=== PATIENT | female | born 1940 | race Caucasian/White ===

== ENCOUNTER → 2017-06-24 | Outpatient (CLI) | payer MEDICARE ==
--- NOTE | 2017-06-24 14:39 | MM ---
Reason for exam: clinical finding. History: Patient is postmenopausal, has history of other cancer at age 73, and is nulliparous. Family history of breast cancer in maternal aunt at age 92. Indicated problem(s): pain in both breasts. Physical Findings: Nurse did not find any significant physical abnormalities on exam. MG 3D Diag Mammo W/Cad NAOMI Bilateral CC and MLO view(s) were taken. ML, spot compression CC, and spot compression MLO view(s) were taken of the left breast. No prior studies available for comparison. The breast tissue is heterogeneously dense. This may lower the sensitivity of mammography. Chest port on the left. Grouped calcifications upper outer quadrant left breast middle to posterior depth. Patient not able to tolerate MAG views for which a biopsy is recommended. Additional subareolar focal asymmetry on the left breast which does not persist on additional views. These results were verbally communicated with the patient and result sheet given to the patient on 06/24/17. ASSESSMENT: Suspicious, BI-RAD 4 RECOMMENDATION: Surgical consultation and stereotactic core biopsy of the left breast. Called with mammographic findings and has scheduled an appointment for the patient for 06/28/17 at 1:[address] Sykes. PRELIMINARY REPORT CALLED AND FAXED TO DR. SYKES ON 06/24/17 /TMP.
== END | disposition home or self-care (01) ==
LOC: RADMAMWWP 12:40
PROVIDERS: ATTEND Internal Medicine Hematology & Oncology
DX: N64.4 Mastodynia (principal)
CPT/HCPCS: G0204; G0279

== ENCOUNTER → 2018-11-14 | Outpatient (CLI) | payer MEDICARE ==
--- NOTE | 2018-11-14 15:38 | XR ---
EXAMINATION TYPE: XR chest 2V DATE OF EXAM: 11/14/2018 COMPARISON: Prior chest x-ray 07/09/2016, 05/24/2015 HISTORY: Cough TECHNIQUE: Frontal and lateral views of the chest are obtained. FINDINGS: Port-A-Cath is present in left pectoral region, catheter courses to the level of the juncti on between the superior vena cava and azygos vein. There is again noted a valve replacement and on pr ior exam within the heart There is no focal air space opacity, pleural effusion, or pneumothorax seen . The cardiac silhouette size is stable. The wedge compression deformities at the lower thoracic s pine appear chronic. Eventration of the right hemidiaphragm is noted. Patient is rotated. Aorta is de nse. IMPRESSION: No acute cardiopulmonary process.
== END | disposition home or self-care (01) ==
LOC: RADXRYALE 14:30
PROVIDERS: ATTEND Internal Medicine Hematology & Oncology
DX: R05 Cough (principal)
CPT/HCPCS: 71046

== ENCOUNTER 2020-10-02 20:13 | Inpatient (IN) | payer MEDICARE ==
[2020-10-02] MEDS ORDERED: SODIUM CHLORIDE 0.9% 1,000 ML IV STA ×4 (20:29→23:39)
[2020-10-02] MEDS ORDERED: SODIUM CHLORIDE 0.9% 500 ML 500 ML IV STA ×2 (20:29→23:37)
[2020-10-02 20:30] LABS: Glucose,Whole Blood 169 mg/dL (75-99)
--- NOTE | 2020-10-02 20:30 | ED ---
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 Patient's mildly confused, EMS was called by family member who found patient patient brought to ER with no real significant complaints aside from weakness. Patient does admit to 130s. No pain (Rafael Menendez) - Related Data Home Medications Medication Instructions Recorded Confirmed Atorvastatin [Lipitor] 20 mg PO HS 05/07/16 10/02/20 Furosemide [Lasix] 40 mg PO DAILY 05/07/16 10/02/20 Levothyroxine Sodium [Synthroid] 50 mcg PO TUTH 05/07/16 10/02/20 Pantoprazole [Protonix] 40 mg PO HS 05/07/16 10/02/20 Potassium Chloride ER [K-Dur 20] 20 meq PO DAILY 05/07/16 10/02/20 Warfarin [Coumadin] 5 mg PO SUTUTHSA 05/07/16 10/02/20 Ferrous Sulfate [Feosol] 325 mg PO DAILY 10/02/20 10/02/20 Insulin Detemir [Levemir Flextouch] 10 units SQ HS 10/02/20 10/02/20 Levothyroxine Sodium [Synthroid] 75 mcg PO SUMOWEFRSA 10/02/20 10/02/20 Metoprolol Tartrate [Lopressor] 50 mg PO BID 10/02/20 10/02/20 Polyethylene Glycol 3350 [Miralax] 17 gm PO DAILY PRN 10/02/20 10/02/20 Warfarin [Coumadin] 2.5 mg PO MOWEFR 10/02/20 10/02/20 sitaGLIPtin [Januvia] 50 mg PO DAILY 10/02/20 10/02/20 traMADol HCL 50 mg PO Q6H PRN 10/02/20 10/02/20 Allergies Allergy/AdvReac Type Severity Reaction Status Date / Time No Known Allergies Allergy Verified 10/02/20 21:47 Review of Systems ROS Other: All systems not noted in ROS Statement are negative. <Dl Gonzalez - Last Filed: 10/03/20 02:03> ROS Other: All systems not noted in ROS Statement are negative. <Rafael Menendez - Last Filed: 10/03/20 15:39> ROS Statement: Those systems with pertinent positive or pertinent negative responses have been documented in the HPI. 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 Right rotator cuff. Aortic valve replacement Past Anesthesia/Blood Transfusion Reactions: No Reported Reaction Past Psychological History: No Psychological Hx Reported Past Alcohol Use History: Rare Past Drug Use History: None Reported <Rafael Menendez - Last Filed: 10/03/20 15:39> General Exam Limitations: no limitations General appearance: alert, anxious, in distress Head exam: Present: atraumatic, normocephalic, normal inspection Eye exam: Present: normal appearance, PERRL, EOMI. Absent: scleral icterus, conjunctival injection, periorbital swelling ENT exam: Present: normal exam, mucous membranes dry Neck exam: Present: normal inspection. Absent: tenderness, meningismus, lympha denopathy Respiratory exam: Present: normal lung sounds bilaterally. Absent: respiratory distress, wheezes, rales, rhonchi, stridor Cardiovascular Exam: Present: normal rhythm, bradycardia, normal heart sounds. Absent: systolic murmur, diastolic murmur, rubs, gallop, clicks GI/Abdominal exam: Present: soft, normal bowel sounds. Absent: distended, tenderness, guarding, rebound, rigid Extremities exam: Present: normal inspection, full ROM, normal capillary refill. Absent: tenderness, pedal edema, joint swelling, calf tenderness Back exam: Present: normal inspection Neurological exam: Present: alert, altered, CN II-XII intact Psychiatric exam: Present: normal affect, normal mood, depressed, flat affect Skin exam: Present: warm, dry, intact, normal color. Absent: rash <Rafael Menendez - Last Filed: 10/03/20 15:39> Course <Dl Gonzalez - Last Filed: 10/03/20 02:03> <Rafael Menendez - Last Filed: 10/03/20 15:39> Vital Signs 10/02/20 10/02/20 10/02/20 20:14 21:50 22:04 Temperature 97.3 F L Pulse Rate 57 L 195 H 78 Respiratory 18 16 16 Rate Blood Pressure 120/107 84/38 88/36 O2 Sat by Pulse 95 98 96 Oximetry 10/02/20 10/02/20 10/02/20 22:30 23:00 23:30 Temperature Pulse Rate 73 78 65 Respiratory 16 18 Rate Blood Pressure 67/34 78/33 77/33 O2 Sat by Pulse 98 98 98 Oximetry 10/03/20 10/03/20 10/03/20 00:00 00:29 00:45 Temperature 97.5 F L Pulse Rate 68 Respiratory 18 Rate Blood Pressure 84/37 96/46 O2 Sat by Pulse 97 Oximetry 10/03/20 10/03/20 10/03/20 01:01 01:35 02:00 Temperature Pulse Rate 69 65 Respiratory 18 16 Rate Blood Pressure 88/36 79/32 110/44 O2 Sat by Pulse 95 100 Oximetry 10/03/20 10/03/20 10/03/20 03:30 05:30 06:20 Temperature Pulse Rate 53 L 58 L 63 Respiratory 18 18 16 Rate Blood Pressure 115/36 108/37 101/41 O2 Sat by Pulse 99 99 99 Oximetry 10/03/20 10/03/20 10/03/20 06:38 06:45 07:00 Temperature Pulse Rate 60 Respiratory 16 Rate Blood Pressure 102/35 105/39 112/37 O2 Sat by Pulse 99 Oximetry 10/03/20 10/03/2010/03/20 08:00 12:00 12:42 Temperature 98 F Pulse Rate 70 51 L 60 Respiratory 18 18 18 Rate Blood Pressure 116/57 111/37 120/42 O2 Sat by Pulse 98 100 98 Oximetry 10/03/20 14:00 Temperature Pulse Rate 57 L Respiratory 18 Rate Blood Pressure 128/40 O2 Sat by Pulse 100 Oximetry - Reevaluation(s) Reevaluation #1: 10/03/20 02:04 This patient had been admitted by Dr. Villa. Nursing informed me that the patient continued with intermittent hypotension despite his initial fluid bolus, I did order pressor to begin using the central line that Dr. Menendez Had placed. I did page Dr. Gutierrez and ordered consult (Dl Gonzalez) Medical record is reviewed Patient is showing some improvement with fluid resuscitation but still having labile blood pressure Patient admitted ICU for severe illness, rhabdomyolysis acute renal failure dehydration and pneumonia Patient updated and results and questions answered (Rafael Menendez) Medical Decision Making - Lab Data Result diagrams: 10/02/20 22:15 10/02/20 22:15 <Dl Gonzalez - Last Filed: 10/03/20 02:03> - Lab Data Result diagrams: 10/02/20 22:15 10/02/20 22:15 - EKG Data -: EKG Interpreted by Me (EKG shows rate 82 junctional, QRS 92 QRc 483) - Radiology Data Radiology results: report reviewed (CT brain C spine negative for acute disaese, CXR positive for pneumonia), image reviewed <Rafael Menendez - Last Filed: 10/03/20 15:39> - Medical Decision Making 79 female to the ED w weakness and fall, patient found down and unable to get up, a she has multiple findings here in the ER, rhabdomyolysis can be required pneumonia labile blood pressure with weakness and dehydration. Patient can be admitted for IV antibiotics and resuscitation (Rafael Menendez) - Lab Data Lab Results 10/02/20 10/02/20 10/02/20 Range/Units 20:28 20:29 22:15 WBC 10.6 (3.8-10.6) k/uL RBC 4.08 (3.80-5.40) m/uL Hgb 10.6 L D (11.4-16.0) gm/dL Hct 34.7 (34.0-46.0) % MCV 84.9 D (80.0-100.0) fL MCH 26.0 (25.0-35.0) pg MCHC 30.6 L (31.0-37.0) g/dL RDW 21.7 H (11.5-15.5) % Plt Count 381 (150-450) k/uL MPV 7.2 Neutrophils % 95 % Lymphocytes % 2 % Monocytes % 2 % Eosinophils % 0 % Basophils % 0 % Neutrophils # 10.1 H (1.3-7.7) k/uL Lymphocytes # 0.2 L (1.0-4.8) k/uL Monocytes # 0.2 (0-1.0) k/uL Eosinophils # 0.0 (0-0.7) k/uL Basophils # 0.0 (0-0.2) k/uL Hypochromasia Marked Anisocytosis Moderate Microcytosis Slight PT 85.2 H (9.0-12.0) sec INR 8.2 H* (<1.2) Sodium (137-145) mmol/L Potassium (3.5-5.1) mmol/L Chloride (98-107) mmol/L Carbon Dioxide (22-30) mmol/L Anion Gap mmol/L BUN (7-17) mg/dL Creatinine (0.52-1.04) mg/dL Est GFR (CKD-EPI)AfAm (>60 ml/min/1.73 sqM) Est GFR (CKD-EPI)NonAf (>60 ml/min/1.73 sqM) Glucose (74-99) mg/dL POC Glucose (mg/dL) 169 H (75-99) mg/dL POC Glu Care Coordination Manager ID Lata Farr Lactic Ac Sepsis Rflx Plasma Lactic Acid Ajay (0.7-2.0) mmol/L Calcium (8.4-10.2) mg/dL Phosphorus (2.5-4.5) mg/dL Total Bilirubin (0.2-1.3) mg/dL AST (14-36) U/L ALT (4-34) U/L Alkaline Phosphatase (38-126) U/L Creatine Kinase (30-135) U/L Troponin I (0.000-0.034) ng/mL NT-Pro-B Natriuret Pep pg/mL Total Protein (6.3-8.2) g/dL Albumin (3.5-5.0) g/dL 10/02/20 10/02/20 10/02/20 Range/Units 22:15 22:15 22:15 WBC (3.8-10.6) k/uL RBC (3.80-5.40) m/uL Hgb (11.4-16.0) gm/dL Hct (34.0-46.0) % MCV (80.0-100.0) fL MCH (25.0-35.0) pg MCHC (31.0-37.0) g/dL RDW (11.5-15.5) % Plt Count (150-450) k/uL MPV Neutrophils % % Lymphocytes % % Monocytes % % Eosinophils % % Basophils % % Neutrophils # (1.3-7.7) k/uL Lymphocytes # (1.0-4.8) k/uL Monocytes # (0-1.0) k/uL Eosinophils # (0-0.7) k/uL Basophils # (0-0.2) k/uL Hypochromasia Anisocytosis Microcytosis PT (9.0-12.0) sec INR (<1.2) Sodium 133 L (137-145) mmol/L Potassium 5.8 H (3.5-5.1) mmol/L Chloride 99 (98-107) mmol/L Carbon Dioxide 18 L (22-30) mmol/L Anion Gap 16 mmol/L BUN 92 H (7-17) mg/dL Creatinine 4.48 H (0.52-1.04) mg/dL Est GFR (CKD-EPI)AfAm 10 (>60 ml/min/1.73 sqM) Est GFR (CKD-EPI)NonAf 9 (>60 ml/min/1.73 sqM) Glucose 148 H (74-99) mg/dL POC Glucose (mg/dL) (75-99) mg/dL POC Glu Care Coordination Manager ID Lactic Ac Sepsis Rflx Plasma Lactic Acid Ajay 4.7 H* (0.7-2.0) mmol/L Calcium 8.1 L (8.4-10.2) mg/dL Phosphorus 9.7 H* (2.5-4.5) mg/dL Total Bilirubin 1.0 (0.2-1.3) mg/dL AST 650 H (14-36) U/L ALT 196 H (4-34) U/L Alkaline Phosphatase 131 H (38-126) U/L Creatine Kinase 48025 H* (30-135) U/L Troponin I 0.074 H* (0.000-0.034) ng/mL NT-Pro-B Natriuret Pep pg/mL Total Protein 5.9 L (6.3-8.2) g/dL Albumin 2.9 L (3.5-5.0) g/dL 10/02/20 10/02/20 Range/Units 22:15 22:44 WBC (3.8-10.6) k/uL RBC (3.80-5.40) m/uL Hgb (11.4-16.0) gm/dL Hct (34.0-46.0) % MCV (80.0-100.0) fL MCH (25.0-35.0) pg MCHC (31.0-37.0) g/dL RDW (11.5-15.5) % Plt Count (150-450) k/uL MPV Neutrophils % % Lymphocytes % % Monocytes % % Eosinophils % % Basophils % % Neutrophils # (1.3-7.7) k/uL Lymphocytes # (1.0-4.8) k/uL Monocytes # (0-1.0) k/uL Eosinophils # (0-0.7) k/uL Basophils # (0-0.2) k/uL Hypochromasia Anisocytosis Microcytosis PT (9.0-12.0) sec INR (<1.2) Sodium (137-145) mmol/L Potassium (3.5-5.1) mmol/L Chloride (98-107) mmol/L Carbon Dioxide (22-30) mmol/L Anion Gap mmol/L BUN (7-17) mg/dL Creatinine (0.52-1.04) mg/dL Est GFR (CKD-EPI)AfAm (>60 ml/min/1.73 sqM) Est GFR (CKD-EPI)NonAf (>60 ml/min/1.73 sqM) Glucose (74-99) mg/dL POC Glucose (mg/dL) (75-99) mg/dL POC Glu Care Coordination Manager ID Lactic Ac Sepsis Rflx Y Plasma Lactic Acid Ajay (0.7-2.0) mmol/L Calcium (8.4-10.2) mg/dL Phosphorus (2.5-4.5) mg/dL Total Bilirubin (0.2-1.3) mg/dL AST (14-36) U/L ALT (4-34) U/L Alkaline Phosphatase (38-126) U/L Creatine Kinase (30-135) U/L Troponin I (0.000-0.034) ng/mL NT-Pro-B Natriuret Pep 7290 pg/mL Total Protein (6.3-8.2) g/dL Albumin (3.5-5.0) g/dL Critical Care Time Critical Care Time: Yes Total Critical Care Time: 31 <Rafael Menendez - Last Filed: 10/03/20 15:39> Disposition <Dl Gonzalez - Last Filed: 10/03/20 02:03> Is patient prescribed a controlled substance at d/c from ED?: No <Rafael Menendez - Last Filed: 10/03/20 15:39> Clinical Impression: Fall, Weak, Community acquired bacterial pneumonia, ARF (acute renal failure), Dehydration, Rhabdomyolysis Disposition: ADMITTED IP TO THIS HOSP Condition: Fair
--- NOTE | 2020-10-02 21:11 | XR ---
EXAMINATION TYPE: XR pelvis AP view DATE OF EXAM: 10/02/2020 COMPARISON: NONE HISTORY: Pain. Fall. TECHNIQUE: FINDINGS: Pelvic ring is intact. Proximal femurs and hip joints are intact. Hip joint spaces are fair ly normal. Sacroiliac joints are intact. There is some vascular calcification. IMPRESSION: No acute abnormality of the pelvis.
--- NOTE | 2020-10-02 21:20 | XR ---
EXAMINATION TYPE: XR chest 1V DATE OF EXAM: 10/02/2020 COMPARISON: 11/14/2018 HISTORY: Fall. Pain. TECHNIQUE: Single view FINDINGS: There is some infiltrate left lung base. There is left-sided central venous catheter with t ip in the superior vena cava. Right lung is clear. Heart size is normal. There are no hilar masses. IMPRESSION: There is some mild pneumonia left lung base that appears new compared to old exam. No hea rt failure seen.
[2020-10-02] MEDS ORDERED: DEXTROSE 50% SYRINGE 50 ML IVP STA (21:43)
[2020-10-02] MEDS ORDERED: CALCIUM CHLORIDE 100 MG/ML 10 ML SYRINGE IVP STA (21:43)
[2020-10-02] MEDS ORDERED: SODIUM BICARB 8.4% 50 ML SYR (1 MEQ/ML) IV STA (21:43)
[2020-10-02] MEDS ORDERED: INSULIN REGULAR 100 UNIT/ML VIAL IV ONE (21:43)
[2020-10-02 22:26] LABS: Anisocytosis Moderate; Basophils % (A) 0 %; Eosinophils % (A) 0 %; HCT 34.7 % (34.0-46.0); Hypochromasia Marked; Lymphocytes # (A) 0.2 k/uL (1.0-4.8); Lymphocytes % (A) 2 %; MCHC 30.6 g/dL (31.0-37.0); Mean Platelet Volume 7.2; Microcytosis Slight; Monocytes # (A) 0.2 k/uL (0-1.0); Monocytes % (A) 2 %; Neutrophils # (A) 10.1 k/uL (1.3-7.7); Neutrophils % (A) 95 %; Platelet Count 381 k/uL (150-450); RBC 4.08 m/uL (3.80-5.40); RDW 21.7 % (11.5-15.5); WBC 10.6 k/uL (3.8-10.6)
[2020-10-02 22:29] LABS: HGB 10.6 gm/dL (11.4-16.0); MCV 84.9 fL (80.0-100.0)
--- NOTE | 2020-10-02 23:07 | CT ---
EXAMINATION TYPE: CT brain ines bull[place] DATE OF EXAM: 10/02/2020 COMPARISON: None HISTORY: fall Headache. Neck pain CT DLP: 1389.10 mGycm Automated exposure control for dose reduction was used. There is cerebral atrophy. There is hypodensity in the periventricular white matter. There is no mass effect nor midline shift. There is no sign of intracranial hemorrhage. There is mild enlargement of the ventricles. Calvarium is intact. There is hyperostosis frontalis. There is some cortical hypodens ity in the inferior left frontal lobe. There is a few millimeter anterior subluxation of C4 in relation to C5. There is multilevel cervical facet arthropathy in the mid cervical spine. There is narrowing of C3-4 and C6-7 disc spaces with spu r formation. There is some widening of the facet joint space at C4-5 on the left side with erosion. IMPRESSION: Cerebral atrophy and chronic small vessel ischemia. No acute intracranial abnormality. 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 Spondylotic changes in the cervical spine. No fracture seen. There is a mild c 4 5 subluxation deform ity that is probably chronic.
[2020-10-02 23:09] LABS: Prothrombin Time 85.2 sec (9.0-12.0)
[2020-10-02 23:11] LABS: INR 8.2 (<1.2)
[2020-10-02 23:20] LABS: Albumin 2.9 g/dL (3.5-5.0); Calcium 8.1 mg/dL (8.4-10.2); Potassium 5.8 mmol/L (3.5-5.1); Total Protein 5.9 g/dL (6.3-8.2)
[2020-10-02] MEDS ORDERED: NITROGLYCERIN SL TABS 0.4 MG TAB SUBLINGUAL PRN (23:23)
[2020-10-02] MEDS ORDERED: ASPIRIN 81 MG PO STA (23:23)
[2020-10-02] MEDS ORDERED: PNEUMONIA PROTOCOL UTILIZED 1 EACH MISC PO PRN (23:35)
[2020-10-02] MEDS ORDERED: AZITHROMYCIN 500 MG in SODIUM CHLORIDE 0.9% 250 ML IVPB STA (23:35)
[2020-10-02] MEDS ORDERED: IPRATROPIUM-ALBUTEROL 3 ML NEB INHALATION PRN (23:35)
[2020-10-02] MEDS ORDERED: HYDROCORTISONE SUCCINATE 100 MG/2 ML VIAL IV STA (23:41)
[2020-10-03 00:29] LABS: Phosphorus 9.7 mg/dL (2.5-4.5)
[2020-10-03 00:30] LABS: Glucose,Whole Blood 134 mg/dL (75-99)
[2020-10-03] MEDS: SODIUM CHLORIDE 0.9% 1,000 ML IV SCH ×7 (00:41→20:02)
[2020-10-03] MEDS ORDERED: NOREPINEPHRINE 8 MG in SODIUM CHLORIDE 0.9% 250 ML IV ONE (01:30)
[2020-10-03 02:32] LABS: Appearance,Urine Clear (Clear); Bacteria,Urine Rare /hpf; Bilirubin,Urine Negative (Negative); Blood,Urine Large (Negative); Color,Urine Yellow; Glucose,Urine (UA) Negative (Negative); Ketones,Urine Negative (Negative); Leukocyte Esterase,Urine Negative (Negative); Nitrite,Urine Negative (Negative); PH, Urine 5.5 (5.0-8.0); Protein,Urine Trace (Negative); Specific Gravity,Urine 1.013 (1.001-1.035); Urobilinogen,Urine <2.0 mg/dL (<2.0); WBC,Urine 1 /hpf (0-5)
[2020-10-03 06:39] LABS: Cholesterol 122 mg/dL (<200); HDL Cholesterol 47 mg/dL (40-60); LDL Cholesterol,Calculated 57 mg/dL (0-99); Triglycerides 89 mg/dL (<150)
--- NOTE | 2020-10-03 07:28 | XR ---
EXAMINATION TYPE: XR chest 1V DATE OF EXAM: 10/03/2020 HISTORY: Shortness of breath. COMPARISON: 10/02/2020 TECHNIQUE: Single view of the chest is submitted. FINDINGS: Demonstrated are scattered senescent parenchymal change. Left lower lobe infiltrate is noted and has progressed in the interval. The heart is stable. Hilar and mediastinal structures are within normal limits. Degenerative changes are seen of the dorsal spine. IMPRESSION: 1. Left lower lobe infiltrate is noted and has progressed in the interval.
[2020-10-03] MEDS: METOPROLOL TARTRATE 25 MG TAB PO SCH ×2 (13:51→20:01)
[2020-10-03 15:20] LABS: Prothrombin Time 87.3 sec (9.0-12.0)
[2020-10-03 15:23] LABS: INR 8.4 (<1.2)
[2020-10-03] MEDS: ASPIRIN 325 MG TAB PO SCH (16:41)
[2020-10-03] MEDS: ATORVASTATIN 80 MG TAB PO SCH (16:42)
--- NOTE | 2020-10-03 17:02 | P.CNPUL ---
History of Present Illness Consult date: 10/03/20 Requesting physician: Jignesh Arias Reason for consult: other (Acute rhabdomyolysis, acute on chronic kidney injury) Chief complaint: Falling weak, found on the ground History of present illness: This is an 79-year-old white female, she is a very poor historian, patient had history of multiple medical problems including duodenal ulcer, and recent history of upper GI bleeding, patient was supposedly admitted to the hospital in [facility], she was in the hospital supposedly for 3 weeks. She was eventually discharged, and apparently at the time she had a very low hemoglobin, required significant amount of blood transfusion. Yesterday, the patient apparently fell at home, and she was found on the ground laying for the last 2 days. Patient was confused, EMS was called by family member who found the patient on the floor, patient was brought in complaining mostly of weakness, and some vague aches and pains. Workup included a CBC which showed a hemoglobin of 10.6. INR was noted to be elevated at 8.2, electrolytes are abnormal with sodium of 133 potassium of 5.8, BUN is 92 creatinine is 4.48, and her baseline creatinine is normally around 2. Lactic acid was noted to be at 4.7, patient was given fluid boluses, and follow-up lactic acid was 1.8. Liver enzymes were also noted to be elevated with AST of 650 ALT of 196. And his CPK was significantly elevated at 13,769. Troponin was also elevated at 0.074, BNP level 7290. Patient was able to maintain O2 saturations in the 100% range even on 2 L nasal cannula. Her blood pressure was initially low on admission as low as 67/54, patient received fluid boluses, and after 3 L of fluid boluses, remained at bit low, patient was started on norepinephrine drip. When I saw her in the ER, her norepinephrine drip was at 0.072 mcg/kg/m. And her blood pressure at the time was 108/40. Review of Systems Patient is an extremely poor historian, could not get much information except for the fact that she was in [facility] in the hospital were in she was diagnosed with the was an ulcer, she had significant anemia and required blood transfusion and treatment for her duodenal ulcer. She was inpatient for 3 weeks supposedly. 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 Right rotator cuff. Aortic valve replacement Past Anesthesia/Blood Transfusion Reactions: No Reported Reaction Past Psychological History: No Psychological Hx Reported Past Alcohol Use History: Rare Past Drug Use History: None Reported Medications and Allergies Home Medications Medication Instructions Recorded Confirmed Type Atorvastatin [Lipitor] 20 mg PO HS 05/07/16 10/02/20 History Furosemide [Lasix] 40 mg PO DAILY 05/07/16 10/02/20 History Levothyroxine Sodium [Synthroid] 50 mcg PO TUTH 05/07/16 10/02/20 History Pantoprazole [Protonix] 40 mg PO HS 05/07/16 10/02/20 History Potassium Chloride ER [K-Dur 20] 20 meq PO DAILY 05/07/16 10/02/20 History Warfarin [Coumadin] 5 mg PO SUTUTHSA 05/07/16 10/02/20 History Ferrous Sulfate [Feosol] 325 mg PO DAILY 10/02/20 10/02/20 History Insulin Detemir [Levemir Flextouch] 10 units SQ HS 10/02/20 10/02/20 History Levothyroxine Sodium [Synthroid] 75 mcg PO SUMOWEFRSA 10/02/20 10/02/20 History Metoprolol Tartrate [Lopressor] 50 mg PO BID 10/02/20 10/02/20 History Polyethylene Glycol 3350 [Miralax] 17 gm PO DAILY PRN 10/02/20 10/02/20 History Warfarin [Coumadin] 2.5 mg PO MOWEFR 10/02/20 10/02/20 History sitaGLIPtin [Januvia] 50 mg PO DAILY 10/02/20 10/02/20 History traMADol HCL 50 mg PO Q6H PRN 10/02/20 10/02/20 History Allergies Allergy/AdvReac Type Severity Reaction Status Date / Time No Known Allergies Allergy Verified 10/02/20 21:47 Physical Exam Vitals: Vital Signs Temp Pulse Resp BP Pulse Ox 10/03/20 16:00 77 18 114/41 98 10/03/20 15:39 76 20 113/37 92 L 10/03/20 14:00 57 L 18 128/40 100 10/03/20 12:42 60 18 120/42 98 10/03/20 12:00 51 L 18 111/37 100 10/03/20 11:00 60 18 108/40 100 10/03/20 08:00 98 F 70 18 116/57 98 10/03/20 07:00 60 16 112/37 99 10/03/20 06:45 105/39 10/03/20 06:38 102/35 10/03/20 06:20 63 16 101/41 99 10/03/20 05:30 58 L 18 108/37 99 10/03/20 03:30 53 L 18 115/36 99 10/03/20 02:00 65 16 110/44 100 10/03/20 01:35 69 18 79/32 95 10/03/20 01:01 88/36 10/03/20 00:45 96/46 10/03/20 00:29 97.5 F L 10/03/20 00:00 68 18 84/37 97 10/02/20 23:30 65 18 77/33 98 10/02/20 23:00 78 78/33 98 10/02/20 22:30 73 16 67/34 98 10/02/20 22:04 78 16 88/36 96 10/02/20 21:50 195 H 16 84/38 98 10/02/20 20:14 97.3 F L 57 L 18 120/107 95 Intake and Output 10/03/20 10/03/20 10/03/20 06:59 14:59 22:59 Intake Total 43.394 Balance 43.394 Intake: Intake, IV Titration 43.394 Amount Norepinephrine 8 mg In 43.394 Sodium Chloride 0.9% 250 ml @ 0.05 MCG/KG/MIN 8. 426 mls/hr IV .Q24H ONE Rx#:[id number] Physical Exam: Revealed 79-year-old female, obese, in no distress. Head: Atraumatic, normocephalic. HEENT:[Neck is supple.] [No neck masses.] [No thyromegaly.] [No JVD.] Chest: [Symmetrical chest expansion, minimal crackles at the bases especially at the left base. Cardiac Exam: Normal S1 and S2, no S3 gallop. 2/6 systolic murmur throughout the precordium. Abdomen: [Obese, Soft, nontender, no megaly, no rebound, no guarding, normal bowel sounds.] Extremities: [No clubbing, no edema, no cyanosis.] Right lower extremity is wrapped with William bandage, and immobilized. Neurological Exam: [No focal neurologic deficit.] However the patient is dated to be a bit confused. And could not get adequate history. Skin: No rashes. Psychiatric: Normal mood, flat affect, Results - Laboratory Findings CBC and BMP: 10/02/20 22:15 10/02/20 22:15 PT/INR, D-dimer PT 87.3 sec (9.0-12.0) H 10/03/20 14:35 INR 8.4 (<1.2) H* 10/03/20 14:35 Abnormal lab findings: Abnormal Labs 10/02/20 10/02/20 10/02/20 20:28 20:29 22:15 Hgb 10.6 L D MCHC 30.6 L RDW 21.7 H Neutrophils # 10.1 H Lymphocytes # 0.2 L PT 85.2 H INR 8.2 H* Sodium Potassium Carbon Dioxide BUN Creatinine Glucose POC Glucose (mg/dL) 169 H Plasma Lactic Acid Ajay Calcium Phosphorus AST ALT Alkaline Phosphatase Creatine Kinase Troponin I Total Protein Albumin Urine Protein Urine Blood Urine Bacteria 10/02/20 10/02/20 10/02/20 22:15 22:15 22:15 Hgb MCHC RDW Neutrophils # Lymphocytes # PT INR Sodium 133 L Potassium 5.8 H Carbon Dioxide 18 L BUN 92 H Creatinine 4.48 H Glucose 148 H POC Glucose (mg/dL) Plasma Lactic Acid Ajay 4.7 H* Calcium 8.1 L Phosphorus 9.7 H* AST 650 H ALT 196 H Alkaline Phosphatase 131 H Creatine Kinase 77579 H* Troponin I 0.074 H* Total Protein 5.9 L Albumin 2.9 L Urine Protein Urine Blood Urine Bacteria 10/03/20 10/03/20 10/03/20 00:23 00:37 02:20 Hgb MCHC RDW Neutrophils # Lymphocytes # PT INR Sodium Potassium Carbon Dioxide BUN Creatinine Glucose POC Glucose (mg/dL) 134 H Plasma Lactic Acid Ajay Calcium Phosphorus AST ALT Alkaline Phosphatase Creatine Kinase Troponin I 0.068 H* Total Protein Albumin Urine Protein Trace H Urine Blood Large H Urine Bacteria Rare H 10/03/20 10/03/20 05:05 14:35 Hgb MCHC RDW Neutrophils # Lymphocytes # PT 87.3 H INR 8.4 H* Sodium Potassium Carbon Dioxide BUN Creatinine Glucose POC Glucose (mg/dL) Plasma Lactic Acid Ajay Calcium Phosphorus AST ALT Alkaline Phosphatase Creatine Kinase Troponin I 0.070 H* Total Protein Albumin Urine Protein Urine Blood Urine Bacteria - Diagnostic Findings Chest x-ray: image reviewed (Chest x-ray is suggestive of left lower lobe pneumonia.) Assessment and Plan Assessment: Impression: Acute rhabdomyolysis secondary to fall. With significantly elevated CPK. Acute on chronic kidney injury Acute left lower lobe pneumonia is strongly suspected Sepsis and septic shock also suspected. Likely source would be pneumonia/left lower lobe. Hypotension secondary to sepsis and septic shock. History of aortic valve replacement. Coumadin related coagulopathy. Recent history of duodenal ulcer and GI bleeding Recommendation: Continue to hold Coumadin since the INR is significantly elevated. Continue IV fluids. Antibiotics for healthcare associated pneumonia. Renal consultation for her acute on chronic kidney injury. Protonix for GI prophylaxis, patient had a recent history of duodenal ulcer. Cardiology to evaluate regarding the issue of her aortic valve and Coumadin. Will accept the patient to be admitted to the ICU. Prognosis is extremely poor and guarded. We'll continue to follow. Time with Patient: Greater than 30
--- NOTE | 2020-10-03 20:23 | P.HPIM ---
History of Present Illness This is a pleasant 79 years old female with past medical history of hypertension, chronic kidney disease, she is to follow up with Dr. Pedersen but she stopped earlier this year because of insurance problems. History of heart surgery at January or March of this year at [facility] [place] [facility] [place] valve. Also she has history of right leg fracture at the ankle, she has right leg cast placed at the hospital in [place] She presents because she fell at home, she was in her bedroom but she does not know how she fell but she confirms she did not lose consciousness, Patient states also she has coughing with yellow phlegm but this is chronic as per patient, no chest pain. No nausea vomiting or diarrhea, no bleeding. She is not on oxygen at home. Vitas looks stable, patient is saturating 98% on 2 L oxygen via nasal cannula CBC showing WBC 10.6 K, hemoglobin 10.6, platelet normal at 381K. INR is 8.4, sodium 133, potassium 5.8, creatinine 4.4 with baseline 2.1-2.0 [place] [address] on admission, liver enzymes slightly elevated with AST 650 and ALT 196, total protein is 1.0. ProBNP 7290 Chest x-ray showing progressive left lower lobe pneumonia. 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 And of the neck showing spondylitic changes in the cervical spine. No fracture. There is mild C4 5 subluxation deformity that is probably chronic Pelvic x-ray: No fracture In the emergency room patient received 2.5 L, cocktail for hyperkalemia and closing calcium chloride, insulin/dextrose, sodium bicarb. Also received aspirin 324 mg Review of Systems CONSTITUTIONAL: No fever, no malaise, no fatigue. HEENT: No recent visual problems or hearing problems. Denied any sore throat. CARDIOVASCULAR: No orthopnea, PND, no palpitations, no syncope. PULMONARY: No shortness of breath, no cough, no hemoptysis. GASTROINTESTINAL: No diarrhea, no nausea, no vomiting, no abdominal pain. Normoactive bowel sounds. NEUROLOGICAL: No headaches, no weakness, no numbness. HEMATOLOGICAL: Denies any bleeding or petechiae. GENITOURINARY: Denies any burning micturition, frequency, or urgency. MUSCULOSKELETAL/RHEUMATOLOGICAL: Denies any joint pain, swelling, or any muscle pain. ENDOCRINE: Denies any polyuria or polydipsia. 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 Right rotator cuff. Aortic valve replacement Past Anesthesia/Blood Transfusion Reactions: No Reported Reaction Past Psychological History: No Psychological Hx Reported Past Alcohol Use History: Rare Past Drug Use History: None Reported Medications and Allergies Home Medications Medication Instructions Recorded Confirmed Type Atorvastatin [Lipitor] 20 mg PO HS 05/07/16 10/02/20 History Furosemide [Lasix] 40 mg PO DAILY 05/07/16 10/02/20 History Levothyroxine Sodium [Synthroid] 50 mcg PO TUTH 05/07/16 10/02/20 History Pantoprazole [Protonix] 40 mg PO HS 05/07/16 10/02/20 History Potassium Chloride ER [K-Dur 20] 20 meq PO DAILY 05/07/16 10/02/20 History Warfarin [Coumadin] 5 mg PO SUTUTHSA 05/07/16 10/02/20 History Ferrous Sulfate [Feosol] 325 mg PO DAILY 10/02/20 10/02/20 History Insulin Detemir [Levemir Flextouch] 10 units SQ HS 10/02/20 10/02/20 History Levothyroxine Sodium [Synthroid] 75 mcg PO SUMOWEFRSA 10/02/20 10/02/20 History Metoprolol Tartrate [Lopressor] 50 mg PO BID 10/02/20 10/02/20 History Polyethylene Glycol 3350 [Miralax] 17 gm PO DAILY PRN 10/02/20 10/02/20 History Warfarin [Coumadin] 2.5 mg PO MOWEFR 10/02/20 10/02/20 History sitaGLIPtin [Januvia] 50 mg PO DAILY 10/02/20 10/02/20 History traMADol HCL 50 mg PO Q6H PRN 10/02/20 10/02/20 History Allergies Allergy/AdvReac Type Severity Reaction Status Date / Time No Known Allergies Allergy Verified 11/25/20 21:47 Physical Exam Vitals: Vital Signs Temp Pulse Resp BP Pulse Ox 10/03/20 08:00 98 F 70 18 116/57 98 10/03/20 07:00 60 16 112/37 99 10/03/20 06:45 105/39 10/03/20 06:38 102/35 10/03/20 06:20 63 16 101/41 99 10/03/20 05:30 58 L 18 108/37 99 10/03/20 03:30 53 L 18 115/36 99 10/03/20 02:00 65 16 110/44 100 10/03/20 01:35 69 18 79/32 95 10/03/20 01:01 88/36 10/03/20 00:45 96/46 10/03/20 00:29 97.5 F L 10/03/20 00:00 68 18 84/37 97 10/02/20 23:30 65 18 77/33 98 10/02/20 23:00 78 78/33 98 10/02/20 22:30 73 16 67/34 98 10/02/20 22:04 78 16 88/36 96 10/02/20 21:50 195 H 16 84/38 98 10/02/20 20:14 97.3 F L 57 L 18 120/107 95 Intake and Output 10/02/20 10/03/20 10/03/20 22:59 06:59 14:59 Intake Total 43.394 Output Total 1800 Balance -1800 43.394 Intake: Intake, IV Titration 43.394 Amount Norepinephrine 8 mg In 43.394 Sodium Chloride 0.9% 250 ml @ 0.05 MCG/KG/MIN 8. 426 mls/hr IV .Q24H ONE Rx#:[id number] Output: Urine 1800 Uretheral ([place]) 1800 Other: Weight 87.09 kg GENERAL: The patient is alert and oriented x3, not in any acute distress. Well developed, well nourished. HEENT: Pupils are round and equally reacting to light. EOMI. No scleral icterus. No conjunctival pallor. Normocephalic, atraumatic. No pharyngeal erythema. No thyromegaly. CARDIOVASCULAR: S1 and S2 present. No murmurs, rubs, or gallops. PULMONARY: Chest is clear to auscultation, no wheezing or crackles. ABDOMEN: Soft, nontender, nondistended, normoactive bowel sounds. No palpable organomegaly. MUSCULOSKELETAL: No joint swelling or deformity. -EXTREMITIES: No cyanosis, clubbing, or pedal edema. Right leg and cast NEUROLOGICAL: Gross neurological examination did not reveal any focal deficits. SKIN: No rashes. No petechiae Results CBC & Chem 7: 10/02/20 22:15 10/02/20 22:15 Labs: Abnormal Lab Results - Last 24 Hours (Table) 10/02/20 10/02/20 10/02/20 Range/Units 20:28 20:29 22:15 Hgb 10.6 L D (11.4-16.0) gm/dL MCHC 30.6 L (31.0-37.0) g/dL RDW 21.7 H (11.5-15.5) % Neutrophils # 10.1 H (1.3-7.7) k/uL Lymphocytes # 0.2 L (1.0-4.8) k/uL PT 85.2 H (9.0-12.0) sec INR 8.2 H* (<1.2) Sodium (137-145) mmol/L Potassium (3.5-5.1) mmol/L Carbon Dioxide (22-30) mmol/L BUN (7-17) mg/dL Creatinine (0.52-1.04) mg/dL Glucose (74-99) mg/dL POC Glucose (mg/dL) 169 H (75-99) mg/dL Plasma Lactic Acid Ajay (0.7-2.0) mmol/L Calcium (8.4-10.2) mg/dL Phosphorus (2.5-4.5) mg/dL AST (14-36) U/L ALT (4-34) U/L Alkaline Phosphatase (38-126) U/L Creatine Kinase (30-135) U/L Troponin I (0.000-0.034) ng/mL Total Protein (6.3-8.2) g/dL Albumin (3.5-5.0) g/dL Urine Protein (Negative) Urine Blood (Negative) Urine Bacteria (None) /hpf 10/02/20 10/02/20 10/02/20 Range/Units 22:15 22:15 22:15 Hgb (11.4-16.0) gm/dL MCHC (31.0-37.0) g/dL RDW (11.5-15.5) % Neutrophils # (1.3-7.7) k/uL Lymphocytes # (1.0-4.8) k/uL PT (9.0-12.0) sec INR (<1.2) Sodium 133 L (137-145) mmol/L Potassium 5.8 H (3.5-5.1) mmol/L Carbon Dioxide 18 L (22-30) mmol/L BUN 92 H (7-17) mg/dL Creatinine 4.48 H (0.52-1.04) mg/dL Glucose 148 H (74-99) mg/dL POC Glucose (mg/dL) (75-99) mg/dL Plasma Lactic Acid Ajay 4.7 H* (0.7-2.0) mmol/L Calcium 8.1 L (8.4-10.2) mg/dL Phosphorus 9.7 H* (2.5-4.5) mg/dL AST 650 H (14-36) U/L ALT 196 H (4-34) U/L Alkaline Phosphatase 131 H (38-126) U/L Creatine Kinase 84013 H* (30-135) U/L Troponin I 0.074 H* (0.000-0.034) ng/mL Total Protein 5.9 L (6.3-8.2) g/dL Albumin 2.9 L (3.5-5.0) g/dL Urine Protein (Negative) Urine Blood (Negative) Urine Bacteria (None) /hpf 10/03/20 10/03/20 10/03/20 Range/Units 00:23 00:37 02:20 Hgb (11.4-16.0) gm/dL MCHC (31.0-37.0) g/dL RDW (11.5-15.5) % Neutrophils # (1.3-7.7) k/uL Lymphocytes # (1.0-4.8) k/uL PT (9.0-12.0) sec INR (<1.2) Sodium (137-145) mmol/L Potassium (3.5-5.1) mmol/L Carbon Dioxide (22-30) mmol/L BUN (7-17) mg/dL Creatinine (0.52-1.04) mg/dL Glucose (74-99) mg/dL POC Glucose (mg/dL) 134 H (75-99) mg/dL Plasma Lactic Acid Ajay (0.7-2.0) mmol/L Calcium (8.4-10.2) mg/dL Phosphorus (2.5-4.5) mg/dL AST (14-36) U/L ALT (4-34) U/L Alkaline Phosphatase (38-126) U/L Creatine Kinase (30-135) U/L Troponin I 0.068 H* (0.000-0.034) ng/mL Total Protein (6.3-8.2) g/dL Albumin (3.5-5.0) g/dL Urine Protein Trace H (Negative) Urine Blood Large H (Negative) Urine Bacteria Rare H (None) /hpf 10/03/20 Range/Units 05:05 Hgb (11.4-16.0) gm/dL MCHC (31.0-37.0) g/dL RDW (11.5-15.5) % Neutrophils # (1.3-7.7) k/uL Lymphocytes # (1.0-4.8) k/uL PT (9.0-12.0) sec INR (<1.2) Sodium (137-145) mmol/L Potassium (3.5-5.1) mmol/L Carbon Dioxide (22-30) mmol/L BUN (7-17) mg/dL Creatinine (0.52-1.04) mg/dL Glucose (74-99) mg/dL POC Glucose (mg/dL) (75-99) mg/dL Plasma Lactic Acid Ajay (0.7-2.0) mmol/L Calcium (8.4-10.2) mg/dL Phosphorus (2.5-4.5) mg/dL AST (14-36) U/L ALT (4-34) U/L Alkaline Phosphatase (38-126) U/L Creatine Kinase (30-135) U/L Troponin I 0.070 H* (0.000-0.034) ng/mL Total Protein (6.3-8.2) g/dL Albumin (3.5-5.0) g/dL Urine Protein (Negative) Urine Blood (Negative) Urine Bacteria (None) /hpf Assessment and Plan Assessment: Assessment and plan -rhabdomyolyis, with elavated cpk, continue with IV fluid -Pssible non-STEMI: Continue with aspirin, heparin drip, cardiology consult -Possible left lower lobe pneumonia, continue Zithromax andceftriaxone, pulmonary consult -Fall without losing consciousness, continue with neurocheck, physical therapy and patient off therapy -coagulopathy secondary to Coumadin, , Monitor hemoglobin and transfuse if hemoglobin less than 8 -Acute kidney injury: Continue with gentle hydration, Consult nephrology -History of aortic valve replacement on Coumadin -chronic kidney disease -Recent history of right leg fracture, on cast -Hypertension
[2020-10-04] MEDS: AZITHROMYCIN 500 MG in SODIUM CHLORIDE 0.9% 250 ML IVPB SCH ×2 (00:30→23:46)
[2020-10-04 01:53] LABS: Glucose,Whole Blood 283 mg/dL (75-99)
[2020-10-04 04:14] LABS: Anisocytosis Moderate; HCT 27.8 % (34.0-46.0); Hypochromasia Marked; MCH 26.4 pg (25.0-35.0); MCHC 30.4 g/dL (31.0-37.0); MCV 86.7 fL (80.0-100.0); Mean Platelet Volume 7.1; Microcytosis Slight; Platelet Count 301 k/uL (150-450); RBC 3.21 m/uL (3.80-5.40); WBC 8.8 k/uL (3.8-10.6)
[2020-10-04 04:24] LABS: HGB 8.5 gm/dL (11.4-16.0)
[2020-10-04 04:26] LABS: Albumin 2.1 g/dL (3.5-5.0); Bilirubin, Delta 0.2 mg/dL (0.0-0.2); Bilirubin,Unconjugated 0.1 mg/dL (0.0-1.1); Calcium 6.7 mg/dL (8.4-10.2); Magnesium 2.5 mg/dL (1.6-2.3); Potassium 4.5 mmol/L (3.5-5.1); Total Bilirubin 0.3 mg/dL (0.2-1.3); Total Protein 4.6 g/dL (6.3-8.2)
[2020-10-04 04:52] LABS: Prothrombin Time 68.8 sec (9.0-12.0)
[2020-10-04 05:04] LABS: INR 6.7 (<1.2)
[2020-10-04] MEDS: SODIUM CHLORIDE 0.9% 1,000 ML IV SCH ×5 (05:35→20:51)
[2020-10-04] MEDS: INSULIN ASPART (NovoLOG) 100 UNIT/ML VIAL SQ SCH ×4 (06:49→20:50)
[2020-10-04] MEDS: NOREPINEPHRINE 8 MG in SODIUM CHLORIDE 0.9% 250 ML IV SCH (07:05)
[2020-10-04] MEDS: METOPROLOL TARTRATE 25 MG TAB PO SCH ×2 (08:07→20:51)
[2020-10-04] MEDS: ATORVASTATIN 80 MG TAB PO SCH (09:07)
[2020-10-04] MEDS: PANTOPRAZOLE 40 MG/10 ML VIAL IVP SCH (09:07)
[2020-10-04] MEDS: ASPIRIN 325 MG TAB PO SCH (09:07)
--- NOTE | 2020-10-04 09:52 | P.CNOR ---
History of Present Illness - [facility] Consult date: 10/04/20 Consult reason: fracture History of present illness: Patient is an 79-year-old female who was seen and examined today in the ICU unit at [facility]. Patient was brought to the hospital after being found on the floor for 2 days in her home, she was found by family member. After arrival to [facility], her labs demonstrated significant abnormalities, she was admitted to the corporate relations director for further medical management and workup. Orthopedic team was consulted due to a possible right ankle fracture. Patient was evaluated by myself today in the ICU unit. She is able to provide a adequate history, she does have a difficult time providing the exact time of events and the medical provider she's been evaluated by. From what I can gather, she had multiple falls over a week. About 3-4 weeks ago, this prompted her to report to [facility] in [facility]. They had diagnosed her with a ankle fracture at that time and place turned and a basic splint. I imagine she was recommended to follow-up with an orthopedic doctor, this did not happen. She ended up staying in the hospital for quite some time due to her severe anemia which required multiple blood transfusions. After being discharged from the hospital, she was in a rehab facility she states for about a week. Since being home, she's noted severe weakness, which likely resulted in her most recent fall and current admission. Currently she is being worked multiple medical problems, this including pneumonia and sepsis. The splint that was on the right lower extremity was removed. Currently, she denies any pain involving the left lower extremity, bilateral upper extremities, new onset cervical, thoracic or lumbar pain. She has minimal right ankle pain. She states that she hasn't been weightbearing on the right ankle since the initial fall and being in the hospital. Prior to her most recent falls, she does ambulate with the assistance of a walker, she has been using this more often. She does still drive. She lives alone. She has multiple cousins that live in the area to check in on her. Denies any previous surgery involving the right lower extremity. 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 Right rotator cuff. Aortic valve replacement Past Anesthesia/Blood Transfusion Reactions: No Reported Reaction Past Psychological History: No Psychological Hx Reported Past Alcohol Use History: Rare Past Drug Use History: None Reported Medications and Allergies Home Medications Medication Instructions Recorded Confirmed Type Atorvastatin [Lipitor] 20 mg PO HS 05/07/16 10/02/20 History Furosemide [Lasix] 40 mg PO DAILY 05/07/16 10/02/20 History Levothyroxine Sodium [Synthroid] 50 mcg PO TUTH 05/07/16 10/02/20 History Pantoprazole [Protonix] 40 mg PO HS 05/07/16 10/02/20 History Potassium Chloride ER [K-Dur 20] 20 meq PO DAILY 05/07/16 10/02/20 History Warfarin [Coumadin] 5 mg PO SUTUTHSA 05/07/16 10/02/20 History Ferrous Sulfate [Feosol] 325 mg PO DAILY 10/02/20 10/02/20 History Insulin Detemir [Levemir Flextouch] 10 units SQ HS 10/02/20 10/02/20 History Levothyroxine Sodium [Synthroid] 75 mcg PO SUMOWEFRSA 10/02/20 10/02/20 History Metoprolol Tartrate [Lopressor] 50 mg PO BID 10/02/20 10/02/20 History Polyethylene Glycol 3350 [Miralax] 17 gm PO DAILY PRN 10/02/20 10/02/20 History Warfarin [Coumadin] 2.5 mg PO MOWEFR 10/02/20 10/02/20 History sitaGLIPtin [Januvia] 50 mg PO DAILY 10/02/20 10/02/20 History traMADol HCL 50 mg PO Q6H PRN 10/02/20 10/02/20 History Allergies Allergy/AdvReac Type Severity Reaction Status Date / Time No Known Allergies Allergy Verified 10/02/20 21:47 Physical Examination General orthopedic exam: Right lower extremity: No obvious open lesions or sores are visualized throughout the extremity. There is some bruising noted on the lateral malleolus of the right ankle, no significant swelling appreciated. She's mildly tender with palpation over the lateral malleolus. She is nontender with palpation over the medial malleolus, midfoot and forefoot. She is nontender with palpation throughout the mid shaft and proximal tibia or fibula. No significant tenderness with palpation around the knee is appreciated. Logroll maneuver of the right lower extremity reproduces no groin pain. Calf is soft, no tenderness with palpation Plantar flexion, dorsiflexion, EHL, FHL are intact. Dorsalis pedis pulses 2+, her sensory exam to light touch throughout the extremity is intact. Strength testing was not assessed due to her overall poor medical quality at this time Left lower extremity: No generalized tenderness with palpation throughout the extremity, she does have some chronic skin changes of the lower leg and pitting edema. Sensory exam to light touch throughout the extremity is intact. Logroll maneuver reproduces no pain. Calf is soft, no tenderness with palpation. Plantar flexion, dorsiflexion, EHL, FHL are intact. Dorsalis pedis pulses 2+. Results - Labs Labs: Abnormal Lab Results - Last 24 Hours (Table) 10/03/20 10/04/20 10/04/20 Range/Units 14:35 01:52 03:44 RBC (3.80-5.40) m/uL Hgb (11.4-16.0) gm/dL Hct (34.0-46.0) % MCHC (31.0-37.0) g/dL RDW (11.5-15.5) % PT 87.3 H 68.8 H (9.0-12.0) sec INR 8.4 H* 6.7 H* (<1.2) Sodium (137-145) mmol/L Carbon Dioxide (22-30) mmol/L BUN (7-17) mg/dL Creatinine (0.52-1.04) mg/dL Glucose (74-99) mg/dL POC Glucose (mg/dL) 283 H (75-99) mg/dL Calcium (8.4-10.2) mg/dL Magnesium (1.6-2.3) mg/dL AST (14-36) U/L ALT (4-34) U/L Creatine Kinase (30-135) U/L Total Protein (6.3-8.2) g/dL Albumin (3.5-5.0) g/dL 10/04/20 10/04/20 Range/Units 03:44 03:44 RBC 3.21 L (3.80-5.40) m/uL Hgb 8.5 L D (11.4-16.0) gm/dL Hct 27.8 L (34.0-46.0) % MCHC 30.4 L (31.0-37.0) g/dL RDW 22.0 H (11.5-15.5) % PT (9.0-12.0) sec INR (<1.2) Sodium 132 L (137-145) mmol/L Carbon Dioxide 19 L (22-30) mmol/L BUN 84 H (7-17) mg/dL Creatinine 3.46 H (0.52-1.04) mg/dL Glucose 240 H (74-99) mg/dL POC Glucose (mg/dL) (75-99) mg/dL Calcium 6.7 L (8.4-10.2) mg/dL Magnesium 2.5 H (1.6-2.3) mg/dL AST 309 H (14-36) U/L ALT 159 H (4-34) U/L Creatine Kinase 7574 H* (30-135) U/L Total Protein 4.6 L (6.3-8.2) g/dL Albumin 2.1 L (3.5-5.0) g/dL H & H 10/02/20 10/04/20 Range/Units 22:15 03:44 Hgb 10.6 L D 8.5 L D (11.4-16.0) gm/dL Hct 34.7 27.8 L (34.0-46.0) % Coagulation 10/02/20 10/03/20 10/04/20 Range/Units 20:29 14:35 03:44 INR 8.2 H* 8.4 H* 6.7 H* (<1.2) Result Diagrams: 10/04/20 03:44 10/04/20 03:44 - Diagnostic results Ankle/Foot x-ray: report reviewed, image reviewed (X-rays reviewed of the tib- fib and ankle on the right side. Images demonstrated a minimally displaced right lateral malleolus fracture. The mortise joint remains intact, there is no obvious widening. Chronic calcifications noted of the vasculature of the right lower extremity. ) Assessment and Plan Assessment: Minimally displaced right ankle lateral malleolus fracture History of recent falls Multiple medical comorbidities Plan: I was able to discuss the case, clean with physical exam findings and imaging studies my attending Dr. Desir. No acute orthopedic surgical intervention recommended at this time. Treatment options were discussed with the patient today at bedside, she is in good understanding. Prescription has been placed for a Cam Walker boot, we recommend nonweightbearing at this time. Patient is a very poor surgical candidate with her current medical problems. Taking this consideration the timeline from the fracture along with the current x-ray results, we should be able to avoid any surgical intervention. Recommend another 2-3 weeks of nonweightbearing on the right lower extremity. Physical therapy evaluation to include walker training with toe-touch weightbearing of the right lower extremity. Patient is very weak due to her current medical conditions, I anticipate further rehab needed due to the fact that she has no family or help at home. Other medical specialty recommendations We will be available for any further questions regarding this patient. Recommend follow-up in the outpatient setting in the next 10-[address] Desir for x-ray and clinical evaluation Time with Patient: Less than 30
--- NOTE | 2020-10-04 10:42 | ECHOF ---
Referral Reason:abn troponin,hypotention MEASUREMENTS -------- HEIGHT: 162.6 cm WEIGHT: 87.1 kg BP: 113/42 IVSd: 1.2 cm (0.6 - 1.1) LVIDd: 3.5 cm (3.9 - 5.3) LVPWd: 1.1 cm (0.6 - 1.1) EDV(Teich): 50 ml IVSs: 1.4 cm LVIDs: 2.3 cm LVPWs: 1.5 cm %IVS Thck: 26 % ESV(Teich): 19 ml EF(Teich): 63 % %FS: 33 % SV(Teich): 31 ml LA Diam: 4.7 cm (2.7 - 3.8) RVIDd: 3.0 cm (< 3.3) LALs A4C: 8.0 cm LAAs A4C: 35.2 cm LAESV A-L A4C: 132 ml LAESV MOD A4C: 126 ml LALs A2C: 7.7 cm LAAs A2C: 34.9 cm LAESV A-L A2C: 134 ml LAESV MOD A2C: 133 ml LAESV(A-L): 135 ml LAESV Index (A-L): 70.51 ml/m Ao Diam: 3.1 cm (2.0 - 3.7) MV E Isrrael: 2.16 m/s MV DecT: 381 ms MV Dec Evangeline: 5.7 m/s MV A Isrrael: 1.35 m/s MV E/A Ratio: 1.60 MV PHT: 110 ms MV Vmax: 2.35 m/s MV Vmean: 1.52 m/s MV maxP.10 mmHg MV meanP.31 mmHg MV VTI: 84.9 cm LVOT Vmax: 1.19 m/s LVOT maxP.64 mmHg AV Vmax: 2.23 m/s AV maxP.97 mmHg AV Vmax: 2.26 m/s AV Vmean: 1.45 m/s AV maxP.39 mmHg AV meanP.11 mmHg AV Env.Ti: 341 ms AV VTI: 44.4 cm AR Vmax: 3.89 m/s AR maxP.40 mmHg AR PHT: 295 ms AR Dec Time: 1016 ms AR Dec Evangeline: 3.8 m/s FINDINGS -------- Sinus rhythm. This was a technically adequate study. The left ventricular size is normal. There is borderline concentric left ventricular hypertrophy. Overall left ventricular systolic function is normal with, an EF between 55 - 60 %. The right ventricle is normal in size. LA is severely dilated >40 ml/m2 The right atrium was not well visualized. Interatrial and interventricular septum intact. Peak/mean gradient across the Aortic Valve is 20.39mmHg / 10.11mmHg. There is mild-moderate regurgi tation of the bioprosthetic aortic valve. Severe mitral annular calcification present. Moderate mitral regurgitation is present. The peak and mean MV gradients are 22.10mmHg 10.31mmHg as measured by doppler. The tricuspid valve appears structurally normal. Mild tricuspid regurgitation present. The pulmonic valve was not well visualized. The aortic root size is normal. Normal inferior vena cava with normal inspiratory collapse consistent with estimated right atrial pre ssure of 5 mmHg. There is no pericardial effusion. CONCLUSIONS -------- 1. There is borderline concentric left ventricular hypertrophy. 2. Overall left ventricular systolic function is normal with, an EF between 55 - 60 %. 3. LA is severely dilated >40 ml/m2 4. Peak/mean gradient across the Aortic Valve is 20.39mmHg / 10.11mmHg. 5. There is mild-moderate regurgitation of the bioprosthetic aortic valve. 6. Severe mitral annular calcification present. 7. Moderate mitral regurgitation is present. 8. The peak and mean MV gradients are 22.10mmHg 10.31mmHg as measured by doppler. 9. Mild tricuspid regurgitation present. 10. There is no pericardial effusion. TRANSPORT TECHNICIAN: Mile Nunez RDCS
[2020-10-04 10:53] VITALS: BMI 32.9
--- NOTE | 2020-10-04 11:23 | XR ---
EXAMINATION TYPE: XR chest 1V portable DATE OF EXAM: 10/04/2020 CLINICAL HISTORY: LLL pneumonia. TECHNIQUE: Portable frontal view of the chest. COMPARISON: 10/03/2020 chest radiograph FINDINGS: Left subclavian central venous catheter, right internal jugular central venous catheter, a nd cardiac stent redemonstrated. Low lung volumes accentuates the cardiomediastinal silhouette. Left basilar airspace opacity redemonstrated. No pneumothorax seen. Degenerative changes of the shoulders. IMPRESSION: Redemonstrated left basilar airspace opacity.
[2020-10-04 11:52] LABS: Glucose,Whole Blood 190 mg/dL (75-99)
--- NOTE | 2020-10-04 11:56 | XR ---
EXAMINATION TYPE: XR tibia fibula RT, XR ankle complete RT DATE OF EXAM: 10/04/2020 CLINICAL HISTORY: Fall. Pain. TECHNIQUE: AP and lateral views of the right tibia and fibula are obtained. AP, oblique, and lateral views of the right ankle are obtained. COMPARISON: None. FINDINGS: There is an oblique mildly displaced fracture of the distal fibula, with no significant an gulation. No evidence of dislocation. Decreased osseous mineralization. The ankle mortise and knee zeina ints are maintained. Degenerative changes. Plantar spur. Calcified vascular atherosclerotic disease. IMPRESSION: Oblique mildly displaced fracture of the distal fibula, with no significant angulation.
--- NOTE | 2020-10-04 12:16 | P.CRDCN ---
History of Present Illness Consult date: 10/04/20 History of present illness: This is a 79-year-old female history of multiple medical problems including duodenal ulcer, history of upper GI bleeding and also previous aortic valve replacement with a bioprosthetic valve. Patient also has chronic atrial fibrillation and has been on Coumadin therapy. Apparently she was in the hospital in [place] for 3 weeks and was discharged home. Apparently she still has a low hemoglobin. She fell at home and subsequently stayed on the floor for about 48 hours. She doesn't remember the circumstances of falling. On admission she was found to have evidence of rhabdomyolysis with significant renal failure. Her EKG shows atrial fibrillation with controlled ventricular response. Her echo Cardigan showed preserved LV function with evidence of properly functioning bioprosthetic valve. Her BNP was 7000. Troponin was mildly elevated but not consistent with acute coronary injury pattern. Chest x- ray size to possible pneumonia. Concomitant CHF cannot be excluded. Patient denied any chest pain and doesn't appear to be in acute respiratory distress at this time. Patient is being hydrated because of rhabdomyolysis. A renal consult also could be considered. 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 Right rotator cuff. Aortic valve replacement Past Anesthesia/Blood Transfusion Reactions: No Reported Reaction Past Psychological History: No Psychological Hx Reported Past Alcohol Use History: Rare Past Drug Use History: None Reported Medications and Allergies Home Medications Medication Instructions Recorded Confirmed Type Atorvastatin [Lipitor] 20 mg PO HS 05/07/16 10/02/20 History Furosemide [Lasix] 40 mg PO DAILY 05/07/16 10/02/20 History Levothyroxine S[facility] [[facility]th[facility]] [facility] 05/07/16 10/02/20 History Pantoprazole [Protonix] 40 mg PO HS 05/07/16 10/02/20 History Potassium Chloride ER [K-Dur 20] 20 meq PO DAILY 05/07/16 10/02/20 History Warfarin [Coumadin] 5 mg PO SUTUTHSA 05/07/16 10/02/20 History Ferrous Sulfate [Feosol] 325 mg PO DAILY 10/02/20 10/02/20 History Insulin Detemir [Levemir Flextouch] 10 units SQ HS 10/02/20 10/02/20 History Levothyroxine Sodium [Synthroid] 75 mcg PO SUMOWEFRSA 10/02/20 10/02/20 History Metoprolol Tartrate [Lopressor] 50 mg PO BID 10/02/20 10/02/20 History Polyethylene Glycol 3350 [Miralax] 17 gm PO DAILY PRN 10/02/20 10/02/20 History Warfarin [Coumadin] 2.5 mg PO MOWEFR 10/02/20 10/02/20 History sitaGLIPtin [Januvia] 50 mg PO DAILY 10/02/20 10/02/20 History traMADol HCL 50 mg PO Q6H PRN 10/02/20 10/02/20 History Allergies Allergy/AdvReac Type Severity Reaction Status Date / Time No Known Allergies Allergy Verified 10/02/20 21:47 Physical Exam Vitals: Vital Signs Temp Pulse Resp BP Pulse Ox 10/04/20 11:00 58 L 13 107/37 96 10/04/20 10:30 63 15 111/49 10/04/20 10:00 71 18 111/42 97 10/04/20 09:45 71 17 118/52 10/04/20 09:30 68 19 100/38 10/04/20 09:15 68 18 121/44 10/04/20 09:00 64 18 121/43 10/04/20 08:45 74 23 121/42 10/04/20 08:30 68 14 115/39 95 10/04/20 08:15 68 19 113/42 10/04/20 08:00 66 15 110/80 10/04/20 07:45 75 16 114/41 98 10/04/20 07:30 66 15 115/40 97 10/04/20 07:15 68 18 116/43 10/04/20 07:00 70 12 109/39 95 10/04/20 06:45 57 L 10 L 106/39 93 L 10/04/20 06:30 56 L 10 L 111/37 92 L 10/04/20 06:15 58 L 11 L 116/41 94 L 10/04/20 06:00 66 12 114/40 95 10/04/20 05:45 60 13 110/42 97 10/04/20 05:30 67 12 103/37 95 10/04/20 05:15 56 L 15 104/39 96 10/04/20 05:00 60 14 100/37 97 10/04/20 04:45 57 L 11 L 98/37 97 10/04/20 04:30 57 L 10 L 103/39 97 10/04/20 04:15 61 11 L 106/46 97 10/04/20 04:00 97.9 F 64 12 113/50 96 10/04/20 03:45 71 14 95/50 94 L 10/04/20 03:30 61 11 L 98/50 93 L 10/04/20 03:15 64 13 99/43 93 L 10/04/20 03:00 65 15 107/36 94 L 10/04/20 02:45 68 14 116/37 93 L 10/04/20 02:30 72 22 108/37 96 10/04/20 02:15 68 16 105/38 95 10/04/20 02:00 77 14 104/50 95 10/04/20 01:00 70 18 100/43 98 10/03/20 23:00 69 16 115/41 98 10/03/20 22:00 98 F 79 16 105/43 98 10/03/20 21:00 74 15 106/41 98 10/03/20 20:30 77 17 113/48 98 10/03/20 20:00 75 16 91/56 97 10/03/20 19:59 75 15 109/33 98 10/03/20 18:50 70 18 107/52 98 10/03/20 16:00 77 18 114/41 98 10/03/20 15:39 76 20 113/37 92 L 10/03/20 14:00 57 L 18 128/40 100 10/03/20 12:42 60 18 120/42 98 Intake and Output 10/03/20 10/04/20 10/04/20 22:59 06:59 14:59 Intake Total 156.69 400 133.255 Output Total 410 325 Balance 156.69 -10 -191.745 Intake: Intake, IV Titration 156.69 400 133.255 Amount Norepinephrine 8 mg In 156.69 Sodium Chloride 0.9% 250 ml @ 0.05 MCG/KG/MIN 8. 426 mls/hr IV .Q24H [facility] Rx#:[id number] Norepinephrine 8 mg In 33.255 Sodium Chloride 0.9% 250 ml @ 0.05 MCG/KG/MIN 8. 426 mls/hr IV .Q24H [facility] Rx#:[id number] Sodium Chloride 0.9% 1, 400 100 000 ml @ 100 mls/hr IV . Q10H [facility] Rx#:[id number] Output: Urine 410 325 Other: Voiding Method Indwelling Catheter Indwelling Catheter Weight 87.09 kg GENERAL EXAM: Patient is alert and oriented and doesn't appear to be in any acute distress HEENT: Normocephalic. Normal reaction of pupils, equal size, normal range of extraocular motion. No erythema or exudates in the throat. NECK: No masses, no nuchal rigidity. CHEST: No chest wall deformity. LUNGS: Equal air entry with no crackles or wheeze. HEART: S1 and S2 normal . Irregular heart sounds ABDOMEN: No hepatosplenomegaly, normal bowel sounds, no guarding or rigidity. SKIN: No rashes CENTRAL NERVOUS SYSTEM: No focal deficits. EXTREMITIES: No cyanosis, clubbing . Mild edema Results 10/04/20 03:44 10/04/20 03:44 Cardiac Enzymes 10/04/20 Range/Units 03:44 AST 309 H (14-36) U/L Coagulation 10/03/20 10/04/20 Range/Units 14:35 03:44 PT 87.3 H 68.8 H (9.0-12.0) sec CBC 10/04/20 Range/Units 03:44 WBC 8.8 (3.8-10.6) k/uL RBC 3.21 L (3.80-5.40) m/uL Hgb 8.5 L D (11.4-16.0) gm/dL Hct 27.8 L (34.0-46.0) % Plt Count 301 (150-450) k/uL Comprehensive Metabolic Panel 10/04/20 Range/Units 03:44 Sodium 132 L (137-145) mmol/L Potassium 4.5 (3.5-5.1) mmol/L Chloride 104 (98-107) mmol/L Carbon Dioxide 19 L (22-30) mmol/L BUN 84 H (7-17) mg/dL Creatinine 3.46 H (0.52-1.04) mg/dL Glucose 240 H (74-99) mg/dL Calcium 6.7 L (8.4-10.2) mg/dL Unconjugated Bilirubin 0.1 (0.0-1.1) mg/dL AST 309 H (14-36) U/L ALT 159 H (4-34) U/L Alkaline Phosphatase 103 (38-126) U/L Total Protein 4.6 L (6.3-8.2) g/dL Albumin 2.1 L (3.5-5.0) g/dL Current Medications Generic Name Dose Route Start Last Admin Trade Name Freq PRN Reason Stop Dose Admin Albuterol/Ipratropium 3 ml 10/02/20 23:35 Ipratropium-Albuterol 3 Ml Neb INHALATION RT-Q4H PRN shortness of breath Aspirin 325 mg 10/03/20 09:00 10/04/20 09:07 Aspirin 325 Mg Tab PO 325 mg DAILY MARK Administration Atorvastatin Calcium 80 mg 10/03/20 09:00 10/04/20 09:07 Atorvastatin 80 Mg Tab PO 80 mg DAILY MARK Administration Sodium Chloride 1,000 mls @ 100 mls/hr 10/02/20 23:30 10/04/20 05:35 Saline 0.9% IV 100 mls/hr .Q10H MARK Administration Ceftriaxone Sodium 2 gm/ 50 mls @ 100 mls/hr 10/03/20 22:00 10/03/20 23:01 Sodium Chloride IVPB 100 mls/hr Q24H MARK Administration Azithromycin 500 mg/ Sodium 250 mls @ 250 mls/hr 10/03/20 23:00 10/04/20 00:30 Chloride IVPB 250 mls/hr Q24H MARK Administration Sodium Chloride 1,000 mls @ 130 mls/hr 10/02/20 23:45 10/04/20 05:36 Saline 0.9% IV Not Given .Q7H42M MARK Norepinephrine Bitartrate 8 mg 258 mls @ 8.426 mls/hr 10/04/20 07:15 10/04/20 09:49 / Sodium Chloride IV 0.05 mcg/kg/min .Q24H MARK 8.426 mls/hr Titration Protocol 0.05 MCG/KG/MIN Insulin Aspart 0 unit 10/04/20 07:30 10/04/20 06:49 Insulin Aspart (Novolog) 100 Unit/Ml Vial SQ 3 unit ACHS MARK Administration Protocol Metoprolol Tartrate 25 mg 10/03/20 09:00 10/04/20 08:07 Metoprolol Tartrate 25 Mg Tab PO Not Given BID MARK Miscellaneous Information 1 each 10/02/20 23:35 Pneumonia Protocol Utilized 1 Each Misc PO ONCE PRN Per Protocol Nitroglycerin 0.4 mg 10/02/20 23:23 Nitroglycerin Sl Tabs 0.4 Mg Tab SUBLINGUAL Q5M PRN Chest Pain Pantoprazole Sodium 40 mg 10/04/20 09:00 10/04/20 09:07 Pantoprazole 40 Mg/10 Ml Vial IVP 40 mg DAILY MARK Administration Intake and Output 10/03/20 10/04/20 10/04/20 22:59 06:59 14:59 Intake Total 156.69 400 133.255 Output Total 410 325 Balance 156.69 -10 -191.745 Intake: Intake, IV Titration 156.69 400 133.255 Amount Norepinephrine 8 mg In 156.69 Sodium Chloride 0.9% 250 ml @ 0.05 MCG/KG/MIN 8. 426 mls/hr IV .Q24H [facility] Rx#:[id number] Norepinephrine 8 mg In 33.255 Sodium Chloride 0.9% 250 ml @ 0.05 MCG/KG/MIN 8. 426 mls/hr IV .Q24H [facility] Rx#:[id number] Sodium Chloride 0.9% 1, 400 100 000 ml @ 100 mls/hr IV . Q10H [facility] Rx#:[id number] Output: Urine 410 325 Other: Voiding Method Indwelling Catheter Indwelling Catheter Weight 87.09 kg Patient Weight 10/05/20 06:59 Weight 87.09 kg 10/04/20 03:44 10/04/20 03:44 EKG Interpretations (text) Atrial fibrillation with controlled ventricular response Assessment and Plan (1) Atrial fibrillation, chronic Current Visit: Yes Status: Acute Code(s): I48.20 - CHRONIC ATRIAL FIBRILLATION, UNSPECIFIED SNOMED Code(s): 721264463 (2) ARF (acute renal failure) Current Visit: Yes Status: Acute Code(s): N17.9 - ACUTE KIDNEY FAILURE, UNSPECIFIED SNOMED Code(s): 24068217 (3) Community acquired bacterial pneumonia Current Visit: Yes Status: Acute Code(s): J15.9 - UNSPECIFIED BACTERIAL PNEUMONIA SNOMED Code(s): 046052246 (4) Rhabdomyolysis Current Visit: Yes Status: Acute Code(s): M62.82 - RHABDOMYOLYSIS SNOMED Code(s): 453271509 (5) Status post aortic valve replacement Current Visit: Yes Status: Acute Code(s): Z95.2 - PRESENCE OF PROSTHETIC HEART VALVE SNOMED Code(s): 0778938825072 (6) Chronic anemia Current Visit: Yes Status: Acute Code(s): D64.9 - ANEMIA, UNSPECIFIED SNOMED Code(s): 230143672 Plan: With continue current management with hydration. Follow renal functions closely. Follow also to make sure patient doesn't get into congestive heart failure. Renal consult. Her troponin elevation is not consistent with acute myocardial injury pattern. Patient's INR is still high . Hold Coumadin. We'll follow
--- NOTE | 2020-10-04 13:42 | P.NPCON ---
History of Present Illness - Reason for Consult Consult date: 10/04/20 acute renal failure - Chief Complaint Acute kidney injury - History of Present Illness Admitted to the hospital with a fall. She has underlying CK D stage III with a baseline creatinine of 1.8-2.0 MG per DL. She lost to follow-up with Dr. Pedersen last year because of insurance issues. On admission serum creatinine was 4.4, improved to 3.4 today. She was hypotensive transferred to ICU on levo fed drip. She got few liters of normal saline boluses currently at 125 ML's an hour. She has a Redmond catheter making urine. No nausea vomiting or diarrhea. Home medications include Lasix and potassium supplements. 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 Right rotator cuff. Aortic valve replacement Past Anesthesia/Blood Transfusion Reactions: No Reported Reaction Past Psychological History: No Psychological Hx Reported Past Alcohol Use History: Rare Past Drug Use History: None Reported Medications and Allergies Home Medications Medication Instructions Recorded Confirmed Type Atorvastatin [Lipitor] 20 mg PO HS 05/07/16 10/02/20 History Furosemide [Lasix] 40 mg PO DAILY 05/07/16 10/02/20 History Levothyroxine Sodium [Synthroid] 50 mcg PO TUTH 05/07/16 10/02/20 History Pantoprazole [Protonix] 40 mg PO HS 05/07/16 10/02/20 History Potassium Chloride ER [K-Dur 20] 20 meq PO DAILY 05/07/16 10/02/20 History Warfarin [Coumadin] 5 mg PO SUTUTHSA 05/07/16 10/02/20 History Ferrous Sulfate [Feosol] 325 mg PO DAILY 10/02/20 10/02/20 History Insulin Detemir [Levemir Flextouch] 10 units SQ HS 10/02/20 10/02/20 History Levothyroxine Sodium [Synthroid] 75 mcg PO SUMOWEFRSA 10/02/20 10/02/20 History Metoprolol Tartrate [Lopressor] 50 mg PO BID 10/02/20 10/02/20 History Polyethylene Glycol 3350 [Miralax] 17 gm PO DAILY PRN 10/02/20 10/02/20 History Warfarin [Coumadin] 2.5 mg PO MOWEFR 10/02/20 10/02/20 History sitaGLIPtin [Januvia] 50 mg PO DAILY 10/02/20 10/02/20 History traMADol HCL 50 mg PO Q6H PRN 10/02/20 10/02/20 History Allergies Allergy/AdvReac Type Severity Reaction Status Date / Time No Known Allergies Allergy Verified 10/02/20 21:47 Physical Exam Vitals: Vital Signs Temp Pulse Resp BP Pulse Ox 10/04/20 11:00 58 L 13 107/37 96 10/04/20 10:30 63 15 111/49 10/04/20 10:00 71 18 111/42 97 10/04/20 09:45 71 17 118/52 10/04/20 09:30 68 19 100/38 10/04/20 09:15 68 18 121/44 10/04/20 09:00 64 18 121/43 10/04/20 08:45 74 23 121/42 10/04/20 08:30 68 14 115/39 95 10/04/20 08:15 68 19 113/42 10/04/20 08:00 66 15 110/80 10/04/20 07:45 75 16 114/41 98 10/04/20 07:30 66 15 115/40 97 10/04/20 07:15 68 18 116/43 10/04/20 07:00 70 12 109/39 95 10/04/20 06:45 57 L 10 L 106/39 93 L 10/04/20 06:30 56 L 10 L 111/37 92 L 10/04/20 06:15 58 L 11 L 116/41 94 L 10/04/20 06:00 66 12 114/40 95 10/04/20 05:45 60 13 110/42 97 10/04/20 05:30 67 12 103/37 95 10/04/20 05:15 56 L 15 104/39 96 10/04/20 05:00 60 14 100/37 97 10/04/20 04:45 57 L 11 L 98/37 97 10/04/20 04:30 57 L 10 L 103/39 97 10/04/20 04:15 61 11 L 106/46 97 10/04/20 04:00 97.9 F 64 12 113/50 96 10/04/20 03:45 71 14 95/50 94 L 10/04/20 03:30 61 11 L 98/50 93 L 10/04/20 03:15 64 13 99/43 93 L 10/04/20 03:00 65 15 107/36 94 L 10/04/20 02:45 68 14 116/37 93 L 10/04/20 02:30 72 22 108/37 96 10/04/20 02:15 68 16 105/38 95 10/04/20 02:00 77 14 104/50 95 10/04/20 01:00 70 18 100/43 98 10/03/20 23:00 69 16 115/41 98 10/03/20 22:00 98 F 79 16 105/43 98 10/03/20 21:00 74 15 106/41 98 10/03/20 20:30 77 17 113/48 98 10/03/20 20:00 75 16 91/56 97 10/03/20 19:59 75 15 109/33 98 10/03/20 18:50 70 18 107/52 98 10/03/20 16:00 77 18 114/41 98 10/03/20 15:39 76 20 113/37 92 L 10/03/20 14:00 57 L 18 128/40 100 Intake and Output 10/03/20 10/04/20 10/04/20 22:59 06:59 14:59 Intake Total 156.69 400 133.255 Output Total 410 325 Balance 156.69 -10 -191.745 Intake: Intake, IV Titration 156.69 400 133.255 Amount Norepinephrine 8 mg In 156.69 Sodium Chloride 0.9% 250 ml @ 0.05 MCG/KG/MIN 8. 426 mls/hr IV .Q24H [facility] Rx#:[id number] Norepinephrine 8 mg In 33.255 Sodium Chloride 0.9% 250 ml @ 0.05 MCG/KG/MIN 8. 426 mls/hr IV .Q24H [facility] Rx#:[id number] Sodium Chloride 0.9% 1, 400 100 000 ml @ 100 mls/hr IV . Q10H [facility] Rx#:[id number] Output: Urine 410 325 Other: Voiding Method Indwelling Catheter Indwelling Catheter Weight 87.09 kg No acute distress S1-S2 heard Lungs clear Abdomen soft No edema Results - Lab Results Most recent lab results Calcium 6.7 mg/dL (8.4-10.2) L 10/04/20 03:44 Phosphorus 9.7 mg/dL (2.5-4.5) H* 10/02/20 22:15 Magnesium 2.5 mg/dL (1.6-2.3) H 10/04/20 03:44 10/04/20 03:44 10/04/20 03:44 Assessment and Plan Assessment: #1 acute kidney injury secondary to ischemic and toxic ATN from hypotension and rhabdomyolysis. #2 shock, suspected sepsis from underlying pneumonia. #3 fall with rhabdomyolysis #4 chronic kidney disease stage III baseline creatinine 1.8-2.2 MG per DL. #5 metabolic acidosis secondary to acute kidney injury Plan: #1 agree with IV fluids continue at 125 ML's an hour. #2 stop atorvastatin with rhabdomyolysis #3 antibiotics per primary team #4 avoid nephrotoxic agents and hypotensive episodes.
[2020-10-04 14:26] LABS: Anisocytosis Moderate; HCT 27.5 % (34.0-46.0); HGB 8.4 gm/dL (11.4-16.0); Hypochromasia Marked; MCH 26.5 pg (25.0-35.0); MCHC 30.6 g/dL (31.0-37.0); MCV 86.8 fL (80.0-100.0); Microcytosis Slight; Platelet Count 272 k/uL (150-450); RBC 3.17 m/uL (3.80-5.40); RDW 21.7 % (11.5-15.5); WBC 7.3 k/uL (3.8-10.6)
[2020-10-04 14:59] LABS: Hemoglobin A1C 7.1 % (4.0-6.0)
--- NOTE | 2020-10-04 16:34 | P.PN ---
Subjective Progress Note Date: 10/04/20 Principal diagnosis: Acute rhabdomyolysis and acute on chronic kidney injury, possible acute community-acquired pneumonia This is an 79-year-old white female, she is a very poor historian, patient had history of multiple medical problems including duodenal ulcer, and recent histo ry of upper GI bleeding, patient was supposedly admitted to the hospital in [facility], she was in the hospital supposedly for 3 weeks. She was eventually discharged, and apparently at the time she had a very low hemoglobin, required significant amount of blood transfusion. Yesterday, the patient apparently fell at home, and she was found on the ground laying for the last 2 days. Patient was confused, EMS was called by family member who found the patient on the floor, patient was brought in complaining mostly of weakness, and some vague aches and pains. Workup included a CBC which showed a hemoglobin of 10.6. INR was noted to be elevated at 8.2, electrolytes are abnormal with so dium of 133 potassium of 5.8, BUN is 92 creatinine is 4.48, and her baseline creatinine is normally around 2. Lactic acid was noted to be at 4.7, patient was given fluid boluses, and follow-up lactic acid was 1.8. Liver enzymes were also noted to be elevated with AST of 650 ALT of 196. And his CPK was significantly elevated at 13,769. Troponin was also elevated at 0.074, BNP level 7290. Patient was able to maintain O2 saturations in the 100% range even on 2 L nasal cannula. Her blood pressure was initially low on admission as low as 67/54, patient received fluid boluses, and after 3 L of fluid boluses, remained at bit low, patient was started on norepinephrine drip. When I saw her in the ER, her norepinephrine drip was at 0.072 mcg/kg/m. And her blood pressure at the time was 108/40. Patient was reevaluated today in the ICU, patient is resting in bed, comfortable, she is on room air, IV fluid is running at 100 mL per hour, remains on norepinephrine at 0.08 mcg/kg/m. She has decent urine output, 40 mL per hour, her renal functioning is improving, and her CPKs seems to be coming down nicely. Patient is complaining of pain in her right lower extremity, and x-rays of the right tibia fibula and ankle were done. There was clearly evidence of oblique mildly displaced fracture of the distal fibula with no significant angulation, hence orthopedic consultation was initiated. Chest x-ray continues to show possibly a limited infiltrate in the left lower lobe. Slightly improved compared to the chest x-ray done yesterday. Labs were reviewed hemoglobin is 8.4. INR remains elevated at 6.7, patient has been on Coumadin for aortic valve replacement. Her BUN is down to 84 creatinine is down to 3.46, and that being addressed by nephrology. CPK is down to 7574. Transaminases remain elevated with AST of 309 and ALT of 159. Patient denies any shortness of breath, and she is not in any respiratory distress Objective - Vital Signs Vital signs: Vital Signs Temp 97.9 F 10/04/20 04:00 Pulse 68 10/04/20 14:30 Resp 16 10/04/20 15:41 BP 105/45 10/04/20 14:30 Pulse Ox 91 L 10/04/20 13:00 Intake & Output 10/03/20 10/04/20 10/04/20 18:59 06:59 18:59 Intake Total 556.69 523.255 Output Total 410 450 Balance 146.69 73.255 Weight 87.09 kg Intake: IV 390 Sodium Chloride 0.9% 1, 390 000 ml @ 130 mls/hr IV . Q7H42M [facility] Rx#:[id number] Intake, IV Titration 556.69 133.255 Amount Norepinephrine 8 mg In 156.69 Sodium Chloride 0.9% 250 ml @ 0.05 MCG/KG/MIN 8. 426 mls/hr IV .Q24H [facility] Rx#:[id number] Norepinephrine 8 mg In 33.255 Sodium Chloride 0.9% 250 ml @ 0.05 MCG/KG/MIN 8. 426 mls/hr IV .Q24H [facility] Rx#:[id number] Sodium Chloride 0.9% 1, 400 100 000 ml @ 100 mls/hr IV . Q10H [facility] Rx#:[id number] Output: Urine 410 450 Other: Voiding Method Indwelling Catheter Indwelling Catheter - Exam Physical Exam: Revealed 79-year-old female, obese, in no distress. Head: Atraumatic, normocephalic. HEENT:[Neck is supple.] [No neck masses.] [No thyromegaly.] [No JVD.] Chest: [Symmetrical chest expansion, minimal crackles at the bases especially at the left base. Cardiac Exam: Normal S1 and S2, no S3 gallop. 2/6 systolic murmur throughout the precordium. Abdomen: [Obese, Soft, nontender, no megaly, no rebound, no guarding, normal bowel sounds.] Extremities: [No clubbing, no edema, no cyanosis.] Right lower extremity is wrapped with William bandage, and immobilized. Neurological Exam: [No focal neurologic deficit.] Patient seems to be definitely more appropriate today compared to yesterday, and her mental status is intact Skin: No rashes. Psychiatric: Normal mood, flat affect, normal mental status examination - Labs CBC & Chem 7: 10/04/20 14:08 10/04/20 03:44 Labs: Abnormal Lab Results - Last 24 Hours (Table) 10/04/20 10/04/20 10/04/20 Range/Units 01:52 03:44 03:44 RBC 3.21 L (3.80-5.40) m/uL Hgb 8.5 L D (11.4-16.0) gm/dL Hct 27.8 L (34.0-46.0) % MCHC 30.4 L (31.0-37.0) g/dL RDW 22.0 H (11.5-15.5) % PT 68.8 H (9.0-12.0) sec INR 6.7 H* (<1.2) Sodium (137-145) mmol/L Carbon Dioxide (22-30) mmol/L BUN (7-17) mg/dL Creatinine (0.52-1.04) mg/dL Glucose (74-99) mg/dL POC Glucose (mg/dL) 283 H (75-99) mg/dL Hemoglobin A1c (4.0-6.0) % Calcium (8.4-10.2) mg/dL Magnesium (1.6-2.3) mg/dL AST (14-36) U/L ALT (4-34) U/L Creatine Kinase (30-135) U/L Total Protein (6.3-8.2) g/dL Albumin (3.5-5.0) g/dL 10/04/20 10/04/20 10/04/20 Range/Units 03:44 03:44 11:50 RBC (3.80-5.40) m/uL Hgb (11.4-16.0) gm/dL Hct (34.0-46.0) % MCHC (31.0-37.0) g/dL RDW (11.5-15.5) % PT (9.0-12.0) sec INR (<1.2) Sodium 132 L (137-145) mmol/L Carbon Dioxide 19 L (22-30) mmol/L BUN 84 H (7-17) mg/dL Creatinine 3.46 H (0.52-1.04) mg/dL Glucose 240 H (74-99) mg/dL POC Glucose (mg/dL) 190 H (75-99) mg/dL Hemoglobin A1c 7.1 H (4.0-6.0) % Calcium 6.7 L (8.4-10.2) mg/dL Magnesium 2.5 H (1.6-2.3) mg/dL AST 309 H (14-36) U/L ALT 159 H (4-34) U/L Creatine Kinase 7574 H* (30-135) U/L Total Protein 4.6 L (6.3-8.2) g/dL Albumin 2.1 L (3.5-5.0) g/dL 10/04/20 Range/Units 14:08 RBC 3.17 L (3.80-5.40) m/uL Hgb 8.4 L (11.4-16.0) gm/dL Hct 27.5 L (34.0-46.0) % MCHC 30.6 L (31.0-37.0) g/dL RDW 21.7 H (11.5-15.5) % PT (9.0-12.0) sec INR (<1.2) Sodium (137-145) mmol/L Carbon Dioxide (22-30) mmol/L BUN (7-17) mg/dL Creatinine (0.52-1.04) mg/dL Glucose (74-99) mg/dL POC Glucose (mg/dL) (75-99) mg/dL Hemoglobin A1c (4.0-6.0) % Calcium (8.4-10.2) mg/dL Magnesium (1.6-2.3) mg/dL AST (14-36) U/L ALT (4-34) U/L Creatine Kinase (30-135) U/L Total Protein (6.3-8.2) g/dL Albumin (3.5-5.0) g/dL Assessment and Plan Assessment: Impression: Acute rhabdomyolysis secondary to fall. With significantly elevated CPK. Acute on chronic kidney injury Acute left lower lobe pneumonia is strongly suspected, not clear whether this is a community-acquired pneumonia or healthcare associated pneumonia. Nonetheless, patient is empirically on antibiotics. Sepsis and septic shock also suspected. Likely source would be pneumonia/left lower lobe. Hypotension secondary to sepsis and septic shock. History of aortic valve replacement. Coumadin related coagulopathy. Recent history of duodenal ulcer and GI bleeding Recent fracture of right fibula. Recommendation: Orthopedic consultation for right fibula fracture. Continue to hold Coumadin since the INR is significantly elevated. Continue IV fluids. Continue antibiotics. Continue IV fluids for acute on chronic kidney injury and rhabdomyolysis. Continue Protonix Cardiology to address the Coumadin issue. Her pro time seems to be elevated still. Monitor in the ICU for the next 24 hours and possible transfer to the floor tomorrow. We'll continue to follow. Time with Patient: Less than 30
[2020-10-04 16:35] LABS: Glucose,Whole Blood 141 mg/dL (75-99)
[2020-10-04 19:27] LABS: Anisocytosis Moderate; HCT 29.8 % (34.0-46.0); HGB 8.7 gm/dL (11.4-16.0); Hypochromasia Marked; MCH 25.7 pg (25.0-35.0); MCHC 29.2 g/dL (31.0-37.0); MCV 88.1 fL (80.0-100.0); Mean Platelet Volume 7.1; Microcytosis Slight; Platelet Count 279 k/uL (150-450); Poikilocytosis Slight; RBC 3.39 m/uL (3.80-5.40); RDW 21.7 % (11.5-15.5)
[2020-10-04 20:38] LABS: Glucose,Whole Blood 133 mg/dL (75-99)
[2020-10-04] MEDS ORDERED: HYDROcodone/APAP 5-325MG 1 EACH TAB PO PRN (20:41)
--- NOTE | 2020-10-04 21:43 | P.PN ---
Subjective This is a pleasant 79 years old female with past medical history of hypertension, chronic kidney disease, she is to follow up with Dr. Pedersen but she stopped earlier this year because of insurance problems. History of heart surgery at January or March of this year at [facility] and [facility] she has replaced aortic valve. Also she has history of right leg fracture at the ankle, she has right leg cast placed at the hospital in [place] She presents because she fell at home, she was in her bedroom but she does not know how she fell but she confirms she did not lose consciousness, Patient states also she has coughing with yellow phlegm but this is chronic as per patient, no chest pain. No nausea vomiting or diarrhea, no bleeding. She is not on oxygen at home. Vitas looks stable, patient is saturating 98% on 2 L oxygen via nasal cannula CBC showing WBC 10.6 K, hemoglobin 10.6, platelet normal at 381K. INR is 8.4, sodium 133, potassium 5.8, creatinine 4.4 with baseline 2.1-2.0 [place] [address] on admission, liver enzymes slightly elevated with AST 650 and ALT 196, total protein is 1.0. ProBNP 7290 Chest x-ray showing progressive left lower lobe pneumonia. 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 And of the neck showing spondylitic changes in the cervical spine. No fracture. There is mild C4 5 subluxation deformity that is probably chronic Pelvic x-ray: No fracture In the emergency room patient received 2.5 L, cocktail for hyperkalemia and closing calcium chloride, insulin/dextrose, sodium bicarb. Also received aspirin 324 mg 10/04/2020 Patient is seen and evaluated in the ICU, she was lying in bed comfortable not in distress complaining of from pain at her right leg side, scalp has been taken off she has tenderness around the right lateral malleolus.Right tibia and fibula x-ray: Oblique mildly displaced fracture of the distal fibula with no significant angulation. Orthopedic team recommended no surgical intervention, they recommended Walker boot, and non-weight bearing for 2-3 weeks, with outpatient rehab upon discharge and follow-up with Dr. veras orthopedic service in 10-14 days for x-ray and clinical evaluation Chest x-ray showed persistent left lower lobe infiltrate and she remains on Zithromax and ceftriaxone, she needed low dose of pressors Cardiology team evaluated the patient for her Coumadin therapy, continue holding Coumadin for high INR. Also patient is followed closely by pulmonary/critical care team. Patient remains on ceftriaxone, Zithromax, normal saline at 1:30. Cubing Machine Tender recommended to hold statin review of her rhabdomyolysis Coumadine still on hold for high INR Review of Systems CONSTITUTIONAL: No fever, no malaise, no fatigue. HEENT: No recent visual problems or hearing problems. Denied any sore throat. CARDIOVASCULAR: No orthopnea, PND, no palpitations, no syncope. PULMONARY: No shortness of breath, no cough, no hemoptysis. GASTROINTESTINAL: No diarrhea, no nausea, no vomiting, no abdominal pain. Normoactive bowel sounds. NEUROLOGICAL: No headaches, no weakness, no numbness. HEMATOLOGICAL: Denies any bleeding or petechiae. Active Medications Generic Name Dose Route Start Last Admin Trade Name Freq PRN Reason Stop Dose Admin Hydrocodone Bitart/Acetaminophen 1 each 10/04/20 20:41 10/04/20 20:49 Hydrocodone/Apap 5-325mg 1 Each Tab PO 1 each Q6HR PRN Administration Pain Albuterol/Ipratropium 3 ml 10/02/20 23:35 Ipratropium-Albuterol 3 Ml Neb INHALATION RT-Q4H PRN shortness of breath Aspirin 325 mg 10/03/20 09:00 10/04/20 09:07 Aspirin 325 Mg Tab PO 325 mg DAILY MARK Administration Sodium Chloride 1,000 mls @ 100 mls/hr 10/02/20 23:30 10/04/20 19:02 Saline 0.9% IV Not Given .Q10H [facility] Ceftriaxone Sodium 2 gm/ 50 mls @ 100 mls/hr 10/03/20 22:00 10/03/20 23:01 Sodium Chloride IVPB 100 mls/hr Q24H [facility] Administration Azithromycin 500 mg/ Sodium 250 mls @ 250 mls/hr 10/03/20 23:00 10/04/20 00:30 Chloride IVPB 250 mls/hr Q24H [facility] Administration Sodium Chloride 1,000 mls @ 130 mls/hr 10/02/20 23:45 10/04/20 20:51 Saline 0.9% IV 130 mls/hr .Q7H42M [facility] Administration Norepinephrine Bitartrate 8 mg 258 mls @ 8.426 mls/hr 10/04/20 07:15 10/04/20 09:49 / Sodium Chloride IV 0.05 mcg/kg/min .Q24H [facility] 8.426 mls/hr Titration Protocol 0.05 MCG/KG/MIN Insulin Aspart 0 unit 10/04/20 07:30 10/04/20 20:50 Insulin Aspart (Novolog) 100 Unit/Ml Vial SQ 1 unit ACHS MARK Administration Protocol Metoprolol Tartrate 25 mg 10/03/20 09:00 10/04/20 20:51 Metoprolol Tartrate 25 Mg Tab PO Not Given BID MARK Miscellaneous Information 1 each 10/02/20 23:35 Pneumonia Protocol Utilized 1 Each Misc PO ONCE PRN Per Protocol Nitroglycerin 0.4 mg 10/02/20 23:23 Nitroglycerin Sl Tabs 0.4 Mg Tab SUBLINGUAL Q5M PRN Chest Pain Pantoprazole Sodium 40 mg 10/04/20 09:00 10/04/20 09:07 Pantoprazole 40 Mg/10 Ml Vial IVP 40 mg DAILY MARK Administration Objective - Vital Signs Vital signs: Vital Signs Temp 98.2 F 10/04/20 16:00 Pulse 66 10/04/20 19:00 Resp 17 10/04/20 19:00 BP 120/49 10/04/20 19:00 Pulse Ox 95 10/04/20 17:00 Intake & Output 10/04/20 10/04/20 10/05/20 06:59 18:59 06:59 Intake Total 556.69 1013.255 390 Output Total 410 550 150 Balance 146.69 463.255 240 Weight 87.09 kg Intake: IV 780 390 Sodium Chloride 0.9% 1, 780 390 000 ml @ 130 mls/hr IV . Q7H42M [facility] Rx#:[id number] Intake, IV Titration 556.69 133.255 Amount Norepinephrine 8 mg In 156.69 Sodium Chloride 0.9% 250 ml @ 0.05 MCG/KG/MIN 8. 426 mls/hr IV .Q24H [facility] Rx#:[id number] Norepinephrine 8 mg In 33.255 Sodium Chloride 0.9% 250 ml @ 0.05 MCG/KG/MIN 8. 426 mls/hr IV .Q24H [facility] Rx#:[id number] Sodium Chloride 0.9% 1, 400 100 000 ml @ 100 mls/hr IV . Q10H [facility] Rx#:[id number] Oral 100 Output: Urine 410 550 150 Other: Voiding Method Indwelling Catheter Indwelling Catheter - Exam GENERAL: The patient is alert and oriented x3, not in any acute distress. Well developed, well nourished. HEENT: Pupils are round and equally reacting to light. EOMI. No scleral icterus. No conjunctival pallor. Normocephalic, atraumatic. No pharyngeal erythema. No thyromegaly. CARDIOVASCULAR: S1 and S2 present. No murmurs, rubs, or gallops. PULMONARY: Chest is clear to auscultation, no wheezing or crackles. ABDOMEN: Soft, nontender, nondistended, normoactive bowel sounds. No palpable organomegaly. MUSCULOSKELETAL: No joint swelling or deformity. -EXTREMITIES: No cyanosis, clubbing, or pedal edema. Right leg tenderness on the right malleolus Neurological : Gross neurological examination did not reveal any focal deficits. SKIN: No rashes. No petechiae - Labs CBC & Chem 7: 10/04/20 18:59 10/04/20 03:44 Labs: Abnormal Lab Results - Last 24 Hours (Table) 10/04/20 10/04/20 10/04/20 Range/Units 01:52 03:44 03:44 RBC 3.21 L (3.80-5.40) m/uL Hgb 8.5 L D (11.4-16.0) gm/dL Hct 27.8 L (34.0-46.0) % MCHC 30.4 L (31.0-37.0) g/dL RDW 22.0 H (11.5-15.5) % PT 68.8 H (9.0-12.0) sec INR 6.7 H* (<1.2) Sodium (137-145) mmol/L Carbon Dioxide (22-30) mmol/L BUN (7-17) mg/dL Creatinine (0.52-1.04) mg/dL Glucose (74-99) mg/dL POC Glucose (mg/dL) 283 H (75-99) mg/dL Hemoglobin A1c (4.0-6.0) % Calcium (8.4-10.2) mg/dL Magnesium (1.6-2.3) mg/dL AST (14-36) U/L ALT (4-34) U/L Creatine Kinase (30-135) U/L Total Protein (6.3-8.2) g/dL Albumin (3.5-5.0) g/dL 10/04/20 10/04/20 10/04/20 Range/Units 03:44 03:44 11:50 RBC (3.80-5.40) m/uL Hgb (11.4-16.0) gm/dL Hct (34.0-46.0) % MCHC (31.0-37.0) g/dL RDW (11.5-15.5) % PT (9.0-12.0) sec INR (<1.2) Sodium 132 L (137-145) mmol/L Carbon Dioxide 19 L (22-30) mmol/L BUN 84 H (7-17) mg/dL Creatinine 3.46 H (0.52-1.04) mg/dL Glucose 240 H (74-99) mg/dL POC Glucose (mg/dL) 190 H (75-99) mg/dL Hemoglobin A1c 7.1 H (4.0-6.0) % Calcium 6.7 L (8.4-10.2) mg/dL Magnesium 2.5 H (1.6-2.3) mg/dL AST 309 H (14-36) U/L ALT 159 H (4-34) U/L Creatine Kinase 7574 H* (30-135) U/L Total Protein 4.6 L (6.3-8.2) g/dL Albumin 2.1 L (3.5-5.0) g/dL 10/04/20 10/04/20 10/04/20 Range/Units 14:08 16:34 18:59 RBC 3.17 L 3.39 L (3.80-5.40) m/uL Hgb 8.4 L 8.7 L (11.4-16.0) gm/dL Hct 27.5 L 29.8 L (34.0-46.0) % MCHC 30.6 L 29.2 L (31.0-37.0) g/dL RDW 21.7 H 21.7 H (11.5-15.5) % PT (9.0-12.0) sec INR (<1.2) Sodium (137-145) mmol/L Carbon Dioxide (22-30) mmol/L BUN (7-17) mg/dL Creatinine (0.52-1.04) mg/dL Glucose (74-99) mg/dL POC Glucose (mg/dL) 141 H (75-99) mg/dL Hemoglobin A1c (4.0-6.0) % Calcium (8.4-10.2) mg/dL Magnesium (1.6-2.3) mg/dL AST (14-36) U/L ALT (4-34) U/L Creatine Kinase (30-135) U/L Total Protein (6.3-8.2) g/dL Albumin (3.5-5.0) g/dL Assessment and Plan Assessment: Assessment and plan -rhabdomyolyis, with elavated cpk, continue with IV fluid -Pssible non-STEMI: Continue with aspirin, heparin drip, cardiology consult -Possible left lower lobe pneumonia, continue Zithromax andceftriaxone, pulmonary consult -Fall without losing consciousness, continue with neurocheck, physical therapy and patient off therapy -coagulopathy secondary to Coumadin, , Monitor hemoglobin and transfuse if hemoglobin less than 8 -Acute kidney injury: Continue with gentle hydration, Consult nephrology -History of aortic valve replacement on Coumadin -chronic kidney disease -Recent history of right leg fracture, x-ray showing mildly displaced oblique fracture of the right fibula, they recommended CAM walker boot, [id number] for 2-3 weeks, physical therapy rehab upon discharge and follow-up with Dr. Veras in 10-14 days for reevaluation -Hypertension
[2020-10-05 01:05] LABS: Anisocytosis Moderate; HCT 27.3 % (34.0-46.0); Hypochromasia Marked; MCH 25.7 pg (25.0-35.0); MCHC 29.3 g/dL (31.0-37.0); Mean Platelet Volume 7.1; Microcytosis Slight; Platelet Count 277 k/uL (150-450); Poikilocytosis Slight; RBC 3.11 m/uL (3.80-5.40); RDW 21.8 % (11.5-15.5); WBC 6.5 k/uL (3.8-10.6)
[2020-10-05] MEDS: NOREPINEPHRINE 8 MG in SODIUM CHLORIDE 0.9% 250 ML IV SCH (04:39)
[2020-10-05] MEDS: SODIUM CHLORIDE 0.9% 1,000 ML IV SCH ×4 (04:53→19:35)
[2020-10-05 06:14] LABS: INR 3.9 (<1.2); Prothrombin Time 38.4 sec (9.0-12.0)
[2020-10-05 06:45] LABS: Glucose,Whole Blood 141 mg/dL (75-99)
[2020-10-05 07:00] LABS: Albumin 1.9 g/dL (3.5-5.0); Bilirubin, Delta 0.3 mg/dL (0.0-0.2); Calcium 6.9 mg/dL (8.4-10.2); Magnesium 2.2 mg/dL (1.6-2.3); Potassium 4.3 mmol/L (3.5-5.1); Total Bilirubin 0.3 mg/dL (0.2-1.3); Total Protein 4.2 g/dL (6.3-8.2)
[2020-10-05] MEDS: INSULIN ASPART (NovoLOG) 100 UNIT/ML VIAL SQ SCH ×4 (07:06→21:33)
--- NOTE | 2020-10-05 07:12 | XR ---
EXAMINATION TYPE: XR chest 1V portable DATE OF EXAM: 10/05/2020 CLINICAL HISTORY: Difficulty breathing progress study. TECHNIQUE: Single AP portable semiupright view of the chest is obtained. COMPARISON: Chest x-ray from one day earlier and older studies. FINDINGS: Stable right internal jugular central venous catheter and left subclavian Mediport cathete r. Persistent mild cardiomegaly with moderate central vascular congestion and left greater than right bi basilar opacities. Osseous structures are demineralized with degenerative change bilateral glenohumer al joints. IMPRESSION: Mild cardiomegaly with moderate central vascular congestion and left greater than right b ibasilar acute infiltrate and atelectasis, small bilateral pleural effusions may be present. No signi ficant change from one day earlier. Correlate for CHF exacerbation.
[2020-10-05] MEDS: METOPROLOL TARTRATE 25 MG TAB PO SCH ×2 (09:16→20:22)
[2020-10-05] MEDS: PANTOPRAZOLE 40 MG/10 ML VIAL IVP SCH (09:16)
[2020-10-05] MEDS: ASPIRIN 325 MG TAB PO SCH ×2 (09:16→09:33)
--- NOTE | 2020-10-05 09:43 | P.PN ---
Subjective Progress Note Date: 10/05/20 This is a 79-year-old female was admitted to the hospital with rhabdomyolysis and renal failure. Patient has history of atrial fibrillation on anticoagulation. Her INR was high on admission. Her INR today is about more than 3. We'll keep her off Coumadin for now. Patient is otherwise doing well. Being transferred to telemetry unit. 2. Resume Coumadin when the creatinine comes to close to 2. Lungs are clear. Heart is regular Objective - Vital Signs Vital signs: Vital Signs Temp 97.8 F 10/05/20 05:00 Pulse 80 10/05/20 08:00 Resp 15 10/05/20 08:00 BP 120/49 10/05/20 09:00 Pulse Ox 93 L 10/05/20 08:00 Intake & Output 10/04/20 10/05/20 10/05/20 18:59 06:59 18:59 Intake Total 4896.077 8300 130 Output Total 550 800 50 Balance 499.866 1748 80 Weight 87.09 kg 99 kg Intake: IV 780 1560 130 Sodium Chloride 0.9% 1, 780 1560 130 000 ml @ 130 mls/hr IV . Q7H42M [facility] Rx#:[id number] Intake, IV Titration 133.255 300 Amount Azithromycin 500 mg In 250 Sodium Chloride 0.9% 250 ml @ 250 mls/hr IVPB Q24H [facility] Rx#:[id number] Norepinephrine 8 mg In 33.255 Sodium Chloride 0.9% 250 ml @ 0.05 MCG/KG/MIN 8. 426 mls/hr IV .Q24H [facility] Rx#:[id number] Sodium Chloride 0.9% 1, 100 000 ml @ 100 mls/hr IV . Q10H [facility] Rx#:[id number] cefTRIAXone 2 gm In 50 Sodium Chloride 0.9% 50 ml @ 100 mls/hr IVPB Q24H [facility] Rx#:[id number] Oral 100 120 Output: Urine 550 800 50 Other: Voiding Method Indwelling Catheter Indwelling Catheter - Exam GENERAL EXAM: Patient is alert and oriented and doesn't appear to be in any acute distress HEENT: Normocephalic. Normal reaction of pupils, equal size, normal range of extraocular motion. No erythema or exudates in the throat. NECK: No masses, no nuchal rigidity. CHEST: No chest wall deformity. LUNGS: Equal air entry with no crackles or wheeze. HEART: S1 and S2 normal with no audible mumurs or gallops. Regular rhythm, femorals equal on both sides.. ABDOMEN: No hepatosplenomegaly, normal bowel sounds, no guarding or rigidity. SKIN: No rashes CENTRAL NERVOUS SYSTEM: No focal deficits. EXTREMITIES: No cyanosis, clubbing or edema. - Labs CBC & Chem 7: 10/05/20 00:40 10/05/20 05:19 Labs: Abnormal Lab Results - Last 24 Hours (Table) 10/04/20 10/04/20 10/04/20 Range/Units 03:44 11:50 14:08 RBC 3.17 L (3.80-5.40) m/uL Hgb 8.4 L (11.4-16.0) gm/dL Hct 27.5 L (34.0-46.0) % MCHC 30.6 L (31.0-37.0) g/dL RDW 21.7 H (11.5-15.5) % PT (9.0-12.0) sec INR (<1.2) Sodium (137-145) mmol/L Chloride (98-107) mmol/L BUN (7-17) mg/dL Creatinine (0.52-1.04) mg/dL Glucose (74-99) mg/dL POC Glucose (mg/dL) 190 H (75-99) mg/dL Hemoglobin A1c 7.1 H (4.0-6.0) % Calcium (8.4-10.2) mg/dL Delta Bilirubin (0.0-0.2) mg/dL AST (14-36) U/L ALT (4-34) U/L Creatine Kinase (30-135) U/L Total Protein (6.3-8.2) g/dL Albumin (3.5-5.0) g/dL 10/04/20 10/04/20 10/04/20 Range/Units 16:34 18:59 20:36 RBC 3.39 L (3.80-5.40) m/uL Hgb 8.7 L (11.4-16.0) gm/dL Hct 29.8 L (34.0-46.0) % MCHC 29.2 L (31.0-37.0) g/dL RDW 21.7 H (11.5-15.5) % PT (9.0-12.0) sec INR (<1.2) Sodium (137-145) mmol/L Chloride (98-107) mmol/L BUN (7-17) mg/dL Creatinine (0.52-1.04) mg/dL Glucose (74-99) mg/dL POC Glucose (mg/dL) 141 H 133 H (75-99) mg/dL Hemoglobin A1c (4.0-6.0) % Calcium (8.4-10.2) mg/dL Delta Bilirubin (0.0-0.2) mg/dL AST (14-36) U/L ALT (4-34) U/L Creatine Kinase (30-135) U/L Total Protein (6.3-8.2) g/dL Albumin (3.5-5.0) g/dL 10/05/20 10/05/20 10/05/20 Range/Units 00:40 05:19 05:19 RBC 3.11 L (3.80-5.40) m/uL Hgb 8.0 L (11.4-16.0) gm/dL Hct 27.3 L (34.0-46.0) % MCHC 29.3 L (31.0-37.0) g/dL RDW 21.8 H (11.5-15.5) % PT 38.4 H (9.0-12.0) sec INR 3.9 H (<1.2) Sodium 136 L (137-145) mmol/L Chloride 110 H (98-107) mmol/L BUN 68 H (7-17) mg/dL Creatinine 2.54 H (0.52-1.04) mg/dL Glucose 132 H (74-99) mg/dL POC Glucose (mg/dL) (75-99) mg/dL Hemoglobin A1c (4.0-6.0) % Calcium 6.9 L (8.4-10.2) mg/dL Delta Bilirubin 0.3 H (0.0-0.2) mg/dL AST 273 H (14-36) U/L ALT 138 H (4-34) U/L Creatine Kinase 5019 H* (30-135) U/L Total Protein 4.2 L (6.3-8.2) g/dL Albumin 1.9 L (3.5-5.0) g/dL 10/05/20 Range/Units 06:43 RBC (3.80-5.40) m/uL Hgb (11.4-16.0) gm/dL Hct (34.0-46.0) % MCHC (31.0-37.0) g/dL RDW (11.5-15.5) % PT (9.0-12.0) sec INR (<1.2) Sodium (137-145) mmol/L Chloride (98-107) mmol/L BUN (7-17) mg/dL Creatinine (0.52-1.04) mg/dL Glucose (74-99) mg/dL POC Glucose (mg/dL) 141 H (75-99) mg/dL Hemoglobin A1c (4.0-6.0) % Calcium (8.4-10.2) mg/dL Delta Bilirubin (0.0-0.2) mg/dL AST (14-36) U/L ALT (4-34) U/L Creatine Kinase (30-135) U/L Total Protein (6.3-8.2) g/dL Albumin (3.5-5.0) g/dL Assessment and Plan (1) Atrial fibrillation, chronic Current Visit: Yes Status: Acute Code(s): I48.20 - CHRONIC ATRIAL FIBRIL LATION, UNSPECIFIED SNOMED Code(s): 549788946 (2) ARF (acute renal failure) Current Visit: Yes Status: Acute Code(s): N17.9 - ACUTE KIDNEY FAILURE, UNSPECIFIED SNOMED Code(s): 45797880 (3) Community acquired bacterial pneumonia Current Visit: Yes Status: Acute Code(s): J15.9 - UNSPECIFIED BACTERIAL PNEUMONIA SNOMED Code(s): 509674561 (4) Rhabdomyolysis Current Visit: Yes Status: Acute Code(s): M62.82 - RHABDOMYOLYSIS SNOMED Code(s): 524306470 (5) Status post aortic valve replacement Current Visit: Yes Status: Acute Code(s): Z95.2 - PRESENCE OF PROSTHETIC HEART VALVE SNOMED Code(s): 0825940530897 (6) Chronic anemia Current Visit: Yes Status: Acute Code(s): D64.9 - ANEMIA, UNSPECIFIED SNOMED Code(s): 421544348 Plan: Continue current medical therapy. Follow renal function and also INR. Resume Coumadin when INR is below 2.
--- NOTE | 2020-10-05 10:45 | P.PN ---
Progress Note - Text Progress Note Date: 10/05/20 consult note reviewed. Addendum attached. Please see for recommendations
[2020-10-05 12:07] LABS: Glucose,Whole Blood 202 mg/dL (75-99)
--- NOTE | 2020-10-05 16:13 | P.PN ---
Subjective Progress Note Date: 10/05/20 Principal diagnosis: Follow-up for acute kidney injury. Transfer out of ICU. Good urine output. Objective - Vital Signs Vital signs: Vital Signs Temp 97.8 F 10/05/20 15:10 Pulse 88 10/05/20 15:10 Resp 16 10/05/20 15:10 BP 147/62 10/05/20 15:10 Pulse Ox 93 L 10/05/20 15:10 Intake & Output 10/04/20 10/05/20 10/05/20 18:59 06:59 18:59 Intake Total 5895.669 4923 130 Output Total 550 800 50 Balance 205.882 0519 80 Weight 87.09 kg 99 kg Intake: IV 780 1560 130 Sodium Chloride 0.9% 1, 780 1560 130 000 ml @ 130 mls/hr IV . Q7H42M [facility] Rx#:[id number] Intake, IV Titration 133.255 300 Amount Azithromycin 500 mg In 250 Sodium Chloride 0.9% 250 ml @ 250 mls/hr IVPB Q24H [facility] Rx#:[id number] Norepinephrine 8 mg In 33.255 Sodium Chloride 0.9% 250 ml @ 0.05 MCG/KG/MIN 8. 426 mls/hr IV .Q24H [facility] Rx#:[id number] Sodium Chloride 0.9% 1, 100 000 ml @ 100 mls/hr IV . Q10H [facility] Rx#:[id number] cefTRIAXone 2 gm In 50 Sodium Chloride 0.9% 50 ml @ 100 mls/hr IVPB Q24H [facility] Rx#:[id number] Oral 100 120 Output: Urine 550 800 50 Other: Voiding Method Indwelling Catheter Indwelling Catheter - Exam No acute distress S1-S2 heard Decreased breath sounds Red[place] Trace edema - Labs CBC & Chem 7: 10/05/20 00:40 10/05/20 05:19 Labs: Abnormal Lab Results - Last 24 Hours (Table) 10/04/20 10/04/20 10/04/20 Range/Units 16:34 18:59 20:36 RBC 3.39 L (3.80-5.40) m/uL Hgb 8.7 L (11.4-16.0) gm/dL Hct 29.8 L (34.0-46.0) % MCHC 29.2 L (31.0-37.0) g/dL RDW 21.7 H (11.5-15.5) % PT (9.0-12.0) sec INR (<1.2) Sodium (137-145) mmol/L Chloride (98-107) mmol/L BUN (7-17) mg/dL Creatinine (0.52-1.04) mg/dL Glucose (74-99) mg/dL POC Glucose (mg/dL) 141 H 133 H (75-99) mg/dL Calcium (8.4-10.2) mg/dL Delta Bilirubin (0.0-0.2) mg/dL AST (14-36) U/L ALT (4-34) U/L Creatine Kinase (30-135) U/L Total Protein (6.3-8.2) g/dL Albumin (3.5-5.0) g/dL 10/05/20 10/05/20 10/05/20 Range/Units 00:40 05:19 05:19 RBC 3.11 L (3.80-5.40) m/uL Hgb 8.0 L (11.4-16.0) gm/dL Hct 27.3 L (34.0-46.0) % MCHC 29.3 L (31.0-37.0) g/dL RDW 21.8 H (11.5-15.5) % PT 38.4 H (9.0-12.0) sec INR 3.9 H (<1.2) Sodium 136 L (137-145) mmol/L Chloride 110 H (98-107) mmol/L BUN 68 H (7-17) mg/dL Creatinine 2.54 H (0.52-1.04) mg/dL Glucose 132 H (74-99) mg/dL POC Glucose (mg/dL) (75-99) mg/dL Calcium 6.9 L (8.4-10.2) mg/dL Delta Bilirubin 0.3 H (0.0-0.2) mg/dL AST 273 H (14-36) U/L ALT 138 H (4-34) U/L Creatine Kinase 5019 H* (30-135) U/L Total Protein 4.2 L (6.3-8.2) g/dL Albumin 1.9 L (3.5-5.0) g/dL 10/05/20 10/05/20 Range/Units 06:43 12:06 RBC (3.80-5.40) m/uL Hgb (11.4-16.0) gm/dL Hct (34.0-46.0) % MCHC (31.0-37.0) g/dL RDW (11.5-15.5) % PT (9.0-12.0) sec INR (<1.2) Sodium (137-145) mmol/L Chloride (98-107) mmol/L BUN (7-17) mg/dL Creatinine (0.52-1.04) mg/dL Glucose (74-99) mg/dL POC Glucose (mg/dL) 141 H 202 H (75-99) mg/dL Calcium (8.4-10.2) mg/dL Delta Bilirubin (0.0-0.2) mg/dL AST (14-36) U/L ALT (4-34) U/L Creatine Kinase (30-135) U/L Total Protein (6.3-8.2) g/dL Albumin (3.5-5.0) g/dL Assessment and Plan Assessment: #1 acute kidney injury secondary to ischemic and toxic ATN from hypotension and rhabdomyolysis. #2 shock, suspected sepsis from underlying pneumonia. #3 fall with rhabdomyolysis #4 chronic kidney disease stage III baseline creatinine 1.8-2.2 MG per DL. #5 metabolic acidosis secondary to acute kidney injury Plan: #1 discontinue Redmond catheter, stop IV fluids. #2 stop atorvastatin with rhabdomyolysis #3 antibiotics per primary team #4 avoid nephrotoxic agents and hypotensive episodes. #5 CPK improving, stable from nephrology for discharge
--- NOTE | 2020-10-05 16:41 | P.PN ---
Subjective Progress Note Date: 10/05/20 Principal diagnosis: Acute rhabdomyolysis and acute on chronic kidney injury with possible acute community-acquired pneumonia This is an 79-year-old white female, she is a very poor historian, patient had history of multiple medical problems including duodenal ulcer, and recent history of upper GI bleeding, patient was supposedly admitted to the hospital in [facility], she was in the hospital supposedly for 3 weeks. She was eventually discharged, and apparently at the time she had a very low hemoglobin, required significant amount of blood transfusion. Yesterday, the patient apparently fell at home, and she was found on the ground laying for the last 2 days. Patient was confused, EMS was called by family member who found the patient on the floor, patient was brought in complaining mostly of weakness, and some vague aches and pains. Workup included a CBC which showed a hemoglobin of 10.6. INR was noted to be elevated at 8.2, electrolytes are abnormal with sodium of 133 potassium of 5.8, BUN is 92 creatinine is 4.48, and her baseline creatinine is normally around 2. Lactic acid was noted to be at 4.7, patient was given fluid boluses, and follow-up lactic acid was 1.8. Liver enzymes were also noted to be elevated with AST of 650 ALT of 196. And his CPK was significantly elevated at 13,769. Troponin was also elevated at 0.074, BNP level 7290. Patient was able to maintain O2 saturations in the 100% range even on 2 L nasal cannula. Her blood pressure was initially low on admission as low as 67/54, patient received fluid boluses, and after 3 L of fluid boluses, remained at bit low, patient was started on norepinephrine drip. When I saw her in the ER, her norepinephrine drip was at 0.072 mcg/kg/m. And her blood pressure at the time was 108/40. Patient was reevaluated today in the ICU, patient is resting in bed, comfortable, she is on room air, IV fluid is running at 100 mL per hour, remains on norepinephrine at 0.08 mcg/kg/m. She has decent urine output, 40 mL per hour, her renal functioning is improving, and her CPKs seems to be coming down nicely. Patient is complaining of pain in her right lower extremity, and x-rays of the right tibia fibula and ankle were done. There was clearly evidence of oblique mildly displaced fracture of the distal fibula with no significant angulation, hence orthopedic consultation was initiated. Chest x-ray continues to show possibly a limited infiltrate in the left lower lobe. Slightly improved compared to the chest x-ray done yesterday. Labs were reviewed hemoglobin is 8.4. INR remains elevated at 6.7, patient has been on Coumadin for aortic valve replacement. Her BUN is down to 84 creatinine is down to 3.46, and that being addressed by nephrology. CPK is down to 7574. Transaminases remain elevated with AST of 309 and ALT of 159. Patient denies any shortness of breath, and she is not in any respiratory distress The patient is seen today 10/05/2020 in follow-up in the intensive care unit. She is awake and alert in no acute distress. Denies any shortness of breath, c ough or congestion. She is maintaining O2 saturation in the 90s on room air. She's afebrile. Hemodynamically stable. Remains on 0.9 normal saline at 130 MLS per hour. Not requiring any pressors. Antibiotics in the form of ceftriaxone and azithromycin. Chest x-ray reveals mild cardiomegaly with moderate central vascular congestion and left greater than right bibasilar acute infiltrate/atelectasis. White count 6.5. Hemoglobin 8.0. INR 3.9. Sodium 136. Potassium 4.3. Creatinine 2.54. AST 273, ALT 138. Creatinine kinase down to 5019. Objective - Vital Signs Vital signs: Vital Signs Temp 97.8 F 10/05/20 15:10 Pulse 88 10/05/20 15:10 Resp 16 10/05/20 15:10 BP 147/62 10/05/20 15:10 Pulse Ox 93 L 10/05/20 15:10 Intake & Output 10/04/20 10/05/20 10/05/20 18:59 06:59 18:59 Intake Total 8816.713 6660 130 Output Total 550 800 50 Balance 324.805 1434 80 Weight 87.09 kg 99 kg Intake: IV 780 1560 130 Sodium Chloride 0.9% 1, 780 1560 130 000 ml @ 130 mls/hr IV . Q7H42M [facility] Rx#:[id number] Intake, IV Titration 133.255 300 Amount Azithromycin 500 mg In 250 Sodium Chloride 0.9% 250 ml @ 250 mls/hr IVPB Q24H [facility] Rx#:[id number] Norepinephrine 8 mg In 33.255 Sodium Chloride 0.9% 250 ml @ 0.05 MCG/KG/MIN 8. 426 mls/hr IV .Q24H [facility] Rx#:[id number] Sodium Chloride 0.9% 1, 100 000 ml @ 100 mls/hr IV . Q10H [facility] Rx#:[id number] cefTRIAXone 2 gm In 50 Sodium Chloride 0.9% 50 ml @ 100 mls/hr IVPB Q24H [facility] Rx#:[id number] Oral 100 120 Output: Urine 550 800 50 Other: Voiding Method Indwelling Catheter Indwelling Catheter - Exam GENERAL EXAM: Alert, 79-year-old female patient, morbidly obese, on room air comfortable in no apparent distress. HEAD: Normocephalic. EYES: Normal reaction of pupils, equal size. NOSE: Clear with pink turbinates. THROAT: No erythema or exudates. NECK: No masses, no JVD. CHEST: No chest wall deformity. LUNGS: Equal air entry with crackles at the bases, left greater than right CVS: S1 and S2 normal with no audible murmur, regular rhythm. ABDOMEN: No hepatosplenomegaly, normal bowel sounds, no guarding or rigidity. SPINE: No scoliosis or deformity SKIN: No rashes CENTRAL NERVOUS SYSTEM: No focal deficits, tone is normal in all 4 extremities. EXTREMITIES: CAM walker boot for the right lower extremity in William wrap currentl. There is 1+ peripheral edema. No clubbing, no cyanosis. Peripheral pulses are intact. - Labs CBC & Chem 7: 10/05/20 00:40 10/05/20 05:19 Labs: Abnormal Lab Results - Last 24 Hours (Table) 10/04/20 10/04/20 10/04/20 Range/Units 16:34 18:59 20:36 RBC 3.39 L (3.80-5.40) m/uL Hgb 8.7 L (11.4-16.0) gm/dL Hct 29.8 L (34.0-46.0) % MCHC 29.2 L (31.0-37.0) g/dL RDW 21.7 H (11.5-15.5) % PT (9.0-12.0) sec INR (<1.2) Sodium (137-145) mmol/L Chloride (98-107) mmol/L BUN (7-17) mg/dL Creatinine (0.52-1.04) mg/dL Glucose (74-99) mg/dL POC Glucose (mg/dL) 141 H 133 H (75-99) mg/dL Calcium (8.4-10.2) mg/dL Delta Bilirubin (0.0-0.2) mg/dL AST (14-36) U/L ALT (4-34) U/L Creatine Kinase (30-135) U/L Total Protein (6.3-8.2) g/dL Albumin (3.5-5.0) g/dL 10/05/20 10/05/20 10/05/20 Range/Units 00:40 05:19 05:19 RBC 3.11 L (3.80-5.40) m/uL Hgb 8.0 L (11.4-16.0) gm/dL Hct 27.3 L (34.0-46.0) % MCHC 29.3 L (31.0-37.0) g/dL RDW 21.8 H (11.5-15.5) % PT 38.4 H (9.0-12.0) sec INR 3.9 H (<1.2) Sodium 136 L (137-145) mmol/L Chloride 110 H (98-107) mmol/L BUN 68 H (7-17) mg/dL Creatinine 2.54 H (0.52-1.04) mg/dL Glucose 132 H (74-99) mg/dL POC Glucose (mg/dL) (75-99) mg/dL Calcium 6.9 L (8.4-10.2) mg/dL Delta Bilirubin 0.3 H (0.0-0.2) mg/dL AST 273 H (14-36) U/L ALT 138 H (4-34) U/L Creatine Kinase 5019 H* (30-135) U/L Total Protein 4.2 L (6.3-8.2) g/dL Albumin 1.9 L (3.5-5.0) g/dL 10/05/20 10/05/20 Range/Units 06:43 12:06 RBC (3.80-5.40) m/uL Hgb (11.4-16.0) gm/dL Hct (34.0-46.0) % MCHC (31.0-37.0) g/dL RDW (11.5-15.5) % PT (9.0-12.0) sec INR (<1.2) Sodium (137-145) mmol/L Chloride (98-107) mmol/L BUN (7-17) mg/dL Creatinine (0.52-1.04) mg/dL Glucose (74-99) mg/dL POC Glucose (mg/dL) 141 H 202 H (75-99) mg/dL Calcium (8.4-10.2) mg/dL Delta Bilirubin (0.0-0.2) mg/dL AST (14-36) U/L ALT (4-34) U/L Creatine Kinase (30-135) U/L Total Protein (6.3-8.2) g/dL Albumin (3.5-5.0) g/dL Assessment and Plan Assessment: 1 Acute rhabdomyolysis secondary to fall. With significantly elevated CPK, recovered and improving 2 Acute on chronic kidney injury 3 Acute left lower lobe pneumonia is strongly suspected, not clear whether this is a community-acquired pneumonia or healthcare associated pneumonia. Nonetheless, patient is empirically on antibiotics. 4 Sepsis and septic shock also suspected. Likely source would be pneumonia/left lower lobe. 5 Hypotension secondary to sepsis and septic shock. 6 History of aortic valve replacement. 7 Coumadin related coagulopathy. 8 Recent history of duodenal ulcer and GI bleeding 9 Recent fracture of right fibula Plan: The patient was seen and evaluated by Dr. Gutierrez She is stable from the critical care standpoint Transfer out of the ICU to the regular medical floor We'll continue to follow I, the cosigning physician, performed a history & physical examination of the patient. Lungs sounds with crackles in the bases more so on the left Maintaining good O2 saturations in the 90s on room air. I discussed the assessment and plan of care with my nurse practitioner, Jeanna Nesbitt. I attest to the above note as dictated by her.
[2020-10-05 17:12] LABS: Glucose,Whole Blood 210 mg/dL (75-99)
[2020-10-05] MEDS ORDERED: polyethylene glycoL 3350 17 GM POWD.PACK PO PRN (19:27)
[2020-10-05] MEDS: AZITHROMYCIN 500 MG TAB PO SCH (20:22)
[2020-10-05 21:31] LABS: Glucose,Whole Blood 191 mg/dL (75-99)
--- NOTE | 2020-10-06 02:52 | P.PN ---
Subjective This is a pleasant 79 years old female with past medical history of hypertension, chronic kidney disease, she is to follow up with Dr. Pedersen but she stopped earlier this year because of insurance problems. History of heart surgery at January or March of this year at [facility] and [facility] she has replaced aortic valve. Also she has history of right leg fracture at the ankle, she has right leg cast placed at the hospital in [place] She presents because she fell at home, she was in her bedroom but she does not know how she fell but she confirms she did not lose consciousness, Patient states also she has coughing with yellow phlegm but this is chronic as per patient, no chest pain. No nausea vomiting or diarrhea, no bleeding. She is not on oxygen at home. Vitas looks stable, patient is saturating 98% on 2 L oxygen via nasal cannula CBC showing WBC 10.6 K, hemoglobin 10.6, platelet normal at 381K. INR is 8.4, sodium 133, potassium 5.8, creatinine 4.4 with baseline 2.1-2.0 [place] [address] on admission, liver enzymes slightly elevated with AST 650 and ALT 196, total protein is 1.0. ProBNP 7290 Chest x-ray showing progressive left lower lobe pneumonia. 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 And of the neck showing spondylitic changes in the cervical spine. No fracture. There is mild C4 5 subluxation deformity that is probably chronic Pelvic x-ray: No fracture In the emergency room patient received 2.5 L, cocktail for hyperkalemia and closing calcium chloride, insulin/dextrose, sodium bicarb. Also received aspirin 324 mg 10/04/2020 Patient is seen and evaluated in the ICU, she was lying in bed comfortable not in distress complaining of from pain at her right leg side, scalp has been taken off she has tenderness around the right lateral malleolus.Right tibia and fibula x-ray: Oblique mildly displaced fracture of the distal fibula with no significant angulation. Orthopedic team recommended no surgical intervention, they recommended Walker boot, and non-weight bearing for 2-3 weeks, with outpatient rehab upon discharge and follow-up with Dr. veras orthopedic service in 10-14 days for x-ray and clinical evaluation Chest x-ray showed persistent left lower lobe infiltrate and she remains on Zithromax and ceftriaxone, she needed low dose of pressors Cardiology team evaluated the patient for her Coumadin therapy, continue holding Coumadin for high INR. Also patient is followed closely by pulmonary/critical care team. Patient remains on ceftriaxone, Zithromax, normal saline at 1:30. [employer] recommended to hold statin review of her rhabdomyolysis Coumadine still on hold for high INR 10/05/2020 (although not is opened on 10/06 but date of service is 10/05) Patient clinically is improving, she is fully awake and oriented with no March respiratory distress. Patient presents because of fall on top, lysis secondary to recent right fibular fracture and left lower lobe pneumonia. Her increased troponin is secondary to her kidney disease, Acute kidney injury is improving, INR is trending down secondary to her Coumadin coagulopathy which she is on Coumadin for her aortic valve repair by history Patient is brought out of the ICU and is doing good The fourth and labs Pending: Speech evaluation and physical therapy evaluation Review of Systems CONSTITUTIONAL: No fever, no malaise, no fatigue. HEENT: No recent visual problems or hearing problems. Denied any sore throat. CARDIOVASCULAR: No orthopnea, PND, no palpitations, no syncope. PULMONARY: No shortness of breath, no cough, no hemoptysis. GASTROINTESTINAL: No diarrhea, no nausea, no vomiting, no abdominal pain. Normoactive bowel sounds. NEUROLOGICAL: No headaches, no weakness, no numbness. HEMATOLOGICAL: Denies any bleeding or petechiae. Active Medications Generic Name Dose Route Start Last Admin Trade Name Freq PRN Reason Stop Dose Admin Hydrocodone Bitart/Acetaminophen 1 each 10/04/20 20:41 10/04/20 20:49 Hydrocodone/Apap 5-325mg 1 Each Tab PO 1 each Q6HR PRN Administration Pain Albuterol/Ipratropium 3 ml 10/02/20 23:35 Ipratropium-Albuterol 3 Ml Neb INHALATION RT-Q4H PRN shortness of breath Aspirin 325 mg 10/03/20 09:00 10/05/20 09:33 Aspirin 325 Mg Tab PO Not Given DAILY MARK Azithromycin 500 mg 10/05/20 21:00 10/05/20 20:22 Azithromycin 500 Mg Tab PO 500 mg HS MARK Administration Ceftriaxone Sodium 2 gm/ 50 mls @ 100 mls/hr 10/03/20 22:00 10/05/20 21:27 Sodium Chloride IVPB 100 mls/hr Q24H MARK Administration Sodium Chloride 1,000 mls @ 130 mls/hr 10/02/20 23:45 10/05/20 19:34 Saline 0.9% IV Not Given .Q7H42M MARK Norepinephrine Bitartrate 8 mg 258 mls @ 8.426 mls/hr 10/04/20 07:15 10/05/20 04:39 / Sodium Chloride IV Not Given .Q24H MARK Protocol 0.05 MCG/KG/MIN Sodium Chloride 1,000 mls @ 20 mls/hr 10/05/20 18:15 10/05/20 19:35 Saline 0.9% IV 20 mls/hr .Q24H MARK Administration Insulin Aspart 0 unit 10/04/20 07:30 10/05/20 21:33 Insulin Aspart (Novolog) 100 Unit/Ml Vial SQ 2 unit ACHS MARK Administration Protocol Metoprolol Tartrate 25 mg 10/03/20 09:00 10/05/20 20:22 Metoprolol Tartrate 25 Mg Tab PO 25 mg BID MARK Administration Miscellaneous Information 1 each 10/02/20 23:35 Pneumonia Protocol Utilized 1 Each Misc PO ONCE PRN Per Protocol Nitroglycerin 0.4 mg 10/02/20 23:23 Nitroglycerin Sl Tabs 0.4 Mg Tab SUBLINGUAL Q5M PRN Chest Pain Pantoprazole Sodium 40 mg 10/04/20 09:00 10/05/20 09:16 Pantoprazole 40 Mg/10 Ml Vial IVP 40 mg DAILY MARK Administration Polyethylene Glycol 17 gm 10/05/20 19:27 10/05/20 20:22 Polyethylene Glycol 3350 17 Gm Powd.Pack PO 17 gm DAILY PRN Administration Constipation Objective - Vital Signs Vital signs: Vital Signs Temp 98.1 F 10/06/20 01:31 Pulse 82 10/06/20 01:31 Resp 18 10/06/20 01:31 BP 143/57 10/06/20 01:31 Pulse Ox 95 10/06/20 01:31 Intake & Output 10/05/20 10/05/20 10/06/20 06:59 18:59 06:59 Intake Total 1980 130 236 Output Total 800 50 Balance 1180 80 236 Weight 99 kg Intake: IV 1560 130 Sodium Chloride 0.9% 1, 1560 130 000 ml @ 130 mls/hr IV . Q7H42M [facility] Rx#:[id number] Intake, IV Titration 300 Amount Azithromycin 500 mg In 250 Sodium Chloride 0.9% 250 ml @ 250 mls/hr IVPB Q24H MARK Rx#:[id number] cefTRIAXone 2 gm In 50 Sodium Chloride 0.9% 50 ml @ 100 mls/hr IVPB Q24H MARK Rx#:[id number] Oral 120 236 Output: Urine 800 50 Other: Voiding Method Indwelling Catheter Diaper Incontinent # Voids 0 # Bowel Movements 1 - Exam GENERAL: The patient is alert and oriented x3, not in any acute distress. Well developed, well nourished. HEENT: Pupils are round and equally reacting to light. EOMI. No scleral icterus. No conjunctival pallor. Normocephalic, atraumatic. No pharyngeal erythema. No thyromegaly. CARDIOVASCULAR: S1 and S2 present. No murmurs, rubs, or gallops. PULMONARY: Chest is clear to auscultation, no wheezing or crackles. ABDOMEN: Soft, nontender, nondistended, normoactive bowel sounds. No palpable organomegaly. MUSCULOSKELETAL: No joint swelling or deformity. -EXTREMITIES: No cyanosis, clubbing, or pedal edema. Right leg tenderness on the right malleolus Neurological : Gross neurological examination did not reveal any focal deficits. SKIN: No rashes. No petechiae - Labs CBC & Chem 7: 10/05/20 00:40 10/05/20 05:19 Labs: Abnormal Lab Results - Last 24 Hours (Table) 10/05/20 10/05/20 10/05/20 Range/Units 05:19 05:19 06:43 PT 38.4 H (9.0-12.0) sec INR 3.9 H (<1.2) Sodium 136 L (137-145) mmol/L Chloride 110 H (98-107) mmol/L BUN 68 H (7-17) mg/dL Creatinine 2.54 H (0.52-1.04) mg/dL Glucose 132 H (74-99) mg/dL POC Glucose (mg/dL) 141 H (75-99) mg/dL Calcium 6.9 L (8.4-10.2) mg/dL Delta Bilirubin 0.3 H (0.0-0.2) mg/dL AST 273 H (14-36) U/L ALT 138 H (4-34) U/L Creatine Kinase 5019 H* (30-135) U/L Total Protein 4.2 L (6.3-8.2) g/dL Albumin 1.9 L (3.5-5.0) g/dL 10/05/20 10/05/20 10/05/20 Range/Units 12:06 17:11 21:29 PT (9.0-12.0) sec INR (<1.2) Sodium (137-145) mmol/L Chloride (98-107) mmol/L BUN (7-17) mg/dL Creatinine (0.52-1.04) mg/dL Glucose (74-99) mg/dL POC Glucose (mg/dL) 202 H 210 H 191 H (75-99) mg/dL Calcium (8.4-10.2) mg/dL Delta Bilirubin (0.0-0.2) mg/dL AST (14-36) U/L ALT (4-34) U/L Creatine Kinase (30-135) U/L Total Protein (6.3-8.2) g/dL Albumin (3.5-5.0) g/dL Assessment and Plan Assessment: Assessment and plan -rhabdomyolyis, with elavated cpk, continue with IV fluid -Pssible non-STEMI: Continue with aspirin, heparin drip, cardiology consult -Possible left lower lobe pneumonia, continue Zithromax andceftriaxone, pulmonary consult -Fall without losing consciousness, continue with neurocheck, physical therapy and patient off therapy -coagulopathy secondary to Coumadin, , Monitor hemoglobin and transfuse if hemoglobin less than 8 -Acute kidney injury: Continue with gentle hydration, Consult nephrology -History of aortic valve replacement on Coumadin -chronic kidney disease -Recent history of right leg fracture, x-ray showing mildly displaced oblique fracture of the right fibula, they recommended CAM walker boot, [id number] for 2-3 weeks, physical therapy rehab upon discharge and follow-up with Dr. Veras in 10-14 days for reevaluation -Hypertension
[2020-10-06] MEDS: SODIUM CHLORIDE 0.9% 1,000 ML IV SCH ×4 (05:39→21:16)
[2020-10-06 07:25] LABS: Glucose,Whole Blood 132 mg/dL (75-99)
[2020-10-06] MEDS ORDERED: traMADol 50 MG TAB PO PRN (07:49)
--- NOTE | 2020-10-06 08:18 | XR ---
EXAMINATION TYPE: XR chest 1V portable DATE OF EXAM: 10/06/2020 CLINICAL HISTORY: Difficulty breathing and left lower lobe pneumonia progress study. TECHNIQUE: Single AP portable upright view of the chest is obtained. COMPARISON: Chest x-ray from one day earlier and older studies. FINDINGS: Stable right internal jugular central venous catheter and left subclavian Mediport cathete r. Persistent mild cardiomegaly with moderate central vascular congestion and left basilar opacity. Osse ous structures remain demineralized with degenerative change bilateral glenohumeral joints redemonstr ated. IMPRESSION: Mild cardiomegaly with mild to moderate central vascular congestion and left mid to lower lung acute infiltrate and/or atelectasis all redemonstrated. Improved aeration noted right lung base from one day earlier.
[2020-10-06 10:03] LABS: INR 1.91 (0.90-1.11); Prothrombin Time 19.7 sec (9.9-11.9)
[2020-10-06 10:15] LABS: ALT 135 U/L (8-44); AST 155 U/L (13-35); African American GFR (CKD) 28.2 (60.0-200.0); Albumin/Globulin Ratio 1.35 (1.60-3.17); Alkaline Phosphatase 90 U/L (41-126); BUN/Creat Ratio 31.05 Ratio (12.00-20.00); Bilirubin, Conjugated <0.20 mg/dL (0.20-0.40); Calcium 7.5 mg/dL (8.7-10.3); Carbon Dioxide 21.9 mmol/L (21.6-31.8); Chloride 110 mmol/L (96-109); Globulin 1.7 g/dL (1.6-3.3); Glucose 127 mg/dL (70-110); Non-African American GFR(CKD) 24.3 (60.0-200.0); Potassium 4.2 mmol/L (3.5-5.5); Sodium 139 mmol/L (135-145); Total Bilirubin 0.2 mg/dL (0.2-1.2)
[2020-10-06] MEDS: NOREPINEPHRINE 8 MG in SODIUM CHLORIDE 0.9% 250 ML IV SCH (10:17)
[2020-10-06] MEDS: INSULIN ASPART (NovoLOG) 100 UNIT/ML VIAL SQ SCH ×4 (10:17→21:11)
[2020-10-06] MEDS: METOPROLOL TARTRATE 25 MG TAB PO SCH ×2 (10:18→21:10)
[2020-10-06] MEDS: ASPIRIN 325 MG TAB PO SCH (10:18)
[2020-10-06] MEDS: FERROUS SULFATE 325 MG TAB PO SCH (10:22)
[2020-10-06] MEDS: LEVOTHYROXINE 75 MCG TAB PO SCH (10:22)
--- NOTE | 2020-10-06 11:14 | PN ---
PROGRESS NOTE Mrs. Lainez is an 79-year-old female who presented with rhabdomyolysis and renal failure. She has history of atrial fibrillation, was anticoagulated. Her anticoagulation was on hold on presentation. She is feeling tired today, but she denies any chest pain. She denies any dizziness or palpitation. She has prior history of aortic valve replacement. She did not eat well this morning. She has possible pneumonia. She continues to be at this time on Lipitor 20 mg daily, metoprolol tartrate 25 mg twice a day in addition to the antibiotics. PHYSICAL EXAMINATION: Blood pressure 124/60 with a heart rate in the 80s. LUNGS: Clear. Heart S1-S2 with a systolic murmur heard at the base. No diastolic murmur. No rub. ABDOMEN: Soft and nontender. EXTREMITIES: No significant edema. LAB DATA: She had an echocardiogram that showed a preserved left ventricular systolic function with normal functioning of her bioprosthetic aortic valve with mild to moderate aortic regurgitation with moderate mitral and mild tricuspid regurgitation. Her lab data revealed an INR of 1.9, BUN and creatinine 59 and 1.9, which has improved compared to admission. Her CK is down to 2447. IMPRESSION: 1. Rhabdomyolysis, improving. 2. Atrial fibrillation. 3. Status post aortic valve replacement. 4. Hyperlipidemia. RECOMMENDATIONS: From the cardiac standpoint, I will re-initiate the treatment with Coumadin at this point. We will follow her renal function as well as her INR and depending on her progress, further recommendations will be made. MMODL / IJN: [id number] /
--- NOTE | 2020-10-06 12:08 | XR ---
EXAMINATION TYPE: XR Hip RT and AP Pelvis DATE OF EXAM: 10/06/2020 COMPARISON: NONE HISTORY: Fall injury at home with pain. TECHNIQUE: A single AP view of the pelvis is obtained. Two views of the right hip are obtained. FINDINGS: Exam is suboptimal due to patient's large body habitus and underlying demineralization fel t present. There is no obvious acute displaced fracture evident in the pelvis. Sacroiliac joints diff icult to evaluate. Fairly moderate axial joint space loss in both hips. Bilateral groin calcification is present. Two views of right hip show no acute displaced fracture. No focal lytic or sclerotic lesion seen in the proximal right femur. IMPRESSION: Suboptimal study without acute displaced fracture in the pelvis or right hip clearly seen .
[2020-10-06 12:09] LABS: Glucose,Whole Blood 171 mg/dL (75-99)
--- NOTE | 2020-10-06 13:53 | P.PN ---
Subjective Progress Note Date: 10/06/20 Principal diagnosis: Acute rhabdomyolysis and acute on chronic kidney injury with possible acute community-acquired pneumonia This is an 79-year-old white female, she is a very poor historian, patient had history of multiple medical problems including duodenal ulcer, and recent history of upper GI bleeding, patient was supposedly admitted to the hospital in [facility], she was in the hospital supposedly for 3 weeks. She was eventually discharged, and apparently at the time she had a very low hemoglobin, required significant amount of blood transfusion. Yesterday, the patient apparently fell at home, and she was found on the ground laying for the last 2 days. Patient was confused, EMS was called by family member who found the patient on the floor, patient was brought in complaining mostly of weakness, and some vague aches and pains. Workup included a CBC which showed a hemoglobin of 10.6. INR was noted to be elevated at 8.2, electrolytes are abnormal with sodium of 133 potassium of 5.8, BUN is 92 creatinine is 4.48, and her baseline creatinine is normally around 2. Lactic acid was noted to be at 4.7, patient was given fluid boluses, and follow-up lactic acid was 1.8. Liver enzymes were also noted to be elevated with AST of 650 ALT of 196. And his CPK was significantly elevated at 13,769. Troponin was also elevated at 0.074, BNP level 7290. Patient was able to maintain O2 saturations in the 100% range even on 2 L nasal cannula. Her blood pressure was initially low on admission as low as 67/54, patient received fluid boluses, and after 3 L of fluid boluses, remained at bit low, patient was started on norepinephrine drip. When I saw her in the ER, her norepinephrine drip was at 0.072 mcg/kg/m. And her blood pressure at the time was 108/40. Patient was reevaluated today in the ICU, patient is resting in bed, comfortable, she is on room air, IV fluid is running at 100 mL per hour, remains on norepinephrine at 0.08 mcg/kg/m. She has decent urine output, 40 mL per hour, her renal functioning is improving, and her CPKs seems to be coming down nicely. Patient is complaining of pain in her right lower extremity, and x-rays of the right tibia fibula and ankle were done. There was clearly evidence of oblique mildly displaced fracture of the distal fibula with no significant angulation, hence orthopedic consultation was initiated. Chest x-ray continues to show possibly a limited infiltrate in the left lower lobe. Slightly improved compared to the chest x-ray done yesterday. Labs were reviewed hemoglobin is 8.4. INR remains elevated at 6.7, patient has been on Coumadin for aortic valve replacement. Her BUN is down to 84 creatinine is down to 3.46, and that being addressed by nephrology. CPK is down to 7574. Transaminases remain elevated with AST of 309 and ALT of 159. Patient denies any shortness of breath, and she is not in any respiratory distress The patient is seen today 10/05/2020 in follow-up in the intensive care unit. She is awake and alert in no acute distress. Denies any shortness of breath, c ough or congestion. She is maintaining O2 saturation in the 90s on room air. She's afebrile. Hemodynamically stable. Remains on 0.9 normal saline at 130 MLS per hour. Not requiring any pressors. Antibiotics in the form of ceftriaxone and azithromycin. Chest x-ray reveals mild cardiomegaly with moderate central vascular congestion and left greater than right bibasilar acute infiltrate/atelectasis. White count 6.5. Hemoglobin 8.0. INR 3.9. Sodium 136. Potassium 4.3. Creatinine 2.54. AST 273, ALT 138. Creatinine kinase down to 5019. The patient is seen today 10/05/2020 in follow-up on the regular medical floor. She is currently resting comfortably in bed. Awake and alert in no acute distress. Maintaining good O2 saturations in the 90s on room air. She's been afebrile. Hemodynamically stable. Chest x-ray reveals mild cardiomegaly and mild to moderate central vascular congestion and left mid to left lower lung acute infiltrate/atelectasis. Improved aeration of the right lung base. She remains on bronchodilators, antibiotics in the form of ceftriaxone and azithromycin. She was having ongoing complaints of right hip pain and x-ray did not reveal any acute displaced fracture in the pelvis or right hip. Objective - Vital Signs Vital signs: Vital Signs Temp 97.8 F 10/06/20 12:58 Pulse 84 11/29/20 12:58 Resp 16 10/06/20 12:58 BP 99/54 10/06/20 12:58 Pulse Ox 97 10/06/20 12:58 Intake & Output 10/05/20 10/06/20 10/06/20 18:59 06:59 18:59 Intake Total 130 236 Output Total 50 Balance 80 236 Intake: IV 130 Sodium Chloride 0.9% 1, 130 000 ml @ 130 mls/hr IV . Q7H42M [facility] Rx#:[id number] Oral 236 Output: Urine 50 Other: Voiding Method Diaper Incontinent # Voids 0 # Bowel Movements 1 - Exam GENERAL EXAM: Alert, 79-year-old female patient, morbidly obese, on room air, comfortable in no apparent distress. HEAD: Normocephalic. EYES: Normal reaction of pupils, equal size. NOSE: Clear with pink turbinates. THROAT: No erythema or exudates. NECK: No masses, no JVD. CHEST: No chest wall deformity. LUNGS: Equal air entry with crackles at the bases, left greater than right CVS: S1 and S2 normal with no audible murmur, regular rhythm. ABDOMEN: No hepatosplenomegaly, normal bowel sounds, no guarding or rigidity. SPINE: No scoliosis or deformity SKIN: No rashes CENTRAL NERVOUS SYSTEM: No focal deficits, tone is normal in all 4 extremities. EXTREMITIES: CAM walker boot for the right lower extremity in William wrap currentl. There is 1+ peripheral edema. No clubbing, no cyanosis. Peripheral pulses are intact. - Labs CBC & Chem 7: 10/05/20 00:40 10/06/20 05:19 Labs: Abnormal Lab Results - Last 24 Hours (Table) 10/05/20 10/05/20 10/06/20 Range/Units 17:11 21:29 05:19 PT 19.7 H (9.9-11.9) sec INR 1.91 H (0.90-1.11) Chloride (96-109) mmol/L BUN (9.0-27.0) mg/dL Creatinine (0.6-1.5) mg/dL Est GFR (CKD-EPI)AfAm (60.0-200.0) Est GFR (CKD-EPI)NonAf (60.0-200.0) BUN/Creatinine Ratio (12.00-20.00) Ratio Glucose (70-110) mg/dL POC Glucose (mg/dL) 210 H 191 H (75-99) mg/dL Calcium (8.7-10.3) mg/dL Conjugated Bilirubin (0.20-0.40) mg/dL AST (13-35) U/L ALT (8-44) U/L Creatine Kinase (26-186) U/L CK-MB (CK-2) (0.0-2.4) ng/mL Total Protein (6.2-8.2) g/dL Albumin (3.80-4.90) g/dL Albumin/Globulin Ratio (1.60-3.17) g/dL 10/06/20 10/06/20 10/06/20 Range/Units 05:19 05:19 07:05 PT (9.9-11.9) sec INR (0.90-1.11) Chloride 110 H (96-109) mmol/L BUN 59.0 H (9.0-27.0) mg/dL Creatinine 1.9 H (0.6-1.5) mg/dL Est GFR (CKD-EPI)AfAm 28.2 L (60.0-200.0) Est GFR (CKD-EPI)NonAf 24.3 L (60.0-200.0) BUN/Creatinine Ratio 31.05 H (12.00-20.00) Ratio Glucose 127 H (70-110) mg/dL POC Glucose (mg/dL) 132 H (75-99) mg/dL Calcium 7.5 L (8.7-10.3) mg/dL Conjugated Bilirubin <0.20 L (0.20-0.40) mg/dL AST 155 H (13-35) U/L ALT 135 H (8-44) U/L Creatine Kinase 2447 H* (26-186) U/L CK-MB (CK-2) 18.0 H (0.0-2.4) ng/mL Total Protein 4.0 L (6.2-8.2) g/dL Albumin 2.30 L (3.80-4.90) g/dL Albumin/Globulin Ratio 1.35 L (1.60-3.17) g/dL 10/06/20 Range/Units 12:00 PT (9.9-11.9) sec INR (0.90-1.11) Chloride (96-109) mmol/L BUN (9.0-27.0) mg/dL Creatinine (0.6-1.5) mg/dL Est GFR (CKD-EPI)AfAm (60.0-200.0) Est GFR (CKD-EPI)NonAf (60.0-200.0) BUN/Creatinine Ratio (12.00-20.00) Ratio Glucose (70-110) mg/dL POC Glucose (mg/dL) 171 H (75-99) mg/dL Calcium (8.7-10.3) mg/dL Conjugated Bilirubin (0.20-0.40) mg/dL AST (13-35) U/L ALT (8-44) U/L Creatine Kinase (26-186) U/L CK-MB (CK-2) (0.0-2.4) ng/mL Total Protein (6.2-8.2) g/dL Albumin (3.80-4.90) g/dL Albumin/Globulin Ratio (1.60-3.17) g/dL Assessment and Plan Assessment: 1 Acute rhabdomyolysis secondary to fall. With significantly elevated CPK, recovered and improving 2 Acute on chronic kidney injury 3 Acute left lower lobe pneumonia is strongly suspected, not clear whether this is a community-acquired pneumonia or healthcare associated pneumonia. Nonetheless, patient is empirically on antibiotics. 4 Sepsis and septic shock also suspected. Likely source would be pneumonia/left lower lobe. 5 Hypotension secondary to sepsis and septic shock. 6 History of aortic valve replacement. 7 Coumadin related coagulopathy. 8 Recent history of duodenal ulcer and GI bleeding 9 Recent fracture of right fibula Plan: The patient was seen and evaluated by Dr. Gutierrez Chest x-ray and labs reviewed She is stable from the pulmonary standpoint Continue the current treatment plan We'll continue to follow I, the cosigning physician, performed a history & physical examination of the patient. Lungs sounds with crackles in the bases more so on the left. Maintaining good O2 saturations in the 90s on room air. I discussed the assessment and plan of care with my nurse practitioner, Jeanna Nesbitt. I attest to the above note as dictated by her.
--- NOTE | 2020-10-06 16:13 | P.PN ---
Subjective Progress Note Date: 10/06/20 Principal diagnosis: Follow-up for acute kidney injury. Good urine output. Objective - Vital Signs Vital signs: Vital Signs Temp 97.8 F 10/06/20 12:58 Pulse 84 10/06/20 12:58 Resp 16 10/06/20 12:58 BP 99/54 10/06/20 12:58 Pulse Ox 97 10/06/20 12:58 Intake & Output 10/05/20 10/06/20 10/06/20 18:59 06:59 18:59 Intake Total 130 236 Output Total 50 Balance 80 236 Intake: IV 130 Sodium Chloride 0.9% 1, 130 000 ml @ 130 mls/hr IV . Q7H42M [facility] Rx#:[id number] Oral 236 Output: Urine 50 Other: Voiding Method Diaper Diaper Incontinent Incontinent # Voids 0 # Bowel Movements 1 - Exam No acute distress S1-S2 heard Decreased breath sounds [place] Trace edema - Labs CBC & Chem 7: 10/05/20 00:40 10/06/20 05:19 Labs: Abnormal Lab Results - Last 24 Hours (Table) 10/05/20 10/05/20 10/06/20 Range/Units 17:11 21:29 05:19 PT 19.7 H (9.9-11.9) sec INR 1.91 H (0.90-1.11) Chloride (96-109) mmol/L BUN (9.0-27.0) mg/dL Creatinine (0.6-1.5) mg/dL Est GFR (CKD-EPI)AfAm (60.0-200.0) Est GFR (CKD-EPI)NonAf (60.0-200.0) BUN/Creatinine Ratio (12.00-20.00) Ratio Glucose (70-110) mg/dL POC Glucose (mg/dL) 210 H 191 H (75-99) mg/dL Calcium (8.7-10.3) mg/dL Conjugated Bilirubin (0.20-0.40) mg/dL AST (13-35) U/L ALT (8-44) U/L Creatine Kinase (26-186) U/L CK-MB (CK-2) (0.0-2.4) ng/mL Total Protein (6.2-8.2) g/dL Albumin (3.80-4.90) g/dL Albumin/Globulin Ratio (1.60-3.17) g/dL 10/06/20 10/06/20 10/06/20 Range/Units 05:19 05:19 07:05 PT (9.9-11.9) sec INR (0.90-1.11) Chloride 110 H (96-109) mmol/L BUN 59.0 H (9.0-27.0) mg/dL Creatinine 1.9 H (0.6-1.5) mg/dL Est GFR (CKD-EPI)AfAm 28.2 L (60.0-200.0) Est GFR (CKD-EPI)NonAf 24.3 L (60.0-200.0) BUN/Creatinine Ratio 31.05 H (12.00-20.00) Ratio Glucose 127 H (70-110) mg/dL POC Glucose (mg/dL) 132 H (75-99) mg/dL Calcium 7.5 L (8.7-10.3) mg/dL Conjugated Bilirubin <0.20 L (0.20-0.40) mg/dL AST 155 H (13-35) U/L ALT 135 H (8-44) U/L Creatine Kinase 2447 H* (26-186) U/L CK-MB (CK-2) 18.0 H (0.0-2.4) ng/mL Total Protein 4.0 L (6.2-8.2) g/dL Albumin 2.30 L (3.80-4.90) g/dL Albumin/Globulin Ratio 1.35 L (1.60-3.17) g/dL 10/06/20 Range/Units 12:00 PT (9.9-11.9) sec INR (0.90-1.11) Chloride (96-109) mmol/L BUN (9.0-27.0) mg/dL Creatinine (0.6-1.5) mg/dL Est GFR (CKD-EPI)AfAm (60.0-200.0) Est GFR (CKD-EPI)NonAf (60.0-200.0) BUN/Creatinine Ratio (12.00-20.00) Ratio Glucose (70-110) mg/dL POC Glucose (mg/dL) 171 H (75-99) mg/dL Calcium (8.7-10.3) mg/dL Conjugated Bilirubin (0.20-0.40) mg/dL AST (13-35) U/L ALT (8-44) U/L Creatine Kinase (26-186) U/L CK-MB (CK-2) (0.0-2.4) ng/mL Total Protein (6.2-8.2) g/dL Albumin (3.80-4.90) g/dL Albumin/Globulin Ratio (1.60-3.17) g/dL Assessment and Plan Assessment: #1 acute kidney injury secondary to ischemic and toxic ATN from hypotension and rhabdomyolysis. #2 shock, suspected sepsis from underlying pneumonia. #3 fall with rhabdomyolysis #4 chronic kidney disease stage III baseline creatinine 1.8-2.2 MG per DL. #5 metabolic acidosis secondary to acute kidney injury Plan: #1 renal function improving. #2 avoid nephrotoxic agents and hypotensive episodes.
[2020-10-06 17:18] LABS: Glucose,Whole Blood 253 mg/dL (75-99)
[2020-10-06] MEDS ORDERED: WARFARIN 2.5 MG TAB PO ONE (18:00)
[2020-10-06 21:01] LABS: Glucose,Whole Blood 241 mg/dL (75-99)
[2020-10-06] MEDS: AZITHROMYCIN 500 MG TAB PO SCH (21:10)
[2020-10-06] MEDS: ATORVASTATIN 20 MG TAB PO SCH (21:10)
[2020-10-06] MEDS: INSULIN DETEMIR (LEVEMIR) 100 UNIT/ML SYR SQ SCH (21:11)
[2020-10-06] MEDS: PANTOPRAZOLE 40 MG TABLET PO SCH (21:11)
--- NOTE | 2020-10-06 22:02 | P.PN ---
Subjective This is a pleasant 79 years old female with past medical history of hypertension, chronic kidney disease, she is to follow up with Dr. Pedersen but she stopped earlier this year because of insurance problems. History of heart surgery at January or March of this year at [facility] and [facility] she has replaced aortic valve. Also she has history of right leg fracture at the ankle, she has right leg cast placed at the hospital in [place] She presents because she fell at home, she was in her bedroom but she does not know how she fell but she confirms she did not lose consciousness, Patient states also she has coughing with yellow phlegm but this is chronic as per patient, no chest pain. No nausea vomiting or diarrhea, no bleeding. She is not on oxygen at home. Vitas looks stable, patient is saturating 98% on 2 L oxygen via nasal cannula CBC showing WBC 10.6 K, hemoglobin 10.6, platelet normal at 381K. INR is 8.4, sodium 133, potassium 5.8, creatinine 4.4 with baseline 2.1-2.0 [place] [address] on admission, liver enzymes slightly elevated with AST 650 and ALT 196, total protein is 1.0. ProBNP 7290 Chest x-ray showing progressive left lower lobe pneumonia. 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 And of the neck showing spondylitic changes in the cervical spine. No fracture. There is mild C4 5 subluxation deformity that is probably chronic Pelvic x-ray: No fracture In the emergency room patient received 2.5 L, cocktail for hyperkalemia and closing calcium chloride, insulin/dextrose, sodium bicarb. Also received aspirin 324 mg 10/04/2020 Patient is seen and evaluated in the ICU, she was lying in bed comfortable not in distress complaining of from pain at her right leg side, scalp has been taken off she has tenderness around the right lateral malleolus.Right tibia and fibula x-ray: Oblique mildly displaced fracture of the distal fibula with no significant angulation. Orthopedic team recommended no surgical intervention, they recommended Walker boot, and non-weight bearing for 2-3 weeks, with outpatient rehab upon discharge and follow-up with Dr. veras orthopedic service in 10-14 days for x-ray and clinical evaluation Chest x-ray showed persistent left lower lobe infiltrate and she remains on Zithromax and ceftriaxone, she needed low dose of pressors Cardiology team evaluated the patient for her Coumadin therapy, continue holding Coumadin for high INR. Also patient is followed closely by pulmonary/critical care team. Patient remains on ceftriaxone, Zithromax, normal saline at 1:30. Set O Type Operator recommended to hold statin review of her rhabdomyolysis Coumadine still on hold for high INR 10/05/2020 (although not is opened on 10/06 but date of service is 10/05) Patient clinically is improving, she is fully awake and oriented with no March respiratory distress. Patient presents because of fall on top, lysis secondary to recent right fibular fracture and left lower lobe pneumonia. Her increased troponin is secondary to her kidney disease, Acute kidney injury is improving, INR is trending down secondary to her Coumadin coagulopathy which she is on Coumadin for her aortic valve repair by history Patient is brought out of the ICU and is doing good The fourth and labs Pending: Speech evaluation and physical therapy evaluation 10/06/2020 Patient is alert and awake, she is only complaining of from pain in the right hip area secondary to a fall, x-ray of the right hip and pelvis are unremarkable for acute fracture although they are LIMITED evaluation due to her body habitus. We will do physical therapy evaluation tomorrow Her creatinine kinase is improved as well as her breathing and it looks like she is cleared and stable from both nephrology and pulmonary perspective Patient does not want take aspirin while she is on Coumadin for high risk of bleeding so it was his continued upon her request. Anyway her high troponin mostly is related to her kidney disease, cardiology already on the case Also we'll do speech evaluation tomorrow INR is 1.9 and Coumadin restarted today. She remains on ceftriaxone, Zithromax, normal saline at 75 mm per hour. C ontinue with Coumadin while DC aspirate Objective - Vital Signs Vital signs: Vital Signs Temp 97.8 F 10/06/20 12:58 Pulse 84 10/06/20 12:58 Resp 16 10/06/20 12:58 BP 99/54 10/06/20 12:58 Pulse Ox 97 10/06/20 12:58 Intake & Output 10/05/20 10/06/20 10/06/20 18:59 06:59 18:59 Intake Total 130 236 Output Total 50 Balance 80 236 Intake: IV 130 Sodium Chloride 0.9% 1, 130 000 ml @ 130 mls/hr IV . Q7H42M [facility] Rx#:[id number] Oral 236 Output: Urine 50 Other: Voiding Method Diaper Diaper Incontinent Incontinent # Voids 0 # Bowel Movements 1 - Exam GENERAL: The patient is alert and oriented x3, not in any acute distress. Well developed, well nourished. HEENT: Pupils are round and equally reacting to light. EOMI. No scleral icterus. No conjunctival pallor. Normocephalic, atraumatic. No pharyngeal erythema. No thyromegaly. CARDIOVASCULAR: S1 and S2 present. No murmurs, rubs, or gallops. PULMONARY: Chest is clear to auscultation, no wheezing or crackles. ABDOMEN: Soft, nontender, nondistended, normoactive bowel sounds. No palpable organomegaly. MUSCULOSKELETAL: No joint swelling or deformity. -EXTREMITIES: No cyanosis, clubbing, or pedal edema. Right leg tenderness on t he right malleolus Neurological : Gross neurological examination did not reveal any focal deficits. SKIN: No rashes. No petechiae - Labs CBC & Chem 7: 10/05/20 00:40 10/06/20 05:19 Labs: Abnormal Lab Results - Last 24 Hours (Table) 10/05/20 10/06/20 10/06/20 Range/Units 21:29 05:19 05:19 PT 19.7 H (9.9-11.9) sec INR 1.91 H (0.90-1.11) Chloride 110 H (96-109) mmol/L BUN 59.0 H (9.0-27.0) mg/dL Creatinine 1.9 H (0.6-1.5) mg/dL Est GFR (CKD-EPI)AfAm 28.2 L (60.0-200.0) Est GFR (CKD-EPI)NonAf 24.3 L (60.0-200.0) BUN/Creatinine Ratio 31.05 H (12.00-20.00) Ratio Glucose 127 H (70-110) mg/dL POC Glucose (mg/dL) 191 H (75-99) mg/dL Calcium 7.5 L (8.7-10.3) mg/dL Conjugated Bilirubin <0.20 L (0.20-0.40) mg/dL AST 155 H (13-35) U/L ALT 135 H (8-44) U/L Creatine Kinase 2447 H* (26-186) U/L CK-MB (CK-2) (0.0-2.4) ng/mL Total Protein 4.0 L (6.2-8.2) g/dL Albumin 2.30 L (3.80-4.90) g/dL Albumin/Globulin Ratio 1.35 L (1.60-3.17) g/dL 10/06/20 10/06/20 10/06/20 Range/Units 05:19 07:05 12:00 PT (9.9-11.9) sec INR (0.90-1.11) Chloride (96-109) mmol/L BUN (9.0-27.0) mg/dL Creatinine (0.6-1.5) mg/dL Est GFR (CKD-EPI)AfAm (60.0-200.0) Est GFR (CKD-EPI)NonAf (60.0-200.0) BUN/Creatinine Ratio (12.00-20.00) Ratio Glucose (70-110) mg/dL POC Glucose (mg/dL) 132 H 171 H (75-99) mg/dL Calcium (8.7-10.3) mg/dL Conjugated Bilirubin (0.20-0.40) mg/dL AST (13-35) U/L ALT (8-44) U/L Creatine Kinase (26-186) U/L CK-MB (CK-2) 18.0 H (0.0-2.4) ng/mL Total Protein (6.2-8.2) g/dL Albumin (3.80-4.90) g/dL Albumin/Globulin Ratio (1.60-3.17) g/dL 10/06/20 Range/Units 17:06 PT (9.9-11.9) sec INR (0.90-1.11) Chloride (96-109) mmol/L BUN (9.0-27.0) mg/dL Creatinine (0.6-1.5) mg/dL Est GFR (CKD-EPI)AfAm (60.0-200.0) Est GFR (CKD-EPI)NonAf (60.0-200.0) BUN/Creatinine Ratio (12.00-20.00) Ratio Glucose (70-110) mg/dL POC Glucose (mg/dL) 253 H (75-99) mg/dL Calcium (8.7-10.3) mg/dL Conjugated Bilirubin (0.20-0.40) mg/dL AST (13-35) U/L ALT (8-44) U/L Creatine Kinase (26-186) U/L CK-MB (CK-2) (0.0-2.4) ng/mL Total Protein (6.2-8.2) g/dL Albumin (3.80-4.90) g/dL Albumin/Globulin Ratio (1.60-3.17) g/dL Assessment and Plan Assessment: Assessment and plan -rhabdomyolyis, with elavated cpk, continue with IV fluid -Pssible non-STEMI: Continue with aspirin, heparin drip, cardiology consult -Possible left lower lobe pneumonia, continue Zithromax andceftriaxone, pulmonary consult -Fall without losing consciousness, continue with neurocheck, physical therapy and patient off therapy -coagulopathy secondary to Coumadin, , Monitor hemoglobin and transfuse if hemoglobin less than 8 -Acute kidney injury: Continue with gentle hydration, Consult nephrology -History of aortic valve replacement on Coumadin -chronic kidney disease -Recent history of right leg fracture, x-ray showing mildly displaced oblique fracture of the right fibula, they recommended CAM walker boot, [id number] for 2-3 weeks, physical therapy rehab upon discharge and follow-up with Dr. Veras in 10-14 days for reevaluation -Hypertension
[2020-10-07] MEDS: LEVOTHYROXINE 75 MCG TAB PO SCH (05:30)
[2020-10-07 06:53] LABS: Glucose,Whole Blood 98 mg/dL (75-99)
[2020-10-07] MEDS: NOREPINEPHRINE 8 MG in SODIUM CHLORIDE 0.9% 250 ML IV SCH (07:07)
[2020-10-07] MEDS: SODIUM CHLORIDE 0.9% 1,000 ML IV SCH ×2 (07:10→16:37)
[2020-10-07] MEDS: INSULIN ASPART (NovoLOG) 100 UNIT/ML VIAL SQ SCH ×4 (07:11→21:44)
[2020-10-07] MEDS: FERROUS SULFATE 325 MG TAB PO SCH (07:13)
[2020-10-07] MEDS: METOPROLOL TARTRATE 25 MG TAB PO SCH ×2 (07:13→21:45)
[2020-10-07 09:11] LABS: Prothrombin Time 19.4 sec (9.0-12.0)
[2020-10-07 10:18] LABS: Creatine Kinase 2447 U/L (26-186)
[2020-10-07] MEDS ORDERED: FUROSEMIDE 10 MG/ML 4 ML VIAL IV STA (11:00)
--- NOTE | 2020-10-07 11:11 | P.PN ---
Subjective Patient is seen in follow-up for acute kidney injury. Renal function improved with IV fluids. Denies chest pain or shortness of breath. IV fluids were stopped this morning due to edema. She has been voiding but is incontinent. Vital signs are stable. General: The patient appeared well nourished and normally developed. HEENT: Head exam is unremarkable. Neck is without jugular venous distension. LUNGS: Breath sounds decreased. HEART: Rate and Rhythm are regular. ABDOMEN: Soft, nontender. EXTREMITITES: 2+ edema. Objective - Vital Signs Vital signs: Vital Signs Temp 98.4 F 10/07/20 07:42 Pulse 78 10/07/20 07:42 Resp 18 10/07/20 07:42 BP 110/53 10/07/20 07:42 Pulse Ox 94 L 10/07/20 07:42 Intake & Output 10/06/20 10/07/20 10/07/20 18:59 06:59 18:59 Output Total 400 Balance -400 Output: Urine 400 Other: Voiding Method Diaper Diaper Diaper Incontinent Incontinent Incontinent - Labs CBC & Chem 7: 10/05/20 00:40 10/06/20 05:19 Labs: Abnormal Lab Results - Last 24 Hours (Table) 10/06/20 10/06/20 10/06/20 Range/Units 05:19 12:00 17:06 PT (9.0-12.0) sec INR (<1.2) Chloride 110 H (96-109) mmol/L BUN 59.0 H (9.0-27.0) mg/dL Creatinine 1.9 H (0.6-1.5) mg/dL Est GFR (CKD-EPI)AfAm 28.2 L (60.0-200.0) Est GFR (CKD-EPI)NonAf 24.3 L (60.0-200.0) BUN/Creatinine Ratio 31.05 H (12.00-20.00) Ratio Glucose 127 H (70-110) mg/dL POC Glucose (mg/dL) 171 H 253 H (75-99) mg/dL Calcium 7.5 L (8.7-10.3) mg/dL Conjugated Bilirubin <0.20 L (0.20-0.40) mg/dL AST 155 H (13-35) U/L ALT 135 H (8-44) U/L Creatine Kinase 2447 H* (26-186) U/L Total Protein 4.0 L (6.2-8.2) g/dL Albumin 2.30 L (3.80-4.90) g/dL Albumin/Globulin Ratio 1.35 L (1.60-3.17) g/dL 10/06/20 10/07/20 Range/Units 20:56 07:05 PT 19.4 H (9.0-12.0) sec INR 2.0 H (<1.2) Chloride (96-109) mmol/L BUN (9.0-27.0) mg/dL Creatinine (0.6-1.5) mg/dL Est GFR (CKD-EPI)AfAm (60.0-200.0) Est GFR (CKD-EPI)NonAf (60.0-200.0) BUN/Creatinine Ratio (12.00-20.00) Ratio Glucose (70-110) mg/dL POC Glucose (mg/dL) 241 H (75-99) mg/dL Calcium (8.7-10.3) mg/dL Conjugated Bilirubin (0.20-0.40) mg/dL AST (13-35) U/L ALT (8-44) U/L Creatine Kinase (26-186) U/L Total Protein (6.2-8.2) g/dL Albumin (3.80-4.90) g/dL Albumin/Globulin Ratio (1.60-3.17) g/dL Assessment and Plan Plan: Assessment: 1. Acute kidney injury secondary to ATN secondary to hypotension and rhabdomyolysis. Creatinine was 4.48 on admission and was down to 1.9 as of yesterday. 2. Chronic kidney disease stage III with baseline creatinine in the range of 1.7-2. Etiology is likely nephrosclerosis. Trace proteinuria on UA. Will quantify outpatient. 3. Volume overload. 4. Fall with rhabdomyolysis. CK levels trending down. 5. Metabolic acidosis secondary to acute kidney injury and IV fluids. Stable as of yesterday. 6. Diabetes mellitus. 7. Anemia of chronic kidney disease. Rule out iron deficiency. Plan: IV fluids were stopped this morning. Add Lasix 40 mg IV once daily. Check iron studies. Continue to monitor renal function and urine output.
[2020-10-07 11:35] LABS: Glucose,Whole Blood 137 mg/dL (75-99)
[2020-10-07 11:35] LABS: African American GFR (CKD) 32.2 (60.0-200.0); Anion Gap 6.3 mmol/L (4.00-12.00); BUN/Creat Ratio 31.18 Ratio (12.00-20.00); Carbon Dioxide 22.7 mmol/L (21.6-31.8); Non-African American GFR(CKD) 27.8 (60.0-200.0); Potassium 4.2 mmol/L (3.5-5.5)
--- NOTE | 2020-10-07 11:45 | PN ---
PROGRESS NOTE Mrs. Lainez is an 79-year-old female who has a history of atrial fibrillation who presented with rhabdomyolysis and renal failure. She is feeling better overall, but she feels tired. She still has a significant peripheral edema. She denies any dizziness, palpitation. She denies any nausea. She has a history of aortic valve replacement and her echocardiogram showed a preserved systolic function with normal function of her valve with mild to moderate aortic regurgitation. She had possible pneumonia. MEDICATION: At this time include Zithromax, Ceftriaxone, levothyroxine, metoprolol tartrate 25 mg twice a day and she received Coumadin. PHYSICAL EXAMINATION: Blood pressure 110/50 with a heart rate in the 70s. LUNGS: Clear. HEART: S1, S2 with systolic murmur, no diastolic murmur, no rub. ABDOMEN: Soft, obese, nontender. EXTREMITIES: +1 to 2 edema bilaterally. IMPRESSION: 1. Rhabdomyolysis, improving. 2. Atrial fibrillation, anticoagulated. 3. Status post aortic valve replacement. 4. Probable pneumonia, being treated. 5. Renal failure improving. RECOMMENDATION: Will continue present dose of the Coumadin. Will follow her INR. I will give her one dose of IV Lasix. Follow her renal function closely and depending on her progress, further recommendation will be made. MMODL / IJN: [id number] /
[2020-10-07 16:20] LABS: Glucose,Whole Blood 178 mg/dL (75-99)
--- NOTE | 2020-10-07 16:34 | CDI ---
Documentation Clarification Form Date: 10/07/2020 04:21:50 PM From: Fidelia LarsonWHIT, CCDS Admit Date: 10/02/2020 11:23:00 PM Patient Name: Fidelia Lainez Visit Number: [id number] Discharge Date: ATTENTION: The Clinical Documentation Specialists (CDI) and [facility] Coding Staff appreciate your assistance in clarifying documentation. Please respond to the clarification below the line at the bottom and electronically sign. The CDI & [facility] Coding staff will review the response and follow-up if needed. Please note: Queries are made part of the Legal Health Record. If you have any questions, please contact the author of this message via ITS. Dr. Evans Obrien.Sheet: Per the 10/03 History Physical and subsequent Progress Notes on 10/04 & 10/06: "Rhabdomyolyis with elevated CPK, continue with IV fluid. Possible Non-STEMI: Continue with Aspirin, Heparin drip. Per the 10/04 Cardiology Consult: Chronic Atrial Fibrillation, Acute Renal Failure, Community Acquired Bacterial Pneumonia, Rhabdomyolysis, History of AVR. Troponin elevation is not consistent with Acute Myocardial Injury pattern. Patient History/Risk Factors: Hypertensive Heart & CKD III, Chronic Atrial Fibrillation, IDDM II, Aortic Valve Replacement, Anemia of CKD, Hyperlipidemia, Colon Cancer, TIA, Peptic Ulcer Disease. Clinical Indicators: Presented to the on 10/02 via EMS after a fall at home. Admitted with Community Acquired Bacterial Pneumonia, IHS, Dehydration & Rhabdomyolysis. Troponin: 0.074^^, 0.068^^, 0.070^^ EKG Results 10/02: R 82 Accelerated junctional rhythm, Incomplete RBBB Treatment: IV fluid 1,000 mls @ 999 mls/hr, IV fluid 500 mls @ 999 mls/hr, po Aspirin, IV Azithromycin, IV Rocephin, IV Solucortef. In order to capture the severity of condition and necessary documentation specificity, please clarify: NSTEMI ruled out NSTEMI ruled in, please specify location if known Type II Myocardial Infarction Other, please specify: Unable to determine (Last Revision: August 2017) no STEMI, or NON STEMI MTDD
--- NOTE | 2020-10-07 16:49 | P.PN ---
Subjective Progress Note Date: 10/07/20 Principal diagnosis: Acute rhabdomyolysis and acute on chronic kidney injury from possible acute coronary acquired pneumonia This is an 79-year-old white female, she is a very poor historian, patient had history of multiple medical problems including duodenal ulcer, and recent h istory of upper GI bleeding, patient was supposedly admitted to the hospital in [facility], she was in the hospital supposedly for 3 weeks. She was eventually discharged, and apparently at the time she had a very low hemoglobin, required significant amount of blood transfusion. Yesterday, the patient apparently fell at home, and she was found on the ground laying for the last 2 days. Patient was confused, EMS was called by family member who found the patient on the floor, patient was brought in complaining mostly of weakness, and some vague aches and pains. Workup included a CBC which showed a hemoglobin of 10.6. INR was noted to be elevated at 8.2, electrolytes are abnormal with sodium of 133 potassium of 5.8, BUN is 92 creatinine is 4.48, and her baseline creatinine is normally around 2. Lactic acid was noted to be at 4.7, patient was given fluid boluses, and follow-up lactic acid was 1.8. Liver enzymes were also noted to be elevated with AST of 650 ALT of 196. And his CPK was significantly elevated at 13,769. Troponin was also elevated at 0.074, BNP level 7290. Patient was able to maintain O2 saturations in the 100% range even on 2 L nasal cannula. Her blood pressure was initially low on admission as low as 67/54, patient received fluid boluses, and after 3 L of fluid boluses, remained at bit low, patient was started on norepinephrine drip. When I saw her in the ER, her norepinephrine drip was at 0.072 mcg/kg/m. And her blood pressure at the time was 108/40. Patient was reevaluated today in the ICU, patient is resting in bed, comfortable, she is on room air, IV fluid is running at 100 mL per hour, remains on norepinephrine at 0.08 mcg/kg/m. She has decent urine output, 40 mL per hour, her renal functioning is improving, and her CPKs seems to be coming down nicely. Patient is complaining of pain in her right lower extremity, and x-rays of the right tibia fibula and ankle were done. There was clearly evidence of oblique mildly displaced fracture of the distal fibula with no significant angulation, hence orthopedic consultation was initiated. Chest x-ray continues to show possibly a limited infiltrate in the left lower lobe. Slightly improved compared to the chest x-ray done yesterday. Labs were reviewed hemoglobin is 8.4. INR remains elevated at 6.7, patient has been on Coumadin for aortic valve replacement. Her BUN is down to 84 creatinine is down to 3.46, and that being addressed by nephrology. CPK is down to 7574. Transaminases remain elevated with AST of 309 and ALT of 159. Patient denies any shortness of breath, and she is not in any respiratory distress The patient is seen today 10/05/2020 in follow-up in the intensive care unit. She is awake and alert in no acute distress. Denies any shortness of breath, co ugh or congestion. She is maintaining O2 saturation in the 90s on room air. She's afebrile. Hemodynamically stable. Remains on 0.9 normal saline at 130 MLS per hour. Not requiring any pressors. Antibiotics in the form of ceftriaxone and azithromycin. Chest x-ray reveals mild cardiomegaly with moderate central vascular congestion and left greater than right bibasilar acute infiltrate/atelectasis. White count 6.5. Hemoglobin 8.0. INR 3.9. Sodium 136. Potassium 4.3. Creatinine 2.54. AST 273, ALT 138. Creatinine kinase down to 5019. The patient is seen today 10/05/2020 in follow-up on the regular medical floor. She is currently resting comfortably in bed. Awake and alert in no acute distress. Maintaining good O2 saturations in the 90s on room air. She's been afebrile. Hemodynamically stable. Chest x-ray reveals mild cardiomegaly and mild to moderate central vascular congestion and left mid to left lower lung acute infiltrate/atelectasis. Improved aeration of the right lung base. She remains on bronchodilators, antibiotics in the form of ceftriaxone and azithromycin. She was having ongoing complaints of right hip pain and x-ray did not reveal any acute displaced fracture in the pelvis or right hip. On 10/07/2020 patient seen in follow-up on Gen. medical surgical floor. She is resting comfortably in bed, appears weak, but no acute distress, room air pulse ox is 97%, she's been afebrile, hemodynamically stable, she appears generally swollen, she will be started on IV Lasix today. She's had no acute events overnight, her last chest x-ray was yesterday on 10/06 showing myocardial megaly mild to moderate central vascular congestion and left mid to lower lung acute infiltrate and/or atelectasis. She remains on nebulized treatments, she is on azithromycin and Rocephin for empiric antibiotic coverage. She is on Coumadin for anticoagulation for A. fib, her INR today is 2.0, her renal function is improving, she's had no nausea vomiting or diarrhea. Her last CK was done yesterday and was down to 2447. Objective - Vital Signs Vital signs: Vital Signs Temp 98.5 F 10/07/20 14:16 Pulse 79 10/07/20 14:16 Resp 17 10/07/20 14:16 BP 131/66 10/07/20 14:16 Pulse Ox 97 10/07/20 14:16 Intake & Output 10/06/20 10/07/20 10/07/20 18:59 06:59 18:59 Output Total 400 600 Balance -400 -600 Output: Urine 400 600 Other: Voiding Method Diaper Diaper Diaper Incontinent Incontinent Incontinent - Exam GENERAL EXAM: Alert, very pleasant, morbidly obese, on room air with a pulse ox of 95%, slightly pale, and appears weak, but no acute distress, alert and oriented 3, comfortable in no apparent distress. HEAD: Normocephalic/atraumatic. EYES: Normal reaction of pupils, equal size. Conjunctiva pink, sclera white. NOSE: Clear with pink turbinates. THROAT: No erythema or exudates. NECK: No masses, no JVD, no thyroid enlargement, no adenopathy. CHEST: No chest wall deformity. Symmetrical expansion. LUNGS: Equal air entry with no crackles, wheeze, rhonchi or dullness. CVS: Regular rate and rhythm, normal S1 and S2, no gallops, no murmurs, no rubs ABDOMEN: Soft, nontender. No hepatosplenomegaly, normal bowel sounds, no guarding or rigidity. EXTREMITIES: No clubbing, generally edematous, no cyanosis, 2+ pulses and upper and lower extremities. MUSCULOSKELETAL: Muscle strength and tone normal. SPINE: No scoliosis or deformity SKIN: No rashes CENTRAL NERVOUS SYSTEM: Alert and oriented -3. No focal deficits, tone is normal in all 4 extremities. PSYCHIATRIC: Alert and oriented -3. Appropriate affect. Intact judgment and insight. - Labs CBC & Chem 7: 10/05/20 00:40 10/07/20 07:05 Labs: Abnormal Lab Results - Last 24 Hours (Table) 10/06/20 10/06/20 10/06/20 Range/Units 05:19 17:06 20:56 PT (9.0-12.0) sec INR (<1.2) BUN (9.0-27.0) mg/dL Creatinine (0.6-1.5) mg/dL Est GFR (CKD-EPI)AfAm (60.0-200.0) Est GFR (CKD-EPI)NonAf (60.0-200.0) BUN/Creatinine Ratio (12.00-20.00) Ratio POC Glucose (mg/dL) 253 H 241 H (75-99) mg/dL Calcium (8.7-10.3) mg/dL Creatine Kinase 2447 H* (26-186) U/L 10/07/20 10/07/20 10/07/20 Range/Units 07:05 07:05 11:33 PT 19.4 H (9.0-12.0) sec INR 2.0 H (<1.2) BUN 53.0 H (9.0-27.0) mg/dL Creatinine 1.7 H (0.6-1.5) mg/dL Est GFR (CKD-EPI)AfAm 32.2 L (60.0-200.0) Est GFR (CKD-EPI)NonAf 27.8 L (60.0-200.0) BUN/Creatinine Ratio 31.18 H (12.00-20.00) Ratio POC Glucose (mg/dL) 137 H (75-99) mg/dL Calcium 8.0 L (8.7-10.3) mg/dL Creatine Kinase (26-186) U/L 10/07/20 Range/Units 16:18 PT (9.0-12.0) sec INR (<1.2) BUN (9.0-27.0) mg/dL Creatinine (0.6-1.5) mg/dL Est GFR (CKD-EPI)AfAm (60.0-200.0) Est GFR (CKD-EPI)NonAf (60.0-200.0) BUN/Creatinine Ratio (12.00-20.00) Ratio POC Glucose (mg/dL) 178 H (75-99) mg/dL Calcium (8.7-10.3) mg/dL Creatine Kinase (26-186) U/L Assessment and Plan Plan: Assessment: #1. Acute rhabdomyolysis secondary to fall. With significantly elevated CPK, recovered and improving #2. Acute on chronic kidney injury, improving #3. Acute left lower lobe pneumonia is strongly suspected, not clear whether this is a community-acquired pneumonia or healthcare associated pneumonia. Nonetheless, patient is empirically on antibiotics. #4. Sepsis and septic shock also suspected. Likely source would be pneumonia/left lower lobe. #5. Hypotension secondary to sepsis and septic shock, resolved #6. History of aortic valve replacement. #7. Coumadin related coagulopathy, improved #8. Recent history of duodenal ulcer and GI bleeding #9. Recent fracture of right fibula #10. Atrial fibrillation, on Coumadin for anticoagulation Plan: Continue current antibiotics, agree with Lasix, vital signs are stable, patient is afebrile, signs have been stable, continue nebulized bronchodilators, from pulmonary perspective patient is stable for discharge to [facility] the [place] possibly next 24 hours if remains stable. We'll obtain follow-up chest x-ray in the morning I performed a history & physical examination of the patient and discussed their management with my nurse practitioner, Dana Velez. I reviewed the nurse practitioner's note and agree with the documented findings and plan of care. Lung sounds are positive for diminished breath sounds. The findings and the impression was discussed with the patient. I attest to the documentation by the nurse practitioner. Time with Patient: Less than 30
[2020-10-07] MEDS ORDERED: WARFARIN 2.5 MG TAB PO ONE (18:00)
[2020-10-07 20:07] LABS: Glucose,Whole Blood 201 mg/dL (75-99)
--- NOTE | 2020-10-07 21:42 | P.PN ---
Subjective This is a pleasant 79 years old female with past medical history of hypertension, chronic kidney disease, she is to follow up with Dr. Pedersen but she stopped earlier this year because of insurance problems. History of heart surgery at January or March of this year at [facility] she has replaced aortic valve. Also she has history of right leg fracture at the ankle, she has right leg cast placed at the hospital in [place] She presents because she fell at home, she was in her bedroom but she does not know how she fell but she confirms she did not lose consciousness, Patient states also she has coughing with yellow phlegm but this is chronic as per patient, no chest pain. No nausea vomiting or diarrhea, no bleeding. She is not on oxygen at home. Vitas looks stable, patient is saturating 98% on 2 L oxygen via nasal cannula CBC showing WBC 10.6 K, hemoglobin 10.6, platelet normal at 381K. INR is 8.4, sodium 133, potassium 5.8, creatinine 4.4 with baseline 2.1-2.0 [place] [address] on admission, liver enzymes slightly elevated with AST 650 and ALT 196, total protein is 1.0. ProBNP 7290 Chest x-ray showing progressive left lower lobe pneumonia. 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 And of the neck showing spondylitic changes in the cervical spine. No fracture. There is mild C4 5 subluxation deformity that is probably chronic Pelvic x-ray: No fracture In the emergency room patient received 2.5 L, cocktail for hyperkalemia and closing calcium chloride, insulin/dextrose, sodium bicarb. Also received aspirin 324 mg 10/04/2020 Patient is seen and evaluated in the ICU, she was lying in bed comfortable not in distress complaining of from pain at her right leg side, scalp has been taken off she has tenderness around the right lateral malleolus.Right tibia and fibula x-ray: Oblique mildly displaced fracture of the distal fibula with no significant angulation. Orthopedic team recommended no surgical intervention, they recommended Walker boot, and non-weight bearing for 2-3 weeks, with outpatient rehab upon discharge and follow-up with Dr. veras orthopedic service in 10-14 days for x-ray and clinical evaluation Chest x-ray showed persistent left lower lobe infiltrate and she remains on Zithromax and ceftriaxone, she needed low dose of pressors Cardiology team evaluated the patient for her Coumadin therapy, continue holding Coumadin for high INR. Also patient is followed closely by pulmonary/critical care team. Patient remains on ceftriaxone, Zithromax, normal saline at 1:30. Computer Specialist recommended to hold statin review of her rhabdomyolysis Coumadine still on hold for high INR 10/05/2020 (although not is opened on 10/06 but date of service is 10/05) Patient clinically is improving, she is fully awake and oriented with no March respiratory distress. Patient presents because of fall on top, lysis secondary to recent right fibular fracture and left lower lobe pneumonia. Her increased troponin is secondary to her kidney disease, Acute kidney injury is improving, INR is trending down secondary to her Coumadin coagulopathy which she is on Coumadin for her aortic valve repair by history Patient is brought out of the ICU and is doing good The fourth and labs Pending: Speech evaluation and physical therapy evaluation 10/06/2020 Patient is alert and awake, she is only complaining of from pain in the right hip area secondary to a fall, x-ray of the right hip and pelvis are unremarkable for acute fracture although they are LIMITED evaluation due to her body habitus. We will do physical therapy evaluation tomorrow Her creatinine kinase is improved as well as her breathing and it looks like she is cleared and stable from both nephrology and pulmonary perspective Patient does not want take aspirin while she is on Coumadin for high risk of bleeding so it was his continued upon her request. Anyway her high troponin mostly is related to her kidney disease, cardiology already on the case Also we'll do speech evaluation tomorrow INR is 1.9 and Coumadin restarted today. She remains on ceftriaxone, Zithromax, normal saline at 75 mm per hour. C ontinue with Coumadin while DC aspirate 10/07/2020 Patient clinically is doing well coordinate this with electrocautery oriented she still have some pain in the right hip area, she still waiting to get her boot so she can start her physical therapy Pulmonary team cleared the patient for discharge IV fluid. Today and patient was placed on IV Lasix INR is 2 and Coumadin has resumed. Her troponin is due to kidney disease, patient does not want to take aspirin so it was stopped Objective - Vital Signs Vital signs: Vital Signs Temp 98.5 F 10/07/20 14:16 Pulse 79 10/07/20 14:16 Resp 17 10/07/20 14:16 BP 131/66 10/07/20 14:16 Pulse Ox 97 10/07/20 14:16 Intake & Output 10/07/20 10/07/20 10/08/20 06:59 18:59 06:59 Output Total 400 600 Balance -400 -600 Output: Urine 400 600 Stool 0 Other: Voiding Method Diaper Diaper Incontinent Incontinent # Bowel Movements 0 - Exam GENERAL: The patient is alert and oriented x3, not in any acute distress. Well developed, well nourished. HEENT: Pupils are round and equally reacting to light. EOMI. No scleral icterus. No conjunctival pallor. Normocephalic, atraumatic. No pharyngeal erythema. No thyromegaly. CARDIOVASCULAR: S1 and S2 present. No murmurs, rubs, or gallops. PULMONARY: Chest is clear to auscultation, no wheezing or crackles. ABDOMEN: Soft, nontender, nondistended, normoactive bowel sounds. No palpable organomegaly. MUSCULOSKELETAL: No joint swelling or deformity. -EXTREMITIES: No cyanosis, clubbing, or pedal edema. Right leg tenderness on the right malleolus Neurological : Gross neurological examination did not reveal any focal deficits. SKIN: No rashes. No petechiae - Labs CBC & Chem 7: 10/05/20 00:40 10/07/20 07:05 Labs: Abnormal Lab Results - Last 24 Hours (Table) 10/06/20 10/06/20 10/07/20 Range/Units 05:19 20:56 07:05 PT 19.4 H (9.0-12.0) sec INR 2.0 H (<1.2) BUN (9.0-27.0) mg/dL Creatinine (0.6-1.5) mg/dL Est GFR (CKD-EPI)AfAm (60.0-200.0) Est GFR (CKD-EPI)NonAf (60.0-200.0) BUN/Creatinine Ratio (12.00-20.00) Ratio POC Glucose (mg/dL) 241 H (75-99) mg/dL Calcium (8.7-10.3) mg/dL Creatine Kinase 2447 H* (26-186) U/L 10/07/20 10/07/20 10/07/20 Range/Units 07:05 11:33 16:18 PT (9.0-12.0) sec INR (<1.2) BUN 53.0 H (9.0-27.0) mg/dL Creatinine 1.7 H (0.6-1.5) mg/dL Est GFR (CKD-EPI)AfAm 32.2 L (60.0-200.0) Est GFR (CKD-EPI)NonAf 27.8 L (60.0-200.0) BUN/Creatinine Ratio 31.18 H (12.00-20.00) Ratio POC Glucose (mg/dL) 137 H 178 H (75-99) mg/dL Calcium 8.0 L (8.7-10.3) mg/dL Creatine Kinase (26-186) U/L Assessment and Plan Assessment: Assessment and plan -rhabdomyolyis, with elavated cpk, continue with IV fluid -Pssible non-STEMI: Continue with aspirin, heparin drip, cardiology consult -Possible left lower lobe pneumonia, continue Zithromax andceftriaxone, pulmonary consult -Fall without losing consciousness, continue with neurocheck, physical therapy and patient off therapy -coagulopathy secondary to Coumadin, , Monitor hemoglobin and transfuse if hemoglobin less than 8 -Acute kidney injury: Continue with gentle hydration, Consult nephrology -History of aortic valve replacement on Coumadin -chronic kidney disease -Recent history of right leg fracture, x-ray showing mildly displaced oblique fracture of the right fibula, they recommended CAM walker boot, [id number] for 2-3 weeks, physical therapy rehab upon discharge and follow-up with Dr. Veras in 10-14 days for reevaluation -Hypertension
[2020-10-07] MEDS: AZITHROMYCIN 500 MG TAB PO SCH (21:44)
[2020-10-07] MEDS: INSULIN DETEMIR (LEVEMIR) 100 UNIT/ML SYR SQ SCH (21:44)
[2020-10-07] MEDS: ATORVASTATIN 20 MG TAB PO SCH (21:44)
[2020-10-07] MEDS: PANTOPRAZOLE 40 MG TABLET PO SCH (21:45)
[2020-10-08] MEDS ORDERED: LEVOTHYROXINE 50 MCG TAB PO SCH (06:30)
[2020-10-08 07:33] LABS: Glucose,Whole Blood 84 mg/dL (75-99)
[2020-10-08] MEDS: INSULIN ASPART (NovoLOG) 100 UNIT/ML VIAL SQ SCH ×3 (07:45→17:36)
[2020-10-08] MEDS: METOPROLOL TARTRATE 25 MG TAB PO SCH (07:58)
[2020-10-08] MEDS: FERROUS SULFATE 325 MG TAB PO SCH (07:58)
[2020-10-08] MEDS ORDERED: FUROSEMIDE 10 MG/ML 4 ML VIAL IV SCH (09:00)
[2020-10-08 10:13] LABS: INR 2.12 (0.90-1.11); Prothrombin Time 21.7 sec (9.9-11.9)
[2020-10-08 10:14] LABS: African American GFR (CKD) 34.7 (60.0-200.0); Anion Gap 6.6 mmol/L (4.00-12.00); Calcium 8.2 mg/dL (8.7-10.3); Carbon Dioxide 24.4 mmol/L (21.6-31.8); Non-African American GFR(CKD) 29.9 (60.0-200.0); Potassium 4.2 mmol/L (3.5-5.5)
--- NOTE | 2020-10-08 10:42 | P.PN ---
Subjective Patient is seen in follow-up for acute kidney injury. Renal function improved with IV fluids. Now on IV Lasix due to edema. Denies chest pain or shortness of breath. Nonoliguric. Oral intake just fair. Vital signs are stable. General: The patient appeared well nourished and normally developed. HEENT: Head exam is unremarkable. Neck is without jugular venous distension. LUNGS: Breath sounds decreased. HEART: Rate and Rhythm are regular. ABDOMEN: Soft, nontender. EXTREMITITES: 2+ edema. Objective - Vital Signs Vital signs: Vital Signs Temp 98.1 F 10/08/20 08:00 Pulse 77 10/08/20 08:00 Resp 22 10/08/20 08:00 BP 104/58 10/08/20 08:00 Pulse Ox 95 10/08/20 08:30 Intake & Output 10/07/20 10/08/20 10/08/20 18:59 06:59 18:59 Output Total 600 3500 Balance -600 -3500 Output: Urine 600 3500 Stool 0 0 Other: Voiding Method Diaper Diaper Diaper Incontinent Incontinent Incontinent # Voids 0 # Bowel Movements 0 0 - Labs CBC & Chem 7: 10/05/20 00:40 10/08/20 06:02 Labs: Abnormal Lab Results - Last 24 Hours (Table) 10/07/20 10/07/20 10/07/20 Range/Units 07:05 11:33 16:18 PT (9.9-11.9) sec INR (0.90-1.11) Chloride (96-109) mmol/L BUN 53.0 H (9.0-27.0) mg/dL Creatinine 1.7 H (0.6-1.5) mg/dL Est GFR (CKD-EPI)AfAm 32.2 L (60.0-200.0) Est GFR (CKD-EPI)NonAf 27.8 L (60.0-200.0) BUN/Creatinine Ratio 31.18 H (12.00-20.00) Ratio POC Glucose (mg/dL) 137 H 178 H (75-99) mg/dL Calcium 8.0 L (8.7-10.3) mg/dL Creatine Kinase (26-186) U/L 10/07/20 10/08/20 10/08/20 Range/Units 20:06 05:57 06:02 PT 21.7 H (9.9-11.9) sec INR 2.12 H (0.90-1.11) Chloride 110 H (96-109) mmol/L BUN 48.0 H (9.0-27.0) mg/dL Creatinine 1.6 H (0.6-1.5) mg/dL Est GFR (CKD-EPI)AfAm 34.7 L (60.0-200.0) Est GFR (CKD-EPI)NonAf 29.9 L (60.0-200.0) BUN/Creatinine Ratio 30.00 H (12.00-20.00) Ratio POC Glucose (mg/dL) 201 H (75-99) mg/dL Calcium 8.2 L (8.7-10.3) mg/dL Creatine Kinase 546 H (26-186) U/L Assessment and Plan Plan: Assessment: 1. Acute kidney injury secondary to ATN secondary to hypotension and rhabdomyolysis. Creatinine was 4.48 on admission and is down to 1.6 today. 2. Chronic kidney disease stage III with baseline creatinine in the range of 1.7-2. Etiology is likely nephrosclerosis. Trace proteinuria on UA. Will quantify outpatient. 3. Volume overload. Improving with diuresis. 4. Fall with rhabdomyolysis. CK levels trending down. 5. Metabolic acidosis secondary to acute kidney injury and IV fluids. Resolved. 6. Diabetes mellitus. 7. Anemia of chronic kidney disease. Rule out iron deficiency. Plan: Maintain IV Lasix 40 mg once daily. Check iron studies. Continue to monitor renal function and urine output. Avoid nephrotoxins.
--- NOTE | 2020-10-08 11:23 | P.PN ---
Subjective Progress Note Date: 10/08/20 HISTORY OF PRESENT ILLNESS: Patient examined this morning at the bedside. She denies chest pain or pressure. Denies shortness of breath. She continues to have lower extremity edema but states it has improved slightly from yesterday. She is been started on IV Lasix daily per nephrology. Creatinine 1.6. Blood pressure stable. PHYSICAL EXAM: VITAL SIGNS: Reviewed. GENERAL: Well-developed in no acute distress. NECK: Supple. No JVD or thyromegaly LUNGS: Respirations even and unlabored. Lungs diminished HEART: Regular rate and rhythm. S1 and S2 heard. EXTREMITIES: Normal range of motion. No clubbing or cyanosis. Peripheral pulses intact. 2+ bilateral lower extremity edema. Right lower extremity in a boot. ASSESSMENT: Rhabdomyolysis Paroxysmal atrial fibrillation, on long-term intake regulation of Coumadin History of aortic valve replacement Acute kidney injury PLAN: Continue Coumadin. Monitor INR Continue Lasix dosing per nephrology We will follow up on an as-needed basis. Please call with questions or concerns Nurse practitioner note has been reviewed by physician. Signing provider agrees with the documented findings, assessment, and plan of care. Objective - Vital Signs Vital signs: Vital Signs Temp 98.1 F 10/08/20 08:00 Pulse 77 10/08/20 08:00 Resp 22 10/08/20 08:00 BP 104/58 10/08/20 08:00 Pulse Ox 95 10/08/20 08:30 Intake & Output 10/07/20 10/08/20 10/08/20 18:59 06:59 18:59 Output Total 600 3500 Balance -600 -3500 Output: Urine 600 3500 Stool 0 0 Other: Voiding Method Diaper Diaper Diaper Incontinent Incontinent Incontinent # Voids 0 # Bowel Movements 0 0 - Labs CBC & Chem 7: 10/05/20 00:40 10/08/20 06:02 Labs: Abnormal Lab Results - Last 24 Hours (Table) 10/07/20 10/07/20 10/07/20 Range/Units 07:05 11:33 16:18 PT (9.9-11.9) sec INR (0.90-1.11) Chloride (96-109) mmol/L BUN 53.0 H (9.0-27.0) mg/dL Creatinine 1.7 H (0.6-1.5) mg/dL Est GFR (CKD-EPI)AfAm 32.2 L (60.0-200.0) Est GFR (CKD-EPI)NonAf 27.8 L (60.0-200.0) BUN/Creatinine Ratio 31.18 H (12.00-20.00) Ratio POC Glucose (mg/dL) 137 H 178 H (75-99) mg/dL Calcium 8.0 L (8.7-10.3) mg/dL Creatine Kinase (26-186) U/L 10/07/20 10/08/20 10/08/20 Range/Units 20:06 05:57 06:02 PT 21.7 H (9.9-11.9) sec INR 2.12 H (0.90-1.11) Chloride 110 H (96-109) mmol/L BUN 48.0 H (9.0-27.0) mg/dL Creatinine 1.6 H (0.6-1.5) mg/dL Est GFR (CKD-EPI)AfAm 34.7 L (60.0-200.0) Est GFR (CKD-EPI)NonAf 29.9 L (60.0-200.0) BUN/Creatinine Ratio 30.00 H (12.00-20.00) Ratio POC Glucose (mg/dL) 201 H (75-99) mg/dL Calcium 8.2 L (8.7-10.3) mg/dL Creatine Kinase 546 H (26-186) U/L
[2020-10-08 11:49] LABS: Glucose,Whole Blood 80 mg/dL (75-99)
[2020-10-08 14:29] VITALS: BP 116/57; PULSE 84; RESP 16; TEMP 97.6
--- NOTE | 2020-10-08 14:50 | P.DS ---
Providers Date of admission: 10/02/20 23:23 Attending physician: Jignesh Arias Consults: 10/03/20 01:56 Consult Physician Urgent Consulting Provider: Allie Gutierrez Consult Reason/Comments: sepsis with hypotension Do you want consulting provider notified?: Yes 10/03/20 14:51 Consult Physician Urgent Consulting Provider: Mary Pedersen Consult Reason/Comments: kid disease Do you want consulting provider notified?: Yes 10/04/20 08:19 Consult Physician Routine Consulting Provider: Gio Desir Consult Reason/Comments: right leg injury Do you want consulting provider notified?: Yes Primary care physician: [facility] Course: Diagnoses: -rhabdomyolyis -Elevated troponin, secondary to renal injury -Acute left lower lobe pneumonia -Fall without losing consciousness -coagulopathy secondary to Coumadin -Acute kidney injury -Recent right ankle fracture about 3 or 4 weeks ago. -History of aortic valve replacement on Coumadin -chronic kidney disease -Recent history of right leg fracture, x-ray showing mildly displaced oblique fracture of the right fibula, they recommended CAM walker boot, [id number] for 2-3 weeks, physical therapy rehab upon discharge and follow-up with Dr. Peña in 10-14 days for reevaluation -Hypertension Hospital Course: This is a pleasant 79 years old female with past medical history of hypert ension, chronic kidney disease, she is to follow up with Dr. Pedersen but she stopped earlier this year because of insurance problems. History of heart surgery at January or March of this year at [facility] and [facility] she has replaced aortic valve. Also she has history of right leg fracture at the ankle, she has right leg cast placed at the hospital in [place] She presents because she fell at home, she was in her bedroom but she does not know how she fell but she confirms she did not lose consciousness, Patient states also she has coughing with yellow phlegm. She is not on oxygen at home. On admission [place] [address] on admission, liver enzymes slightly elevated with AST 650 and ALT 196, Chest x-ray showing progressive left lower lobe pneumonia. 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 And of the neck showing spondylitic changes in the cervical spine. No fracture. There is mild C4 5 subluxation deformity that is probably chronic Pelvic x-ray: No fracture. Creatinine was elevated 4.4. INR was supratherapeutic 8.4. Hemoglobin is stable at 8 Patient Was treated with antibiotics Zithromax and subject him for possible pneumonia, she received aggressive hydration . Coumadine was held. Patient has been evaluated by several consultants including newspaper manager, cripple cutter, dental technician and orthopedic surgeon. Patient showed interval improvement and she remained asymptomatic on the day of discharge with no chest pain or dyspnea, mentation is back to normal, no change in urine or bowel habits. No fever. INR the day of discharge is back to normal at 2.1, creatinine trending down to 1.6 which is her baseline. Creatinine kinase is on 500 and liver enzymes trended down, hemoglobin is stable. Patient was cleared for discharge by all consultants including pulmonary, cardiology, nephrology and orthopedic Problems and management plan were discussed with the patient and he verbalized understanding and acceptance Patient was found stable and can be discharged home however he needs follow-up as an outpatient. Patient was instructed to follow up with PCP within one week and patient agrees Orthopedic team recommendation: (Regarding her right ankle fracture) -Cam Walker boot right lower extremity -Nonweightbearing right lower extremity with assistance -Follow-up on outpatient basis after hospital stay in 2 weeks Gen: patient is a AAOx3, no distress CVS: S1-S2, RRR, no murmur Lungs: B/L CTA, no wheezing Abdomen: soft, no distention, no tenderness, positive bowel sounds Extremity: no leg edema or induration.Walker boot on the right leg Time spent more than 35 minutesuntil you see your doctor's Patient Condition at Discharge: Fair Plan - Discharge Summary New Discharge Prescriptions: No Action Potassium Chloride ER [K-Dur 20] 20 meq PO DAILY Furosemide [Lasix] 40 mg PO DAILY Levothyroxine Sodium [Synthroid] 50 mcg PO TUTH Warfarin [Coumadin] 5 mg PO SUTUTHSA Atorvastatin [Lipitor] 20 mg PO HS Pantoprazole [Protonix] 40 mg PO HS Warfarin [Coumadin] 2.5 mg PO MOWEFR traMADol HCL 50 mg PO Q6H PRN PRN Reason: Pain sitaGLIPtin [Januvia] 50 mg PO DAILY Polyethylene Glycol 3350 [Miralax] 17 gm PO DAILY PRN PRN Reason: Constipation Metoprolol Tartrate [Lopressor] 50 mg PO BID Levothyroxine Sodium [Synthroid] 75 mcg PO SUMOWEFRSA Insulin Detemir [Levemir Flextouch] 10 units SQ HS Ferrous Sulfate [Feosol] 325 mg PO DAILY Discharge Medication List Atorvastatin [Lipitor] 20 mg PO HS 05/07/16 [History] Furosemide [Lasix] 40 mg PO DAILY 05/07/16 [History] Levothyroxine Sodium [Synthroid] 50 mcg PO TUTH 05/07/16 [History] Pantoprazole [Protonix] 40 mg PO HS 05/07/16 [History] Potassium Chloride ER [K-Dur 20] 20 meq PO DAILY 05/07/16 [History] Ferrous Sulfate [Feosol] 325 mg PO DAILY 10/02/20 [History] Insulin Detemir [Levemir Flextouch] 10 units SQ HS 10/02/20 [History] Levothyroxine Sodium [Synthroid] 75 mcg PO SUMOWEFRSA 10/02/20 [History] Polyethylene Glycol 3350 [Miralax] 17 gm PO DAILY PRN 10/02/20 [History] Warfarin [Coumadin] 2.5 mg PO MOWEFR 10/02/20 [History] sitaGLIPtin [Januvia] 50 mg PO DAILY 10/02/20 [History] Azithromycin [Zithromax] 500 mg PO HS #5 tab 10/08/20 [Rx] Cefuroxime Axetil [Ceftin] 500 mg PO BID 7 Days #14 tab 10/08/20 [Rx] INSULIN ASPART (NovoLOG) [NovoLOG (formulary)] 0 unit SQ ACHS vial 10/08/20 [Rx] Ipratropium-Albuterol Nebulize [Duoneb 0.5 mg-3 mg/3 ml Soln] 3 ml INHALATION RT-Q4H PRN ml 10/08/20 [Rx] Metoprolol Tartrate [Lopressor] 25 mg PO BID tab 10/08/20 [Rx] Nitroglycerin Sl Tabs [Nitrostat] 0.4 mg SUBLINGUAL Q5M PRN tab 10/08/20 [Rx] Warfarin [Coumadin] 4 mg PO SUTUTHSA #0 10/08/20 [Rx] traMADol HCL 50 mg PO Q12H PRN #3 tab 10/08/20 [Rx] Follow up Appointment(s)/Referral(s): Gio Desir DO [Doctor of Osteopathic Medicine] - 2 Weeks Michael Alamo DO [Primary Care Provider] - 1-2 days
[2020-10-08 15:36] LABS: Ferritin 181.1 ng/mL (10.0-291.0)
[2020-10-08 15:49] LABS: % Iron Saturation 8.05 (12.00-45.00)
[2020-10-08 16:52] LABS: Glucose,Whole Blood 173 mg/dL (75-99)
--- NOTE | 2020-10-08 17:23 | P.PN ---
Subjective Progress Note Date: 10/08/20 Principal diagnosis: Acute rhabdomyolysis and acute on chronic kidney injury from possible acute coronary acquired pneumonia This is an 79-year-old white female, she is a very poor historian, patient had history of multiple medical problems including duodenal ulcer, and recent h istory of upper GI bleeding, patient was supposedly admitted to the hospital in [facility], she was in the hospital supposedly for 3 weeks. She was eventually discharged, and apparently at the time she had a very low hemoglobin, required significant amount of blood transfusion. Yesterday, the patient apparently fell at home, and she was found on the ground laying for the last 2 days. Patient was confused, EMS was called by family member who found the patient on the floor, patient was brought in complaining mostly of weakness, and some vague aches and pains. Workup included a CBC which showed a hemoglobin of 10.6. INR was noted to be elevated at 8.2, electrolytes are abnormal with sodium of 133 potassium of 5.8, BUN is 92 creatinine is 4.48, and her baseline creatinine is normally around 2. Lactic acid was noted to be at 4.7, patient was given fluid boluses, and follow-up lactic acid was 1.8. Liver enzymes were also noted to be elevated with AST of 650 ALT of 196. And his CPK was significantly elevated at 13,769. Troponin was also elevated at 0.074, BNP level 7290. Patient was able to maintain O2 saturations in the 100% range even on 2 L nasal cannula. Her blood pressure was initially low on admission as low as 67/54, patient received fluid boluses, and after 3 L of fluid boluses, remained at bit low, patient was started on norepinephrine drip. When I saw her in the ER, her norepinephrine drip was at 0.072 mcg/kg/m. And her blood pressure at the time was 108/40. Patient was reevaluated today in the ICU, patient is resting in bed, comfortable, she is on room air, IV fluid is running at 100 mL per hour, remains on norepinephrine at 0.08 mcg/kg/m. She has decent urine output, 40 mL per hour, her renal functioning is improving, and her CPKs seems to be coming down nicely. Patient is complaining of pain in her right lower extremity, and x-rays of the right tibia fibula and ankle were done. There was clearly evidence of oblique mildly displaced fracture of the distal fibula with no significant angulation, hence orthopedic consultation was initiated. Chest x-ray continues to show possibly a limited infiltrate in the left lower lobe. Slightly improved compared to the chest x-ray done yesterday. Labs were reviewed hemoglobin is 8.4. INR remains elevated at 6.7, patient has been on Coumadin for aortic valve replacement. Her BUN is down to 84 creatinine is down to 3.46, and that being addressed by nephrology. CPK is down to 7574. Transaminases remain elevated with AST of 309 and ALT of 159. Patient denies any shortness of breath, and she is not in any respiratory distress The patient is seen today 10/05/2020 in follow-up in the intensive care unit. She is awake and alert in no acute distress. Denies any shortness of breath, co ugh or congestion. She is maintaining O2 saturation in the 90s on room air. She's afebrile. Hemodynamically stable. Remains on 0.9 normal saline at 130 MLS per hour. Not requiring any pressors. Antibiotics in the form of ceftriaxone and azithromycin. Chest x-ray reveals mild cardiomegaly with moderate central vascular congestion and left greater than right bibasilar acute infiltrate/atelectasis. White count 6.5. Hemoglobin 8.0. INR 3.9. Sodium 136. Potassium 4.3. Creatinine 2.54. AST 273, ALT 138. Creatinine kinase down to 5019. The patient is seen today 10/05/2020 in follow-up on the regular medical floor. She is currently resting comfortably in bed. Awake and alert in no acute distress. Maintaining good O2 saturations in the 90s on room air. She's been afebrile. Hemodynamically stable. Chest x-ray reveals mild cardiomegaly and mild to moderate central vascular congestion and left mid to left lower lung acute infiltrate/atelectasis. Improved aeration of the right lung base. She remains on bronchodilators, antibiotics in the form of ceftriaxone and azithromycin. She was having ongoing complaints of right hip pain and x-ray did not reveal any acute displaced fracture in the pelvis or right hip. On 10/07/2020 patient seen in follow-up on Gen. medical surgical floor. She is resting comfortably in bed, appears weak, but no acute distress, room air pulse ox is 97%, she's been afebrile, hemodynamically stable, she appears generally swollen, she will be started on IV Lasix today. She's had no acute events overnight, her last chest x-ray was yesterday on 10/06 showing myocardial megaly mild to moderate central vascular congestion and left mid to lower lung acute infiltrate and/or atelectasis. She remains on nebulized treatments, she is on azithromycin and Rocephin for empiric antibiotic coverage. She is on Coumadin for anticoagulation for A. fib, her INR today is 2.0, her renal function is improving, she's had no nausea vomiting or diarrhea. Her last CK was done yesterday and was down to 2447. On 10/08/2020 patient seen in follow-up on general medical surgical floor, she is resting comfortably in bed, she is on room air pulse ox of 97%, she has been afebrile, hemodynamically she has been stable, she denies any chest pain, lung sounds are clear, diminished at the bases, she remains on antibiotics in the form of azithromycin and Rocephin, she's had no fever or chills, she remains on IV Lasix currently on the daily dose, she is in negative fluid balance, still has some generalized edema, but no worsening dyspnea, no nausea vomiting or diarrhea, he is on Coumadin for history of mechanical aortic valve. Discharge is pending for today for placement to [facility] the [facility] - Vital Signs Vital signs: Vital Signs Temp 97.6 F 10/08/20 14:00 Pulse 84 10/08/20 14:00 Resp 16 10/08/20 14:00 BP 116/57 10/08/20 14:00 Pulse Ox 97 10/08/20 14:00 Intake & Output 10/07/20 10/08/20 10/08/20 18:59 06:59 18:59 Output Total 600 3500 Balance -600 -3500 Output: Urine 600 3500 Stool 0 0 Other: Voiding Method Diaper Diaper Diaper Incontinent Incontinent Incontinent # Voids 0 # Bowel Movements 0 0 - Exam GENERAL EXAM: Alert, very pleasant, morbidly obese, on room air with a pulse ox of 95%, slightly pale, and appears weak, but no acute distress, alert and oriented 3, comfortable in no apparent distress. HEAD: Normocephalic/atraumatic. EYES: Normal reaction of pupils, equal size. Conjunctiva pink, sclera white. NOSE: Clear with pink turbinates. THROAT: No erythema or exudates. NECK: No masses, no JVD, no thyroid enlargement, no adenopathy. CHEST: No chest wall deformity. Symmetrical expansion. LUNGS: Equal air entry with no crackles, wheeze, rhonchi or dullness. CVS: Regular rate and rhythm, normal S1 and S2, no gallops, no murmurs, no rubs ABDOMEN: Soft, nontender. No hepatosplenomegaly, normal bowel sounds, no guarding or rigidity. EXTREMITIES: No clubbing, generally edematous, no cyanosis, 2+ pulses and upper and lower extremities. MUSCULOSKELETAL: Muscle strength and tone normal. SPINE: No scoliosis or deformity SKIN: No rashes CENTRAL NERVOUS SYSTEM: Alert and oriented -3. No focal deficits, tone is normal in all 4 extremities. PSYCHIATRIC: Alert and oriented -3. Appropriate affect. Intact judgment and insight. - Labs CBC & Chem 7: 10/05/20 00:40 10/08/20 06:02 Labs: Abnormal Lab Results - Last 24 Hours (Table) 10/07/20 10/08/20 10/08/20 Range/Units 20:06 05:57 05:57 PT 21.7 H (9.9-11.9) sec INR 2.12 H (0.90-1.11) Chloride (96-109) mmol/L BUN (9.0-27.0) mg/dL Creatinine (0.6-1.5) mg/dL Est GFR (CKD-EPI)AfAm (60.0-200.0) Est GFR (CKD-EPI)NonAf (60.0-200.0) BUN/Creatinine Ratio (12.00-20.00) Ratio POC Glucose (mg/dL) 201 H (75-99) mg/dL Calcium (8.7-10.3) mg/dL Iron (50-170) ug/dL % Saturation (12.00-45.00) Creatine Kinase (26-186) U/L Procalcitonin 0.76 H (0.02-0.09) ng/mL 10/08/20 10/08/20 10/08/20 Range/Units 06:02 06:02 16:49 PT (9.9-11.9) sec INR (0.90-1.11) Chloride 110 H (96-109) mmol/L BUN 48.0 H (9.0-27.0) mg/dL Creatinine 1.6 H (0.6-1.5) mg/dL Est GFR (CKD-EPI)AfAm 34.7 L (60.0-200.0) Est GFR (CKD-EPI)NonAf 29.9 L (60.0-200.0) BUN/Creatinine Ratio 30.00 H (12.00-20.00) Ratio POC Glucose (mg/dL) 173 H (75-99) mg/dL Calcium 8.2 L (8.7-10.3) mg/dL Iron 19 L (50-170) ug/dL % Saturation 8.05 L (12.00-45.00) Creatine Kinase 546 H (26-186) U/L Procalcitonin (0.02-0.09) ng/mL Assessment and Plan Plan: Assessment: #1. Acute rhabdomyolysis secondary to fall. With significantly elevated CPK, recovered and improving #2. Acute on chronic kidney injury, improving #3. Acute left lower lobe pneumonia is strongly suspected, not clear whether th is is a community-acquired pneumonia or healthcare associated pneumonia. Nonetheless, patient is empirically on antibiotics. #4. Sepsis and septic shock also suspected. Likely source would be pneum onia/left lower lobe. #5. Hypotension secondary to sepsis and septic shock, resolved #6. History of aortic valve replacement with a mechanical aortic valve #7. Coumadin related coagulopathy, improved #8. Recent history of duodenal ulcer and GI bleeding #9. Recent fracture of right fibula #10. Atrial fibrillation, with history of mechanical aortic valve replacement on Coumadin for anticoagulation Plan: Continue diuretics, patient is maintaining a negative fluid balance, she denies any worsening dyspnea, vital signs have been stable, still has some generalized swelling, but has been maintaining stable oxygenation on room air, no acute events overnight, discharge is pending for transfer to [facility] today I performed a history & physical examination of the patient and discussed their management with my nurse practitioner, Dana Velez. I reviewed the nurse practitioner's note and agree with the documented findings and plan of care. Lung sounds are positive for diminished breath sounds. The findings and the impression was discussed with the patient. I attest to the documentation by the nurse practitioner. Time with Patient: Less than 30
[2020-10-08] MEDS: SODIUM CHLORIDE 0.9% 1,000 ML IV SCH (17:37)
[2020-10-08] MEDS ORDERED: WARFARIN 5 MG TAB PO ONE (18:00)
[2020-10-08] MEDS ORDERED: WARFARIN 2.5 MG TAB PO ONE (18:00)
--- NOTE | 2020-10-10 07:36 | CDI ---
Documentation Clarification Form Date: 10/10/2020 07:18:00 AM From: Nasra Aponte Phone: If you have a question about this query, please contact Dorita Gonzalez, Venture Capital Analyst at [phone] between 8am and 5pm. Admit Date: 10/02/2020 11:23:00 PM Patient Name: Fidelia Lainez Visit Number: [id number] Discharge Date: 10/08/2020 06:09:00 PM ATTENTION: The Clinical Documentation Specialists (CDI) and [facility] Coding Staff appreciate your assistance in clarifying documentation. Please respond to the clarification below the line at the bottom and electronically sign. The CDI & [facility] Coding staff will review the response and follow-up if needed. Please note: Queries are made part of the Legal Health Record. If you have any questions, please contact the author of this message via ITS. Dr. Stover Pulmonary and Nephrology consults both document sepsis and septic shock along with PN's 10/05, 10/06, 10/07, 10/08, but there is not documentation of sepsis or septic shock in your notes or DCS. Please clarify if patient had sepsis with septic shock or was this ruled out. History/Risk Factors: LLL pneumonia, WBC 10.6 Lactic acid: 4.7 Vitals signs on admission: 97.3 F, 57 bpm - 195 bpm, 120/107 - 84/38, 95% 2NC Other Clinical Indicators: hypotension. Lactic acidosis Treatment: antibiotics bolus 125 MLS hour pressors Antibiotics: Zithromax IV Bolus: 125 MLS hour In your professional opinion, please clarify if these findings signify one of the following conditions, whether the condition is POA, and cause, if known: Condition Sepsis ruled out SIRS, without underlying infectious process Sepsis Severe Sepsis Septic Shock Other, please specify Unable to determine Present on Admission Yes No SIRS Criteria (2 or more of the following may indicate SIRS): -Temperature < 96.8F (36C) or > 101.0F (38.3C) -Heart Rate > 90 bpm -Respiratory Rate > 20 breaths/min or PaCO2 < 32 mmHg -White Blood Cell Count > 12,000 or < 4,000 cells/mm3 or > 10% bands -Lactate >2.0 mmol/L (>4.0 is equivalent to septic shock) no sepsis MTDD
== END 2020-10-08 18:09 | DRG 557 ==
LOC: EC 20:13 → 3SCARD 23:23 → 2SICU 10-03 04:33 → 5NMEDONC 10-05 10:31
PROVIDERS: ADMIT Hospitalist; ATTEND Hospitalist
PROC: 3E033XZ Introduction of Vasopressor into Peripheral Vein, Percutaneous Approach (ICD-10-PCS; principal; 2020-10-02)
DX: M62.82 Rhabdomyolysis (principal); N17.0 Acute kidney failure with tubular necrosis; J15.9 Unspecified bacterial pneumonia; E87.2 Acidosis; I13.0 Hypertensive heart and chronic kidney disease with heart failure and stage 1 through stage 4 chronic kidney disease, or unspecified chronic kidney disease; I48.20 Chronic atrial fibrillation, unspecified; J98.11 Atelectasis; N18.30 Chronic kidney disease, stage 3 unspecified; R29.6 Repeated falls; E11.22 Type 2 diabetes mellitus with diabetic chronic kidney disease; D63.1 Anemia in chronic kidney disease; E78.5 Hyperlipidemia, unspecified; E86.0 Dehydration; I35.1 Nonrheumatic aortic (valve) insufficiency; I48.0 Paroxysmal atrial fibrillation; I50.9 Heart failure, unspecified; R32 Unspecified urinary incontinence; R79.1 Abnormal coagulation profile; T45.515A Adverse effect of anticoagulants, initial encounter; S82.61XD Displaced fracture of lateral malleolus of right fibula, subsequent encounter for closed fracture with routine healing; W18.30XD Fall on same level, unspecified, subsequent encounter; Z20.828 Contact with and (suspected) exposure to other viral communicable diseases; Z91.81 History of falling; Z79.01 Long term (current) use of anticoagulants; Z79.4 Long term (current) use of insulin; Z79.890 Hormone replacement therapy; Z79.899 Other long term (current) drug therapy; Z85.068 Personal history of other malignant neoplasm of small intestine; Z86.73 Personal history of transient ischemic attack (TIA), and cerebral infarction without residual deficits; Z87.11 Personal history of peptic ulcer disease; Z87.81 Personal history of (healed) traumatic fracture; Z95.3 Presence of xenogenic heart valve; Z90.89 Acquired absence of other organs; R79.89 Other specified abnormal findings of blood chemistry; D64.9 Anemia, unspecified
CPT/HCPCS: 36415; 36556; 70450; 71045; 72125; 72170; 73502; 80048; 80053; 80061; 80076; 81001; 82550; 82553; 82728; 83036; 83540; 83550; 83605; 83735; 83880; 84100; 84145; 84484; 85025; 85027; 85610; 87635; 93005; 93306; 96361; 96365; 96366; 96367; 96368; 96375; 99291

== ENCOUNTER 2020-10-23 19:16 | Inpatient (IN) | payer MEDICARE ==
[2020-10-23] MEDS ORDERED: SODIUM CHLORIDE 0.9% 500 ML 500 ML IV STA (19:56)
--- NOTE | 2020-10-23 20:12 | ED ---
Weakness HPI - General Chief complaint: Weakness Stated complaint: Failure to Thrive Time Seen by Provider: 10/23/20 19:45 Source: EMS Mode of arrival: EMS Limitations: no limitations - History of Present Illness Initial comments: 79-year-old female patient with past medical history significant for hypertension, chronic kidney disease, aortic valve replacement, recent admission for rhabdomyolysis, acute on chronic renal injury, left lower lobe pneumonia, and also recent right leg fracture presents to the emergency department from [facility] for evaluation of failure to thrive and evaluation of her chronic wounds. Patient states that she has not been eating or drinking due to having no appetite. States that she has been having increased pain to the wounds on her buttocks. Apparently the business process specialist is unable to come into [facility] so they are unable to evaluate her wounds for proper care. Patient denies any current pain. Denies any chest pain, shortness of breath, nausea, or vomiting. Denies any constipation or diarrhea. States that she feels overall weak. Patient denies any recent rash, fever, chills, cough, abdominal pain, back pain, numbness, tingling, dizziness, weakness, hematuria, dysuria, urinary urgency, urinary frequency, headache, visual changes, or any other complaints. - Related Data Home Medications Medication Instructions Recorded Confirmed Atorvastatin [Lipitor] 20 mg PO HS@209905/07/16 10/23/20 Furosemide [Lasix] 40 mg PO DAILY@59905/07/16 10/23/20 Levothyroxine Sodium [Synthroid] 50 mcg PO TUTH@59905/07/16 10/23/20 Pantoprazole [Protonix] 40 mg PO HS@209905/07/16 10/23/20 Potassium Chloride ER [K-Dur 20] 20 meq PO DAILY@59905/07/16 10/23/20 Ferrous Sulfate [Iron (65 MG 325 mg PO DAILY@59910/02/20 10/23/20 Elemental)] Levothyroxine Sodium [Synthroid] 75 mcg PO SUMOWEFRSA@0600 10/02/20 10/23/20 Polyethylene Glycol 3350 [Miralax] 17 gm PO DAILY PRN 10/02/20 10/23/20 Warfarin [Coumadin] 2.5 mg PO SUTUWEFRSA@1700 10/02/20 10/23/20 Ascorbic Acid [Vitamin C] 500 mg PO DAILY@0900 10/23/20 10/23/20 Cholecalciferol [Vitamin D3 (25 2,000 unit PO DAILY@0900 10/23/20 10/23/20 Mcg = 1000 Iu)] Collagenase [Santyl] 1 applic TOPICAL DAILY PRN 10/23/20 10/23/20 Collagenase [Santyl] 1 applic TOPICAL HS 10/23/20 10/23/20 Glucerna Shake 1 can PO BID@0900,1700 10/23/20 10/23/20 Hydrophilic Cream [Triad Cream] 1 applic TOPICAL Q12H 10/23/20 10/23/20 Insulin Glargine,Hum.rec.anlog 10 unit SQ HS@2200 10/23/20 10/23/20 [Basaglar Kwikpen U-100] Insulin Lispro [humaLOG Kwikpen] 2 unit SQ ACHS@08,12,17,22 10/23/20 10/23/20 Ipratropium-Albuterol Nebulize 3 ml INHALATION RT-Q4H PRN 10/23/20 10/23/20 [Duoneb 0.5 mg-3 mg/3 ml Soln] Linagliptin [Tradjenta] 5 mg PO DAILY@0600 10/23/20 10/23/20 Metoprolol Tartrate [Lopressor] 25 mg PO BID@0900,2100 10/23/20 10/23/20 Prostat Awc 30 ml PO BID@0900,1700 10/23/20 10/23/20 Triad Hydrophilic Wound Dress 1 applic TOPICAL DAILY PRN 10/23/20 10/23/20 Vitamin K2 (Menatetrenone) 5 mg PO ONCE 10/23/20 10/23/20 Warfarin [Coumadin] 3 mg PO MOTH@1700 10/23/20 10/23/20 Zinc 50 mg PO DAILY@0900 10/23/20 10/23/20 Previous Rx's Medication Instructions Recorded Nitroglycerin Sl Tabs [Nitrostat] 0.4 mg SUBLINGUAL Q5M PRN tab 10/08/20 traMADol HCL 50 mg PO Q12H PRN #3 tab 10/08/20 Allergies Allergy/AdvReac Type Severity Reaction Status Date / Time No Known Allergies Allergy Verified 10/23/20 21:36 Review of Systems ROS Statement: Those systems with pertinent positive or pertinent negative responses have been documented in the HPI. ROS Other: All systems not noted in ROS Statement are negative. 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 Right rotator cuff. Aortic valve replacement Past Anesthesia/Blood Transfusion Reactions: No Reported Reaction Past Psychological History: No Psychological Hx Reported Past Alcohol Use History: Rare Past Drug Use History: None Reported General Exam Limitations: no limitations General appearance: alert, in no apparent distress, other (Physical well- developed, well-nourished adult female patient in no acute distress. Vital signs upon presentation are temperature 98.5F, pulse 111, respirations 20, blood pressure 107/71, pulse ox 95% on room air.) Eye exam: Present: normal appearance, PERRL, EOMI. Absent: scleral icterus, conjunctival injection, periorbital swelling ENT exam: Present: normal exam, normal oropharynx, mucous membranes dry Respiratory exam: Present: normal lung sounds bilaterally. Absent: respiratory distress, wheezes, rales, rhonchi, stridor Cardiovascular Exam: Present: tachycardia, irregular rhythm, normal heart sound s. Absent: systolic murmur, diastolic murmur, rubs, gallop, clicks GI/Abdominal exam: Present: soft, normal bowel sounds. Absent: distended, tenderness, guarding, rebound, rigid Neurological exam: Present: alert, oriented X3, CN II-XII intact Psychiatric exam: Present: normal affect, normal mood Skin exam: Present: warm, dry, intact, normal color, other (There is superficial wound with purulent drainage and surrounding erythema to the left proximolateral thigh. There is stage II pressure ulcer to the coccyx region and to the left posterior thigh.). Absent: rash Course Vital Signs 10/23/20 10/23/20 10/23/20 19:24 21:16 21:33 Temperature 98.5 F Pulse Rate 111 H 121 H 113 H Respiratory 20 16 16 Rate Blood Pressure 107/71 97/46 92/47 O2 Sat by Pulse 95 97 99 Oximetry 12/10/23/20 10/23/20 22:09 22:35 23:00 Temperature Pulse Rate 118 H 109 H 114 H Respiratory 16 16 20 Rate Blood Pressure 109/70 106/74 105/63 O2 Sat by Pulse 98 98 98 Oximetry 10/23/20 10/23/20 10/24/20 23:47 23:53 01:15 Temperature Pulse Rate 120 H 118 H 136 H Respiratory 20 19 19 Rate Blood Pressure 105/63 107/72 90/52 O2 Sat by Pulse 97 98 97 Oximetry 10/24/20 02:06 Temperature Pulse Rate 120 H Respiratory 19 Rate Blood Pressure 86/54 O2 Sat by Pulse 98 Oximetry - Reevaluation(s) Reevaluation #1: 10/23/20 22:45 Patient has had intravenous access attempted multiple times. Multiple RNs tried for IV access. I personally attempted ultrasound-guided IV [address] Perry was in to see the patient and did attempt central line which was also unsuccessful. EKG Findings - EKG Comments: EKG Findings:: EKG obtained at 1936 shows A. fib with RVR. Incomplete right bundle branch block. Ventricular rate 112, QRS duration 116, QT 368, QTC 502. Medical Decision Making - Medical Decision Making 79-year-old female patient presents to the emergency department today for weakness, evaluation of wounds to her buttocks, and "failure to thrive". Physical examination did reveal stage II pressure ulcer to the sacral region, stage II pressure ulcer to the left buttock and left posterior thigh. Patient was found to be in A. fib with RVR during the visit. She did have multiple unsuccessful IV attempts, unsuccessful central line attempts. Eventually my attending Dr. Menendez was able to establish access to the right IJ. Labs were reviewed and showed hgb 8.8, INR 4.5, BUN 61, Creatinine 1.40, trop 0.040. Urine negative. Patient was started on Cardizem. INR 4.5 so no additional anticoa gulation was ordered. She'll be admitted to the hospital for further evaluation by cardiology and wound care. She is agreeable this plan. - Lab Data Result diagrams: 10/23/20 19:56 10/23/20 19:56 Lab Results 10/23/20 10/23/20 10/23/20 Range/Units 19:56 19:56 19:56 WBC 6.6 (3.8-10.6) k/uL RBC 3.30 L (3.80-5.40) m/uL Hgb 8.8 L (11.4-16.0) gm/dL Hct 28.6 L (34.0-46.0) % MCV 86.7 (80.0-100.0) fL MCH 26.5 (25.0-35.0) pg MCHC 30.6 L (31.0-37.0) g/dL RDW 22.3 H (11.5-15.5) % Plt Count 260 (150-450) k/uL MPV 7.7 Neutrophils % 76 % Lymphocytes % 19 % Monocytes % 3 % Eosinophils % 1 % Basophils % 0 % Neutrophils # 5.0 (1.3-7.7) k/uL Lymphocytes # 1.3 (1.0-4.8) k/uL Monocytes # 0.2 (0-1.0) k/uL Eosinophils # 0.1 (0-0.7) k/uL Basophils # 0.0 (0-0.2) k/uL Hypochromasia Marked Poikilocytosis Slight Anisocytosis Moderate Microcytosis Slight PT 45.1 H (9.0-12.0) sec INR 4.5 H (<1.2) APTT 28.6 (22.0-30.0) sec Sodium 137 (137-145) mmol/L Potassium 4.0 (3.5-5.1) mmol/L Chloride 104 (98-107) mmol/L Carbon Dioxide 29 (22-30) mmol/L Anion Gap 4 mmol/L BUN 61 H (7-17) mg/dL Creatinine 1.40 H (0.52-1.04) mg/dL Est GFR (CKD-EPI)AfAm 41 (>60 ml/min/1.73 sqM) Est GFR (CKD-EPI)NonAf 35 (>60 ml/min/1.73 sqM) Glucose 100 H (74-99) mg/dL Plasma Lactic Acid Ajay (0.7-2.0) mmol/L Calcium 8.0 L (8.4-10.2) mg/dL Magnesium 2.1 (1.6-2.3) mg/dL Total Bilirubin 0.7 (0.2-1.3) mg/dL AST 44 H (14-36) U/L ALT 28 (4-34) U/L Alkaline Phosphatase 105 (38-126) U/L Troponin I (0.000-0.034) ng/mL Total Protein 4.7 L (6.3-8.2) g/dL Albumin 2.1 L (3.5-5.0) g/dL Urine Color Urine Appearance (Clear) Urine pH (5.0-8.0) Ur Specific [place] (1.001-1.035) Urine Protein (Negative) Urine Glucose (UA) (Negative) Urine Ketones (Negative) Urine Blood (Negative) Urine Nitrite (Negative) Urine Bilirubin (Negative) Urine Urobilinogen (<2.0) mg/dL Ur Leukocyte Esterase (Negative) 10/23/20 10/23/20 10/23/20 Range/Units 19:56 19:56 23:05 WBC (3.8-10.6) k/uL RBC (3.80-5.40) m/uL Hgb (11.4-16.0) gm/dL Hct (34.0-46.0) % MCV (80.0-100.0) fL MCH (25.0-35.0) pg MCHC (31.0-37.0) g/dL RDW (11.5-15.5) % Plt Count (150-450) k/uL MPV Neutrophils % % Lymphocytes % % Monocytes % % Eosinophils % % Basophils % % Neutrophils # (1.3-7.7) k/uL Lymphocytes # (1.0-4.8) k/uL Monocytes # (0-1.0) k/uL Eosinophils # (0-0.7) k/uL Basophils # (0-0.2) k/uL Hypochromasia Poikilocytosis Anisocytosis Microcytosis PT (9.0-12.0) sec INR (<1.2) APTT (22.0-30.0) sec Sodium (137-145) mmol/L Potassium (3.5-5.1) mmol/L Chloride (98-107) mmol/L Carbon Dioxide (22-30) mmol/L Anion Gap mmol/L BUN (7-17) mg/dL Creatinine (0.52-1.04) mg/dL Est GFR (CKD-EPI)AfAm (>60 ml/min/1.73 sqM) Est GFR (CKD-EPI)NonAf (>60 ml/min/1.73 sqM) Glucose (74-99) mg/dL Plasma Lactic Acid Ajay 1.2 (0.7-2.0) mmol/L Calcium (8.4-10.2) mg/dL Magnesium (1.6-2.3) mg/dL Total Bilirubin (0.2-1.3) mg/dL AST (14-36) U/L ALT (4-34) U/L Alkaline Phosphatase (38-126) U/L Troponin I 0.040 H* (0.000-0.034) ng/mL Total Protein (6.3-8.2) g/dL Albumin (3.5-5.0) g/dL Urine Color Yellow Urine Appearance Clear (Clear) Urine pH 5.0 (5.0-8.0) Ur Specific [place] 1.012 (1.001-1.035) Urine Protein Negative (Negative) Urine Glucose (UA) Negative (Negative) Urine Ketones Negative (Negative) Urine Blood Negative (Negative) Urine Nitrite Negative (Negative) Urine Bilirubin Negative (Negative) Urine Urobilinogen <2.0 (<2.0) mg/dL Ur Leukocyte Esterase Negative (Negative) - Radiology Data Radiology results: report reviewed, image reviewed One view x-ray of the chest is obtained. Report is reviewed in its entirety. Impression by Dr. Stone shows bilateral pneumonia that is unchanged and left-sided increase in the right side compared to last exam. There is probably a left pleural effusion unchanged. Disposition Clinical Impression: New onset a-fib, Sacral wound, Wound of thigh, Failure to thrive, Pneumonia Disposition: ADMITTED IP TO THIS [facility] Condition: Serious Decision to Admit Reason: Admit from EC Decision Date: 10/24/20 Decision Time: 01:10
--- NOTE | 2020-10-23 22:14 | XR ---
EXAMINATION TYPE: XR chest 1V DATE OF EXAM: 10/23/2020 COMPARISON: 10/06/2020 HISTORY: Pneumonia short of breath. Weakness. TECHNIQUE: FINDINGS: There is bilateral patchy interstitial and airspace pneumonia. This appears slightly worse than last exam. There is left side central venous catheter with tip in the superior vena cava. There is no heart failure. There are chest leads. IMPRESSION: Bilateral pneumonia that is unchanged on the left side and increased on the right side co mpared to last exam. There is probably left pleural effusion unchanged.
[2020-10-23 23:16] LABS: Appearance,Urine Clear (Clear); Bilirubin,Urine Negative (Negative); Blood,Urine Negative (Negative); Color,Urine Yellow; Glucose,Urine (UA) Negative (Negative); Ketones,Urine Negative (Negative); Leukocyte Esterase,Urine Negative (Negative); Nitrite,Urine Negative (Negative); Protein,Urine Negative (Negative); Specific Gravity,Urine 1.012 (1.001-1.035); Urobilinogen,Urine <2.0 mg/dL (<2.0)
[2020-10-24 00:08] LABS: INR 4.5 (<1.2); Partial Thromboplastin Time 28.6 sec (22.0-30.0); Prothrombin Time 45.1 sec (9.0-12.0)
[2020-10-24 00:10] LABS: Anisocytosis Moderate; Basophils % (A) 0 %; Eosinophils # (A) 0.1 k/uL (0-0.7); Eosinophils % (A) 1 %; HCT 28.6 % (34.0-46.0); HGB 8.8 gm/dL (11.4-16.0); Hypochromasia Marked; Lymphocytes # (A) 1.3 k/uL (1.0-4.8); Lymphocytes % (A) 19 %; MCH 26.5 pg (25.0-35.0); MCHC 30.6 g/dL (31.0-37.0); MCV 86.7 fL (80.0-100.0); Mean Platelet Volume 7.7; Microcytosis Slight; Monocytes # (A) 0.2 k/uL (0-1.0); Monocytes % (A) 3 %; Neutrophils % (A) 76 %; Platelet Count 260 k/uL (150-450); Poikilocytosis Slight; RDW 22.3 % (11.5-15.5); WBC 6.6 k/uL (3.8-10.6)
[2020-10-24 00:12] LABS: Albumin 2.1 g/dL (3.5-5.0); Total Protein 4.7 g/dL (6.3-8.2)
[2020-10-24 00:37] LABS: Magnesium 2.1 mg/dL (1.6-2.3); Total Bilirubin 0.7 mg/dL (0.2-1.3)
[2020-10-24] MEDS ORDERED: NALOXONE 0.4 MG/ML 1 ML VIAL IV PRN (01:07)
[2020-10-24] MEDS ORDERED: SODIUM CHLORIDE 0.9% 1,000 ML IV SCH (01:15)
[2020-10-24] MEDS ORDERED: DILTIAZEM 125 MG in SODIUM CHLORIDE 0.9% 100 ML IV SCH (01:15)
[2020-10-24] MEDS ORDERED: METOPROLOL TARTRATE 50 MG TAB PO SCH (09:15)
[2020-10-24 09:31] VITALS: RESP 18
[2020-10-24] MEDS ORDERED: traMADol 50 MG TAB PO PRN (09:43)
[2020-10-24] MEDS ORDERED: NITROGLYCERIN SL TABS 0.4 MG TAB SUBLINGUAL PRN (09:43)
[2020-10-24] MEDS ORDERED: COLLAGENASE 250 UNIT/GM OINTMENT 30 GM TUBE TOPICAL PRN (09:43)
[2020-10-24] MEDS ORDERED: HYDROPHILIC CREAM 180 GM TUBE TOPICAL PRN ×2 (09:43→09:53)
[2020-10-24] MEDS ORDERED: IPRATROPIUM-ALBUTEROL 3 ML NEB INHALATION PRN (09:43)
[2020-10-24] MEDS ORDERED: HYDROPHILIC CREAM 180 GM TUBE TOPICAL SCH (09:45)
--- NOTE | 2020-10-24 11:39 | P.CONS ---
History of Present Illness - Reason for Consult Consult date: 10/24/20 wound care - History of Present Illness an 79-year-old patient who resides at [facility] who is receiving wound care in the form of Santyl to a sacral ulceration and a left posterior ulceration in the left trochanter ulceration. Patient states that these ulcerations have been there for a few months. She developed them when she was at a different care facility on previously. His discomfort to the site. She denies any purulent drainage. Patient's past medical history includes hypertension, chronic kidney disease, aortic valve replacement, and new onset of atrial fibrillation. Review of Systems Review Of Systems: Constitutional: No fever, no chills, no night sweats. No weight change. No weakness, fatigue or lethargy. No daytime sleepiness. Integumentary:reports wounds, no lesions. No rash or pruritus. No unusual bruising. No change in hair or nails. 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 Right rotator cuff. Aortic valve replacement Past Anesthesia/Blood Transfusion Reactions: No Reported Reaction Past Psychological History: No Psychological Hx Reported Past Alcohol Use History: Rare Past Drug Use History: None Reported Medications and Allergies Home Medications Medication Instructions Recorded Confirmed Type Atorvastatin [Lipitor] 20 mg PO HS@209905/07/16 10/23/20 History Furosemide [Lasix] 40 mg PO DAILY@59905/07/16 10/23/20 History Levothyroxine Sodium [Synthroid] 50 mcg PO TUTH@59905/07/16 10/23/20 History Pantoprazole [Protonix] 40 mg PO HS@209905/07/16 10/23/20 History Potassium Chloride ER [K-Dur 20] 20 meq PO DAILY@59905/07/16 10/23/20 History Ferrous Sulfate [Iron (65 MG 325 mg PO DAILY@0600 10/02/20 10/23/20 History Elemental)] Levothyroxine Sodium [Synthroid] 75 mcg PO SUMOWEFRSA@59910/02/20 10/23/20 History Polyethylene Glycol 3350 [Miralax] 17 gm PO DAILY PRN 10/02/20 10/23/20 History Warfarin [Coumadin] 2.5 mg PO SUTUWEFRSA@1700 10/02/20 10/23/20 History Nitroglycerin Sl Tabs [Nitrostat] 0.4 mg SUBLINGUAL Q5M PRN tab 10/08/20 10/23/20 Rx traMADol HCL 50 mg PO Q12H PRN #3 tab 10/08/20 10/23/20 Rx Ascorbic Acid [Vitamin C] 500 mg PO DAILY@0900 10/23/20 10/23/20 History Cholecalciferol [Vitamin D3 (25 2,000 unit PO DAILY@0900 10/23/20 10/23/20 History Mcg = 1000 Iu)] Collagenase [Santyl] 1 applic TOPICAL DAILY PRN 10/23/20 10/23/20 History Collagenase [Santyl] 1 applic TOPICAL HS 10/23/20 10/23/20 History Glucerna Shake 1 can PO BID@0900,1700 10/23/20 10/23/20 History Hydrophilic Cream [Triad Cream] 1 applic TOPICAL Q12H 10/23/20 10/23/20 History Insulin Glargine,Hum.rec.anlog 10 unit SQ HS@2200 10/23/20 10/23/20 History [Basaglar Kwikpen U-100] Insulin Lispro [humaLOG Kwikpen] 2 unit SQ ACHS@08,12,17,22 10/23/20 10/23/20 History Ipratropium-Albuterol Nebulize 3 ml INHALATION RT-Q4H PRN 10/23/20 10/23/20 History [Duoneb 0.5 mg-3 mg/3 ml Soln] Linagliptin [Tradjenta] 5 mg PO DAILY@0600 10/23/20 10/23/20 History Metoprolol Tartrate [Lopressor] 25 mg PO BID@0900,2100 10/23/20 10/23/20 History Prostat Awc 30 ml PO BID@0900,1700 10/23/20 10/23/20 History Triad Hydrophilic Wound Dress 1 applic TOPICAL DAILY PRN 10/23/20 10/23/20 History Vitamin K2 (Menatetrenone) 5 mg PO ONCE 10/23/20 10/23/20 History Warfarin [Coumadin] 3 mg PO MOTH@1700 10/23/20 10/23/20 History Zinc 50 mg PO DAILY@0900 10/23/20 10/23/20 History Allergies Allergy/AdvReac Type Severity Reaction Status Date / Time No Known Allergies Allergy Verified 10/23/20 21:36 Physical Exam Vitals: Vital Signs Temp Pulse Pulse Resp BP Pulse Ox 10/24/20 09:25 98 18 104/50 10/24/20 07:00 92 20 119/61 100 10/24/20 06:00 96 20 119/61 97 10/24/20 05:00 100 22 126/60 97 10/24/20 03:33 112 H 24 103/60 97 10/24/20 03:00 120 H 10/24/20 02:31 97.8 F 125 H 20 138/53 96 10/24/20 02:06 120 H 19 86/54 98 10/24/20 01:15 136 H 19 90/52 97 10/23/20 23:53 118 H 19 107/72 98 10/23/20 23:47 120 H 20 105/63 97 10/23/20 23:00 114 H 20 105/63 98 10/23/20 22:35 109 H 16 106/74 98 10/23/20 22:09 118 H 16 109/70 98 10/23/20 21:33 113 H 16 92/47 99 10/23/20 21:16 121 H 16 97/46 97 10/23/20 19:24 98.5 F 111 H 20 107/71 95 Intake and Output 10/23/20 10/24/20 10/24/20 22:59 06:59 14:59 Intake Total 7.833 Output Total 500 Balance -492.167 Intake: Intake, IV Titration 7.833 Amount Diltiazem 125 mg In 7.833 Sodium Chloride 0.9% 100 ml @ 5 MG/HR 5 mls/hr IV .Q24H [facility] Rx#:[id number] Output: Urine 500 Other: # Voids 1 # Bowel Movements 1 Weight 97.069 kg Physical exam: General Appearance: Alert, cooperative, no distress, appears stated age. Skin: sacrum: Full thickness stage II pressure ulcer with significant amount of slough seen throughout the wound bed and minimal granulation. Wound edges attached to the wound base. No tonsillar undermining noted. Periwound shows excoriation and maceration, left posterior leg is a grade 2 pressure ulcer full- thickness with fat layer exposure minimal granulation was slough present. Wound edges attached to the wound base no tunneling or undermining noted. Left trochanter ulceration is a full-thickness stage II pressure ulcer with fatty layer exposure with minimal to no granulation seen with throughout the wound bed with significant amount of slough. Wound edges are attached to the wound base Tunneling or undermining noted excoriation and maceration noted. all other Skin color, texture, tugor normal, no rashes or lesions. Neurologic: Alert oriented x3 Results CBC & Chem 7: 10/23/20 19:56 10/23/20 19:56 Labs: Abnormal Lab Results - Last 24 Hours (Table) 10/23/20 10/23/20 10/23/20 Range/Units 19:56 19:56 19:56 RBC 3.30 L (3.80-5.40) m/uL Hgb 8.8 L (11.4-16.0) gm/dL Hct 28.6 L (34.0-46.0) % MCHC 30.6 L (31.0-37.0) g/dL RDW 22.3 H (11.5-15.5) % PT 45.1 H (9.0-12.0) sec INR 4.5 H (<1.2) BUN 61 H (7-17) mg/dL Creatinine 1.40 H (0.52-1.04) mg/dL Glucose 100 H (74-99) mg/dL Calcium 8.0 L (8.4-10.2) mg/dL AST 44 H (14-36) U/L Troponin I (0.000-0.034) ng/mL Total Protein 4.7 L (6.3-8.2) g/dL Albumin 2.1 L (3.5-5.0) g/dL 10/23/20 Range/Units 19:56 RBC (3.80-5.40) m/uL Hgb (11.4-16.0) gm/dL Hct (34.0-46.0) % MCHC (31.0-37.0) g/dL RDW (11.5-15.5) % PT (9.0-12.0) sec INR (<1.2) BUN (7-17) mg/dL Creatinine (0.52-1.04) mg/dL Glucose (74-99) mg/dL Calcium (8.4-10.2) mg/dL AST (14-36) U/L Troponin I 0.040 H* (0.000-0.034) ng/mL Total Protein (6.3-8.2) g/dL Albumin (3.5-5.0) g/dL Assessment and Plan (1) Stage II pressure ulcer of left hip Current Visit: Yes Status: Acute Code(s): L89.222 - PRESSURE ULCER OF LEFT HIP, STAGE 2 SNOMED Code(s): 397951604 (2) Pressure ulcer of left buttock, stage 2 Current Visit: Yes Status: Acute Code(s): L89.322 - PRESSURE ULCER OF LEFT BUTTOCK, STAGE 2 SNOMED Code(s): 237501492 (3) Stage II pressure ulcer of sacral region Current Visit: Yes Status: Acute Code(s): L89.152 - PRESSURE ULCER OF SACRAL REGION, STAGE 2 SNOMED Code(s): 078233989 Plan: sacral ulceration: Apply honey alginate, saline moistened gauze, border foam. Left posterior leg/left gluteus: apply honey alginate, saline moistened gauze, border foam. Left trochanter: Apply honey alginate, saline moistened gauze, border foam. Change Wednesday. Patient can return to [facility] at the extended care facility upon discharge. She would benefit from wound debridement is able to facilitate at the extended care facility or an outpatient wound care center. Thank you for the consultation any questions please contact the wound care center DNP note has been reviewed and discussed with Dr. Jones and the impression and plan of care has been directed as dictated.
--- NOTE | 2020-10-24 12:26 | P.DS ---
Providers Date of admission: 10/24/20 01:04 Attending physician: Clementine Bryan Consults: 10/24/20 01:08 Consult Physician Routine Consulting Provider: [facility] Consult Reason/Comments: New onset afib Do you want consulting provider notified?: Yes [facility] Course: Please refer to my history of present illness for further details Patient Condition at Discharge: Serious Plan - Discharge Summary New Discharge Prescriptions: New Metoprolol Tartrate [Lopressor] 50 mg PO BID@0900,2100 tab Continue Potassium Chloride ER [K-Dur 20] 20 meq PO DAILY@0600 Furosemide [Lasix] 40 mg PO DAILY@0600 Atorvastatin [Lipitor] 20 mg PO HS@2100 Pantoprazole [Protonix] 40 mg PO HS@2100 Warfarin [Coumadin] 2.5 mg PO SUTUWEFRSA@1700 Polyethylene Glycol 3350 [Miralax] 17 gm PO DAILY PRN PRN Reason: Constipation Ferrous Sulfate [Iron (65 MG Elemental)] 325 mg PO DAILY@0600 Nitroglycerin Sl Tabs [Nitrostat] 0.4 mg SUBLINGUAL Q5M PRN tab PRN Reason: Chest Pain traMADol HCL 50 mg PO Q12H PRN #3 tab PRN Reason: Pain Ipratropium-Albuterol Nebulize [Duoneb 0.5 mg-3 mg/3 ml Soln] 3 ml INHALATION RT-Q4H PRN PRN Reason: Shortness Of Breath Insulin Lispro [humaLOG Kwikpen] 2 unit SQ ACHS@08,12,17,22 Prostat Awc 30 ml PO BID@0900,1700 Glucerna Shake 1 can PO BID@0900,1700 Zinc 50 mg PO DAILY@0900 Cholecalciferol [Vitamin D3 (25 Mcg = 1000 Iu)] 2,000 unit PO DAILY@0900 Linagliptin [Tradjenta] 5 mg PO DAILY@0600 Warfarin [Coumadin] 3 mg PO MOTH@1700 Insulin Glargine,Hum.rec.anlog [Basaglar Kwikpen U-100] 10 unit SQ HS@2200 Ascorbic Acid [Vitamin C] 500 mg PO DAILY@0900 Vitamin K2 (Menatetrenone) 5 mg PO ONCE Collagenase [Santyl] 1 applic TOPICAL DAILY PRN PRN Reason: RIGHT BUTTOCK WOUND Hydrophilic Cream [Triad Cream] 1 applic TOPICAL Q12H Collagenase [Santyl] 1 applic TOPICAL HS Triad Hydrophilic Wound Dress 1 applic TOPICAL DAILY PRN PRN Reason: LEFT POSTERIOR THIGH WOUND Changed Levothyroxine Sodium [Synthroid] 50 mcg PO DAILY #0 Discontinued Levothyroxine Sodium [Synthroid] 75 mcg PO SUMOWEFRSA@0600 Metoprolol Tartrate [Lopressor] 25 mg PO BID@0900,2100 Discharge Medication List Atorvastatin [Lipitor] 20 mg PO HS@209905/07/16 [History] Furosemide [Lasix] 40 mg PO DAILY@59905/07/16 [History] Pantoprazole [Protonix] 40 mg PO HS@209905/07/16 [History] Potassium Chloride ER [K-Dur 20] 20 meq PO DAILY@0605/07/16 [History] Ferrous Sulfate [Iron (65 MG Elemental)] 325 mg PO DAILY@0600 10/02/20 [History] Polyethylene Glycol 3350 [Miralax] 17 gm PO DAILY PRN 10/02/20 [History] Warfarin [Coumadin] 2.5 mg PO SUTUWEFRSA@1700 10/02/20 [History] Nitroglycerin Sl Tabs [Nitrostat] 0.4 mg SUBLINGUAL Q5M PRN tab 10/08/20 [Rx] traMADol HCL 50 mg PO Q12H PRN #3 tab 10/08/20 [Rx] Ascorbic Acid [Vitamin C] 500 mg PO DAILY@0900 10/23/20 [History] Cholecalciferol [Vitamin D3 (25 Mcg = 1000 Iu)] 2,000 unit PO DAILY@0900 10/23/20 [History] Collagenase [Santyl] 1 applic TOPICAL DAILY PRN 10/23/20 [History] Collagenase [Santyl] 1 applic TOPICAL HS 10/23/20 [History] Glucerna Shake 1 can PO BID@0900,1700 10/23/20 [History] Hydrophilic Cream [Triad Cream] 1 applic TOPICAL Q12H 10/23/20 [History] Insulin Glargine,Hum.rec.anlog [Basaglar Kwikpen U-100] 10 unit SQ HS@2200 10/23/20 [History] Insulin Lispro [humaLOG Kwikpen] 2 unit SQ ACHS@08,12,17,22 10/23/20 [History] Ipratropium-Albuterol Nebulize [Duoneb 0.5 mg-3 mg/3 ml Soln] 3 ml INHALATION RT-Q4H PRN 10/23/20 [History] Linagliptin [Tradjenta] 5 mg PO DAILY@0600 10/23/20 [History] Prostat Awc 30 ml PO BID@0900,1700 10/23/20 [History] Triad Hydrophilic Wound Dress 1 applic TOPICAL DAILY PRN 10/23/20 [History] Vitamin K2 (Menatetrenone) 5 mg PO ONCE 10/23/20 [History] Warfarin [Coumadin] 3 mg PO MOTH@1700 10/23/20 [History] Zinc 50 mg PO DAILY@0900 10/23/20 [History] Levothyroxine Sodium [Synthroid] 50 mcg PO DAILY #0 10/24/20 [Rx] Metoprolol Tartrate [Lopressor] 50 mg PO BID@0900,2100 tab 10/24/20 [Rx] Follow up Appointment(s)/Referral(s): Michael Alamo DO [Primary Care Provider] - 1-2 days Activity/Diet/Wound Care/Special Instructions: Cardiac diet, INR in 2 days depending on INR patient need to be restarted on Coumadin probably at a lower dose
--- NOTE | 2020-10-24 12:26 | P.HPIM ---
History of Present Illness 79-year-old pleasant female was sent in from [facility] because of generalized weakness. 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 None of which appear to be infected and patient will require local wound care for those. Patient is found to be in atrial fibrillation with rapid ventricular rate patient was started on Cardizem patient denied any shortness of breath chest pain. Patient the metoprolol dose was increased and Cardizem is being weaned off at this time. Patient has a valid atrial fibrillation patient had history of aortic valve replacement with a bioprosthetic aortic valve. Patient is presently rate controlled beta marshall dose is being increased. Patient to doesn't use any oxygen at home presently saturating at 100% on 3 L patient will be weaned off oxygen. Patient has chronic kidney disease Baseline creatinine appears to be worse than what it is right now present creatinine is 1.4 previous creatinine during her last discharge is around 1.9 at the time patient was treated for acute renal failure secondary to rhabdomyolysis. Patient was recently diagnosed with Covid. Patient has significant infiltrates bilaterally on the chest x-ray with significant effusion on the left side and infiltrate on the left side. Patient is complaining of cough no fever patient is complaining of whitish to yellowish sputum production. I do not have any BNP available but patient doesn't have any elevated JVD patient in the past was treated for diastolic dysfunction heart failure. Patient doesn't have heart failure exacerbation. Patient had normal ejection fraction the past Review of Systems REVIEW OF SYSTEMS: CONSTITUTIONAL: As mentioned in HPI HEENT: No recent visual problems or hearing problems. Denied any sore throat. CARDIOVASCULAR: No chest pain, orthopnea, PND, no palpitations, no syncope. PULMONARY: No shortness of breath, no cough, no hemoptysis. GASTROINTESTINAL: No diarrhea, no nausea, no vomiting, no abdominal pain. NEUROLOGICAL: No headaches, no weakness, no numbness. HEMATOLOGICAL: Denies any bleeding or petechiae. GENITOURINARY: Denies any burning micturition, frequency, or urgency. MUSCULOSKELETAL/RHEUMATOLOGICAL: Denies any joint pain, swelling, or any muscle pain. ENDOCRINE: Denies any polyuria or polydipsia. The rest of the 14-point review of systems is negative. 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 Right rotator cuff. Aortic valve replacement Past Anesthesia/Blood Transfusion Reactions: No Reported Reaction Past Psychological History: No Psychological Hx Reported Past Alcohol Use History: Rare Past Drug Use History: None Reported Medications and Allergies Home Medications Medication Instructions Recorded Confirmed Type Atorvastatin [Lipitor] 20 mg PO HS@209905/07/16 10/23/20 History Furosemide [Lasix] 40 mg PO DAILY@59905/07/16 10/23/20 History Levothyroxine Sodium [Synthroid] 50 mcg PO TUTH@59905/07/16 10/23/20 History Pantoprazole [Protonix] 40 mg PO HS@209905/07/16 10/23/20 History Potassium Chloride ER [K-Dur 20] 20 meq PO DAILY@59905/07/16 10/23/20 History Ferrous Sulfate [Iron (65 MG 325 mg PO DAILY@0610/02/20 10/23/20 History Elemental)] Levothyroxine Sodium [Synthroid] 75 mcg PO SUMOWEFRSA@0600 10/02/20 10/23/20 History Polyethylene Glycol 3350 [Miralax] 17 gm PO DAILY PRN 10/02/20 10/23/20 History Warfarin [Coumadin] 2.5 mg PO SUTUWEFRSA@1700 10/02/20 10/23/20 History Nitroglycerin Sl Tabs [Nitrostat] 0.4 mg SUBLINGUAL Q5M PRN tab 10/08/20 10/23/20 Rx traMADol HCL 50 mg PO Q12H PRN #3 tab 10/08/20 10/23/20 Rx Ascorbic Acid [Vitamin C] 500 mg PO DAILY@0900 10/23/20 10/23/20 History Cholecalciferol [Vitamin D3 (25 2,000 unit PO DAILY@0910/23/20 10/23/20 History Mcg = 1000 Iu)] Collagenase [Santyl] 1 applic TOPICAL DAILY PRN 10/23/20 10/23/20 History Collagenase [Santyl] 1 applic TOPICAL HS 10/23/20 10/23/20 History Glucerna Shake 1 can PO BID@0900,1700 10/23/20 10/23/20 History Hydrophilic Cream [Triad Cream] 1 applic TOPICAL Q12H 10/23/20 10/23/20 History Insulin Glargine,Hum.rec.anlog 10 unit SQ HS@2200 10/23/20 10/23/20 History [Basaglar Kwikpen U-100] Insulin Lispro [humaLOG Kwikpen] 2 unit SQ ACHS@08,,,10/23/20 10/23/20 History Ipratropium-Albuterol Nebulize 3 ml INHALATION RT-Q4H PRN 10/23/20 10/23/20 History [Duoneb 0.5 mg-3 mg/3 ml Soln] Linagliptin [Tradjenta] 5 mg PO DAILY@0600 10/23/20 10/23/20 History Prostat Awc 30 ml PO BID@0900,1700 10/23/20 10/23/20 History Triad Hydrophilic Wound Dress 1 applic TOPICAL DAILY PRN 10/23/20 10/23/20 History Vitamin K2 (Menatetrenone) 5 mg PO ONCE 10/23/20 10/23/20 History Warfarin [Coumadin] 3 mg PO MOTH@1700 10/23/20 10/23/20 History Zinc 50 mg PO DAILY@0900 10/23/20 10/23/20 History Metoprolol Tartrate [Lopressor] 50 mg PO BID@0900,2100 tab 10/24/20 Rx Allergies Allergy/AdvReac Type Severity Reaction Status Date / Time No Known Allergies Allergy Verified 10/23/20 21:36 Physical Exam Vitals: Vital Signs Temp Pulse Pulse Resp BP Pulse Ox 10/24/20 12:02 85 18 101/50 95 10/24/20 09:25 98 18 104/50 10/24/20 07:00 92 20 119/61 100 10/24/20 06:00 96 20 119/61 97 10/24/20 05:00 100 22 126/60 97 10/24/20 03:33 112 H 24 103/60 97 10/24/20 03:00 120 H 10/24/20 02:31 97.8 F 125 H 20 138/53 96 10/24/20 02:06 120 H 19 86/54 98 10/24/20 01:15 136 H 19 90/52 97 10/23/20 23:53 118 H 19 107/72 98 10/23/20 23:47 120 H 20 105/63 97 10/23/20 23:00 114 H 20 105/63 98 10/23/20 22:35 109 H 16 106/74 98 10/23/20 22:09 118 H 16 109/70 98 10/23/20 21:33 113 H 16 92/47 99 10/23/20 21:16 121 H 16 97/46 97 10/23/20 19:24 98.5 F 111 H 20 107/71 95 Intake and Output 10/23/20 10/24/20 10/24/20 22:59 06:59 14:59 Intake Total 7.833 Output Total 500 Balance -492.167 Intake: Intake, IV Titration 7.833 Amount Diltiazem 125 mg In 7.833 Sodium Chloride 0.9% 100 ml @ 5 MG/HR 5 mls/hr IV .Q24H [facility] Rx#:[id number] Output: Urine 500 Other: # Voids 1 # Bowel Movements 1 Weight 97.069 kg PHYSICAL EXAMINATION: GENERAL: The patient is alert and oriented x3, not in any acute distress. Well developed, well nourished. [place] female HEENT: Pupils are round and equally reacting to light. EOMI. No scleral icterus. No conjunctival pallor. Normocephalic, atraumatic. No pharyngeal erythema. No thyromegaly. CARDIOVASCULAR: S1 and S2 present. No murmurs, rubs, or gallops. PULMONARY: Chest is clear to auscultation, no wheezing or crackles. ABDOMEN: Soft, nontender, nondistended, normoactive bowel sounds. No palpable organomegaly. MUSCULOSKELETAL: No joint swelling or deformity. EXTREMITIES: No cyanosis, clubbing, or pedal edema. NEUROLOGICAL: Gross neurological examination did not reveal any new focal deficits. Does have significant weakness which is generalized significant weakness in both legs which is chronic patient does have significant muscle atrophy patient is mostly bed bound and uses a wheelchair SKIN: Decubitus ulcers as mentioned in the HPI none of them are beyond stage II doesn't appear to be infected Results CBC & Chem 7: 10/23/20 19:56 10/23/20 19:56 Labs: Abnormal Lab Results - Last 24 Hours (Table) 10/23/20 10/23/20 10/23/20 Range/Units 19:56 19:56 19:56 RBC 3.30 L (3.80-5.40) m/uL Hgb 8.8 L (11.4-16.0) gm/dL Hct 28.6 L (34.0-46.0) % MCHC 30.6 L (31.0-37.0) g/dL RDW 22.3 H (11.5-15.5) % PT 45.1 H (9.0-12.0) sec INR 4.5 H (<1.2) BUN 61 H (7-17) mg/dL Creatinine 1.40 H (0.52-1.04) mg/dL Glucose 100 H (74-99) mg/dL Calcium 8.0 L (8.4-10.2) mg/dL AST 44 H (14-36) U/L Troponin I (0.000-0.034) ng/mL Total Protein 4.7 L (6.3-8.2) g/dL Albumin 2.1 L (3.5-5.0) g/dL TSH (0.465-4.680) mIU/L 10/23/20 10/23/20 Range/Units 19:56 19:56 RBC (3.80-5.40) m/uL Hgb (11.4-16.0) gm/dL Hct (34.0-46.0) % MCHC (31.0-37.0) g/dL RDW (11.5-15.5) % PT (9.0-12.0) sec INR (<1.2) BUN (7-17) mg/dL Creatinine (0.52-1.04) mg/dL Glucose (74-99) mg/dL Calcium (8.4-10.2) mg/dL AST (14-36) U/L Troponin I 0.040 H* (0.000-0.034) ng/mL Total Protein (6.3-8.2) g/dL Albumin (3.5-5.0) g/dL TSH 5.120 H (0.465-4.680) mIU/L Assessment and Plan Plan: -Atrial fibrillation with rapid and regular rate: Patient is presently rate controlled. Patient's beta marshall dose was increased and patient Cardizem will be discontinued and the patient today remains under control patient will be discharged today. Patient is on anticoagulation with the Coumadin patient is a brother become INR Coumadin will be held and INR need to be repeated in couple days before she can restart back on Coumadin patient will need low-dose of Coum derrick. -Recent Covid 19 was significant bilateral infiltrate on the chest x-ray although no significant change. -Chronic kidney disease is a stage III and probably diabetic nephropathy -Bioprosthetic attic well with atrial fibrillation patient on Coumadin as mentioned above -Mild elevation in troponins secondary to renal failure. -Chronic medical debility and generalized weakness, patient is mostly bedbound. -Hypothyroidism with elevated TSH will cut down the levothyroxine to 50 daily -Type 2 diabetes mellitus patient will resume on her home regimen I don't have an of time here to titrate her regimen and this can be addressed as outpatient -Hyperlipidemia -Gastroesophageal reflux disease.
[2020-10-24 13:19] VITALS: BP 108/65; PULSE 82; TEMP 98.2
[2020-10-24 13:24] LABS: T4, Free (Free Thyroxine) 1.1 ng/dL (0.78-2.19)
--- NOTE | 2020-10-24 13:43 | P.CRDCN ---
History of Present Illness Consult date: 10/24/20 History of present illness: CHIEF COMPLAINT: A. fib with RVR HISTORY OF PRESENT ILLNESS: This is a 79-year-old female with a past medical history significant for hypertension and aortic valve replacement on long-term anticoagulation with Coumadin. We have been asked to see the patient in consultation for new onset atrial fibrillation. Patient was recently diagnosed with Covid 19. She presented to the hospital today secondary to weakness and chronic wounds. DIAGNOSTICS: EKG reveals atrial fibrillation with RVR Chest xray bilateral pneumonia that is unchanged on the left side and increased on the right side. Laboratory data: WBC 6.6. Hemoglobin 8.8. Platelet count 260. INR 4.5. Sodium 137. Potassium 4.0. BUN 60. Creatinine 1.40. Troponin 0.040. Current home cardiac medications include Lasix 40 mg daily, metoprolol 25 mg 3 times a day, Lipitor 20 mg daily, and Coumadin 2.5 mg Wednesday and 3 mg Wednesday and Echocardiogram completed in September 2020 revealed ejection fraction 55-60%, mild to moderate regurgitation of the bioprosthetic aortic valve, moderate mitral regurgitation, and mild tricuspid regurgitation REVIEW OF SYSTEMS: Thorough review of systems not completed secondary to limited evaluation/examination and due to Covid19 PHYSICAL EXAM: Thorough physical exam not completed secondary to limited evaluation/examination and due to Covid19 ASSESSMENT: Recent Covid 19 Bilateral pneumonia New-onset atrial fibrillation with RVR History of aortic valve replacement, on long-term anticoagulation with Coumadin Supratherapeutic INR, 4.5 on admission Hypertension PLAN: No need to repeat echocardiogram as this was performed in September 2020 Increase metoprolol to 50 mg twice a day Discontinue IV Cardizem Resume additional home cardiac medications Continue to hold Coumadin secondary to supratherapeutic INR. Continue to monitor INR daily Further recommendations pending patient's course Nurse practitioner note has been reviewed by physician. Signing provider agrees with the documented findings, assessment, and plan of care. 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 Right rotator cuff. Aortic valve replacement Past Anesthesia/Blood Transfusion Reactions: No Reported Reaction Past Psychological History: No Psychological Hx Reported Past Alcohol Use History: Rare Past Drug Use History: None Reported Medications and Allergies Home Medications Medication Instructions Recorded Confirmed Type Atorvastatin [Lipitor] 20 mg PO HS@2100 05/07/16 10/23/20 History Furosemide [Lasix] 40 mg PO DAILY@0600 05/07/16 10/23/20 History Pantoprazole [Protonix] 40 mg PO HS@2100 05/07/16 10/23/20 History Potassium Chloride ER [K-Dur 20] 20 meq PO DAILY@0600 05/07/16 10/23/20 History Ferrous Sulfate [Iron (65 MG 325 mg PO DAILY@0600 10/02/20 10/23/20 History Elemental)] Polyethylene Glycol 3350 [Miralax] 17 gm PO DAILY PRN 10/02/20 10/23/20 History Warfarin [Coumadin] 2.5 mg PO SUTUWEFRSA@1700 10/02/20 10/23/20 History Nitroglycerin Sl Tabs [Nitrostat] 0.4 mg SUBLINGUAL Q5M PRN tab 10/08/20 10/23/20 Rx traMADol HCL 50 mg PO Q12H PRN #3 tab 10/08/20 10/23/20 Rx Ascorbic Acid [Vitamin C] 500 mg PO DAILY@0900 10/23/20 10/23/20 History Cholecalciferol [Vitamin D3 (25 2,000 unit PO DAILY@0900 10/23/20 10/23/20 History Mcg = 1000 Iu)] Collagenase [Santyl] 1 applic TOPICAL DAILY PRN 10/23/20 10/23/20 History Collagenase [Santyl] 1 applic TOPICAL HS 10/23/20 10/23/20 History Glucerna Shake 1 can PO BID@0900,1700 10/23/20 10/23/20 History Hydrophilic Cream [Triad Cream] 1 applic TOPICAL Q12H 10/23/20 10/23/20 History Insulin Glargine,Hum.rec.anlog 10 unit SQ HS@2200 10/23/20 10/23/20 History [Basaglar Kwikpen U-100] Insulin Lispro [humaLOG Kwikpen] 2 unit SQ ACHS@08,12,17,22 10/23/20 10/23/20 History Ipratropium-Albuterol Nebulize 3 ml INHALATION RT-Q4H PRN 10/23/20 10/23/20 History [Duoneb 0.5 mg-3 mg/3 ml Soln] Linagliptin [Tradjenta] 5 mg PO DAILY@0600 10/23/20 10/23/20 History Prostat Awc 30 ml PO BID@0900,1700 10/23/20 10/23/20 History Triad Hydrophilic Wound Dress 1 applic TOPICAL DAILY PRN 10/23/20 10/23/20 History Vitamin K2 (Menatetrenone) 5 mg PO ONCE 10/23/20 10/23/20 History Warfarin [Coumadin] 3 mg PO MOTH@1700 10/23/20 10/23/20 History Zinc 50 mg PO DAILY@0900 10/23/20 10/23/20 History Levothyroxine Sodium [Synthroid] 50 mcg PO DAILY #0 10/24/20 10/23/20 Rx Metoprolol Tartrate [Lopressor] 50 mg PO BID@0900,2100 tab 10/24/20 Rx Allergies Allergy/AdvReac Type Severity Reaction Status Date / Time No Known Allergies Allergy Verified 10/23/20 21:36 Physical Exam Vitals: Vital Signs Temp Pulse Pulse Resp BP Pulse Ox 10/24/20 13:00 98.2 F 82 18 108/65 97 10/24/20 12:02 85 18 101/50 95 10/24/20 09:25 98 18 104/50 10/24/20 07:00 92 20 119/61 100 10/24/20 06:00 96 20 119/61 97 10/24/20 05:00 100 22 126/60 97 10/24/20 03:33 112 H 24 103/60 97 10/24/20 03:00 120 H 10/24/20 02:31 97.8 F 125 H 20 138/53 96 10/24/20 02:06 120 H 19 86/54 98 10/24/20 01:15 136 H 19 90/52 97 10/23/20 23:53 118 H 19 107/72 98 10/23/20 23:47 120 H 20 105/63 97 10/23/20 23:00 114 H 20 105/63 98 10/23/20 22:35 109 H 16 106/74 98 10/23/20 22:09 118 H 16 109/70 98 10/23/20 21:33 113 H 16 92/47 99 10/23/20 21:16 121 H 16 97/46 97 10/23/20 19:24 98.5 F 111 H 20 107/71 95 Intake and Output 10/23/20 10/24/20 10/24/20 22:59 06:59 14:59 Intake Total 7.833 Output Total 500 Balance -492.167 Intake: Intake, IV Titration 7.833 Amount Diltiazem 125 mg In 7.833 Sodium Chloride 0.9% 100 ml @ 5 MG/HR 5 mls/hr IV .Q24H [facility] Rx#:[id number] Output: Urine 500 Other: # Voids 1 # Bowel Movements 1 Weight 97.069 kg Results 10/23/20 19:56 10/23/20 19:56 Cardiac Enzymes 10/23/20 10/23/20 Range/Units 19:56 19:56 AST 44 H (14-36) U/L Troponin I 0.040 H* (0.000-0.034) ng/mL Coagulation 10/23/20 Range/Units 19:56 PT 45.1 H (9.0-12.0) sec APTT 28.6 (22.0-30.0) sec CBC 10/23/20 Range/Units 19:56 WBC 6.6 (3.8-10.6) k/uL RBC 3.30 L (3.80-5.40) m/uL Hgb 8.8 L (11.4-16.0) gm/dL Hct 28.6 L (34.0-46.0) % Plt Count 260 (150-450) k/uL Comprehensive Metabolic Panel 10/23/20 Range/Units 19:56 Sodium 137 (137-145) mmol/L Potassium 4.0 (3.5-5.1) mmol/L Chloride 104 (98-107) mmol/L Carbon Dioxide 29 (22-30) mmol/L BUN 61 H (7-17) mg/dL Creatinine 1.40 H (0.52-1.04) mg/dL Glucose 100 H (74-99) mg/dL Calcium 8.0 L (8.4-10.2) mg/dL AST 44 H (14-36) U/L ALT 28 (4-34) U/L Alkaline Phosphatase 105 (38-126) U/L Total Protein 4.7 L (6.3-8.2) g/dL Albumin 2.1 L (3.5-5.0) g/dL Current Medications Generic Name Dose Route Start Last Admin Trade Name Freq PRN Reason Stop Dose Admin Albuterol/Ipratropium 3 ml 10/24/20 09:43 Ipratropium-Albuterol 3 Ml Neb INHALATION RT-Q4H PRN Shortness Of Breath Atorvastatin Calcium 20 mg 10/24/20 21:00 Atorvastatin 20 Mg Tab PO HS@2100 [facility] Ferrous Sulfate 325 mg 10/25/20 06:00 Ferrous Sulfate 325 Mg Tab PO DAILY@0600 [facility] Diltiazem HCl 125 mg/ Sodium 125 mls @ 5 mls/hr 10/24/20 01:15 10/24/20 02:48 Chloride IV 10 mg/hr .Q24H [facility] 10 mls/hr Infusion 5 MG/HR Sodium Chloride 1,000 mls @ 20 mls/hr 10/24/20 01:15 10/24/20 01:12 Saline 0.9% IV 20 mls/hr .Q24H [facility] Administration Insulin Detemir 10 unit 10/24/20 22:00 Insulin Detemir (Levemir) 100 Unit/Ml Syr SQ HS@2200 [facility] Levothyroxine Sodium 50 mcg 10/29/20 06:30 Levothyroxine 50 Mcg Tab PO TuTh@0630 [facility] Levothyroxine Sodium 75 mcg 10/25/20 06:30 Levothyroxine 75 Mcg Tab PO SuMoWeFrSa@0630 [facility] Linagliptin 5 mg 10/25/20 06:00 Linagliptin 5 Mg Tablet PO DAILY@0600 [facility] Metoprolol Tartrate 50 mg 10/24/20 09:15 10/24/20 09:29 Metoprolol Tartrate 50 Mg Tab PO 50 mg BID@0900,2100 [facility] Administration Multi-Ingred Cream/Lotion/Oil/Oint 1 applic 10/24/20 09:45 Hydrophilic Cream 180 Gm Tube TOPICAL Q12H [facility] Multi-Ingred Cream/Lotion/Oil/Oint 1 applic 10/24/20 09:53 Hydrophilic Cream 180 Gm Tube TOPICAL DAILY PRN LEFT POSTERIOR THIGH WOUND Naloxone HCl 0.2 mg 10/24/20 01:07 Naloxone 0.4 Mg/Ml 1 Ml Vial IV Q2M PRN Opioid Reversal Nitroglycerin 0.4 mg 10/24/20 09:43 Nitroglycerin Sl Tabs 0.4 Mg Tab SUBLINGUAL Q5M PRN Chest Pain Tramadol HCl 50 mg 10/24/20 09:43 Tramadol 50 Mg Tab PO Q12H PRN Pain Zinc Sulfate 220 mg 10/25/20 09:00 Zinc Sulfate 220 Mg Cap PO DAILY@0900 [facility] Intake and Output 10/23/20 10/24/20 10/24/20 22:59 06:59 14:59 Intake Total 7.833 Output Total 500 Balance -492.167 Intake: Intake, IV Titration 7.833 Amount Diltiazem 125 mg In 7.833 Sodium Chloride 0.9% 100 ml @ 5 MG/HR 5 mls/hr IV .Q24H [facility] Rx#:[id number] Output: Urine 500 Other: # Voids 1 # Bowel Movements 1 Weight 97.069 kg 10/23/20 19:56 10/23/20 19:56
[2020-10-24] MEDS ORDERED: WARFARIN 3 MG TAB PO SCH (17:00)
[2020-10-24] MEDS ORDERED: COLLAGENASE 250 UNIT/GM OINTMENT 30 GM TUBE TOPICAL SCH (21:00)
[2020-10-24] MEDS ORDERED: ATORVASTATIN 20 MG TAB PO SCH (21:00)
[2020-10-24] MEDS ORDERED: INSULIN DETEMIR (LEVEMIR) 100 UNIT/ML SYR SQ SCH (22:00)
[2020-10-25] MEDS ORDERED: FERROUS SULFATE 325 MG TAB PO SCH (06:00)
[2020-10-25] MEDS ORDERED: LINAGLIPTIN 5 MG TABLET PO SCH (06:00)
[2020-10-25] MEDS ORDERED: LEVOTHYROXINE 75 MCG TAB PO SCH (06:30)
[2020-10-25] MEDS ORDERED: ZINC SULFATE 220 MG CAP PO SCH (09:00)
[2020-10-25] MEDS ORDERED: WARFARIN 5 MG TAB PO SCH (17:00)
[2020-10-29] MEDS ORDERED: LEVOTHYROXINE 50 MCG TAB PO SCH (06:30)
== END 2020-10-24 13:10 | DRG 308 ==
LOC: EC 19:16 → 3SCARD 10-24 01:04
PROVIDERS: ADMIT Internal Medicine; ATTEND Internal Medicine
DX: I48.91 Unspecified atrial fibrillation (principal); U07.1 COVID-19; J12.89 Other viral pneumonia; I13.0 Hypertensive heart and chronic kidney disease with heart failure and stage 1 through stage 4 chronic kidney disease, or unspecified chronic kidney disease; I50.32 Chronic diastolic (congestive) heart failure; E11.22 Type 2 diabetes mellitus with diabetic chronic kidney disease; L89.222 Pressure ulcer of left hip, stage 2; L89.322 Pressure ulcer of left buttock, stage 2; L89.622 Pressure ulcer of left heel, stage 2; R62.7 Adult failure to thrive; N18.30 Chronic kidney disease, stage 3 unspecified; Z95.3 Presence of xenogenic heart valve; Z79.4 Long term (current) use of insulin; E03.9 Hypothyroidism, unspecified; E78.5 Hyperlipidemia, unspecified; K21.9 Gastro-esophageal reflux disease without esophagitis; R79.89 Other specified abnormal findings of blood chemistry; Z79.01 Long term (current) use of anticoagulants; Z79.890 Hormone replacement therapy; Z79.899 Other long term (current) drug therapy; Z85.068 Personal history of other malignant neoplasm of small intestine; Z87.01 Personal history of pneumonia (recurrent); Z90.89 Acquired absence of other organs; Z98.890 Other specified postprocedural states; Z87.898 Personal history of other specified conditions
CPT/HCPCS: 36415; 51701; 71045; 80053; 81003; 83605; 83735; 84439; 84443; 84484; 85025; 85610; 85730; 93005; 96361; 96365; 96366; 99285

== ENCOUNTER 2020-10-28 11:10 | Inpatient (IN) | payer MEDICARE ==
[2020-10-28] MEDS ORDERED: METOPROLOL TARTRATE 5 MG/5 ML VIAL IVP STA (12:12)
--- NOTE | 2020-10-28 12:12 | ED ---
General Adult HPI - General Chief complaint: Arrhythmia/Palpitations Stated complaint: A Fib, +COVID Time Seen by Provider: 10/28/20 11:22 Source: patient, EMS Mode of arrival: EMS Limitations: no limitations - History of Present Illness Initial comments: Dictation was produced using [employer] dictation software. please excuse any grammatical, word or spelling errors. This patient was cared for during a federal and state declared state of emergenc y secondary to Covid 19 Chief Complaint: 79-year-old female with recently diagnosed Covid presents to the emergency department History of Present Illness: 79-year-old female she has multiple comorbidities. She presents today for pitting edema to her whole body. Patient states she feels well she has no complaints except for some shortness of breath. Patient is a poor historian. Recently admitted to the hospital and was discharge 4 days ago back to [facility]. She was diagnosed with new-onset atrial fibrillation. Discharged with metoprolol. She is admitted to the hospital for 2 days. She was evaluated cardiology. She is history of severe decubitus ulcer. She does have history of chronic kidney disease stage III. The ROS documented in this emergency department record has been reviewed and confirmed by me. Those systems with pertinent positive or negative responses have been documented in the HPI. All other systems are other negative and/or noncontributory. PHYSICAL EXAM: General Impression: Alert and oriented x3, not in acute distress HEENT: Normocephalic atraumatic, extra-ocular movements intact, pupils equal and reactive to light bilaterally, mucous membranes moist. Cardiovascular: Heart regular rate and rhythm Chest: Able to complete full sentences, no retractions, no tachypnea Abdomen: abdomen soft, non-tender, non-distended, no organomegaly Musculoskeletal: Pulses present and equal in all extremities, 3+ pitting edema to the arms and legs Motor: no focal deficits noted Neurological: CN II-XII grossly intact, no focal motor or sensory deficits noted Skin: Pitting edema diffusely along with leakage of clear fluid with any sort of late skin pressure Psych: Normal affect and mood ED course: 62-year-old female presents today with diffuse pitting edema. She was recently diagnosed with Covid 19. She has been progressively short of breath with diarrhea Vital signs upon arrival shows blood pressure 94/76, repeat shows 105/62. Patient currently on beta blockers. Is unclear whether this is an accurate blood pressure given that patient has significant edema to her extremities. Patient was given metoprolol IV 5 mg and oral 25 mg metoprolol by mouth. She was observed in the emergency department blood pressure began to decrease slightly. Patient given fluids. Patient's heart rate continues to be tachycardic. Patient started amiodarone. Laboratory evaluation obtained. Hemoglobin 8.6. This is around her baseline. CBC is otherwise unremarkable. INR 4.0 metabolic panel shows S of 5.4. Elevated renal markers which are at her baseline. CRP elevated, BNP elevated, TSH elevated. Urinalysis shows no obvious sign of infection. Chest x-ray shows pneumonia. Patient currently with antibiotics for possible superimposed bacterial infection on top of cold 19. Case is discussed with Lamar was taking call for [facility] hospitalist group here she is went except patient's care. Cardiology will be consulted. EKG interpretation: Ventricular rate 124, A. fib with RVR, QRS 114, QTc 511. No DE prolongation, no QTC prolongation, no ST or T-wave changes noted. EKG compared to 10/23/2020 showing no changes. Overall, this EKG is unremarkable - Related Data Home Medications Medication Instructions Recorded Confirmed Atorvastatin [Lipitor] 20 mg PO HS@2100 05/07/16 10/28/20 Furosemide [Lasix] 40 mg PO DAILY@0600 05/07/16 10/28/20 Pantoprazole [Protonix] 40 mg PO DAILY@0900 05/07/16 10/28/20 Potassium Chloride ER [K-Dur 20] 20 meq PO DAILY@0600 05/07/16 10/28/20 Ferrous Sulfate [Iron (65 MG 325 mg PO DAILY@0600 10/02/20 10/28/20 Elemental)] Polyethylene Glycol 3350 [Miralax] 17 gm PO DAILY PRN 10/02/20 10/28/20 Ascorbic Acid [Vitamin C] 500 mg PO DAILY@0900 10/23/20 10/28/20 Cholecalciferol [Vitamin D3 (25 2,000 unit PO DAILY@0900 10/23/20 10/28/20 Mcg = 1000 Iu)] Collagenase [Santyl] 1 applic TOPICAL HS 10/23/20 10/28/20 Glucerna Shake 1 can PO BID@0900,1700 10/23/20 10/28/20 Insulin Glargine,Hum.rec.anlog 10 unit SQ HS@2200 10/23/20 10/28/20 [Basaglar Kwikpen U-100] Insulin Lispro [humaLOG Kwikpen] 2 unit SQ ACHS@08,12,17,22 10/23/20 10/28/20 Ipratropium-Albuterol Nebulize 3 ml INHALATION RT-Q4H PRN 10/23/20 10/28/20 [Duoneb 0.5 mg-3 mg/3 ml Soln] Linagliptin [Tradjenta] 5 mg PO DAILY@0600 10/23/20 10/28/20 Prostat Awc 30 ml PO BID@0900,1700 10/23/20 10/28/20 Triad Hydrophilic Wound Dress 1 applic TOPICAL DAILY PRN 10/23/20 10/28/20 Zinc 50 mg PO DAILY@0900 10/23/20 10/28/20 Clotrimazole/Betamethasone Dip 1 applic TOPICAL Q12H 10/28/20 10/28/20 [Lotrisone Cream] Levothyroxine Sodium [Synthroid] 50 mcg PO DAILY@0900 10/28/20 10/28/20 Metoprolol Tartrate [Lopressor] 50 mg PO BID@0900,1700 10/28/20 10/28/20 Warfarin [Coumadin] 2.5 mg PO SUTUWEFRSA 10/28/20 10/28/20 Warfarin [Coumadin] 3 mg PO MOTH 10/28/20 10/28/20 Previous Rx's Medication Instructions Recorded Nitroglycerin Sl Tabs [Nitrostat] 0.4 mg SUBLINGUAL Q5M PRN tab 10/08/20 traMADol HCL 50 mg PO Q12H PRN #3 tab 10/08/20 Allergies Allergy/AdvReac Type Severity Reaction Status Date / Time No Known Allergies Allergy Verified 10/28/20 12:01 Review of Systems ROS Statement: Those systems with pertinent positive or pertinent negative responses have been documented in the HPI. ROS Other: All systems not noted in ROS Statement are negative. 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 Right rotator cuff. Aortic valve replacement Past Anesthesia/Blood Transfusion Reactions: No Reported Reaction Past Psychological History: No Psychological Hx Reported Past Alcohol Use History: Rare Past Drug Use History: None Reported General Exam Limitations: no limitations Course Vital Signs 10/28/20 10/28/20 10/28/20 11:13 12:03 12:27 Temperature 98.0 F Pulse Rate 124 H 131 H Respiratory 18 18 18 Rate Blood Pressure 94/76 105/62 O2 Sat by Pulse 95 100 Oximetry 10/28/20 10/28/20 13:42 13:56 Temperature Pulse Rate 124 H 128 H Respiratory 18 18 Rate Blood Pressure 93/66 94/81 O2 Sat by Pulse 98 100 Oximetry Medical Decision Making - Lab Data Result diagrams: 10/28/20 11:47 10/28/20 11:47 Lab Results 10/28/20 10/28/20 10/28/20 Range/Units 11:47 11:47 11:47 WBC 7.0 (3.8-10.6) k/uL RBC 3.28 L (3.80-5.40) m/uL Hgb 8.6 L (11.4-16.0) gm/dL Hct 29.1 L (34.0-46.0) % MCV 88.8 (80.0-100.0) fL MCH 26.2 (25.0-35.0) pg MCHC 29.5 L (31.0-37.0) g/dL RDW 23.0 H (11.5-15.5) % Plt Count 168 (150-450) k/uL MPV 9.3 Neutrophils % 86 % Lymphocytes % 9 % Monocytes % 4 % Eosinophils % 0 % Basophils % 0 % Neutrophils # 6.0 (1.3-7.7) k/uL Lymphocytes # 0.6 L (1.0-4.8) k/uL Monocytes # 0.3 (0-1.0) k/uL Eosinophils # 0.0 (0-0.7) k/uL Basophils # 0.0 (0-0.2) k/uL Hypochromasia Marked Poikilocytosis Slight Anisocytosis Moderate Microcytosis Slight PT 39.2 H (9.0-12.0) sec INR 4.0 H (<1.2) APTT 22.7 (22.0-30.0) sec Sodium 136 L (137-145) mmol/L Potassium 5.4 H (3.5-5.1) mmol/L Chloride 104 (98-107) mmol/L Carbon Dioxide 26 (22-30) mmol/L Anion Gap 6 mmol/L BUN 55 H (7-17) mg/dL Creatinine 1.37 H (0.52-1.04) mg/dL Est GFR (CKD-EPI)AfAm 42 (>60 ml/min/1.73 sqM) Est GFR (CKD-EPI)NonAf 36 (>60 ml/min/1.73 sqM) Glucose 182 H (74-99) mg/dL Calcium 8.0 L (8.4-10.2) mg/dL Magnesium 2.1 (1.6-2.3) mg/dL Total Bilirubin 0.9 (0.2-1.3) mg/dL AST 32 (14-36) U/L ALT 25 (4-34) U/L Alkaline Phosphatase 115 (38-126) U/L Troponin I (0.000-0.034) ng/mL C-Reactive Protein 148.4 H (<10.0) mg/L NT-Pro-B Natriuret Pep pg/mL Total Protein 4.9 L (6.3-8.2) g/dL Albumin 2.2 L (3.5-5.0) g/dL TSH 6.060 H (0.465-4.680) mIU/L Urine Color Urine Appearance (Clear) Urine pH (5.0-8.0) Ur Specific [place] (1.001-1.035) Urine Protein (Negative) Urine Glucose (UA) (Negative) Urine Ketones (Negative) Urine Blood (Negative) Urine Nitrite (Negative) Urine Bilirubin (Negative) Urine Urobilinogen (<2.0) mg/dL Ur Leukocyte Esterase (Negative) Urine WBC (0-5) /hpf Ur Squamous Epith Cells (0-4) /hpf Urine Bacteria (None) /hpf Hyaline Casts (0-2) /lpf Urine Mucus (None) /hpf Urine Yeast (Budding) (None) /hpf 10/28/20 10/28/20 10/28/20 Range/Units 11:47 11:47 12:21 WBC (3.8-10.6) k/uL RBC (3.80-5.40) m/uL Hgb (11.4-16.0) gm/dL Hct (34.0-46.0) % MCV (80.0-100.0) fL MCH (25.0-35.0) pg MCHC (31.0-37.0) g/dL RDW (11.5-15.5) % Plt Count (150-450) k/uL MPV Neutrophils % % Lymphocytes % % Monocytes % % Eosinophils % % Basophils % % Neutrophils # (1.3-7.7) k/uL Lymphocytes # (1.0-4.8) k/uL Monocytes # (0-1.0) k/uL Eosinophils # (0-0.7) k/uL Basophils # (0-0.2) k/uL Hypochromasia Poikilocytosis Anisocytosis Microcytosis PT (9.0-12.0) sec INR (<1.2) APTT (22.0-30.0) sec Sodium (137-145) mmol/L Potassium (3.5-5.1) mmol/L Chloride (98-107) mmol/L Carbon Dioxide (22-30) mmol/L Anion Gap mmol/L BUN (7-17) mg/dL Creatinine (0.52-1.04) mg/dL Est GFR (CKD-EPI)AfAm (>60 ml/min/1.73 sqM) Est GFR (CKD-EPI)NonAf (>60 ml/min/1.73 sqM) Glucose (74-99) mg/dL Calcium (8.4-10.2) mg/dL Magnesium (1.6-2.3) mg/dL Total Bilirubin (0.2-1.3) mg/dL AST (14-36) U/L ALT (4-34) U/L Alkaline Phosphatase (38-126) U/L Troponin I 0.026 (0.000-0.034) ng/mL C-Reactive Protein (<10.0) mg/L NT-Pro-B Natriuret Pep 7080 pg/mL Total Protein (6.3-8.2) g/dL Albumin (3.5-5.0) g/dL TSH (0.465-4.680) mIU/L Urine Color Yellow Urine Appearance Cloudy H (Clear) Urine pH 5.0 (5.0-8.0) Ur Specific [place] 1.013 (1.001-1.035) Urine Protein Negative (Negative) Urine Glucose (UA) Negative (Negative) Urine Ketones Negative (Negative) Urine Blood Negative (Negative) Urine Nitrite Negative (Negative) Urine Bilirubin Negative (Negative) Urine Urobilinogen <2.0 (<2.0) mg/dL Ur Leukocyte Esterase Negative (Negative) Urine WBC 7 H (0-5) /hpf Ur Squamous Epith Cells 1 (0-4) /hpf Urine Bacteria Occasional H (None) /hpf Hyaline Casts 213 H (0-2) /lpf Urine Mucus Moderate H (None) /hpf Urine Yeast (Budding) Rare H (None) /hpf Critical Care Time Critical Care Time: Yes Total Critical Care Time: 33 Disposition Clinical Impression: Atrial fibrillation with RVR Disposition: ADMITTED IP TO THIS [facility] Condition: Fair Referrals: Carlos Fagan MD [Primary Care Provider] - 1-2 days Decision Time: 14:05
[2020-10-28] MEDS ORDERED: METOPROLOL TARTRATE 25 MG TAB PO STA (12:13)
--- NOTE | 2020-10-28 12:16 | XR ---
EXAMINATION TYPE: XR chest 1V portable DATE OF EXAM: 10/28/2020 COMPARISON: Prior chest x-ray dated 10/23/2020 HISTORY: Dysrhythmia TECHNIQUE: Single frontal view of the chest is obtained. FINDINGS: Central vascularity is prominent, interstitium is increased. Patient is rotated. Heart siz e is likely stable but is accentuated in appearance likely due to rotation. Postop change noted in th e right shoulder. There is no pneumothorax. Abnormal increased density is again noted in the left sarmad g base. There is patchy perihilar vascular indistinctness. Aorta is dense. Central venous catheter is again noted, distal tip coursing towards the superior vena cava region. IMPRESSION: Correlate for pneumonia, pulmonary edema, difficult to exclude effusion
[2020-10-28 12:19] LABS: Partial Thromboplastin Time 22.7 sec (22.0-30.0); Prothrombin Time 39.2 sec (9.0-12.0)
[2020-10-28 12:21] LABS: Albumin 2.2 g/dL (3.5-5.0); Magnesium 2.1 mg/dL (1.6-2.3); Potassium 5.4 mmol/L (3.5-5.1); Total Bilirubin 0.9 mg/dL (0.2-1.3); Total Protein 4.9 g/dL (6.3-8.2)
[2020-10-28 12:33] LABS: Anisocytosis Moderate; Basophils % (A) 0 %; C Reactive Protein 148.4 mg/L (<10.0); Eosinophils % (A) 0 %; HCT 29.1 % (34.0-46.0); HGB 8.6 gm/dL (11.4-16.0); Hypochromasia Marked; Lymphocytes # (A) 0.6 k/uL (1.0-4.8); Lymphocytes % (A) 9 %; MCH 26.2 pg (25.0-35.0); MCHC 29.5 g/dL (31.0-37.0); MCV 88.8 fL (80.0-100.0); Mean Platelet Volume 9.3; Microcytosis Slight; Monocytes # (A) 0.3 k/uL (0-1.0); Monocytes % (A) 4 %; Neutrophils % (A) 86 %; Platelet Count 168 k/uL (150-450); Poikilocytosis Slight; RBC 3.28 m/uL (3.80-5.40)
[2020-10-28 12:38] LABS: Appearance,Urine Cloudy (Clear); Bacteria,Urine Occasional /hpf; Bilirubin,Urine Negative (Negative); Blood,Urine Negative (Negative); Budding Yeast,Urine Rare /hpf; Color,Urine Yellow; Glucose,Urine (UA) Negative (Negative); Hyaline Casts,Urine 213 /lpf (0-2); Ketones,Urine Negative (Negative); Leukocyte Esterase,Urine Negative (Negative); Mucus,Urine Moderate /hpf; Nitrite,Urine Negative (Negative); Protein,Urine Negative (Negative); Specific Gravity,Urine 1.013 (1.001-1.035); Squamous Epithelial Cell,Urine 1 /hpf (0-4); Urobilinogen,Urine <2.0 mg/dL (<2.0); WBC,Urine 7 /hpf (0-5)
[2020-10-28] MEDS ORDERED: SODIUM CHLORIDE 0.9% 1,000 ML IV STA (13:36)
[2020-10-28] MEDS: METOPROLOL TARTRATE 5 MG/5 ML VIAL IVP STA ×2 (13:41→13:56)
[2020-10-28] MEDS ORDERED: NALOXONE 0.4 MG/ML 1 ML VIAL IV PRN (14:05)
[2020-10-28] MEDS ORDERED: DEXTROSE 5% IN WATER 100 ML with AMIODARONE 150 MG IV ONE (14:15)
[2020-10-28] MEDS ORDERED: SODIUM CHLORIDE 0.9% 1,000 ML IV SCH (14:15)
[2020-10-28] MEDS ORDERED: AMIODARONE 360 MG in DEXTROSE 5% IN WATER 200 ML IV ONE ×2 (14:30)
--- NOTE | 2020-10-28 16:13 | P.HPIM ---
History of Present Illness H&P Date: 10/28/20 This is an 79-year-old female was recently admitted from [facility] on the [facility] facility for atrial fibrillation with rapid ventricular rate and was placed on metoprolol with medication adjustments made. Patient's blood pressure is quite low on admission and was given a dose of metoprolol although blood pressures continue to be low and patient was initiated on amiodarone. Cardiology consulted and pending at this time. Patient was also found to be Coumadin coagulable with an INR of 4.0 and will hold Coumadin and repeat labs. Patient continues to be quite edematous and bilateral upper extremities appear to be weeping in 1-2 pitting edema is noted. Patient is also known to have medical de bility with generalized weakness and mostly bedbound and does have chronic stage II decubitus sacral ulcers and wound care has been consulted. Patient also has type 2 diabetes mellitus and will resume sliding scale and long-acting insulin. On exam patient is having pain of bilateral upper extremities and states she is leaking from her skin. Patient did have an indwelling [place] catheter upon adm ission and will continue for strict intake and output. Patient's chest x-ray shows pulmonary edema with an abnormal increased density that is again noted in the left lung base with patchy perihilar vascular indistinctness. Will hold IV fluids and monitor vital signs and labs closely. Patient does have a history of chronic kidney disease and current creatinine is 1.37, sodium is 136, potassium elevated at 5.4 and will give a dose of Kayexalate. Hemoglobin is stable at 8.6 and white blood count is 7.0. Current BNP is 7080. Patient has a history of hypothyroidism and medications were recently adjusted and will resume home medications. Patient currently denies any chest pain or shortness of breath. Patient is afebrile. Patient denies any nausea or vomiting or abdominal discomfort and is tolerating diet. Review of Systems Constitutional: Reports fatigue, Reports weakness Eyes: denies blurred vision, denies pain Ears, nose, mouth and throat: Denies headache, Denies sore throat Cardiovascular: Reports dyspnea on exertion, Reports irregular heart beat, Reports leg edema, Reports rapid heart beat, Reports shortness of breath Respiratory: Reports cough, Reports cough with sputum, Reports dyspnea Gastrointestinal: Denies abdominal pain, Denies diarrhea, Denies nausea, Denies vomiting Genitourinary: Reports mixed incontinence Musculoskeletal: Reports gait dysfunction, Reports muscle weakness Integumentary: Reports wounds Neurological: Denies numbness, Denies weakness Psychiatric: Denies anxiety, Denies depression Endocrine: Denies fatigue, Denies weight change Past Medical History Past Medical History: Cancer, Hypertension 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 Right rotator cuff. Aortic valve replacement Past Anesthesia/Blood Transfusion Reactions: No Reported Reaction Past Psychological History: No Psychological Hx Reported Past Alcohol Use History: Rare Past Drug Use History: None Reported Medications and Allergies Home Medications Medication Instructions Recorded Confirmed Type Atorvastatin [Lipitor] 20 mg PO HS@2100 05/07/16 10/28/20 History Furosemide [Lasix] 40 mg PO DAILY@0600 05/07/16 10/28/20 History Pantoprazole [Protonix] 40 mg PO DAILY@0900 05/07/16 10/28/20 History Potassium Chloride ER [K-Dur 20] 20 meq PO DAILY@0600 05/07/16 10/28/20 History Ferrous Sulfate [Iron (65 MG 325 mg PO DAILY@0600 10/02/20 10/28/20 History Elemental)] Polyethylene Glycol 3350 [Miralax] 17 gm PO DAILY PRN 10/02/20 10/28/20 History Nitroglycerin Sl Tabs [Nitrostat] 0.4 mg SUBLINGUAL Q5M PRN tab 10/08/20 10/28/20 Rx traMADol HCL 50 mg PO Q12H PRN #3 tab 10/08/20 10/28/20 Rx Ascorbic Acid [Vitamin C] 500 mg PO DAILY@0900 10/23/20 10/28/20 History Cholecalciferol [Vitamin D3 (25 2,000 unit PO DAILY@0900 10/23/20 10/28/20 History Mcg = 1000 Iu)] Collagenase [Santyl] 1 applic TOPICAL HS 10/23/20 10/28/20 History Glucerna Shake 1 can PO BID@0900,1700 10/23/20 10/28/20 History Insulin Glargine,Hum.rec.anlog 10 unit SQ HS@2200 10/23/20 10/28/20 History [Basaglar Kwikpen U-100] Insulin Lispro [humaLOG Kwikpen] 2 unit SQ ACHS@08,12,,10/23/20 10/28/20 History Ipratropium-Albuterol Nebulize 3 ml INHALATION RT-Q4H PRN 10/23/20 10/28/20 History [Duoneb 0.5 mg-3 mg/3 ml Soln] Linagliptin [Tradjenta] 5 mg PO DAILY@0600 10/23/20 10/28/20 History Prostat Awc 30 ml PO BID@0900,1700 10/23/20 10/28/20 History Triad Hydrophilic Wound Dress 1 applic TOPICAL DAILY PRN 10/23/20 10/28/20 History Zinc 50 mg PO DAILY@0900 10/23/20 10/28/20 History Clotrimazole/Betamethasone Dip 1 applic TOPICAL Q12H 10/28/20 10/28/20 History [Lotrisone Cream] Levothyroxine Sodium [Synthroid] 50 mcg PO DAILY@0900 10/28/20 10/28/20 History Metoprolol Tartrate [Lopressor] 50 mg PO BID@0900,1700 10/28/20 10/28/20 History Warfarin [Coumadin] 2.5 mg PO SUTUWEFRSA 10/28/20 10/28/20 History Warfarin [Coumadin] 3 mg PO MOTH 10/28/20 10/28/20 History Allergies Allergy/AdvReac Type Severity Reaction Status Date / Time No Known Allergies Allergy Verified 10/28/20 12:01 Physical Exam Vitals: Vital Signs Temp Pulse Resp BP Pulse Ox 10/28/20 15:01 111 H 18 90/58 98 10/28/20 13:56 128 H 18 94/81 100 10/28/20 13:42 124 H 18 93/66 98 10/28/20 12:27 131 H 18 105/62 100 10/28/20 12:03 18 10/28/20 11:13 98.0 F 124 H 18 94/76 95 Intake and Output 10/28/20 10/28/20 10/28/20 06:59 14:59 22:59 Other: Weight 92.986 kg Gen: This is a 79-year-old female sitting up awake, alert and oriented 3, well- developed, well-nourished, obese HEENT: Head is atraumatic, normocephalic. Pupils equal, round. Sclerae is anicteric. NECK: Supple. No JVD. No lymphadenopathy. No thyromegaly. LUNGS: Diminished breath sounds bilaterally with some scattered rhonchi noted. No intercostal retractions. HEART: Irregular. S1, S2 are muffled ABDOMEN: Soft. Obese. Bowel sounds are present. No masses. No tenderness. EXTREMITIES: No pedal edema. No calf tenderness. Bilateral upper and lower extremity swelling in 1-2+ pitting edema noted with weeping of bilateral upper extremities NEUROLOGICAL: Patient is awake, alert and oriented x3. Diffusely weak. Results CBC & Chem 7: 10/28/20 11:47 10/28/20 11:47 Labs: Abnormal Lab Results - Last 24 Hours (Table) 10/28/20 10/28/20 10/28/20 Range/Units 11:47 11:47 11:47 RBC 3.28 L (3.80-5.40) m/uL Hgb 8.6 L (11.4-16.0) gm/dL Hct 29.1 L (34.0-46.0) % MCHC 29.5 L (31.0-37.0) g/dL RDW 23.0 H (11.5-15.5) % Lymphocytes # 0.6 L (1.0-4.8) k/uL PT 39.2 H (9.0-12.0) sec INR 4.0 H (<1.2) Sodium 136 L (137-145) mmol/L Potassium 5.4 H (3.5-5.1) mmol/L BUN 55 H (7-17) mg/dL Creatinine 1.37 H (0.52-1.04) mg/dL Glucose 182 H (74-99) mg/dL Calcium 8.0 L (8.4-10.2) mg/dL C-Reactive Protein 148.4 H (<10.0) mg/L Total Protein 4.9 L (6.3-8.2) g/dL Albumin 2.2 L (3.5-5.0) g/dL TSH 6.060 H (0.465-4.680) mIU/L Urine Appearance (Clear) Urine WBC (0-5) /hpf Urine Bacteria (None) /hpf Hyaline Casts (0-2) /lpf Urine Mucus (None) /hpf Urine Yeast (Budding) (None) /hpf 10/28/ Range/Units 12:21 RBC (3.80-5.40) m/uL Hgb (11.4-16.0) gm/dL Hct (34.0-46.0) % MCHC (31.0-37.0) g/dL RDW (11.5-15.5) % Lymphocytes # (1.0-4.8) k/uL PT (9.0-12.0) sec INR (<1.2) Sodium (137-145) mmol/L Potassium (3.5-5.1) mmol/L BUN (7-17) mg/dL Creatinine (0.52-1.04) mg/dL Glucose (74-99) mg/dL Calcium (8.4-10.2) mg/dL C-Reactive Protein (<10.0) mg/L Total Protein (6.3-8.2) g/dL Albumin (3.5-5.0) g/dL TSH (0.465-4.680) mIU/L Urine Appearance Cloudy H (Clear) Urine WBC 7 H (0-5) /hpf Urine Bacteria Occasional H (None) /hpf Hyaline Casts 213 H (0-2) /lpf Urine Mucus Moderate H (None) /hpf Urine Yeast (Budding) Rare H (None) /hpf Thrombosis Risk Factor Assmnt - Choose All That Apply Any of the Below Risk Factors Present?: No Assessment and Plan Assessment: -Atrial fibrillation with rapid ventricular rate: Given a dose of metoprolol although hypotensive and was initiated on amiodarone and cardiology will be consulted. Most recent ejection fraction in September 2020 showed an EF of 55- 60% -Congestive heart failure acute on chronic diastolic dysfunction, acute exacerbation: Possibly exacerbated by atrial fibrillation. Given low blood pressures will continue with amiodarone for rate control and once blood pressure stabilized and rate is better controlled may resume Lasix or patient may requir e IV Lasix -Pulmonary edema secondary to above: will discontinue IV fluids and monitor labs closely. 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 Continue with amiodarone. We'll discontinue IV fluids and monitor vital signs and labs closely. Cardiology consulted and kathie larsen at this time. Hold Coumadin and repeat INR. Further recommendations to follow. Wean FiO2 as tolerated. Prognosis is guarded. Time with Patient: Greater than 30
[2020-10-28] MEDS ORDERED: SODIUM POLYSTYRENE SULFONATE 15 GM/60 ML BOTTLE PO STA (16:14)
[2020-10-28] MEDS ORDERED: HYDROPHILIC CREAM 180 GM TUBE TOPICAL PRN (16:15)
[2020-10-28] MEDS ORDERED: ALBUTEROL HFA INHALER INHALATION PRN (16:15)
[2020-10-28] MEDS ORDERED: polyethylene glycoL 3350 17 GM POWD.PACK PO PRN (16:15)
[2020-10-28] MEDS ORDERED: NITROGLYCERIN SL TABS 0.4 MG TAB SUBLINGUAL PRN (16:15)
[2020-10-28] MEDS ORDERED: NON FORMULARY DRUG (Glucerna Shake 1 CAN Liquid) PO SCH (17:00)
[2020-10-28 18:15] LABS: Glucose,Whole Blood 243 mg/dL (75-99)
[2020-10-28] MEDS: INSULIN ASPART (NovoLOG) 100 UNIT/ML VIAL SQ SCH ×2 (19:12→21:26)
[2020-10-28] MEDS: CLOTRIMAZOLE/BETAMETH 1-0.05% CREAM 45 GM TUBE TOPICAL SCH (19:12)
[2020-10-28] MEDS ORDERED: COLLAGENASE 250 UNIT/GM OINTMENT 30 GM TUBE TOPICAL SCH (21:00)
[2020-10-28 21:18] LABS: Glucose,Whole Blood 192 mg/dL (75-99)
[2020-10-28] MEDS: INSULIN DETEMIR (LEVEMIR) 100 UNIT/ML SYR SQ SCH (21:26)
[2020-10-28] MEDS: AMIODARONE 300 MG in DEXTROSE 5% IN WATER 250 ML IV SCH ×2 (21:26)
[2020-10-29 06:18] LABS: Glucose,Whole Blood 186 mg/dL (75-99)
[2020-10-29] MEDS: LINAGLIPTIN 5 MG TABLET PO SCH (06:54)
[2020-10-29] MEDS: LEVOTHYROXINE 50 MCG TAB PO SCH (06:54)
[2020-10-29] MEDS: PANTOPRAZOLE 40 MG TABLET PO SCH (06:54)
[2020-10-29] MEDS: INSULIN ASPART (NovoLOG) 100 UNIT/ML VIAL SQ SCH ×8 (06:54→21:13)
[2020-10-29] MEDS: FERROUS SULFATE 325 MG TAB PO SCH (06:54)
[2020-10-29] MEDS: CLOTRIMAZOLE/BETAMETH 1-0.05% CREAM 45 GM TUBE TOPICAL SCH ×2 (06:54→17:24)
[2020-10-29] MEDS: AMIODARONE 300 MG in DEXTROSE 5% IN WATER 250 ML IV SCH ×2 (06:54)
[2020-10-29 08:07] LABS: Glucose,Whole Blood 188 mg/dL (75-99)
[2020-10-29] MEDS ORDERED: METOPROLOL TARTRATE 50 MG TAB PO SCH (09:00)
[2020-10-29] MEDS: METOPROLOL TARTRATE 25 MG TAB PO SCH ×2 (09:01→17:23)
[2020-10-29] MEDS: ZINC SULFATE 220 MG CAP PO SCH (09:01)
[2020-10-29] MEDS: ASCORBIC ACID 500 MG TAB PO SCH (09:01)
[2020-10-29] MEDS: CHOLECALCIFEROL 1,000 UNIT TAB PO SCH (09:01)
[2020-10-29] MEDS: FUROSEMIDE 10 MG/ML 4 ML VIAL IV SCH ×2 (09:02→17:23)
[2020-10-29 10:09] LABS: Calcium 7.6 mg/dL (8.4-10.2); Potassium 4.9 mmol/L (3.5-5.1)
[2020-10-29 10:11] LABS: Prothrombin Time 62.1 sec (9.0-12.0)
[2020-10-29 10:19] LABS: Anisocytosis Moderate; Basophils % (A) 0 %; Eosinophils % (A) 0 %; HCT 26.9 % (34.0-46.0); HGB 7.8 gm/dL (11.4-16.0); Hypochromasia Marked; Lymphocytes % (A) 14 %; MCHC 28.8 g/dL (31.0-37.0); MCV 90.4 fL (80.0-100.0); Macrocytosis Slight; Mean Platelet Volume 8.1; Microcytosis Slight; Monocytes # (A) 0.3 k/uL (0-1.0); Monocytes % (A) 4 %; Neutrophils # (A) 5.7 k/uL (1.3-7.7); Neutrophils % (A) 81 %; Platelet Count 247 k/uL (150-450); Poikilocytosis Slight; RBC 2.98 m/uL (3.80-5.40); RDW 22.7 % (11.5-15.5)
[2020-10-29 10:22] LABS: T4, Free (Free Thyroxine) 1.13 ng/dL (0.78-2.19)
[2020-10-29 10:36] LABS: INR 6.1 (<1.2)
[2020-10-29 11:16] LABS: Polychromasia Present
--- NOTE | 2020-10-29 11:45 | P.CONS ---
History of Present Illness - Reason for Consult Consult date: 10/29/20 - History of Present Illness This is an 79-year-old patient who resides at [facility] who is receiving wound care in the form of Santyl to a sacral ulceration and a left posterior ulceration in the left trochanter ulceration. Patient states that these ulcerations have been there for a few months. She developed them when she was at a different care facility on previously. Has discomfort to the site. She denies any purulent drainage. she was assessed last week and change to honey alginate while in the hospital. And return to the Santyl wound care dressings upon her return to [facility]. Patient's past medical history includes hypertension, chronic kidney disease, aortic valve replacement, and new onset of atrial fibrillation. Review of Systems Review Of Systems: Constitutional: No fever, no chills, no night sweats. No weight change. No weakness, fatigue or lethargy. No daytime sleepiness. Integumentary:reports wounds, no lesions. No rash or pruritus. No unusual bruising. No change in hair or nails. Physical exam: General Appearance: Alert, cooperative, no distress, appears stated age. Skin: sacrum: Full thickness stage II pressure ulcer with significant amount of slough seen throughout the wound bed and minimal granulation. Wound edges attached to the wound base. No tonsillar undermining noted. Periwound shows excoriation and maceration, left posterior leg is a grade 2 pressure ulcer full- thickness with fat layer exposure minimal granulation was slough present. Wound edges attached to the wound base no tunneling or undermining noted. Left trochanter ulceration is a full-thickness stage II pressure ulcer with fatty layer exposure with minimal to no granulation seen with throughout the wound bed with significant amount of slough. Wound edges are attached to the wound base Tunneling or undermining noted excoriation and maceration noted. all other Skin color, texture, tugor normal, no rashes or lesions. Neurologic: Alert oriented x3 Assessment and Plan (1) Stage II pressure ulcer of left hip Current Visit: Yes Status: Acute Code(s): L89.222 - PRESSURE ULCER OF LEFT HIP, STAGE 2 SNOMED Code(s): 009686983 (2) Pressure ulcer of left buttock, stage 2 Current Visit: Yes Status: Acute Code(s): L89.322 - PRESSURE ULCER OF LEFT BUTTOCK, STAGE 2 SNOMED Code(s): 989565452 (3) Stage II pressure ulcer of sacral region Current Visit: Yes Status: Acute Code(s): L89.152 - PRESSURE ULCER OF SACRAL REGION, STAGE 2 SNOMED Code(s): 476794230 Plan: sacral ulceration: Apply honey alginate, saline moistened gauze, border foam. Left posterior leg/left gluteus: apply honey alginate, saline moistened gauze, border foam. Left trochanter: Apply honey alginate, saline moistened gauze, border foam. Change Wednesday. Patient can return to utilizing [facility] at the extended care facility upon discharge. She would benefit from wound debridement is able to facilitate at the extended care facility or an outpatient wound care center. Thank you for the consultation any questions please contact the wound care center DNP note has been reviewed and discussed with Dr. Jones and the impression and plan of care has been directed as dictated. 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 Right rotator cuff. Aortic valve replacement Past Anesthesia/Blood Transfusion Reactions: No Reported Reaction Past Psychological History: No Psychological Hx Reported Smoking Status: Former smoker Past Alcohol Use History: Rare Past Drug Use History: None Reported - Past Family History Father History Unknown: Yes Mother History Unknown: Yes Medications and Allergies Home Medications Medication Instructions Recorded Confirmed Type Atorvastatin [Lipitor] 20 mg PO HS@2100 05/07/16 10/28/20 History Furosemide [Lasix] 40 mg PO DAILY@0605/07/16 10/28/20 History Pantoprazole [Protonix] 40 mg PO DAILY@0905/07/16 10/28/20 History Potassium Chloride ER [K-Dur 20] 20 meq PO DAILY@0605/07/16 10/28/20 History Ferrous Sulfate [Iron (65 MG 325 mg PO DAILY@0600 10/02/20 10/28/20 History Elemental)] Polyethylene Glycol 3350 [Miralax] 17 gm PO DAILY PRN 10/02/20 10/28/20 History Nitroglycerin Sl Tabs [Nitrostat] 0.4 mg SUBLINGUAL Q5M PRN tab 10/08/20 10/28/20 Rx traMADol HCL 50 mg PO Q12H PRN #3 tab 10/08/20 10/28/20 Rx Ascorbic Acid [Vitamin C] 500 mg PO DAILY@0900 10/23/20 10/28/20 History Cholecalciferol [Vitamin D3 (25 2,000 unit PO DAILY@0900 10/23/20 10/28/20 History Mcg = 1000 Iu)] Collagenase [Santyl] 1 applic TOPICAL HS 10/23/20 10/28/20 History Glucerna Shake 1 can PO BID@0900,1700 10/23/20 10/28/20 History Insulin Glargine,Hum.rec.anlog 10 unit SQ HS@2200 10/23/20 10/28/20 History [Basaglar Kwikpen U-100] Insulin Lispro [humaLOG Kwikpen] 2 unit SQ ACHS@08,12,,22 10/23/20 10/28/20 History Ipratropium-Albuterol Nebulize 3 ml INHALATION RT-Q4H PRN 10/23/20 10/28/20 History [Duoneb 0.5 mg-3 mg/3 ml Soln] Linagliptin [Tradjenta] 5 mg PO DAILY@0600 10/23/20 10/28/20 History Prostat Awc 30 ml PO BID@0900,1700 10/23/20 10/28/20 History Triad Hydrophilic Wound Dress 1 applic TOPICAL DAILY PRN 10/23/20 10/28/20 History Zinc 50 mg PO DAILY@0900 10/23/20 10/28/20 History Clotrimazole/Betamethasone Dip 1 applic TOPICAL Q12H 10/28/20 10/28/20 History [Lotrisone Cream] Levothyroxine Sodium [Synthroid] 50 mcg PO DAILY@0900 10/28/20 10/28/20 History Metoprolol Tartrate [Lopressor] 50 mg PO BID@0900,1700 10/28/20 10/28/20 History Warfarin [Coumadin] 2.5 mg PO SUTUWEFRSA 10/28/20 10/28/20 History Warfarin [Coumadin] 3 mg PO MOTH 10/28/20 10/28/20 History Allergies Allergy/AdvReac Type Severity Reaction Status Date / Time No Known Allergies Allergy Verified 10/28/20 12:01 Physical Exam Vitals: Vital Signs Temp Pulse Pulse Resp BP BP Pulse Ox 10/29/20 09:36 98 F 101 H 20 93/59 97 10/29/20 08:00 20 10/29/20 03:50 103 H 22 102/58 95 10/29/20 02:00 95 16 10/29/20 00:00 95 16 94 L 10/28/20 20:00 98.1 F 100 16 94/60 10/28/20 19:00 98.2 F 128 H 18 110/70 98 10/28/20 18:10 114 H 16 72/40 92 L 10/28/20 17:40 97.7 F 120 H 18 89/60 98 10/28/20 17:00 118 H 18 85/65 94 L 10/28/20 16:01 104 H 18 92/42 97 10/28/20 15:01 111 H 18 90/58 98 10/28/20 13:56 128 H 18 94/81 100 10/28/20 13:42 124 H 18 93/66 98 10/28/20 12:27 131 H 18 105/62 100 10/28/20 12:03 18 Intake and Output 10/28/20 10/29/20 10/29/20 22:59 06:59 14:59 Intake Total 236.667 0 Balance 236.667 0 Intake: Intake, IV Titration 236.667 Amount Amiodarone 300 mg In 236.667 Dextrose 5% in Water 250 ml @ 0.5 MG/MIN 25 mls/hr IV .Q10H [facility] Rx#: [id number] Oral 0 Other: Voiding Method Indwelling Catheter Indwelling Catheter Indwelling Catheter # Bowel Movements 2 Weight 92.986 kg 85.5 kg 85.5 kg Results CBC & Chem 7: 10/29/20 09:02 10/29/20 09:27 Labs: Abnormal Lab Results - Last 24 Hours (Table) 10/28/20 10/28/20 10/28/20 Range/Units 11:47 11:47 11:47 RBC 3.28 L (3.80-5.40) m/uL Hgb 8.6 L (11.4-16.0) gm/dL Hct 29.1 L (34.0-46.0) % MCHC 29.5 L (31.0-37.0) g/dL RDW 23.0 H (11.5-15.5) % Lymphocytes # 0.6 L (1.0-4.8) k/uL PT 39.2 H (9.0-12.0) sec INR 4.0 H (<1.2) Sodium 136 L (137-145) mmol/L Potassium 5.4 H (3.5-5.1) mmol/L BUN 55 H (7-17) mg/dL Creatinine 1.37 H (0.52-1.04) mg/dL Glucose 182 H (74-99) mg/dL POC Glucose (mg/dL) (75-99) mg/dL Calcium 8.0 L (8.4-10.2) mg/dL C-Reactive Protein 148.4 H (<10.0) mg/L Total Protein 4.9 L (6.3-8.2) g/dL Albumin 2.2 L (3.5-5.0) g/dL TSH 6.060 H (0.465-4.680) mIU/L Urine Appearance (Clear) Urine WBC (0-5) /hpf Urine Bacteria (None) /hpf Hyaline Casts (0-2) /lpf Urine Mucus (None) /hpf Urine Yeast (Budding) (None) /hpf 10/28/20 10/28/20 10/28/20 Range/Units 12:21 18:13 21:16 RBC (3.80-5.40) m/uL Hgb (11.4-16.0) gm/dL Hct (34.0-46.0) % MCHC (31.0-37.0) g/dL RDW (11.5-15.5) % Lymphocytes # (1.0-4.8) k/uL PT (9.0-12.0) sec INR (<1.2) Sodium (137-145) mmol/L Potassium (3.5-5.1) mmol/L BUN (7-17) mg/dL Creatinine (0.52-1.04) mg/dL Glucose (74-99) mg/dL POC Glucose (mg/dL) 243 H 192 H (75-99) mg/dL Calcium (8.4-10.2) mg/dL C-Reactive Protein (<10.0) mg/L Total Protein (6.3-8.2) g/dL Albumin (3.5-5.0) g/dL TSH (0.465-4.680) mIU/L Urine Appearance Cloudy H (Clear) Urine WBC 7 H (0-5) /hpf Urine Bacteria Occasional H (None) /hpf Hyaline Casts 213 H (0-2) /lpf Urine Mucus Moderate H (None) /hpf Urine Yeast (Budding) Rare H (None) /hpf 10/29/20 10/29/20 10/29/20 Range/Units 06:16 08:04 09:02 RBC 2.98 L (3.80-5.40) m/uL Hgb 7.8 L (11.4-16.0) gm/dL Hct 26.9 L (34.0-46.0) % MCHC 28.8 L (31.0-37.0) g/dL RDW 22.7 H (11.5-15.5) % Lymphocytes # (1.0-4.8) k/uL PT (9.0-12.0) sec INR (<1.2) Sodium (137-145) mmol/L Potassium (3.5-5.1) mmol/L BUN (7-17) mg/dL Creatinine (0.52-1.04) mg/dL Glucose (74-99) mg/dL POC Glucose (mg/dL) 186 H 188 H (75-99) mg/dL Calcium (8.4-10.2) mg/dL C-Reactive Protein (<10.0) mg/L Total Protein (6.3-8.2) g/dL Albumin (3.5-5.0) g/dL TSH (0.465-4.680) mIU/L Urine Appearance (Clear) Urine WBC (0-5) /hpf Urine Bacteria (None) /hpf Hyaline Casts (0-2) /lpf Urine Mucus (None) /hpf Urine Yeast (Budding) (None) /hpf 10/29/20 10/29/20 Range/Units 09:02 09:27 RBC (3.80-5.40) m/uL Hgb (11.4-16.0) gm/dL Hct (34.0-46.0) % MCHC (31.0-37.0) g/dL RDW (11.5-15.5) % Lymphocytes # (1.0-4.8) k/uL PT 62.1 H (9.0-12.0) sec INR 6.1 H* (<1.2) Sodium 134 L (137-145) mmol/L Potassium (3.5-5.1) mmol/L BUN 58 H (7-17) mg/dL Creatinine 1.56 H (0.52-1.04) mg/dL Glucose 164 H (74-99) mg/dL POC Glucose (mg/dL) (75-99) mg/dL Calcium 7.6 L (8.4-10.2) mg/dL C-Reactive Protein (<10.0) mg/L Total Protein (6.3-8.2) g/dL Albumin (3.5-5.0) g/dL TSH (0.465-4.680) mIU/L Urine Appearance (Clear) Urine WBC (0-5) /hpf Urine Bacteria (None) /hpf Hyaline Casts (0-2) /lpf Urine Mucus (None) /hpf Urine Yeast (Budding) (None) /hpf
--- NOTE | 2020-10-29 12:07 | P.CRDCN ---
History of Present Illness Consult date: 10/29/20 History of present illness: CHIEF COMPLAINT: A. elvira with RVR HISTORY OF PRESENT ILLNESS: This is a 79-year-old female with a past medical history significant for hypertension, aortic valve replacement on long-term anticoagulation with Coumadin, and atrial fibrillation. 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 We have been asked to see the patient in consultation for afib with RVR. Patient was recently hospitalized secondary to afib. She was also recently diagnosed with Covid 19. Patient was hypotensive upon admission and her beta blockers were held. She was started on an amio drip in the emergency room. Patient denies chest pain or pressure. She denies shortness of breath. She reports increased swelling to her upper and lower extremities. Denies dizziness or lightheadedness. Denies palpitations. DIAGNOSTICS: EKG reveals A. elvira with RVR Chest xray correlate for pneumonia, pulmonary edema Laboratory data: WBC 7.0. Hemoglobin 7.8. Platelet count 247. INR 6.1. Sodium 134. Potassium 4.9. BUN 58. Creatinine 1.56. TSH 6.060. BNP 7080. Current home cardiac medications include Coumadin 3 mg Wednesday and and 2.5 mg Wednesday to say Wednesday, metoprolol 50 mgBID, Lasix 40 mg daily, Lipitor 20 mg daily Echocardiogram completed in September 2020 reveals EF 55-60%, mild to moderate regurgitation of the bioprosthetic aortic valve, moderate mitral regurgitation and mild tricuspid regurgitation REVIEW OF SYSTEMS: At the time of my exam: CONSTITUTIONAL: Denies fever or chills. HEENT: Denies blurred vision, vision changes, or eye pain. Denies hemoptysis CARDIOVASCULAR: Denies chest pain, orthopnea, PND or palpitations RESPIRATORY: No shortness of breath. GASTROINTESTINAL: Denies abdominal pain. Denies nausea or vomiting. HEMATOLOGIC: Denies bleeding disorders. GENITOURINARY: Denies any blood in urine. SKIN: Denies pruitis. Denies rash. PHYSICAL EXAM: VITAL SIGNS: Reviewed. GENERAL: Well-developed in no acute distress. HEENT: Head is normocephalic. Pupils are equal, round. Sclerae anicteric. Mucous membranes of the mouth are moist. Neck supple. No JVD or thyromegaly LUNGS: Respirations even and unlabored. Lungs diminished with rales to bilateral bases HEART: Irregular rate and rhythm. S1 and S2 heard. Systolic murmur noted. ABDOMEN: Soft. Nondistended. Nontender. EXTREMITIES: Normal range of motion. No clubbing or cyanosis. Peripheral pulses intact. 2+ bilateral upper and lower extremity edema NEUROLOGIC: Awake and alert. Oriented x 3. ASSESSMENT: Paroxysmal atrial fibrillation with RVR Hypotension, on admission, improving Recent Covid 19 Acute exacerbation of chronic diastolic congestive heart failure, EF 55-60% History of aortic valve replacement, on long-term anticoagulation with Coumadin Subtherapeutic INR Hypertension Abnormal TSH PLAN: No need to repeat echo as this was performed in September 2020 Resume metoprolol. Will resume at lower dose of 25mg BID due to hypotension on admission Continue telemetry monitoring Begin lasix 40mg IV Q8 Monitor kidney function Daily weights Accurate I&O Discontinue IV amio. Begin oral amio Monitor INR. Continue to hold Coumadin at this time. Nurse practitioner note has been reviewed by physician. Signing provider agrees with the documented findings, assessment, and plan of care. 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 Right rotator cuff. Aortic valve replacement Past Anesthesia/Blood Transfusion Reactions: No Reported Reaction Past Psychological History: No Psychological Hx Reported Smoking Status: Former smoker Past Alcohol Use History: Rare Past Drug Use History: None Reported - Past Family History Father History Unknown: Yes Mother History Unknown: Yes Medications and Allergies Home Medications Medication Instructions Recorded Confirmed Type Atorvastatin [Lipitor] 20 mg PO HS@2100 05/07/16 10/28/20 History Furosemide [Lasix] 40 mg PO DAILY@59905/07/16 10/28/20 History Pantoprazole [Protonix] 40 mg PO DAILY@0905/07/16 10/28/20 History Potassium Chloride ER [K-Dur 20] 20 meq PO DAILY@0605/07/16 10/28/20 History Ferrous Sulfate [Iron (65 MG 325 mg PO DAILY@0610/02/20 10/28/20 History Elemental)] Polyethylene Glycol 3350 [Miralax] 17 gm PO DAILY PRN 10/02/20 10/28/20 History Nitroglycerin Sl Tabs [Nitrostat] 0.4 mg SUBLINGUAL Q5M PRN tab 10/08/20 10/28/20 Rx traMADol HCL 50 mg PO Q12H PRN #3 tab 10/08/20 10/28/20 Rx Ascorbic Acid [Vitamin C] 500 mg PO DAILY@0900 10/23/20 10/28/20 History Cholecalciferol [Vitamin D3 (25 2,000 unit PO DAILY@0900 10/23/20 10/28/20 History Mcg = 1000 Iu)] Collagenase [Santyl] 1 applic TOPICAL HS 10/23/20 10/28/20 History Glucerna Shake 1 can PO BID@0900,1700 10/23/20 10/28/20 History Insulin Glargine,Hum.rec.anlog 10 unit SQ HS@2200 10/23/20 10/28/20 History [Basaglar Kwikpen U-100] Insulin Lispro [humaLOG Kwikpen] 2 unit SQ ACHS@08,12,17,22 10/23/20 10/28/20 History Ipratropium-Albuterol Nebulize 3 ml INHALATION RT-Q4H PRN 10/23/20 10/28/20 History [Duoneb 0.5 mg-3 mg/3 ml Soln] Linagliptin [Tradjenta] 5 mg PO DAILY@0600 10/23/20 10/28/20 History Prostat Awc 30 ml PO BID@0900,1700 10/23/20 10/28/20 History Triad Hydrophilic Wound Dress 1 applic TOPICAL DAILY PRN 10/23/20 10/28/20 History Zinc 50 mg PO DAILY@0900 10/23/20 10/28/20 History Clotrimazole/Betamethasone Dip 1 applic TOPICAL Q12H 10/28/20 10/28/20 History [Lotrisone Cream] Levothyroxine Sodium [Synthroid] 50 mcg PO DAILY@0900 10/28/20 10/28/20 History Metoprolol Tartrate [Lopressor] 50 mg PO BID@0900,1700 10/28/20 10/28/20 History Warfarin [Coumadin] 2.5 mg PO SUTUWEFRSA 10/28/20 10/28/20 History Warfarin [Coumadin] 3 mg PO MOTH 10/28/20 10/28/20 History Allergies Allergy/AdvReac Type Severity Reaction Status Date / Time No Known Allergies Allergy Verified 10/28/20 12:01 Physical Exam Vitals: Vital Signs Temp Pulse Pulse Resp BP BP Pulse Ox 10/29/20 09:36 98 F 101 H 20 93/59 97 10/29/20 08:00 20 10/29/20 03:50 103 H 22 102/58 95 10/29/20 02:00 95 16 10/29/20 00:00 95 16 94 L 10/28/20 20:00 98.1 F 100 16 94/60 10/28/20 19:00 98.2 F 128 H 18 110/70 98 10/28/20 18:10 114 H 16 72/40 92 L 10/28/20 17:40 97.7 F 120 H 18 89/60 98 10/28/20 17:00 118 H 18 85/65 94 L 10/28/20 16:01 104 H 18 92/42 97 10/28/20 15:01 111 H 18 90/58 98 10/28/20 13:56 128 H 18 94/81 100 10/28/20 13:42 124 H 18 93/66 98 10/28/20 12:27 131 H 18 105/62 100 10/28/20 12:03 18 10/28/20 11:13 98.0 F 124 H 18 94/76 95 Intake and Output 10/28/20 10/29/20 10/29/20 22:59 06:59 14:59 Intake Total 236.667 0 Balance 236.667 0 Intake: Intake, IV Titration 236.667 Amount Amiodarone 300 mg In 236.667 Dextrose 5% in Water 250 ml @ 0.5 MG/MIN 25 mls/hr IV .Q10H [facility] Rx#: [id number] Oral 0 Other: Voiding Method Indwelling Catheter Indwelling Catheter Indwelling Catheter # Bowel Movements 2 Weight 92.986 kg 85.5 kg 85.5 kg Results 10/29/20 09:02 10/29/20 09:27 Cardiac Enzymes 10/28/20 10/28/20 Range/Units 11:47 11:47 AST 32 (14-36) U/L Troponin I 0.026 (0.000-0.034) ng/mL Coagulation 10/28/20 10/29/20 Range/Units 11:47 09:02 PT 39.2 H 62.1 H (9.0-12.0) sec APTT 22.7 (22.0-30.0) sec CBC 10/28/20 10/29/20 Range/Units 11:47 09:02 WBC 7.0 7.0 (3.8-10.6) k/uL RBC 3.28 L 2.98 L (3.80-5.40) m/uL Hgb 8.6 L 7.8 L (11.4-16.0) gm/dL Hct 29.1 L 26.9 L (34.0-46.0) % Plt Count 168 247 (150-450) k/uL Comprehensive Metabolic Panel 10/28/20 10/29/20 Range/Units 11:47 09:27 Sodium 136 L 134 L (137-145) mmol/L Potassium 5.4 H 4.9 (3.5-5.1) mmol/L Chloride 104 105 (98-107) mmol/L Carbon Dioxide 26 24 (22-30) mmol/L BUN 55 H 58 H (7-17) mg/dL Creatinine 1.37 H 1.56 H (0.52-1.04) mg/dL Glucose 182 H 164 H (74-99) mg/dL Calcium 8.0 L 7.6 L (8.4-10.2) mg/dL AST 32 (14-36) U/L ALT 25 (4-34) U/L Alkaline Phosphatase 115 (38-126) U/L Total Protein 4.9 L (6.3-8.2) g/dL Albumin 2.2 L (3.5-5.0) g/dL Current Medications Generic Name Dose Route Start Last Admin Trade Name Freq PRN Reason Stop Dose Admin Albuterol Sulfate 2 puff 10/28/20 16:15 Albuterol Hfa Inhaler INHALATION RT-QID PRN Shortness Of Breath Ascorbic Acid 500 mg 10/29/20 09:00 10/29/20 09:01 Ascorbic Acid 500 Mg Tab PO 500 mg DAILY@0900 MARK Administration Betamethasone/Clotrimazole 1 applic 10/28/20 16:15 10/29/20 06:54 Clotrimazole/Betameth 1-0.05% Cream 45 Gm Tube TOPICAL 1 applic Q12H [facility] Administration Cholecalciferol 2,000 unit 10/29/20 09:00 10/29/20 09:01 Cholecalciferol 1,000 Unit Tab PO 2,000 unit DAILY@0900 [facility] Administration Collagenase 1 applic 10/28/20 21:00 Collagenase 250 Unit/Gm Ointment 30 Gm Tube TOPICAL HS MARK Ferrous Sulfate 325 mg 10/29/20 06:00 10/29/20 06:54 Ferrous Sulfate 325 Mg Tab PO 325 mg DAILY@0600 [facility] Administration Furosemide 40 mg 10/29/20 09:00 10/29/20 09:02 Furosemide 10 Mg/Ml 4 Ml Vial IV 40 mg Q8HR [facility] Administration Amiodarone HCl 300 mg/ 250 mls @ 25 mls/hr 10/28/20 20:30 10/29/20 06:54 Dextrose/Water IV 10/29/20 14:29 0.5 mg/min .Q10H MARK 25 mls/hr Administration Protocol 0.5 MG/MIN Insulin Aspart 2 unit 10/28/20 17:00 10/29/20 09:02 Insulin Aspart (Novolog) 100 Unit/Ml Vial SQ 2 unit ACHS@08,,, [facility] Administration Insulin Aspart 0 unit 10/29/20 07:30 10/29/20 06:54 Insulin Aspart (Novolog) 100 Unit/Ml Vial SQ 2 unit ACHS [facility] Administration Protocol Insulin Detemir 10 unit 10/28/20 22:00 10/28/20 21:26 Insulin Detemir (Levemir) 100 Unit/Ml Syr SQ Not Given HS@2200 [facility] Levothyroxine Sodium 50 mcg 10/29/20 06:30 10/29/20 06:54 Levothyroxine 50 Mcg Tab PO 50 mcg DAILY@0630 [facility] Administration Linagliptin 5 mg 10/29/20 06:00 10/29/20 06:54 Linagliptin 5 Mg Tablet PO 5 mg DAILY@0600 [facility] Administration Metoprolol Tartrate 25 mg 10/29/20 09:00 10/29/20 09:01 Metoprolol Tartrate 25 Mg Tab PO 25 mg BID@0900,1700 [facility] Administration Multi-Ingred Cream/Lotion/Oil/Oint 1 applic 10/28/20 16:15 Hydrophilic Cream 180 Gm Tube TOPICAL DAILY PRN LEFT POSTERIOR THIGH WOUND Naloxone HCl 0.2 mg 10/28/20 14:05 Naloxone 0.4 Mg/Ml 1 Ml Vial IV Q2M PRN Opioid Reversal Nitroglycerin 0.4 mg 10/28/20 16:15 Nitroglycerin Sl Tabs 0.4 Mg Tab SUBLINGUAL Q5M PRN Chest Pain Pantoprazole Sodium 40 mg 10/29/20 07:30 10/29/20 06:54 Pantoprazole 40 Mg Tablet PO 40 mg DAILY@0730 [facility] Administration Polyethylene Glycol 17 gm 10/28/20 16:15 Polyethylene Glycol 3350 17 Gm Powd.Pack PO DAILY PRN Constipation Tramadol HCl 50 mg 10/28/20 16:15 Tramadol 50 Mg Tab PO Q12H PRN Pain Zinc Sulfate 220 mg 10/29/20 09:00 10/29/20 09:01 Zinc Sulfate 220 Mg Cap PO 220 mg DAILY@0900 [facility] Administration Intake and Output 10/28/20 10/29/20 10/29/20 22:59 06:59 14:59 Intake Total 236.667 0 Balance 236.667 0 Intake: Intake, IV Titration 236.667 Amount Amiodarone 300 mg In 236.667 Dextrose 5% in Water 250 ml @ 0.5 MG/MIN 25 mls/hr IV .Q10H [facility] Rx#: [id number] Oral 0 Other: Voiding Method Indwelling Catheter Indwelling Catheter Indwelling Catheter # Bowel Movements 2 Weight 92.986 kg 85.5 kg 85.5 kg Patient Weight 10/30/20 06:59 Weight 85.5 kg 10/29/20 09:02 10/29/20 09:27
[2020-10-29 12:27] LABS: Glucose,Whole Blood 237 mg/dL (75-99)
[2020-10-29] MEDS: AMIODARONE 200 MG TAB PO SCH ×3 (12:42→21:07)
--- NOTE | 2020-10-29 14:21 | P.PN ---
Subjective Progress Note Date: 10/29/20 This is an 79-year-old female was recently admitted from [facility] on the [facility] facility for atrial fibrillation with rapid ventricular rate and was placed on metoprolol with medication adjustments made. Patient's blood pressure is quite low on admission and was given a dose of metoprolol although blood pressures continue to be low and patient was initiated on amiodarone. Cardiology consulted and pending at this time. Patient was also found to be Coumadin coagulable with an INR of 4.0 and will hold Coumadin and repeat labs. Patient continues to be quite edematous and bilateral upper extremities appear to be weeping in 1-2 pitting edema is noted. Patient is also known to have medical debility with generalized weakness and mostly bedbound and does have chronic stage II decubitus sacral ulcers and wound care has been consulted. Patient also has type 2 diabetes mellitus and will resume sliding scale and long-acting insulin. On exam patient is having pain of bilateral upper extremities and states she is leaking from her skin. Patient did have an indwelling Redmond catheter upon admission and will continue for strict intake and output. Patient's chest x-ray shows pulmonary edema with an abnormal increased density that is again noted in the left lung base with patchy perihilar vascular indistinctness. Will hold IV fluids and monitor vital signs and labs closely. Patient does have a history of chronic kidney disease and current creatinine is 1.37, sodium is 136, potassium elevated at 5.4 and will give a dose of Kayexalate. Hemoglobin is stable at 8.6 and white blood count is 7.0. Current BNP is 7080. Patient has a history of hypothyroidism and medications were recently adjusted and will resume home medications. Patient currently denies any chest pain or shortness of breath. Patient is afebrile. Patient denies any nausea or vomiting or abdominal discomfort and is tolerating diet. 10/29/2020 Patient is seen and evaluated in follow-up with no acute overnight issues. Patient IV amiodarone was discontinued and was initiated on oral amiodarone and will continue with metoprolol. Cardiology following. INR today is 6.0 and will discuss with cardiology as patient is on Coumadin which may interact with amiodarone. Will repeat labs and monitor closely. Patient continues to have bilateral upper and lower extremity swelling and edema noted and was resumed on IV Lasix. Her creatinine is 1.56. TSH was found to be high and free T4 was drawn and is 1.13 and will continue with current dose of Synthroid. Patient's blood pressures on the lower side although stable in the 90s systolic. Wound care consulted for multiple stage II ulcerations of the sacral region as she has been receiving ongoing wound care while at [facility]. Appreciate wound care recommendations. PT/OT to evaluate the patient. Social work following this patient will likely return to [facility] once stabilized and discharged. Review of systems: Constitutional: No reports of fatigue, fever, or chills Cardiovascular: No reports of chest pain or palpitations Respiratory: No reports of shortness of breath or cough GI: No reports of nausea, vomiting, or diarrhea : No reports of dysuria or retention Neurovascular: reports weakness All medications have been reviewed Objective - Vital Signs Vital signs: Vital Signs Temp 98 F 10/29/20 09:36 Pulse 101 H 10/29/20 09:36 Resp 20 10/29/20 09:36 BP 93/59 10/29/20 09:36 Pulse Ox 97 10/29/20 09:36 Intake & Output 10/28/20 10/29/20 10/29/20 18:59 06:59 18:59 Intake Total 236.667 0 Balance 236.667 0 Weight 92.986 kg 85.5 kg 85.5 kg Intake: Intake, IV Titration 236.667 Amount Amiodarone 300 mg In 236.667 Dextrose 5% in Water 250 ml @ 0.5 MG/MIN 25 mls/hr IV .Q10H MARK Rx#: [id number] Oral 0 Other: Voiding Method Indwelling Catheter Indwelling Catheter Indwelling Catheter # Bowel Movements 2 - Exam Gen: This is a 79-year-old female sitting up awake, alert and oriented 3, well- developed, well-nourished, obese HEENT: Head is atraumatic, normocephalic. Pupils equal, round. Sclerae is anicteric. NECK: Supple. No JVD. No lymphadenopathy. No thyromegaly. LUNGS: Diminished breath sounds bilaterally with some scattered rhonchi noted. No intercostal retractions. HEART: Irregular. S1, S2 are muffled ABDOMEN: Soft. Obese. Bowel sounds are present. No masses. No tenderness. EXTREMITIES: No pedal edema. No calf tenderness. Bilateral upper and lower extremity swelling in 1-2+ pitting edema noted with weeping of bilateral upper extremities NEUROLOGICAL: Patient is awake, alert and oriented x3. Diffusely weak. Skin: Multiple stage II decubitus, left hip, and sacral ulcers noted - Labs CBC & Chem 7: 10/29/20 09:02 10/29/20 09:27 Labs: Abnormal Lab Results - Last 24 Hours (Table) 10/28/20 10/28/20 10/28/20 Range/Units 11:47 11:47 11:47 RBC 3.28 L (3.80-5.40) m/uL Hgb 8.6 L (11.4-16.0) gm/dL Hct 29.1 L (34.0-46.0) % MCHC 29.5 L (31.0-37.0) g/dL RDW 23.0 H (11.5-15.5) % Lymphocytes # 0.6 L (1.0-4.8) k/uL PT 39.2 H (9.0-12.0) sec INR 4.0 H (<1.2) Sodium 136 L (137-145) mmol/L Potassium 5.4 H (3.5-5.1) mmol/L BUN 55 H (7-17) mg/dL Creatinine 1.37 H (0.52-1.04) mg/dL Glucose 182 H (74-99) mg/dL POC Glucose (mg/dL) (75-99) mg/dL Calcium 8.0 L (8.4-10.2) mg/dL C-Reactive Protein 148.4 H (<10.0) mg/L Total Protein 4.9 L (6.3-8.2) g/dL Albumin 2.2 L (3.5-5.0) g/dL TSH 6.060 H (0.465-4.680) mIU/L Urine Appearance (Clear) Urine WBC (0-5) /hpf Urine Bacteria (None) /hpf Hyaline Casts (0-2) /lpf Urine Mucus (None) /hpf Urine Yeast (Budding) (None) /hpf 10/28/20 10/28/20 10/28/20 Range/Units :21 18:13 21:16 RBC (3.80-5.40) m/uL Hgb (11.4-16.0) gm/dL Hct (34.0-46.0) % MCHC (31.0-37.0) g/dL RDW (11.5-15.5) % Lymphocytes # (1.0-4.8) k/uL PT (9.0-12.0) sec INR (<1.2) Sodium (137-145) mmol/L Potassium (3.5-5.1) mmol/L BUN (7-17) mg/dL Creatinine (0.52-1.04) mg/dL Glucose (74-99) mg/dL POC Glucose (mg/dL) 243 H 192 H (75-99) mg/dL Calcium (8.4-10.2) mg/dL C-Reactive Protein (<10.0) mg/L Total Protein (6.3-8.2) g/dL Albumin (3.5-5.0) g/dL TSH (0.465-4.680) mIU/L Urine Appearance Cloudy H (Clear) Urine WBC 7 H (0-5) /hpf Urine Bacteria Occasional H (None) /hpf Hyaline Casts 213 H (0-2) /lpf Urine Mucus Moderate H (None) /hpf Urine Yeast (Budding) Rare H (None) /hpf 10/29/20 10/29/20 10/29/20 Range/Units 06:16 08:04 09:02 RBC 2.98 L (3.80-5.40) m/uL Hgb 7.8 L (11.4-16.0) gm/dL Hct 26.9 L (34.0-46.0) % MCHC 28.8 L (31.0-37.0) g/dL RDW 22.7 H (11.5-15.5) % Lymphocytes # (1.0-4.8) k/uL PT (9.0-12.0) sec INR (<1.2) Sodium (137-145) mmol/L Potassium (3.5-5.1) mmol/L BUN (7-17) mg/dL Creatinine (0.52-1.04) mg/dL Glucose (74-99) mg/dL POC Glucose (mg/dL) 186 H 188 H (75-99) mg/dL Calcium (8.4-10.2) mg/dL C-Reactive Protein (<10.0) mg/L Total Protein (6.3-8.2) g/dL Albumin (3.5-5.0) g/dL TSH (0.465-4.680) mIU/L Urine Appearance (Clear) Urine WBC (0-5) /hpf Urine Bacteria (None) /hpf Hyaline Casts (0-2) /lpf Urine Mucus (None) /hpf Urine Yeast (Budding) (None) /hpf 10/29/20 10/29/20 Range/Units 09:02 09:27 RBC (3.80-5.40) m/uL Hgb (11.4-16.0) gm/dL Hct (34.0-46.0) % MCHC (31.0-37.0) g/dL RDW (11.5-15.5) % Lymphocytes # (1.0-4.8) k/uL PT 62.1 H (9.0-12.0) sec INR 6.1 H* (<1.2) Sodium 134 L (137-145) mmol/L Potassium (3.5-5.1) mmol/L BUN 58 H (7-17) mg/dL Creatinine 1.56 H (0.52-1.04) mg/dL Glucose 164 H (74-99) mg/dL POC Glucose (mg/dL) (75-99) mg/dL Calcium 7.6 L (8.4-10.2) mg/dL C-Reactive Protein (<10.0) mg/L Total Protein (6.3-8.2) g/dL Albumin (3.5-5.0) g/dL TSH (0.465-4.680) mIU/L Urine Appearance (Clear) Urine WBC (0-5) /hpf Urine Bacteria (None) /hpf Hyaline Casts (0-2) /lpf Urine Mucus (None) /hpf Urine Yeast (Budding) (None) /hpf Assessment and Plan Assessment: -Atrial fibrillation with rapid ventricular rate: Given a dose of metoprolol alt rad hypotensive and was initiated on amiodarone and cardiology following. Amiodarone drip was discontinued and placed on oral and metoprolol resumed. Most recent ejection fraction in September 2020 showed an EF of 55-60% -Congestive heart failure acute on chronic diastolic dysfunction, acute exac erbation: Possibly exacerbated by atrial fibrillation. Amiodarone drip discontinued and transitioned to oral and will continue with metoprolol, and IV Lasix -Pulmonary edema secondary to above: will discontinue IV fluids and monitor labs closely. Continue with IV Lasix -Coumadin coagulopathy: Will hold Coumadin as INR is 6.0 and will repeat labs, cardiology following -Recent Covid 19 pneumonia -Chronic kidney disease stage III possibly due to diabetic nephropathy -Chronic stage II decubitus, sacral, left hip ulcers: Patient is mostly bedbound. Wound care consulted and patient has been receiving wound care at the [facility] -Hypothyroidism -Diabetes mellitus type 2 -Hyperlipidemia -Gastroesophageal reflux disease -DVT prophylaxis: Coumadin although currently on hold as patient is supratherapeutic -GI prophylaxis: Protonix -Full code Plan: Continue current medications. Oral amiodarone initiated and will resume metoprolol. IV Lasix also initiated. Cardiology following. Hold Coumadin and repeat INR. Further recommendations to follow. Wean FiO2 as tolerated. Prognosis is guarded.
[2020-10-29 17:15] LABS: Glucose,Whole Blood 93 mg/dL (75-99)
[2020-10-29 20:09] LABS: Glucose,Whole Blood 78 mg/dL (75-99)
[2020-10-29] MEDS: INSULIN DETEMIR (LEVEMIR) 100 UNIT/ML SYR SQ SCH (21:25)
[2020-10-29 22:02] LABS: Glucose,Whole Blood 87 mg/dL (75-99)
[2020-10-30 00:32] LABS: Glucose,Whole Blood 103 mg/dL (75-99)
[2020-10-30] MEDS: FUROSEMIDE 10 MG/ML 4 ML VIAL IV SCH ×4 (02:02→23:20)
[2020-10-30 05:14] LABS: Glucose,Whole Blood 132 mg/dL (75-99)
[2020-10-30] MEDS: CLOTRIMAZOLE/BETAMETH 1-0.05% CREAM 45 GM TUBE TOPICAL SCH ×2 (05:16→17:30)
[2020-10-30 06:15] LABS: Glucose,Whole Blood 109 mg/dL (75-99)
[2020-10-30] MEDS: traMADol 50 MG TAB PO PRN (06:19)
[2020-10-30] MEDS: LEVOTHYROXINE 50 MCG TAB PO SCH (06:19)
[2020-10-30] MEDS: FERROUS SULFATE 325 MG TAB PO SCH (06:20)
[2020-10-30] MEDS: PANTOPRAZOLE 40 MG TABLET PO SCH (06:20)
[2020-10-30] MEDS: LINAGLIPTIN 5 MG TABLET PO SCH (06:20)
[2020-10-30] MEDS: INSULIN ASPART (NovoLOG) 100 UNIT/ML VIAL SQ SCH ×8 (06:30→20:30)
[2020-10-30 07:49] LABS: Anisocytosis Moderate; Basophils % (A) 0 %; Eosinophils % (A) 0 %; HCT 29.2 % (34.0-46.0); HGB 8.4 gm/dL (11.4-16.0); Hypochromasia Marked; Lymphocytes # (A) 0.5 k/uL (1.0-4.8); Lymphocytes % (A) 5 %; MCH 26.7 pg (25.0-35.0); MCHC 28.8 g/dL (31.0-37.0); MCV 92.5 fL (80.0-100.0); Macrocytosis Slight; Mean Platelet Volume 7.9; Microcytosis Slight; Monocytes # (A) 0.3 k/uL (0-1.0); Monocytes % (A) 3 %; Neutrophils # (A) 8.6 k/uL (1.3-7.7); Neutrophils % (A) 91 %; Platelet Count 244 k/uL (150-450); Poikilocytosis Slight; RBC 3.15 m/uL (3.80-5.40); RDW 22.6 % (11.5-15.5); WBC 9.5 k/uL (3.8-10.6)
[2020-10-30 07:54] LABS: Calcium 7.8 mg/dL (8.4-10.2); Potassium 5.4 mmol/L (3.5-5.1)
[2020-10-30 09:38] LABS: Prothrombin Time >130.0 sec (9.0-12.0)
[2020-10-30 09:39] LABS: INR >10.0 (<1.2)
[2020-10-30] MEDS: ZINC SULFATE 220 MG CAP PO SCH (10:08)
[2020-10-30] MEDS: CHOLECALCIFEROL 1,000 UNIT TAB PO SCH (10:08)
[2020-10-30] MEDS: ASCORBIC ACID 500 MG TAB PO SCH (10:09)
[2020-10-30] MEDS ORDERED: SODIUM POLYSTYRENE SULFONATE 15 GM/60 ML BOTTLE PO STA (10:13)
[2020-10-30] MEDS ORDERED: PHYTONADIONE ORAL 5 MG/5 ML ORAL.SYRG PO STA ×2 (10:17→10:25)
[2020-10-30 12:04] LABS: Glucose,Whole Blood 132 mg/dL (75-99)
--- NOTE | 2020-10-30 13:29 | P.PN ---
Subjective Progress Note Date: 10/30/20 CHIEF COMPLAINT: A. fib with RVR HISTORY OF PRESENT ILLNESS: 10/29/2020 This is a 79-year-old female with a past medical history significant for hypertension, aortic valve replacement on long-term anticoagulation with Coumadin, and atrial fibrillation. Patient does not follow with a distribution associate. We have been asked to see the patient in consultation for afib with RVR. Patient was recently hospitalized secondary to afib. She was also recently diagnosed with Covid 19. Patient was hypotensive upon admission and her beta blockers were held. She was started on an amio drip in the emergency room. Patient denies chest pain or pressure. She denies shortness of breath. She reports increased swelling to her upper and lower extremities. Denies dizziness or ligh theadedness. Denies palpitations. EKG reveals A. fib with RVR Chest xray correlate for pneumonia, pulmonary edema. Echocardiogram completed in September 2020 reveals EF 55-60%, mild to moderate regurgitation of the bioprosthetic aortic valve, moderate mitral regurgitation and mild tricuspid regurgitation 10/30/2020 Patient examined this morning at the bedside. Denies chest pain or pressure. Denies shortness of breath. Patient's INR is greater than 10. Her Coumadin remains on hold. Patient's blood pressure this morning is low with a systolic in the 80s. Creatinine increased today to 1.87, up from 1.56 yesterday. PHYSICAL EXAM: VITAL SIGNS: Reviewed. GENERAL: Well-developed in no acute distress. HEENT: Head is normocephalic. Pupils are equal, round. Sclerae anicteric. Mucous membranes of the mouth are moist. Neck supple. No JVD or thyromegaly LUNGS: Respirations even and unlabored. Lungs diminished with rales to bilateral bases HEART: Irregular rate and rhythm. S1 and S2 heard. Systolic murmur noted. ABDOMEN: Soft. Nondistended. Nontender. EXTREMITIES: Normal range of motion. No clubbing or cyanosis. Peripheral pulses intact. 2+ bilateral upper and lower extremity edema NEUROLOGIC: Awake and alert. Oriented x 3. ASSESSMENT: Paroxysmal atrial fibrillation with RVR Hypotension Recent Covid 19 Acute exacerbation of chronic diastolic congestive heart failure, EF 55-60% History of aortic valve replacement, on long-term anticoagulation with Coumadin Subtherapeutic INR Hypertension Abnormal TSH PLAN: Patient to receive Vitamin K today per internal medicine. Monitor INR. Continue to hold Coumadin at this time. Patient hypotensive this morning. Will hold morning doses of amio, lasix, and metoprolol. Further recommendations pending patient course Nurse practitioner note has been reviewed by physician. Signing provider agrees with the documented findings, assessment, and plan of care. Objective - Vital Signs Vital signs: Vital Signs Temp 97.6 F 10/30/20 09:20 Pulse 90 10/30/20 11:34 Resp 20 10/30/20 11:34 BP 84/48 10/30/20 11:34 Pulse Ox 100 10/30/20 11:34 Intake & Output 10/29/20 10/30/20 10/30/20 18:59 06:59 18:59 Intake Total 0 50 Output Total 500 100 Balance -500 -50 Weight 85.5 kg 92 kg Intake: Oral 0 50 Output: Urine 500 100 Other: Voiding Method Indwelling Catheter Indwelling Catheter Indwelling Catheter # Voids 1 - Labs CBC & Chem 7: 10/30/20 07:22 10/30/20 07:22 Labs: Abnormal Lab Results - Last 24 Hours (Table) 10/30/20 10/30/20 10/30/20 Range/Units 00:31 05:01 06:13 RBC (3.80-5.40) m/uL Hgb (11.4-16.0) gm/dL Hct (34.0-46.0) % MCHC (31.0-37.0) g/dL RDW (11.5-15.5) % Neutrophils # (1.3-7.7) k/uL Lymphocytes # (1.0-4.8) k/uL PT (9.0-12.0) sec INR (<1.2) Sodium (137-145) mmol/L Potassium (3.5-5.1) mmol/L BUN (7-17) mg/dL Creatinine (0.52-1.04) mg/dL Glucose (74-99) mg/dL POC Glucose (mg/dL) 103 H 132 H 109 H (75-99) mg/dL Calcium (8.4-10.2) mg/dL 10/30/20 10/30/20 10/30/20 Range/Units 07:22 07:22 08:55 RBC 3.15 L (3.80-5.40) m/uL Hgb 8.4 L (11.4-16.0) gm/dL Hct 29.2 L (34.0-46.0) % MCHC 28.8 L (31.0-37.0) g/dL RDW 22.6 H (11.5-15.5) % Neutrophils # 8.6 H (1.3-7.7) k/uL Lymphocytes # 0.5 L (1.0-4.8) k/uL PT >130.0 H (9.0-12.0) sec INR >10.0 H* (<1.2) Sodium 134 L (137-145) mmol/L Potassium 5.4 H (3.5-5.1) mmol/L BUN 64 H (7-17) mg/dL Creatinine 1.87 H (0.52-1.04) mg/dL Glucose 101 H (74-99) mg/dL POC Glucose (mg/dL) (75-99) mg/dL Calcium 7.8 L (8.4-10.2) mg/dL 10/30/20 Range/Units 12:03 RBC (3.80-5.40) m/uL Hgb (11.4-16.0) gm/dL Hct (34.0-46.0) % MCHC (31.0-37.0) g/dL RDW (11.5-15.5) % Neutrophils # (1.3-7.7) k/uL Lymphocytes # (1.0-4.8) k/uL PT (9.0-12.0) sec INR (<1.2) Sodium (137-145) mmol/L Potassium (3.5-5.1) mmol/L BUN (7-17) mg/dL Creatinine (0.52-1.04) mg/dL Glucose (74-99) mg/dL POC Glucose (mg/dL) 132 H (75-99) mg/dL Calcium (8.4-10.2) mg/dL
[2020-10-30] MEDS: METOPROLOL TARTRATE 25 MG TAB PO SCH ×2 (14:13→16:04)
[2020-10-30] MEDS: AMIODARONE 200 MG TAB PO SCH ×3 (14:13→20:30)
--- NOTE | 2020-10-30 14:26 | P.PN ---
Subjective Progress Note Date: 10/30/20 This is an 79-year-old female was recently admitted from [facility] on the [facility] facility for atrial fibrillation with rapid ventricular rate and was placed on metoprolol with medication adjustments made. Patient's blood pressure is quite low on admission and was given a dose of metoprolol although blood pressures continue to be low and patient was initiated on amiodarone. Cardiology consulted and pending at this time. Patient was also found to be Coumadin coagulable with an INR of 4.0 and will hold Coumadin and repeat labs. Patient continues to be quite edematous and bilateral upper extremities appear to be weeping in 1-2 pitting edema is noted. Patient is also known to have medical debility with generalized weakness and mostly bedbound and does have chronic stage II decubitus sacral ulcers and wound care has been consulted. Patient also has type 2 diabetes mellitus and will resume sliding scale and long-acting insulin. On exam patient is having pain of bilateral upper extremities and states she is leaking from her skin. Patient did have an indwelling Redmond catheter upon admission and will continue for strict intake and output. Patient's chest x-ray shows pulmonary edema with an abnormal increased density that is again noted in the left lung base with patchy perihilar vascular indistinctness. Will hold IV fluids and monitor vital signs and labs closely. Patient does have a history of chronic kidney disease and current creatinine is 1.37, sodium is 136, potassium elevated at 5.4 and will give a dose of Kayexalate. Hemoglobin is stable at 8.6 and white blood count is 7.0. Current BNP is 7080. Patient has a history of hypothyroidism and medications were recently adjusted and will resume home medications. Patient currently denies any chest pain or shortness of breath. Patient is afebrile. Patient denies any nausea or vomiting or abdominal discomfort and is tolerating diet. 10/29/2020 Patient is seen and evaluated in follow-up with no acute overnight issues. Patient IV amiodarone was discontinued and was initiated on oral amiodarone and will continue with metoprolol. Cardiology following. INR today is 6.0 and will discuss with cardiology as patient is on Coumadin which may interact with amiodarone. Will repeat labs and monitor closely. Patient continues to have bilateral upper and lower extremity swelling and edema noted and was resumed on IV Lasix. Her creatinine is 1.56. TSH was found to be high and free T4 was drawn and is 1.13 and will continue with current dose of Synthroid. Patient's blood pressures on the lower side although stable in the 90s systolic. Wound care consulted for multiple stage II ulcerations of the sacral region as she has been receiving ongoing wound care while at [facility]. Appreciate wound care recommendations. PT/OT to evaluate the patient. Social work following this patient will likely return to [facility] once stabilized and discharged. 10/30/2020 Patient is seen in follow-up and INR is greater than 10 and will give vitamin K 10 mg and repeat labs. Amiodarone and metoprolol on hold as patient's blood pre ssures were in the 80s systolic. Lasix was also held due to blood pressures. Discussed with nursing staff about getting Lasix and blood pressure has been marginal. Patient continues to have bilateral upper and lower extremity edema with weeping noted and reports shortness of breath. Patient is maintained on 3 L of oxygen via nasal cannula. Current sodium is 134 with a potassium of 5.4 and creatinine is gone up to 1.87. A dose of Kayexalate was given and will repeat labs. Blood sugars continue to be monitored as patient is on sliding scale and with meal insulin along with long-acting although blood sugars have been on the lower side and these medications were held this morning. Review of systems: Constitutional: reports fatigue, no reports of fever, or chills Cardiovascular: No reports of chest pain or palpitations Respiratory: Reports shortness of breath GI: No reports of nausea, vomiting, or diarrhea, reports poor appetite : No reports of dysuria or retention, currently has an indwelling Redmond catheter Neurovascular: reports weakness All medications have been reviewed Objective - Vital Signs Vital signs: Vital Signs Temp 97.6 F 10/30/20 09:20 Pulse 110 H 10/30/20 09:20 Resp 30 H 10/30/20 09:20 BP 83/52 10/30/20 09:20 Pulse Ox 98 10/30/20 09:20 Intake & Output 10/29/20 10/30/20 10/30/20 18:59 06:59 18:59 Intake Total 0 50 Output Total 500 100 Balance -500 -50 Weight 85.5 kg 92 kg Intake: Oral 0 50 Output: Urine 500 100 Other: Voiding Method Indwelling Catheter Indwelling Catheter # Voids 1 - Exam Gen: This is a 79-year-old female lying in bed asleep although arousable, alert and oriented 3, well-developed, well-nourished, obese HEENT: Head is atraumatic, normocephalic. Pupils equal, round. Sclerae is anicteric. NECK: Supple. No JVD. No lymphadenopathy. No thyromegaly. LUNGS: Diminished breath sounds bilaterally with some scattered rhonchi and crackles noted. No intercostal retractions. HEART: Irregular. S1, S2 are muffled ABDOMEN: Soft. Obese. Bowel sounds are present. No masses. No tenderness. EXTREMITIES: No pedal edema. No calf tenderness. Bilateral upper and lower extremity swelling in 1-2+ pitting edema noted with weeping of bilateral upper extremities NEUROLOGICAL: Patient is awake, alert and oriented x3. Diffusely weak. Skin: Multiple stage II decubitus, left hip, and sacral ulcers noted - Labs CBC & Chem 7: 10/30/20 07:22 10/30/20 07:22 Labs: Abnormal Lab Results - Last 24 Hours (Table) 10/29/20 10/29/20 10/29/20 Range/Units 09:02 09:02 12:11 RBC 2.98 L (3.80-5.40) m/uL Hgb 7.8 L (11.4-16.0) gm/dL Hct 26.9 L (34.0-46.0) % MCHC 28.8 L (31.0-37.0) g/dL RDW 22.7 H (11.5-15.5) % Neutrophils # (1.3-7.7) k/uL Lymphocytes # (1.0-4.8) k/uL PT 62.1 H (9.0-12.0) sec INR 6.1 H* (<1.2) Sodium (137-145) mmol/L Potassium (3.5-5.1) mmol/L BUN (7-17) mg/dL Creatinine (0.52-1.04) mg/dL Glucose (74-99) mg/dL POC Glucose (mg/dL) 237 H (75-99) mg/dL Calcium (8.4-10.2) mg/dL 10/30/20 10/30/20 10/30/20 Range/Units 00:31 05:01 06:13 RBC (3.80-5.40) m/uL Hgb (11.4-16.0) gm/dL Hct (34.0-46.0) % MCHC (31.0-37.0) g/dL RDW (11.5-15.5) % Neutrophils # (1.3-7.7) k/uL Lymphocytes # (1.0-4.8) k/uL PT (9.0-12.0) sec INR (<1.2) Sodium (137-145) mmol/L Potassium (3.5-5.1) mmol/L BUN (7-17) mg/dL Creatinine (0.52-1.04) mg/dL Glucose (74-99) mg/dL POC Glucose (mg/dL) 103 H 132 H 109 H (75-99) mg/dL Calcium (8.4-10.2) mg/dL 10/30/20 10/30/20 10/30/20 Range/Units 07:22 07:22 08:55 RBC 3.15 L (3.80-5.40) m/uL Hgb 8.4 L (11.4-16.0) gm/dL Hct 29.2 L (34.0-46.0) % MCHC 28.8 L (31.0-37.0) g/dL RDW 22.6 H (11.5-15.5) % Neutrophils # 8.6 H (1.3-7.7) k/uL Lymphocytes # 0.5 L (1.0-4.8) k/uL PT >130.0 H (9.0-12.0) sec INR >10.0 H* (<1.2) Sodium 134 L (137-145) mmol/L Potassium 5.4 H (3.5-5.1) mmol/L BUN 64 H (7-17) mg/dL Creatinine 1.87 H (0.52-1.04) mg/dL Glucose 101 H (74-99) mg/dL POC Glucose (mg/dL) (75-99) mg/dL Calcium 7.8 L (8.4-10.2) mg/dL Assessment and Plan Assessment: -Atrial fibrillation with rapid ventricular rate: cardiology following. Patient was started on oral amiodarone and metoprolol was resumed although currently held today as patient blood pressure was in the 80s systolic. Most recent ejection fraction in September 2020 showed an EF of 55-60% -Congestive heart failure acute on chronic diastolic dysfunction, acute exacerbation: Possibly exacerbated by atrial fibrillation. Patient is maintained on IV Lasix -Pulmonary edema secondary to above: Continue with IV Lasix -Coumadin coagulopathy: Will hold Coumadin as INR is above 10 and will repeat labs, cardiology following, vitamin K 10 mg given -Recent Covid 19 pneumonia -Chronic kidney disease stage III possibly due to diabetic nephropathy -Chronic stage II decubitus, sacral, left hip ulcers: Patient is mostly bedbound. Wound care following and patient has been receiving wound care at the [facility] -Hypothyroidism -Diabetes mellitus type 2 -Hyperlipidemia -Gastroesophageal reflux disease -DVT prophylaxis: Coumadin although currently on hold as patient is supratherapeutic -GI prophylaxis: Protonix -No code Plan: Continue current medications. Oral amiodarone and metoprolol held today for low blood pressure. IV Lasix to be continued. Cardiology following. Hold Coumadin and repeat INR. INR was greater than 10 and 10 mg of vitamin K was given. Further recommendations to follow. Wean FiO2 as tolerated. Prognosis is guarded.
[2020-10-30 17:21] LABS: Glucose,Whole Blood 135 mg/dL (75-99)
[2020-10-30 20:11] LABS: Glucose,Whole Blood 163 mg/dL (75-99)
[2020-10-30] MEDS: INSULIN DETEMIR (LEVEMIR) 100 UNIT/ML SYR SQ SCH (20:29)
[2020-10-31] MEDS: CLOTRIMAZOLE/BETAMETH 1-0.05% CREAM 45 GM TUBE TOPICAL SCH ×2 (03:52→16:46)
[2020-10-31] MEDS: LEVOTHYROXINE 50 MCG TAB PO SCH (06:20)
[2020-10-31] MEDS: LINAGLIPTIN 5 MG TABLET PO SCH (06:20)
[2020-10-31] MEDS: FERROUS SULFATE 325 MG TAB PO SCH (06:20)
[2020-10-31] MEDS: INSULIN ASPART (NovoLOG) 100 UNIT/ML VIAL SQ SCH ×8 (06:27→20:24)
[2020-10-31] MEDS: PANTOPRAZOLE 40 MG TABLET PO SCH (06:28)
--- NOTE | 2020-10-31 09:10 | P.PN ---
Subjective 79-year-old female was recently admitted from [facility] on the [facility] facility for atrial fibrillation with rapid ventricular rate and was placed on metoprolol with medication adjustments made. Patient's blood pressure is quite low on admission and was given a dose of metoprolol although blood pressures continue to be low and patient was initiated on amiodarone. Cardiology consulted and pending at this time. Patient was also found to be Coumadin coagulable with an INR of 4.0 and will hold Coumadin and repeat labs. Patient continues to be quite edematous and bilateral upper extremities appear to be weeping in 1-2 pitting edema is noted. Patient is also known to have medical debility with generalized weakness and mostly bedbound and does have chronic stage II decubitus sacral ulcers and wound care has been consulted. Patient also has type 2 diabetes mellitus and will resume sliding scale and long-acting insulin. On exam patient is having pain of bilateral upper extremities and states she is leaking from her skin. Patient did have an indwelling Redmond catheter upon admission and will continue for strict intake and output. Patient's chest x-ray shows pulmonary edema with an abnormal increased density that is again noted in the left lung base with patchy perihilar vascular indistinctness. Will hold IV fluids and monitor vital signs and labs closely. Patient does have a history of chronic kidney disease and current creatinine is 1.37, sodium is 136, potassium elevated at 5.4 and will give a dose of Kayexalate. Hemoglobin is stable at 8.6 and white blood count is 7.0. Current BNP is 7080. Patient has a history of h ypothyroidism and medications were recently adjusted and will resume home medications. Patient currently denies any chest pain or shortness of breath. Patient is afebrile. Patient denies any nausea or vomiting or abdominal discomfort and is tolerating diet. 10/29/2020 Patient is seen and evaluated in follow-up with no acute overnight issues. Patient IV amiodarone was discontinued and was initiated on oral amiodarone and will continue with metoprolol. Cardiology following. INR today is 6.0 and will discuss with cardiology as patient is on Coumadin which may interact with amiodarone. Will repeat labs and monitor closely. Patient continues to have bilateral upper and lower extremity swelling and edema noted and was resumed on IV Lasix. Her creatinine is 1.56. TSH was found to be high and free T4 was drawn and is 1.13 and will continue with current dose of Synthroid. Patient's blood pressures on the lower side although stable in the 90s systolic. Wound care consulted for multiple stage II ulcerations of the sacral region as she has been receiving ongoing wound care while at [facility]. Appreciate wound care recommendations. PT/OT to evaluate the patient. Social work following this patient will likely return to [facility] once stabilized and discharged. 10/30/2020 Patient is seen in follow-up and INR is greater than 10 and will give vitamin K 10 mg and repeat labs. Amiodarone and metoprolol on hold as patient's blood pressures were in the 80s systolic. Lasix was also held due to blood pressures. Discussed with nursing staff about getting Lasix and blood pressure has been marginal. Patient continues to have bilateral upper and lower extremity edema with weeping noted and reports shortness of breath. Patient is maintained on 3 L of oxygen via nasal cannula. Current sodium is 134 with a potassium of 5.4 and creatinine is gone up to 1.87. A dose of Kayexalate was given and will repeat labs. Blood sugars continue to be monitored as patient is on sliding scale and with meal insulin along with long-acting although blood sugars have been on the lower side and these medications were held this morning. 10/31/2020 INR and basic metabolic profile is not available yet at this time. Patient is still on IV Lasix. Patient received vitamin K yesterday. Patient is still has significant anasarca. Patient received a Lopressor with improvement in the blood pressure as well as heart rate. Heart rate remains the low 100s patient is presently on 4 L of oxygen. Patient has externally poor functionality at baseline half-way resident with some decubitus ulcerations. Her overall prognosis is poor because of her poor quality of life heart failure patient is m ore appropriate for comfort care and hospice same thing will be discussed with family members if available. at this point of time cannot make a decision patient just mumbles doesn't give any answers Review of systems: Unable to assess because of above-mentioned reasons All inpatient medications were reviewed and appropriate changes in these medications as dictated in the interval history and assessment and plan. Objective - Vital Signs Vital signs: Vital Signs Temp 97.4 F L 10/31/20 08:41 Pulse 111 H 10/31/20 08:41 Resp 16 10/31/20 08:41 BP 102/58 10/31/20 08:41 Pulse Ox 98 10/31/20 08:41 Intake & Output 10/30/20 10/31/20 10/31/20 18:59 06:59 18:59 Intake Total 10 Output Total 525 50 Balance -525 -40 Weight 83 kg Intake: IV 10 0.9 10 Output: Urine 525 50 Other: Voiding Method Indwelling Catheter Indwelling Catheter - Exam PHYSICAL EXAMINATION: GENERAL: Sleepy, mumbles unable to assess his orientation, not in any acute distress. Well developed, well nourished. HEENT: Pupils are round and equally reacting to light. EOMI. No scleral icterus. No conjunctival pallor. Normocephalic, atraumatic. No pharyngeal erythema. No thyromegaly. CARDIOVASCULAR: S1 and S2 present. No murmurs, rubs, or gallops. Tachycardic irregularly irregular rhythm PULMONARY: Chest is clear to auscultation, no wheezing or crackles. ABDOMEN: Soft, nontender, nondistended, normoactive bowel sounds. No palpable organomegaly. MUSCULOSKELETAL: No joint swelling or deformity. EXTREMITIES: No cyanosis, clubbing, significant anasarca with edema 2+ pitting in the upper and lower extremities. NEUROLOGICAL: Unable to clearly assess SKIN: Multiple decubitus ulcerations including sacral ulcers as noted in the past - Labs CBC & Chem 7: 10/30/20 07:22 10/30/20 07:22 Labs: Abnormal Lab Results - Last 24 Hours (Table) 10/30/20 10/30/20 10/30/20 Range/Units 08:55 12:03 17:09 PT >130.0 H (9.0-12.0) sec INR >10.0 H* (<1.2) POC Glucose (mg/dL) 132 H 135 H (75-99) mg/dL 10/30/20 Range/Units 20:09 PT (9.0-12.0) sec INR (<1.2) POC Glucose (mg/dL) 163 H (75-99) mg/dL Assessment and Plan Plan: -Atrial fibrillation with rapid ventricular rate: cardiology following. Patient is on oral amiodarone and metoprolol was resumed at some improvement in heart rate and blood pressure. Most recent ejection fraction in September 2020 showed an EF of 55-60% -Congestive heart failure acute on chronic diastolic dysfunction, acute exacerbation: Possibly exacerbated by atrial fibrillation. Patient is maintained on IV Lasix -Pulmonary edema secondary to above: Continue with IV Lasix -Coumadin coagulopathy: Will hold Coumadin as INR is above 10 and will repeat labs, cardiology following, vitamin K 10 mg given INR pending -Recent Covid 19 pneumonia -Chronic kidney disease stage III possibly due to diabetic nephropathy -Chronic stage II decubitus, sacral, left hip ulcers: Patient is mostly bedbound. Wound care following and patient has been receiving wound care at the [facility] -Hypothyroidism -Diabetes mellitus type 2 -Hyperlipidemia -Gastroesophageal reflux disease -DVT prophylaxis: Coumadin although currently on hold as patient is supratherapeutic -GI prophylaxis: Protonix -No code . We'll discuss with the family members if any regarding hospice and comfort care
[2020-10-31] MEDS: CHOLECALCIFEROL 1,000 UNIT TAB PO SCH (10:31)
[2020-10-31] MEDS: ZINC SULFATE 220 MG CAP PO SCH (10:31)
[2020-10-31] MEDS: FUROSEMIDE 10 MG/ML 4 ML VIAL IV SCH ×3 (10:31→23:09)
[2020-10-31] MEDS: METOPROLOL TARTRATE 25 MG TAB PO SCH ×2 (10:31→16:46)
[2020-10-31] MEDS: ASCORBIC ACID 500 MG TAB PO SCH (10:31)
[2020-10-31] MEDS: traMADol 50 MG TAB PO PRN (10:32)
[2020-10-31 10:41] LABS: Potassium 5.7 mmol/L (3.5-5.1)
[2020-10-31 10:44] LABS: Prothrombin Time 62.4 sec (9.0-12.0)
[2020-10-31 10:47] LABS: INR 6.2 (<1.2)
[2020-10-31] MEDS: AMIODARONE 200 MG TAB PO SCH ×3 (11:31→19:58)
--- NOTE | 2020-10-31 11:58 | P.PN ---
Subjective Progress Note Date: 10/31/20 CHIEF COMPLAINT: A. fib with RVR HISTORY OF PRESENT ILLNESS: 10/29/2020 This is a 79-year-old female with a past medical history significant for hypertension, aortic valve replacement on long-term anticoagulation with Coumadin, and atrial fibrillation. Patient does not follow with a rework operator. We have been asked to see the patient in consultation for afib with RVR. Patient was recently hospitalized secondary to afib. She was also recently diagnosed with Covid 19. Patient was hypotensive upon admission and her beta blockers were held. She was started on an amio drip in the emergency room. Patient denies chest pain or pressure. She denies shortness of breath. She reports increased swelling to her upper and lower extremities. Denies dizziness or ligh theadedness. Denies palpitations. EKG reveals A. fib with RVR Chest xray correlate for pneumonia, pulmonary edema. Echocardiogram completed in September 2020 reveals EF 55-60%, mild to moderate regurgitation of the bioprosthetic aortic valve, moderate mitral regurgitation and mild tricuspid regurgitation 10/30/2020 Patient examined this morning at the bedside. Denies chest pain or pressure. Denies shortness of breath. Patient's INR is greater than 10. Her Coumadin remains on hold. Patient's blood pressure this morning is low with a systolic in the 80s. Creatinine increased today to 1.87, up from 1.56 yesterday. 10/31/2020 Patient examined this morning at the bedside. Patient lethargic this AM. She remains edematous in all extremities. She is on IV lasix. She has been hypotensive and some of her medications have been held secondary to this. She received vitamin K yesterday for an INR greater than 10. INR 6.2 today. Potassium 5.7. Creatinine 2.28. PHYSICAL EXAM: VITAL SIGNS: Reviewed. GENERAL: Well-developed in no acute distress. HEENT: Head is normocephalic. Pupils are equal, round. Sclerae anicteric. Mucous membranes of the mouth are moist. Neck supple. No JVD or thyromegaly LUNGS: Respirations even and unlabored. Lungs diminished with rales to bilateral bases HEART: Irregular rate and rhythm. S1 and S2 heard. Systolic murmur noted. ABDOMEN: Soft. Nondistended. Nontender. EXTREMITIES: Normal range of motion. No clubbing or cyanosis. Peripheral pulses intact. 2-3+ bilateral upper and lower extremity edema NEUROLOGIC: Lethargic ASSESSMENT: Paroxysmal atrial fibrillation with RVR Hypotension Recent Covid 19 Acute exacerbation of chronic diastolic congestive heart failure, EF 55-60% History of aortic valve replacement, on long-term anticoagulation with Coumadin Subtherapeutic INR Hypertension Abnormal TSH PLAN: Monitor INR. Continue to hold Coumadin at this time. Continue current cardiac medications as blood pressure tolerates Possible hospice per internal medicine Further recommendations pending patient course Nurse practitioner note has been reviewed by physician. Signing provider agrees with the documented findings, assessment, and plan of care. Objective - Vital Signs Vital signs: Vital Signs Temp 97.4 F L 10/31/20 08:41 Pulse 111 H 10/31/20 08:41 Resp 16 10/31/20 08:41 BP 102/58 10/31/20 08:41 Pulse Ox 98 10/31/20 08:41 Intake & Output 10/30/20 10/31/20 10/31/20 18:59 06:59 18:59 Intake Total 10 Output Total 525 50 Balance -525 -40 Weight 83 kg Intake: IV 10 0.9 10 Output: Urine 525 50 Other: Voiding Method Indwelling Catheter Indwelling Catheter Indwelling Catheter - Labs CBC & Chem 7: 10/30/20 07:22 10/31/20 10:03 Labs: Abnormal Lab Results - Last 24 Hours (Table) 10/30/20 10/30/20 10/30/20 Range/Units 12:03 17:09 20:09 PT (9.0-12.0) sec INR (<1.2) Sodium (137-145) mmol/L Potassium (3.5-5.1) mmol/L Carbon Dioxide (22-30) mmol/L BUN (7-17) mg/dL Creatinine (0.52-1.04) mg/dL Glucose (74-99) mg/dL POC Glucose (mg/dL) 132 H 135 H 163 H (75-99) mg/dL Calcium (8.4-10.2) mg/dL 10/31/20 10/31/20 Range/Units 10:03 10:03 PT 62.4 H (9.0-12.0) sec INR 6.2 H* (<1.2) Sodium 135 L (137-145) mmol/L Potassium 5.7 H (3.5-5.1) mmol/L Carbon Dioxide 19 L (22-30) mmol/L BUN 73 H (7-17) mg/dL Creatinine 2.28 H (0.52-1.04) mg/dL Glucose 100 H (74-99) mg/dL POC Glucose (mg/dL) (75-99) mg/dL Calcium 8.0 L (8.4-10.2) mg/dL
--- NOTE | 2020-10-31 12:49 | P.DS ---
Providers Date of admission: 10/28/20 14:05 Attending physician: Jignesh Arias Consults: 10/28/20 14:06 Consult Physician Routine Consulting Provider: Bam Velazquez Consult Reason/Comments: afib rvr Do you want consulting provider notified?: Yes Primary care physician: Carlos Arnoldqvi [facility] Course: 79-year-old female was recently admitted from [facility] on the [facility] facility for atrial fibrillation with rapid ventricular rate and was placed on metoprolol with medication adjustments made. Patient's blood pressure is quite low on admission and was given a dose of metoprolol although blood pressures continue to be low and patient was initiated on amiodarone. Cardiology consulted and pending at this time. Patient was also found to be Coumadin coagulable with an INR of 4.0 and will hold Coumadin and repeat labs. Patient continues to be quite edematous and bilateral upper extremities appear to be weeping in 1-2 pitting edema is noted. Patient is also known to have medical debility with g eneralized weakness and mostly bedbound and does have chronic stage II decubitus sacral ulcers and wound care has been consulted. Patient also has type 2 diabetes mellitus and will resume sliding scale and long-acting insulin. On exam patient is having pain of bilateral upper extremities and states she is leaking from her skin. Patient did have an indwelling Redmond catheter upon admission and will continue for strict intake and output. Patient's chest x-ray shows pulmonary edema with an abnormal increased density that is again noted in the left lung base with patchy perihilar vascular indistinctness. Will hold IV fluids and monitor vital signs and labs closely. Patient does have a history of chronic kidney disease and current creatinine is 1.37, sodium is 136, potassium elevated at 5.4 and will give a dose of Kayexalate. Hemoglobin is stable at 8.6 and white blood count is 7.0. Current BNP is 7080. Patient has a history of hypothyroidism and medications were recently adjusted and will resume home medications. Patient currently denies any chest pain or shortness of breath. Patient is afebrile. Patient denies any nausea or vomiting or abdominal discomfort and is tolerating diet. 10/29/2020 Patient is seen and evaluated in follow-up with no acute overnight issues. Patient IV amiodarone was discontinued and was initiated on oral amiodarone and will continue with metoprolol. Cardiology following. INR today is 6.0 and will discuss with cardiology as patient is on Coumadin which may interact with amiodarone. Will repeat labs and monitor closely. Patient continues to have bilateral upper and lower extremity swelling and edema noted and was resumed on IV Lasix. Her creatinine is 1.56. TSH was found to be high and free T4 was drawn and is 1.13 and will continue with current dose of Synthroid. Patient's blood pressures on the lower side although stable in the 90s systolic. Wound care consulted for multiple stage II ulcerations of the sacral region as she has been receiving ongoing wound care while at [facility]. Appreciate wound care recommendations. PT/OT to evaluate the patient. Social work following this patient will likely return to [facility] once stabilized and discharged. 10/30/2020 Patient is seen in follow-up and INR is greater than 10 and will give vitamin K 10 mg and repeat labs. Amiodarone and metoprolol on hold as patient's blood pressures were in the 80s systolic. Lasix was also held due to blood pressures. Discussed with nursing staff about getting Lasix and blood pressure has been marginal. Patient continues to have bilateral upper and lower extremity edema with weeping noted and reports shortness of breath. Patient is maintained on 3 L of oxygen via nasal cannula. Current sodium is 134 with a potassium of 5.4 and creatinine is gone up to 1.87. A dose of Kayexalate was given and will repeat labs. Blood sugars continue to be monitored as patient is on sliding scale and with meal insulin along with long-acting although blood sugars have been on the lower side and these medications were held this morning. 10/31/2020 INR and basic metabolic profile is not available yet at this time. Patient is still on IV Lasix. Patient received vitamin K yesterday. Patient is still has significant anasarca. Patient received a Lopressor with improvement in the blood pressure as well as heart rate. Heart rate remains the low 100s patient is presently on 4 L of oxygen. Patient has externally poor functionality at baseline snf resident with some decubitus ulcerations. Her overall prognosis is poor because of her poor quality of life heart failure patient is more appropriate for comfort care and hospice same thing will be discussed with family members if available. Later in the day the nurse did discuss with me that patient is more awake and wanted to be hospice and the register knows that takes care of the patient believes patient can make her own decision I did go in to evaluate the patient, patient is agreeable with comfort care patient has 1 family member who is a cousin although not in contact with patient case was discussed with her as well by case management and they're agreeable and hospice and patient will be made hospice and comfort care possibility of discharge today or tomorrow depending on availability of bed at snf on hospice. PHYSICAL EXAMINATION: GENERAL: Sleepy, mumbles unable to assess his orientation, not in any acute distress. Well developed, well nourished. HEENT: Pupils are round and equally reacting to light. EOMI. No scleral icterus. No conjunctival pallor. Normocephalic, atraumatic. No pharyngeal erythema. No thyromegaly. CARDIOVASCULAR: S1 and S2 present. No murmurs, rubs, or gallops. Tachycardic irregularly irregular rhythm PULMONARY: Chest is clear to auscultation, no wheezing or crackles. ABDOMEN: Soft, nontender, nondistended, normoactive bowel sounds. No palpable organomegaly. MUSCULOSKELETAL: No joint swelling or deformity. EXTREMITIES: No cyanosis, clubbing, significant anasarca with edema 2+ pitting in the upper and lower extremities. NEUROLOGICAL: Unable to clearly assess SKIN: Multiple decubitus ulcerations including sacral ulcers as noted in the past Assessment and Plan Plan: -Atrial fibrillation with rapid ventricular rate: cardiology following. -Congestive heart failure acute on chronic diastolic dysfunction, acute exacerbation: Possibly exacerbated by atrial fibrillation. 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 Wound care following and patient has been receiving wound care at the [facility] -Hypothyroidism -Diabetes mellitus type 2 -Hyperlipidemia -Gastroesophageal reflux disease -DVT prophylaxis: Coumadin although currently on hold as patient is supratherapeutic -GI prophylaxis: Protonix -No code Patient Condition at Discharge: Fair Plan - Discharge Summary Discharge Rx Participant: No New Discharge Prescriptions: No Action Potassium Chloride ER [K-Dur 20] 20 meq PO DAILY@0600 Furosemide [Lasix] 40 mg PO DAILY@0600 Atorvastatin [Lipitor] 20 mg PO HS@2100 Pantoprazole [Protonix] 40 mg PO DAILY@0900 Polyethylene Glycol 3350 [Miralax] 17 gm PO DAILY PRN PRN Reason: Constipation Ferrous Sulfate [Iron (65 MG Elemental)] 325 mg PO DAILY@0600 Nitroglycerin Sl Tabs [Nitrostat] 0.4 mg SUBLINGUAL Q5M PRN tab PRN Reason: Chest Pain traMADol HCL 50 mg PO Q12H PRN #3 tab PRN Reason: Pain Ipratropium-Albuterol Nebulize [Duoneb 0.5 mg-3 mg/3 ml Soln] 3 ml INHALATION RT-Q4H PRN PRN Reason: Shortness Of Breath Insulin Lispro [humaLOG Kwikpen] 2 unit SQ ACHS@08,12,17,22 Prostat Awc 30 ml PO BID@0900,1700 Glucerna Shake 1 can PO BID@0900,1700 Zinc 50 mg PO DAILY@0900 Cholecalciferol [Vitamin D3 (25 Mcg = 1000 Iu)] 2,000 unit PO DAILY@0900 Linagliptin [Tradjenta] 5 mg PO DAILY@0600 Insulin Glargine,Hum.rec.anlog [Basaglar Kwikpen U-100] 10 unit SQ HS@2200 Ascorbic Acid [Vitamin C] 500 mg PO DAILY@0900 Collagenase [Santyl] 1 applic TOPICAL HS Triad Hydrophilic Wound Dress 1 applic TOPICAL DAILY PRN PRN Reason: LEFT POSTERIOR THIGH WOUND Clotrimazole/Betamethasone Dip [Lotrisone Cream] 1 applic TOPICAL Q12H Levothyroxine Sodium [Synthroid] 50 mcg PO DAILY@0900 Metoprolol Tartrate [Lopressor] 50 mg PO BID@0900,1700 Warfarin [Coumadin] 3 mg PO MOTH Warfarin [Coumadin] 2.5 mg PO SUTUWEFRSA Discharge Medication List Atorvastatin [Lipitor] 20 mg PO HS@2100 05/07/16 [History] Furosemide [Lasix] 40 mg PO DAILY@0600 05/07/16 [History] Pantoprazole [Protonix] 40 mg PO DAILY@0900 05/07/16 [History] Potassium Chloride ER [K-Dur 20] 20 meq PO DAILY@0600 05/07/16 [History] Ferrous Sulfate [Iron (65 MG Elemental)] 325 mg PO DAILY@0600 10/02/20 [History] Polyethylene Glycol 3350 [Miralax] 17 gm PO DAILY PRN 10/02/20 [History] Nitroglycerin Sl Tabs [Nitrostat] 0.4 mg SUBLINGUAL Q5M PRN tab 10/08/20 [Rx] traMADol HCL 50 mg PO Q12H PRN #3 tab 10/08/20 [Rx] Ascorbic Acid [Vitamin C] 500 mg PO DAILY@0900 10/23/20 [History] Cholecalciferol [Vitamin D3 (25 Mcg = 1000 Iu)] 2,000 unit PO DAILY@0900 10/23/20 [History] Collagenase [Santyl] 1 applic TOPICAL HS 10/23/20 [History] Glucerna Shake 1 can PO BID@0900,1700 10/23/20 [History] Insulin Glargine,Hum.rec.anlog [Basaglar Kwikpen U-100] 10 unit SQ HS@2200 10/23/20 [History] Insulin Lispro [humaLOG Kwikpen] 2 unit SQ ACHS@08,12,17,22 10/23/20 [History] Ipratropium-Albuterol Nebulize [Duoneb 0.5 mg-3 mg/3 ml Soln] 3 ml INHALATION RT-Q4H PRN 10/23/20 [History] Linagliptin [Tradjenta] 5 mg PO DAILY@0600 10/23/20 [History] Prostat Awc 30 ml PO BID@0900,1700 10/23/20 [History] Triad Hydrophilic Wound Dress 1 applic TOPICAL DAILY PRN 10/23/20 [History] Zinc 50 mg PO DAILY@0900 10/23/20 [History] Clotrimazole/Betamethasone Dip [Lotrisone Cream] 1 applic TOPICAL Q12H 10/28/20 [History] Levothyroxine Sodium [Synthroid] 50 mcg PO DAILY@0900 10/28/20 [History] Metoprolol Tartrate [Lopressor] 50 mg PO BID@0900,1700 10/28/20 [History] Warfarin [Coumadin] 2.5 mg PO SUTUWEFRSA 10/28/20 [History] Warfarin [Coumadin] 3 mg PO MOTH 10/28/20 [History] Follow up Appointment(s)/Referral(s): Rylan,Carlos, MD [Primary Care Provider] - 1-2 days
[2020-10-31] MEDS: INSULIN DETEMIR (LEVEMIR) 100 UNIT/ML SYR SQ SCH (20:25)
[2020-11-01] MEDS: CLOTRIMAZOLE/BETAMETH 1-0.05% CREAM 45 GM TUBE TOPICAL SCH ×2 (04:13→17:42)
[2020-11-01] MEDS: INSULIN ASPART (NovoLOG) 100 UNIT/ML VIAL SQ SCH ×8 (06:10→21:01)
[2020-11-01] MEDS: LINAGLIPTIN 5 MG TABLET PO SCH (06:11)
[2020-11-01] MEDS: LEVOTHYROXINE 50 MCG TAB PO SCH (06:11)
[2020-11-01] MEDS: FERROUS SULFATE 325 MG TAB PO SCH (06:11)
[2020-11-01] MEDS: PANTOPRAZOLE 40 MG TABLET PO SCH (06:12)
[2020-11-01 07:54] LABS: INR 4.9 (<1.2); Prothrombin Time 48.8 sec (9.0-12.0)
[2020-11-01 08:00] LABS: Potassium 5.5 mmol/L (3.5-5.1)
[2020-11-01] MEDS ORDERED: AMIODARONE 200 MG TAB PO SCH (09:00)
[2020-11-01] MEDS ORDERED: FUROSEMIDE 10 MG/ML 4 ML VIAL IV SCH (09:00)
[2020-11-01] MEDS: CHOLECALCIFEROL 1,000 UNIT TAB PO SCH (09:07)
[2020-11-01] MEDS: ASCORBIC ACID 500 MG TAB PO SCH (09:07)
[2020-11-01] MEDS: FUROSEMIDE 10 MG/ML 4 ML VIAL IV SCH (09:08)
[2020-11-01] MEDS: ZINC SULFATE 220 MG CAP PO SCH (09:08)
[2020-11-01] MEDS: METOPROLOL TARTRATE 25 MG TAB PO SCH ×2 (09:08→16:59)
--- NOTE | 2020-11-01 10:59 | P.PN ---
Subjective 79-year-old female was recently admitted from [facility] on the [facility] facility for atrial fibrillation with rapid ventricular rate and was placed on metoprolol with medication adjustments made. Patient's blood pressure is quite low on admission and was given a dose of metoprolol although blood pressures continue to be low and patient was initiated on amiodarone. Cardiology consulted and pending at this time. Patient was also found to be Coumadin coagulable with an INR of 4.0 and will hold Coumadin and repeat labs. Patient continues to be quite edematous and bilateral upper extremities appear to be weeping in 1-2 pitting edema is noted. Patient is also known to have medical debility with generalized weakness and mostly bedbound and does have chronic stage II decubitus sacral ulcers and wound care has been consulted. Patient also has type 2 diabetes mellitus and will resume sliding scale and long-acting insulin. On exam patient is having pain of bilateral upper extremities and states she is leaking from her skin. Patient did have an indwelling Redmond catheter upon admission and will continue for strict intake and output. Patient's chest x-ray shows pulmonary edema with an abnormal increased density that is again noted in the left lung base with patchy perihilar vascular indistinctness. Will hold IV fluids and monitor vital signs and labs closely. Patient does have a history of chronic kidney disease and current creatinine is 1.37, sodium is 136, potassium elevated at 5.4 and will give a dose of Kayexalate. Hemoglobin is stable at 8.6 and white blood count is 7.0. Current BNP is 7080. Patient has a history of h ypothyroidism and medications were recently adjusted and will resume home medications. Patient currently denies any chest pain or shortness of breath. Patient is afebrile. Patient denies any nausea or vomiting or abdominal discomfort and is tolerating diet. 10/29/2020 Patient is seen and evaluated in follow-up with no acute overnight issues. Patient IV amiodarone was discontinued and was initiated on oral amiodarone and will continue with metoprolol. Cardiology following. INR today is 6.0 and will discuss with cardiology as patient is on Coumadin which may interact with amiodarone. Will repeat labs and monitor closely. Patient continues to have bilateral upper and lower extremity swelling and edema noted and was resumed on IV Lasix. Her creatinine is 1.56. TSH was found to be high and free T4 was drawn and is 1.13 and will continue with current dose of Synthroid. Patient's blood pressures on the lower side although stable in the 90s systolic. Wound care consulted for multiple stage II ulcerations of the sacral region as she has been receiving ongoing wound care while at [facility]. Appreciate wound care recommendations. PT/OT to evaluate the patient. Social work following this patient will likely return to [facility] once stabilized and discharged. 10/30/2020 Patient is seen in follow-up and INR is greater than 10 and will give vitamin K 10 mg and repeat labs. Amiodarone and metoprolol on hold as patient's blood pressures were in the 80s systolic. Lasix was also held due to blood pressures. Discussed with nursing staff about getting Lasix and blood pressure has been marginal. Patient continues to have bilateral upper and lower extremity edema with weeping noted and reports shortness of breath. Patient is maintained on 3 L of oxygen via nasal cannula. Current sodium is 134 with a potassium of 5.4 and creatinine is gone up to 1.87. A dose of Kayexalate was given and will repeat labs. Blood sugars continue to be monitored as patient is on sliding scale and with meal insulin along with long-acting although blood sugars have been on the lower side and these medications were held this morning. 10/31/2020 INR and basic metabolic profile is not available yet at this time. Patient is still on IV Lasix. Patient received vitamin K yesterday. Patient is still has significant anasarca. Patient received a Lopressor with improvement in the blood pressure as well as heart rate. Heart rate remains the low 100s patient is presently on 4 L of oxygen. Patient has externally poor functionality at baseline group home resident with some decubitus ulcerations. Her overall prognosis is poor because of her poor quality of life heart failure patient is m ore appropriate for comfort care and hospice same thing will be discussed with family members if available. at this point of time cannot make a decision patient just leonor doesn't give any answers. 11/01/2020 Because of the financial issues and some case management issues were unable to discharge the patient with hospice. Blue under hospice will evaluate the patient today hopefully. Review of systems: Unable to assess because of above-mentioned reasons All inpatient medications were reviewed and appropriate changes in these medications as dictated in the interval history and assessment and plan. Objective - Vital Signs Vital signs: Vital Signs Temp 97.6 F 11/01/20 08:00 Pulse 64 11/01/20 08:00 Resp 18 11/01/20 08:00 BP 116/64 11/01/20 08:00 Pulse Ox 99 11/01/20 08:00 Intake & Output 10/31/20 11/01/20 11/01/20 18:59 06:59 18:59 Intake Total 125 10 Output Total 80 175 Balance 45 -165 Weight 83 kg 86 kg Intake: IV 10 0.9 10 Oral 125 Output: Urine 80 175 Other: Voiding Method Indwelling Catheter Indwelling Catheter Indwelling Catheter # Voids 0 - Exam PHYSICAL EXAMINATION: GENERAL: Sleepy, mumbles unable to assess his orientation, not in any acute distress. Well developed, well nourished. HEENT: Pupils are round and equally reacting to light. EOMI. No scleral icterus. No conjunctival pallor. Normocephalic, atraumatic. No pharyngeal erythema. No thyromegaly. CARDIOVASCULAR: S1 and S2 present. No murmurs, rubs, or gallops. Tachycardic irregularly irregular rhythm PULMONARY: Chest is clear to auscultation, no wheezing or crackles. ABDOMEN: Soft, nontender, nondistended, normoactive bowel sounds. No palpable organomegaly. MUSCULOSKELETAL: No joint swelling or deformity. EXTREMITIES: No cyanosis, clubbing, significant anasarca with edema 2+ pitting in the upper and lower extremities. NEUROLOGICAL: Unable to clearly assess SKIN: Multiple decubitus ulcerations including sacral ulcers as noted in the past - Labs CBC & Chem 7: 10/30/20 07:22 11/01/20 07:24 Labs: Abnormal Lab Results - Last 24 Hours (Table) 11/01/20 11/01/20 Range/Units 07:24 07:24 PT 48.8 H (9.0-12.0) sec INR 4.9 H (<1.2) Sodium 136 L (137-145) mmol/L Potassium 5.5 H (3.5-5.1) mmol/L BUN 82 H (7-17) mg/dL Creatinine 2.84 H (0.52-1.04) mg/dL Glucose 110 H (74-99) mg/dL Calcium 8.0 L (8.4-10.2) mg/dL Assessment and Plan Plan: -Atrial fibrillation with rapid ventricular rate: cardiology following. Patient is on oral amiodarone and metoprolol was resumed at some improvement in heart rate and blood pressure. Most recent ejection fraction in September 2020 showed an EF of 55-60% -Congestive heart failure acute on chronic diastolic dysfunction, acute exacerbation: Possibly exacerbated by atrial fibrillation. Patient is maintained on IV Lasix -Pulmonary edema secondary to above: Continue with IV Lasix -Coumadin coagulopathy: Will hold Coumadin as INR is above 10 and will repeat labs, cardiology following, vitamin K 10 mg given INR pending -Recent Covid 19 pneumonia -Chronic kidney disease stage III possibly due to diabetic nephropathy -Chronic stage II decubitus, sacral, left hip ulcers: Patient is mostly bedbound. Wound care following and patient has been receiving wound care at the [facility] -Hypothyroidism -Diabetes mellitus type 2 -Hyperlipidemia -Gastroesophageal reflux disease -DVT prophylaxis: Coumadin although currently on hold as patient is supratherapeutic -GI prophylaxis: Protonix -No code Patient will be discharged
--- NOTE | 2020-11-01 11:04 | P.PN ---
Subjective Progress Note Date: 11/01/20 CHIEF COMPLAINT: A. fib with RVR HISTORY OF PRESENT ILLNESS: 10/29/2020 This is a 79-year-old female with a past medical history significant for hypertension, aortic valve replacement on long-term anticoagulation with Coumadin, and atrial fibrillation. Patient does not follow with a neurology manager. We have been asked to see the patient in consultation for afib with RVR. Patient was recently hospitalized secondary to afib. She was also recently diagnosed with Covid 19. Patient was hypotensive upon admission and her beta blockers were held. She was started on an amio drip in the emergency room. Patient denies chest pain or pressure. She denies shortness of breath. She reports increased swelling to her upper and lower extremities. Denies dizziness or ligh theadedness. Denies palpitations. EKG reveals A. fib with RVR Chest xray correlate for pneumonia, pulmonary edema. Echocardiogram completed in September 2020 reveals EF 55-60%, mild to moderate regurgitation of the bioprosthetic aortic valve, moderate mitral regurgitation and mild tricuspid regurgitation 10/30/2020 Patient examined this morning at the bedside. Denies chest pain or pressure. Denies shortness of breath. Patient's INR is greater than 10. Her Coumadin remains on hold. Patient's blood pressure this morning is low with a systolic in the 80s. Creatinine increased today to 1.87, up from 1.56 yesterday. 10/31/2020 Patient examined this morning at the bedside. Patient lethargic this AM. She remains edematous in all extremities. She is on IV lasix. She has been hypotensive and some of her medications have been held secondary to this. She received vitamin K yesterday for an INR greater than 10. INR 6.2 today. Potassium 5.7. Creatinine 2.28. 11/01/2020 Patient examined this morning at the bedside. She remains lethargic. Apparently, patient is taking some of her medications but refusing others. Patients blood pressure 116/64. INR today 4.9. Potassium 5.5. BUN 82. Creatinine 2.84, up from 2.28 yesterday. PHYSICAL EXAM: VITAL SIGNS: Reviewed. GENERAL: Well-developed in no acute distress. HEENT: Head is normocephalic. Pupils are equal, round. Sclerae anicteric. Mucous membranes of the mouth are moist. Neck supple. No JVD or thyromegaly LUNGS: Respirations even and unlabored. Lungs diminished with rales to bilateral bases HEART: Irregular rate and rhythm. S1 and S2 heard. Systolic murmur noted. ABDOMEN: Soft. Nondistended. Nontender. EXTREMITIES: Normal range of motion. No clubbing or cyanosis. Peripheral pulses intact. 2-3+ bilateral upper and lower extremity edema NEUROLOGIC: Lethargic ASSESSMENT: Paroxysmal atrial fibrillation with RVR Hypotension Recent Covid 19 Acute exacerbation of chronic diastolic congestive heart failure, EF 55-60% History of aortic valve replacement, on long-term anticoagulation with Coumadin Subtherapeutic INR Hypertension Abnormal TSH PLAN: Monitor INR. Continue to hold Coumadin at this time. Continue current cardiac medications as blood pressure tolerates Change amio to 200 BID Decrease lasix to once daily due to worsening creatinine. If creatinine continues to worsen, will DC all together Possible hospice per internal medicine Further recommendations pending patient course Nurse practitioner note has been reviewed by physician. Signing provider agrees with the documented findings, assessment, and plan of care. Objective - Vital Signs Vital signs: Vital Signs Temp 97.6 F 11/01/20 08:00 Pulse 64 11/01/20 08:00 Resp 18 11/01/20 08:00 BP 116/64 11/01/20 08:00 Pulse Ox 99 11/01/20 08:00 Intake & Output 10/31/20 11/01/20 11/01/20 18:59 06:59 18:59 Intake Total 125 10 Output Total 80 175 Balance 45 -165 Weight 83 kg 86 kg Intake: IV 10 0.9 10 Oral 125 Output: Urine 80 175 Other: Voiding Method Indwelling Catheter Indwelling Catheter Indwelling Catheter # Voids 0 - Labs CBC & Chem 7: 10/30/20 07:22 11/01/20 07:24 Labs: Abnormal Lab Results - Last 24 Hours (Table) 11/01/20 11/01/20 Range/Units 07:24 07:24 PT 48.8 H (9.0-12.0) sec INR 4.9 H (<1.2) Sodium 136 L (137-145) mmol/L Potassium 5.5 H (3.5-5.1) mmol/L BUN 82 H (7-17) mg/dL Creatinine 2.84 H (0.52-1.04) mg/dL Glucose 110 H (74-99) mg/dL Calcium 8.0 L (8.4-10.2) mg/dL
[2020-11-01] MEDS: traMADol 50 MG TAB PO PRN (19:55)
[2020-11-01] MEDS: AMIODARONE 200 MG TAB PO SCH (19:55)
[2020-11-01] MEDS: INSULIN DETEMIR (LEVEMIR) 100 UNIT/ML SYR SQ SCH (21:01)
[2020-11-02] MEDS: CLOTRIMAZOLE/BETAMETH 1-0.05% CREAM 45 GM TUBE TOPICAL SCH ×2 (03:16→16:48)
[2020-11-02] MEDS: LEVOTHYROXINE 50 MCG TAB PO SCH (05:52)
[2020-11-02] MEDS: LINAGLIPTIN 5 MG TABLET PO SCH (05:52)
[2020-11-02] MEDS: PANTOPRAZOLE 40 MG TABLET PO SCH (05:52)
[2020-11-02] MEDS: FERROUS SULFATE 325 MG TAB PO SCH (05:52)
[2020-11-02] MEDS: INSULIN ASPART (NovoLOG) 100 UNIT/ML VIAL SQ SCH ×8 (06:45→21:48)
[2020-11-02] MEDS: ASCORBIC ACID 500 MG TAB PO SCH ×2 (09:10→09:24)
[2020-11-02] MEDS: FUROSEMIDE 10 MG/ML 4 ML VIAL IV SCH (09:10)
[2020-11-02] MEDS: ZINC SULFATE 220 MG CAP PO SCH ×2 (09:10→09:25)
[2020-11-02] MEDS: CHOLECALCIFEROL 1,000 UNIT TAB PO SCH ×2 (09:10→09:24)
[2020-11-02] MEDS: METOPROLOL TARTRATE 25 MG TAB PO SCH ×3 (09:10→16:49)
[2020-11-02] MEDS: AMIODARONE 200 MG TAB PO SCH ×4 (09:11→22:01)
--- NOTE | 2020-11-02 10:17 | P.DS ---
Providers Date of admission: 10/28/20 14:05 Attending physician: Jignesh Arias Consults: 10/28/20 14:06 Consult Physician Routine Consulting Provider: Bam Velazquez Consult Reason/Comments: afib rvr Do you want consulting provider notified?: Yes Primary care physician: Carlos Arnoldqvi [facility] [employer] [facility] Course: 79-year-old female was recently admitted from [facility] on the [facility] facility for atrial fibrillation with rapid ventricular rate and was placed on metoprolol with medication adjustments made. Patient's blood pressure is quite low on admission and was given a dose of metoprolol although blood pressures continue to be low and patient was initiated on amiodarone. Cardiology consulted and pending at this time. Patient was also found to be Coumadin coagulable with an INR of 4.0 and will hold Coumadin and repeat labs. Patient continues to be quite edematous and bilateral upper extremities appear to be weeping in 1-2 pitting edema is noted. Patient is also known to have medical debility with g eneralized weakness and mostly bedbound and does have chronic stage II decubitus sacral ulcers and wound care has been consulted. Patient also has type 2 diabetes mellitus and will resume sliding scale and long-acting insulin. On exam patient is having pain of bilateral upper extremities and states she is leaking from her skin. Patient did have an indwelling Redmond catheter upon admission and will continue for strict intake and output. Patient's chest x-ray shows pulmonary edema with an abnormal increased density that is again noted in the left lung base with patchy perihilar vascular indistinctness. Will hold IV fluids and monitor vital signs and labs closely. Patient does have a history of chronic kidney disease and current creatinine is 1.37, sodium is 136, potassium elevated at 5.4 and will give a dose of Kayexalate. Hemoglobin is stable at 8.6 and white blood count is 7.0. Current BNP is 7080. Patient has a history of hypothyroidism and medications were recently adjusted and will resume home medications. Patient currently denies any chest pain or shortness of breath. Patient is afebrile. Patient denies any nausea or vomiting or abdominal discomfort and is tolerating diet. 10/29/2020 Patient is seen and evaluated in follow-up with no acute overnight issues. Patient IV amiodarone was discontinued and was initiated on oral amiodarone and will continue with metoprolol. Cardiology following. INR today is 6.0 and will discuss with cardiology as patient is on Coumadin which may interact with amiodarone. Will repeat labs and monitor closely. Patient continues to have bilateral upper and lower extremity swelling and edema noted and was resumed on IV Lasix. Her creatinine is 1.56. TSH was found to be high and free T4 was drawn and is 1.13 and will continue with current dose of Synthroid. Patient's blood pressures on the lower side although stable in the 90s systolic. Wound care consulted for multiple stage II ulcerations of the sacral region as she has been receiving ongoing wound care while at [facility]. Appreciate wound care recommendations. PT/OT to evaluate the patient. Social work following this patient will likely return to [facility] once stabilized and discharged. 10/30/2020 Patient is seen in follow-up and INR is greater than 10 and will give vitamin K 10 mg and repeat labs. Amiodarone and metoprolol on hold as patient's blood pressures were in the 80s systolic. Lasix was also held due to blood pressures. Discussed with nursing staff about getting Lasix and blood pressure has been marginal. Patient continues to have bilateral upper and lower extremity edema with weeping noted and reports shortness of breath. Patient is maintained on 3 L of oxygen via nasal cannula. Current sodium is 134 with a potassium of 5.4 and creatinine is gone up to 1.87. A dose of Kayexalate was given and will repeat labs. Blood sugars continue to be monitored as patient is on sliding scale and with meal insulin along with long-acting although blood sugars have been on the lower side and these medications were held this morning. 10/31/2020 INR and basic metabolic profile is not available yet at this time. Patient is still on IV Lasix. Patient received vitamin K yesterday. Patient is still has significant anasarca. Patient received a Lopressor with improvement in the blood pressure as well as heart rate. Heart rate remains the low 100s patient is presently on 4 L of oxygen. Patient has externally poor functionality at baseline halfway resident with some decubitus ulcerations. Her overall prognosis is poor because of her poor quality of life heart failure patient is more appropriate for comfort care and hospice same thing will be discussed with family members if available. Later in the day the nurse did discuss with me that patient is more awake and wanted to be hospice and the register knows that takes care of the patient believes patient can make her own decision I did go in to evaluate the patient, patient is agreeable with comfort care patient has 1 family member who is a cousin although not in contact with patient case was discussed with her as well by case management and they're agreeable and hospice and patient will be made hospice and comfort care possibility of discharge today or tomorrow depending on availability of bed at halfway on hospice. 11/01/2020 Because of the financial issues and some case management issues were unable to discharge the patient with hospice. Blue under hospice will evaluate the patient today hopefully. 11/02/2020 Patient will be discharged today under hospice care PHYSICAL EXAMINATION: GENERAL: Sleepy, mumbles unable to assess his orientation, not in any acute distress. Well developed, well nourished. HEENT: Pupils are round and equally reacting to light. EOMI. No scleral icterus. No conjunctival pallor. Normocephalic, atraumatic. No pharyngeal erythema. No thyromegaly. CARDIOVASCULAR: S1 and S2 present. No murmurs, rubs, or gallops. irregularly ir regular rhythm PULMONARY: Chest is clear to auscultation, no wheezing or crackles. ABDOMEN: Soft, nontender, nondistended, normoactive bowel sounds. No palpable organomegaly. MUSCULOSKELETAL: No joint swelling or deformity. EXTREMITIES: No cyanosis, clubbing, significant anasarca with edema 2+ pitting in the upper and lower extremities there may be little improvement since admission.. NEUROLOGICAL: Unable to clearly assess SKIN: Multiple decubitus ulcerations including sacral ulcers as noted in the past Assessment and Plan Plan: -Atrial fibrillation with rapid ventricular rate: cardiology following. -Congestive heart failure acute on chronic diastolic dysfunction, acute exacerbation: Possibly exacerbated by atrial fibrillation. 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 Wound care following and patient has been receiving wound care at the [facility] -Hypothyroidism -Diabetes mellitus type 2 -Hyperlipidemia -Gastroesophageal reflux disease -DVT prophylaxis: Coumadin although currently on hold as patient is supratherapeutic -GI prophylaxis: Protonix -No code Patient will be discharged to a facility with hospice Patient Condition at Discharge: Fair Plan - Discharge Summary Discharge Rx Participant: No New Discharge Prescriptions: No Action Potassium Chloride ER [K-Dur 20] 20 meq PO DAILY@0600 Furosemide [Lasix] 40 mg PO DAILY@0600 Atorvastatin [Lipitor] 20 mg PO HS@2100 Pantoprazole [Protonix] 40 mg PO DAILY@0900 Polyethylene Glycol 3350 [Miralax] 17 gm PO DAILY PRN PRN Reason: Constipation Ferrous Sulfate [Iron (65 MG Elemental)] 325 mg PO DAILY@0600 Nitroglycerin Sl Tabs [Nitrostat] 0.4 mg SUBLINGUAL Q5M PRN tab PRN Reason: Chest Pain traMADol HCL 50 mg PO Q12H PRN #3 tab PRN Reason: Pain Ipratropium-Albuterol Nebulize [Duoneb 0.5 mg-3 mg/3 ml Soln] 3 ml INHALATION RT-Q4H PRN PRN Reason: Shortness Of Breath Insulin Lispro [humaLOG Kwikpen] 2 unit SQ ACHS@08,12,17,22 Prostat Awc 30 ml PO BID@0900,1700 Glucerna Shake 1 can PO BID@0900,1700 Zinc 50 mg PO DAILY@0900 Cholecalciferol [Vitamin D3 (25 Mcg = 1000 Iu)] 2,000 unit PO DAILY@0900 Linagliptin [Tradjenta] 5 mg PO DAILY@0600 Insulin Glargine,Hum.rec.anlog [Basaglar Kwikpen U-100] 10 unit SQ HS@2200 Ascorbic Acid [Vitamin C] 500 mg PO DAILY@0900 Collagenase [Santyl] 1 applic TOPICAL HS Triad Hydrophilic Wound Dress 1 applic TOPICAL DAILY PRN PRN Reason: LEFT POSTERIOR THIGH WOUND Clotrimazole/Betamethasone Dip [Lotrisone Cream] 1 applic TOPICAL Q12H Levothyroxine Sodium [Synthroid] 50 mcg PO DAILY@0900 Metoprolol Tartrate [Lopressor] 50 mg PO BID@0900,1700 Warfarin [Coumadin] 3 mg PO MOTH Warfarin [Coumadin] 2.5 mg PO SUTUWEFRSA Discharge Medication List Atorvastatin [Lipitor] 20 mg PO HS@2100 05/07/16 [History] Furosemide [Lasix] 40 mg PO DAILY@0600 05/07/16 [History] Pantoprazole [Protonix] 40 mg PO DAILY@0900 05/07/16 [History] Potassium Chloride ER [K-Dur 20] 20 meq PO DAILY@0600 05/07/16 [History] Ferrous Sulfate [Iron (65 MG Elemental)] 325 mg PO DAILY@0600 10/02/20 [History] Polyethylene Glycol 3350 [Miralax] 17 gm PO DAILY PRN 10/02/20 [History] Nitroglycerin Sl Tabs [Nitrostat] 0.4 mg SUBLINGUAL Q5M PRN tab 10/08/20 [Rx] traMADol HCL 50 mg PO Q12H PRN #3 tab 10/08/20 [Rx] Ascorbic Acid [Vitamin C] 500 mg PO DAILY@0900 10/23/20 [History] Cholecalciferol [Vitamin D3 (25 Mcg = 1000 Iu)] 2,000 unit PO DAILY@0900 10/23/20 [History] Collagenase [Santyl] 1 applic TOPICAL HS 10/23/20 [History] Glucerna Shake 1 can PO BID@0900,1700 10/23/20 [History] Insulin Glargine,Hum.rec.anlog [Basaglar Kwikpen U-100] 10 unit SQ HS@2200 [History] Insulin Lispro [humaLOG Kwikpen] 2 unit SQ ACHS@08,12,17,22 10/23/20 [History] Ipratropium-Albuterol Nebulize [Duoneb 0.5 mg-3 mg/3 ml Soln] 3 ml INHALATION RT-Q4H PRN 10/23/20 [History] Linagliptin [Tradjenta] 5 mg PO DAILY@0600 10/23/20 [History] Prostat Awc 30 ml PO BID@0900,1700 10/23/20 [History] Triad Hydrophilic Wound Dress 1 applic TOPICAL DAILY PRN 10/23/20 [History] Zinc 50 mg PO DAILY@0900 10/23/20 [History] Clotrimazole/Betamethasone Dip [Lotrisone Cream] 1 applic TOPICAL Q12H 10/28/20 [History] Levothyroxine Sodium [Synthroid] 50 mcg PO DAILY@0900 10/28/20 [History] Metoprolol Tartrate [Lopressor] 50 mg PO BID@0900,1700 10/28/20 [History] Warfarin [Coumadin] 2.5 mg PO SUTUWEFRSA 10/28/20 [History] Warfarin [Coumadin] 3 mg PO MOTH 10/28/20 [History] Follow up Appointment(s)/Referral(s): Carlos Fagan MD [Primary Care Provider] - 1-2 days Discharge Disposition: DISCH TO [facility]
--- NOTE | 2020-11-02 12:14 | P.PN ---
Subjective Progress Note Date: 11/02/20 CHIEF COMPLAINT: A. fib with RVR HISTORY OF PRESENT ILLNESS: 10/29/2020 This is a 79-year-old female with a past medical history significant for hypertension, aortic valve replacement on long-term anticoagulation with Coumadin, and atrial fibrillation. 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 We have been asked to see the patient in consultation for afib with RVR. Patient was recently hospitalized secondary to afib. She was also recently diagnosed with Covid 19. Patient was hypotensive upon admission and her beta blockers were held. She was started on an amio drip in the emergency room. Patient denies chest pain or pressure. She denies shortness of breath. She reports increased swelling to her upper and lower extremities. Denies dizziness or ligh theadedness. Denies palpitations. EKG reveals A. fib with RVR Chest xray correlate for pneumonia, pulmonary edema. Echocardiogram completed in September 2020 reveals EF 55-60%, mild to moderate regurgitation of the bioprosthetic aortic valve, moderate mitral regurgitation and mild tricuspid regurgitation 10/30/2020 Patient examined this morning at the bedside. Denies chest pain or pressure. Denies shortness of breath. Patient's INR is greater than 10. Her Coumadin remains on hold. Patient's blood pressure this morning is low with a systolic in the 80s. Creatinine increased today to 1.87, up from 1.56 yesterday. 10/31/2020 Patient examined this morning at the bedside. Patient lethargic this AM. She remains edematous in all extremities. She is on IV lasix. She has been hypotensive and some of her medications have been held secondary to this. She received vitamin K yesterday for an INR greater than 10. INR 6.2 today. Potassium 5.7. Creatinine 2.28. 11/01/2020 Patient examined this morning at the bedside. She remains lethargic. Apparently, patient is taking some of her medications but refusing others. Patients blood pressure 116/64. INR today 4.9. Potassium 5.5. BUN 82. Creatinine 2.84, up from 2.28 yesterday. 11/02/2020 Patient examined this morning at the bedside. She remains lethargic. She remains edematous. She is on 3 L nasal cannula with oxygen saturations greater than 92%. Blood pressure 97/57. Heart rate in the 60s. PHYSICAL EXAM: VITAL SIGNS: Reviewed. GENERAL: Well-developed in no acute distress. HEENT: Head is normocephalic. Pupils are equal, round. Sclerae anicteric. Mucous membranes of the mouth are moist. Neck supple. No JVD or thyromegaly LUNGS: Respirations even and unlabored. Lungs diminished with rales to bilateral bases HEART: Irregular rate and rhythm. S1 and S2 heard. Systolic murmur noted. ABDOMEN: Soft. Nondistended. Nontender. EXTREMITIES: Normal range of motion. No clubbing or cyanosis. Peripheral pulses intact. 2-3+ bilateral upper and lower extremity edema NEUROLOGIC: Lethargic ASSESSMENT: Paroxysmal atrial fibrillation with RVR Hypotension Recent Covid 19 Acute exacerbation of chronic diastolic congestive heart failure, EF 55-60% History of aortic valve replacement, on long-term anticoagulation with Coumadin Subtherapeutic INR Hypertension Abnormal TSH PLAN: Per internal medicine, patient is to be discharged today with hospice We will sign off. Please re-consult if needed Nurse practitioner note has been reviewed by physician. Signing provider agrees with the documented findings, assessment, and plan of care. Objective - Vital Signs Vital signs: Vital Signs Temp 96.9 F L 11/02/20 11:48 Pulse 61 11/02/20 11:48 Resp 20 11/02/20 11:48 BP 97/57 11/02/20 11:48 Pulse Ox 94 L 11/02/20 11:48 Intake & Output 11/01/20 11/02/20 11/02/20 18:59 06:59 18:59 Intake Total 240 120 Output Total 200 250 Balance 40 -130 Weight 83.5 kg Intake: Oral 240 120 Output: Urine 200 250 Other: Voiding Method Indwelling Catheter Indwelling Catheter Indwelling Catheter - Labs CBC & Chem 7: 10/30/20 07:22 11/01/20 07:24
--- NOTE | 2020-11-02 14:15 | P.PN ---
Subjective 79-year-old female was recently admitted from [facility] on the [facility] facility for atrial fibrillation with rapid ventricular rate and was placed on metoprolol with medication adjustments made. Patient's blood pressure is quite low on admission and was given a dose of metoprolol although blood pressures continue to be low and patient was initiated on amiodarone. Cardiology consulted and pending at this time. Patient was also found to be Coumadin coagulable with an INR of 4.0 and will hold Coumadin and repeat labs. Patient continues to be quite edematous and bilateral upper extremities appear to be weeping in 1-2 pitting edema is noted. Patient is also known to have medical debility with generalized weakness and mostly bedbound and does have chronic stage II decubitus sacral ulcers and wound care has been consulted. Patient also has type 2 diabetes mellitus and will resume sliding scale and long-acting insulin. On exam patient is having pain of bilateral upper extremities and states she is leaking from her skin. Patient did have an indwelling Redmond catheter upon admission and will continue for strict intake and output. Patient's chest x-ray shows pulmonary edema with an abnormal increased density that is again noted in the left lung base with patchy perihilar vascular indistinctness. Will hold IV fluids and monitor vital signs and labs closely. Patient does have a history of chronic kidney disease and current creatinine is 1.37, sodium is 136, potassium elevated at 5.4 and will give a dose of Kayexalate. Hemoglobin is stable at 8.6 and white blood count is 7.0. Current BNP is 7080. Patient has a history of h ypothyroidism and medications were recently adjusted and will resume home medications. Patient currently denies any chest pain or shortness of breath. Patient is afebrile. Patient denies any nausea or vomiting or abdominal discomfort and is tolerating diet. 10/29/2020 Patient is seen and evaluated in follow-up with no acute overnight issues. Patient IV amiodarone was discontinued and was initiated on oral amiodarone and will continue with metoprolol. Cardiology following. INR today is 6.0 and will discuss with cardiology as patient is on Coumadin which may interact with amiodarone. Will repeat labs and monitor closely. Patient continues to have bilateral upper and lower extremity swelling and edema noted and was resumed on IV Lasix. Her creatinine is 1.56. TSH was found to be high and free T4 was drawn and is 1.13 and will continue with current dose of Synthroid. Patient's blood pressures on the lower side although stable in the 90s systolic. Wound care consulted for multiple stage II ulcerations of the sacral region as she has been receiving ongoing wound care while at [facility]. Appreciate wound care recommendations. PT/OT to evaluate the patient. Social work following this patient will likely return to [facility] once stabilized and discharged. 10/30/2020 Patient is seen in follow-up and INR is greater than 10 and will give vitamin K 10 mg and repeat labs. Amiodarone and metoprolol on hold as patient's blood pressures were in the 80s systolic. Lasix was also held due to blood pressures. Discussed with nursing staff about getting Lasix and blood pressure has been marginal. Patient continues to have bilateral upper and lower extremity edema with weeping noted and reports shortness of breath. Patient is maintained on 3 L of oxygen via nasal cannula. Current sodium is 134 with a potassium of 5.4 and creatinine is gone up to 1.87. A dose of Kayexalate was given and will repeat labs. Blood sugars continue to be monitored as patient is on sliding scale and with meal insulin along with long-acting although blood sugars have been on the lower side and these medications were held this morning. 10/31/2020 INR and basic metabolic profile is not available yet at this time. Patient is still on IV Lasix. Patient received vitamin K yesterday. Patient is still has significant anasarca. Patient received a Lopressor with improvement in the blood pressure as well as heart rate. Heart rate remains the low 100s patient is presently on 4 L of oxygen. Patient has externally poor functionality at baseline [facility] resident with some decubitus ulcerations. Her overall prognosis is poor because of her poor quality of life heart failure patient is m ore appropriate for comfort care and hospice same thing will be discussed with family members if available. Later in the day the nurse did discuss with me that patient is more awake and wanted to be hospice and the register knows that takes care of the patient believes patient can make her own decision I did go in to evaluate the patient, patient is agreeable with comfort care patient has 1 family member who is a cousin although not in contact with patient case was discussed with her as well by case management and they're agreeable and hospice and patient will be made hospice and comfort care possibility of discharge today or tomorrow depending on availability of bed at [facility] hosp[facility]. 11/01/2020 Because of the financial issues and some case management issues were unable to discharge the patient with hospice. Blue under hospice will evaluate the patient today hopefully. 11/02/2020 Patient will be discharged today under hospice care Objective - Vital Signs Vital signs: Vital Signs Temp 96.9 F L 11/02/20 11:48 Pulse 61 11/02/20 11:48 Resp 20 11/02/20 11:48 BP 97/57 11/02/20 11:48 Pulse Ox 94 L 11/02/20 11:48 Intake & Output 11/01/20 11/02/20 11/02/20 18:59 06:59 18:59 Intake Total 240 120 Output Total 200 250 Balance 40 -130 Weight 83.5 kg Intake: Oral 240 120 Output: Urine 200 250 Other: Voiding Method Indwelling Catheter Indwelling Catheter Indwelling Catheter - Exam PHYSICAL EXAMINATION: GENERAL: Sleepy, mumbles unable to assess his orientation, not in any acute distress. Well developed, well nourished. HEENT: Pupils are round and equally reacting to light. EOMI. No scleral icterus. No conjunctival pallor. Normocephalic, atraumatic. No pharyngeal erythema. No thyromegaly. CARDIOVASCULAR: S1 and S2 present. No murmurs, rubs, or gallops. Tachycardic irregularly irregular rhythm PULMONARY: Chest is clear to auscultation, no wheezing or crackles. ABDOMEN: Soft, nontender, nondistended, normoactive bowel sounds. No palpable organomegaly. MUSCULOSKELETAL: No joint swelling or deformity. EXTREMITIES: No cyanosis, clubbing, significant anasarca with edema 2+ pitting in the upper and lower extremities. NEUROLOGICAL: Unable to clearly assess SKIN: Multiple decubitus ulcerations including sacral ulcers as noted in the past - Labs CBC & Chem 7: 10/30/20 07:22 11/01/20 07:24 Assessment and Plan Plan: -Atrial fibrillation with rapid ventricular rate: cardiology following. -Congestive heart failure acute on chronic diastolic dysfunction, acute exacerbation: Possibly exacerbated by atrial fibrillation. 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 Wound care following and patient has been receiving wound care at the [facility] -Hypothyroidism -Diabetes mellitus type 2 -Hyperlipidemia -Gastroesophageal reflux disease -DVT prophylaxis: Coumadin although currently on hold as patient is supra therapeutic -GI prophylaxis: Protonix -No code
[2020-11-02] MEDS: INSULIN DETEMIR (LEVEMIR) 100 UNIT/ML SYR SQ SCH (21:48)
[2020-11-02] MEDS: MORPHINE SULFATE 2 MG/ML SYRINGE IVP PRN (21:53)
[2020-11-03] MEDS: FUROSEMIDE 10 MG/ML 4 ML VIAL IV SCH (07:38)
[2020-11-03] MEDS: MORPHINE SULFATE 2 MG/ML SYRINGE IVP PRN (07:38)
[2020-11-03] MEDS: METOPROLOL TARTRATE 25 MG TAB PO SCH ×2 (07:45→17:32)
[2020-11-03] MEDS: CHOLECALCIFEROL 1,000 UNIT TAB PO SCH (07:45)
[2020-11-03] MEDS: FERROUS SULFATE 325 MG TAB PO SCH (07:46)
[2020-11-03] MEDS: PANTOPRAZOLE 40 MG TABLET PO SCH (07:46)
[2020-11-03] MEDS: LEVOTHYROXINE 50 MCG TAB PO SCH (07:46)
[2020-11-03] MEDS: ZINC SULFATE 220 MG CAP PO SCH (07:46)
[2020-11-03] MEDS: LINAGLIPTIN 5 MG TABLET PO SCH (07:46)
[2020-11-03] MEDS: AMIODARONE 200 MG TAB PO SCH ×2 (07:47→20:33)
[2020-11-03] MEDS: INSULIN ASPART (NovoLOG) 100 UNIT/ML VIAL SQ SCH ×8 (07:47→20:34)
[2020-11-03] MEDS: ASCORBIC ACID 500 MG TAB PO SCH (07:47)
[2020-11-03] MEDS: CLOTRIMAZOLE/BETAMETH 1-0.05% CREAM 45 GM TUBE TOPICAL SCH ×2 (09:17→18:20)
[2020-11-03 09:30] LABS: Glucose,Whole Blood 120 mg/dL (75-99)
[2020-11-03 09:31] LABS: Glucose,Whole Blood 148 mg/dL (75-99)
[2020-11-03 09:31] LABS: Glucose,Whole Blood 132 mg/dL (75-99)
[2020-11-03 09:32] LABS: Prothrombin Time 53.2 sec (9.9-11.9)
[2020-11-03 09:33] LABS: Glucose,Whole Blood 127 mg/dL (75-99)
[2020-11-03 09:33] LABS: Glucose,Whole Blood 124 mg/dL (75-99)
[2020-11-03 09:34] LABS: Glucose,Whole Blood 128 mg/dL (75-99)
[2020-11-03 09:38] LABS: Glucose,Whole Blood 142 mg/dL (75-99)
[2020-11-03 09:39] LABS: Glucose,Whole Blood 185 mg/dL (75-99)
[2020-11-03 09:39] LABS: Glucose,Whole Blood 133 mg/dL (75-99)
[2020-11-03 09:40] LABS: Glucose,Whole Blood 133 mg/dL (75-99)
[2020-11-03 09:40] LABS: Glucose,Whole Blood 131 mg/dL (75-99)
[2020-11-03 09:40] LABS: Glucose,Whole Blood 131 mg/dL (75-99)
[2020-11-03 09:41] LABS: Glucose,Whole Blood 120 mg/dL (75-99)
[2020-11-03 09:59] LABS: INR 5.6 (0.90-1.11)
--- NOTE | 2020-11-03 11:15 | P.PN ---
Subjective 79-year-old female was recently admitted from [facility] on the [facility] facility for atrial fibrillation with rapid ventricular rate and was placed on metoprolol with medication adjustments made. Patient's blood pressure is quite low on admission and was given a dose of metoprolol although blood pressures continue to be low and patient was initiated on amiodarone. Cardiology consulted and pending at this time. Patient was also found to be Coumadin coagulable with an INR of 4.0 and will hold Coumadin and repeat labs. Patient continues to be quite edematous and bilateral upper extremities appear to be weeping in 1-2 pitting edema is noted. Patient is also known to have medical debility with generalized weakness and mostly bedbound and does have chronic stage II decubitus sacral ulcers and wound care has been consulted. Patient also has type 2 diabetes mellitus and will resume sliding scale and long-acting insulin. On exam patient is having pain of bilateral upper extremities and states she is leaking from her skin. Patient did have an indwelling Redmond catheter upon admission and will continue for strict intake and output. Patient's chest x-ray shows pulmonary edema with an abnormal increased density that is again noted in the left lung base with patchy perihilar vascular indistinctness. Will hold IV fluids and monitor vital signs and labs closely. Patient does have a history of chronic kidney disease and current creatinine is 1.37, sodium is 136, potassium elevated at 5.4 and will give a dose of Kayexalate. Hemoglobin is stable at 8.6 and white blood count is 7.0. Current BNP is 7080. Patient has a history of h ypothyroidism and medications were recently adjusted and will resume home medications. Patient currently denies any chest pain or shortness of breath. Patient is afebrile. Patient denies any nausea or vomiting or abdominal discomfort and is tolerating diet. 10/29/2020 Patient is seen and evaluated in follow-up with no acute overnight issues. Patient IV amiodarone was discontinued and was initiated on oral amiodarone and will continue with metoprolol. Cardiology following. INR today is 6.0 and will discuss with cardiology as patient is on Coumadin which may interact with amiodarone. Will repeat labs and monitor closely. Patient continues to have bilateral upper and lower extremity swelling and edema noted and was resumed on IV Lasix. Her creatinine is 1.56. TSH was found to be high and free T4 was drawn and is 1.13 and will continue with current dose of Synthroid. Patient's blood pressures on the lower side although stable in the 90s systolic. Wound care consulted for multiple stage II ulcerations of the sacral region as she has been receiving ongoing wound care while at [facility]. Appreciate wound care recommendations. PT/OT to evaluate the patient. Social work following this patient will likely return to [facility] once stabilized and discharged. 10/30/2020 Patient is seen in follow-up and INR is greater than 10 and will give vitamin K 10 mg and repeat labs. Amiodarone and metoprolol on hold as patient's blood pressures were in the 80s systolic. Lasix was also held due to blood pressures. Discussed with nursing staff about getting Lasix and blood pressure has been marginal. Patient continues to have bilateral upper and lower extremity edema with weeping noted and reports shortness of breath. Patient is maintained on 3 L of oxygen via nasal cannula. Current sodium is 134 with a potassium of 5.4 and creatinine is gone up to 1.87. A dose of Kayexalate was given and will repeat labs. Blood sugars continue to be monitored as patient is on sliding scale and with meal insulin along with long-acting although blood sugars have been on the lower side and these medications were held this morning. 10/31/2020 INR and basic metabolic profile is not available yet at this time. Patient is still on IV Lasix. Patient received vitamin K yesterday. Patient is still has significant anasarca. Patient received a Lopressor with improvement in the blood pressure as well as heart rate. Heart rate remains the low 100s patient is presently on 4 L of oxygen. Patient has externally poor functionality at baseline [facility] resident with some decubitus ulcerations. Her overall prognosis is poor because of her poor quality of life heart failure patient is m ore appropriate for comfort care and hospice same thing will be discussed with family members if available. Later in the day the nurse did discuss with me that patient is more awake and wanted to be hospice and the register knows that takes care of the patient believes patient can make her own decision I did go in to evaluate the patient, patient is agreeable with comfort care patient has 1 family member who is a cousin although not in contact with patient case was discussed with her as well by case management and they're agreeable and hospice and patient will be made hospice and comfort care possibility of discharge today or tomorrow depending on availability of bed at [facility] on hospice. 11/01/2020 Because of the financial issues and some case management issues were unable to discharge the patient with hospice. Blue under hospice will evaluate the patient today hopefully. 11/02/2020 Patient will be discharged today under hospice care 11/03/2020 Patient is barely responsive this time Objective - Vital Signs Vital signs: Vital Signs Temp 98.4 F 11/03/20 05:00 Pulse 91 11/03/20 05:00 Resp 18 11/03/20 05:00 BP 97/53 11/03/20 05:00 Pulse Ox 96 11/03/20 05:00 Intake & Output 11/02/20 11/03/20 11/03/20 18:59 06:59 18:59 Output Total 600 Balance -600 Output: Urine 600 2-way Urethral 300 Other: Voiding Method Indwelling Catheter Indwelling Catheter Indwelling Catheter # Voids 1 - Exam PHYSICAL EXAMINATION: GENERAL: Sleepy, mumbles unable to assess his orientation, not in any acute distress. Well developed, well nourished. HEENT: Pupils are round and equally reacting to light. EOMI. No scleral icterus. No conjunctival pallor. Normocephalic, atraumatic. No pharyngeal erythema. No thyromegaly. CARDIOVASCULAR: S1 and S2 present. No murmurs, rubs, or gallops. Tachycardic irregularly irregular rhythm PULMONARY: Chest is clear to auscultation, no wheezing or crackles. ABDOMEN: Soft, nontender, nondistended, normoactive bowel sounds. No palpable organomegaly. MUSCULOSKELETAL: No joint swelling or deformity. EXTREMITIES: No cyanosis, clubbing, significant anasarca with edema 2+ pitting in the upper and lower extremities. NEUROLOGICAL: Unable to clearly assess SKIN: Multiple decubitus ulcerations including sacral ulcers as noted in the past - Labs CBC & Chem 7: 10/30/20 07:22 11/01/20 07:24 Labs: Abnormal Lab Results - Last 24 Hours (Table) 10/31/20 10/31/20 10/31/20 Range/Units 06:10 11:52 16:59 PT (9.9-11.9) sec INR (0.90-1.11) POC Glucose (mg/dL) 120 H 132 H 142 H (75-99) mg/dL 10/31/20 10/31/20 11/01/20 Range/Units 17:54 20:05 06:06 PT (9.9-11.9) sec INR (0.90-1.11) POC Glucose (mg/dL) 148 H 185 H 133 H (75-99) mg/dL 11/01/20 11/01/20 11/01/20 Range/Units 12:15 16:35 20:32 PT (9.9-11.9) sec INR (0.90-1.11) POC Glucose (mg/dL) 127 H 124 H 133 H (75-99) mg/dL 11/02/20 11/02/20 11/02/20 Range/Units 06:17 11:45 16:47 PT (9.9-11.9) sec INR (0.90-1.11) POC Glucose (mg/dL) 131 H 128 H 131 H (75-99) mg/dL 11/03/20 11/03/20 Range/Units 06:12 07:31 PT 53.2 H (9.9-11.9) sec INR 5.60 H* (0.90-1.11) POC Glucose (mg/dL) 120 H (75-99) mg/dL Assessment and Plan Plan: -Atrial fibrillation with rapid ventricular rate: cardiology following. -Congestive heart failure acute on chronic diastolic dysfunction, acute exacerbation: Possibly exacerbated by atrial fibrillation. 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 Wound care following and patient has been receiving wound care at the [facility] -Hypothyroidism -Diabetes mellitus type 2 -Hyperlipidemia -Gastroesophageal reflux disease -DVT prophylaxis: Coumadin although currently on hold as patient is supratherapeutic -GI prophylaxis: Protonix -No code
[2020-11-03 12:11] LABS: Glucose,Whole Blood 116 mg/dL (75-99)
[2020-11-03 16:16] LABS: Glucose,Whole Blood 116 mg/dL (75-99)
[2020-11-03 20:32] LABS: Glucose,Whole Blood 127 mg/dL (75-99)
[2020-11-03] MEDS: INSULIN DETEMIR (LEVEMIR) 100 UNIT/ML SYR SQ SCH (20:34)
[2020-11-04] MEDS: MORPHINE SULFATE 2 MG/ML SYRINGE IVP PRN ×4 (00:02→23:42)
[2020-11-04] MEDS: CLOTRIMAZOLE/BETAMETH 1-0.05% CREAM 45 GM TUBE TOPICAL SCH ×2 (05:10→17:44)
[2020-11-04] MEDS: LINAGLIPTIN 5 MG TABLET PO SCH (05:11)
[2020-11-04] MEDS: LEVOTHYROXINE 50 MCG TAB PO SCH (05:11)
[2020-11-04] MEDS: FERROUS SULFATE 325 MG TAB PO SCH (05:11)
[2020-11-04 07:23] LABS: Glucose,Whole Blood 114 mg/dL (75-99)
[2020-11-04] MEDS: INSULIN ASPART (NovoLOG) 100 UNIT/ML VIAL SQ SCH ×4 (07:25→12:04)
[2020-11-04] MEDS: FUROSEMIDE 10 MG/ML 4 ML VIAL IV SCH (09:23)
[2020-11-04] MEDS: PANTOPRAZOLE 40 MG TABLET PO SCH (09:28)
[2020-11-04] MEDS: AMIODARONE 200 MG TAB PO SCH ×2 (09:30→20:30)
[2020-11-04] MEDS: ASCORBIC ACID 500 MG TAB PO SCH (09:31)
[2020-11-04] MEDS: METOPROLOL TARTRATE 25 MG TAB PO SCH ×2 (09:31→17:45)
[2020-11-04] MEDS: CHOLECALCIFEROL 1,000 UNIT TAB PO SCH (09:31)
[2020-11-04] MEDS: ZINC SULFATE 220 MG CAP PO SCH (09:32)
[2020-11-04 11:58] LABS: Glucose,Whole Blood 118 mg/dL (75-99)
[2020-11-04 12:44] VITALS: BMI 34.4
--- NOTE | 2020-11-04 12:53 | P.DS ---
Providers Date of admission: 10/28/20 14:05 Expected date of discharge: 11/04/20 Attending physician: Jignesh Arias Primary care physician: Carlos Fagan Hospital Course: Final diagnosis -Atrial fibrillation with rapid ventricular rate -Congestive heart failure acute on chronic diastolic dysfunction, acute exacerbation: Possibly exacerbated by atrial fibrillation. -Pulmonary edema secondary to above -Coumadin coagulopathy -Recent Covid 19 pneumonia -Chronic kidney disease stage III possibly due to diabetic nephropathy -Chronic stage II decubitus, sacral, left hip ulcers: Patient is bedbound -Hypothyroidism -Diabetes mellitus type 2 -Hyperlipidemia -Gastroesophageal reflux disease -DVT prophylaxis -GI prophylaxis -No code Discharge disposition Patient is being discharged in a stable condition with guarded and poor prognosis to hospice house. Patient will be hospice with comfort measures upon discharge. Total time taken is greater than 35 minutes. History of present illness This is an 79-year-old female who was recently admitted with atrial fibrillation with rapid ventricular rate and was being closely monitored. Patient was staying at [facility] for continued PT/OT therapy and was recently diagnosed with Covid 19. She was admitted previously for atrial fibrillation with RVR and was seen by cardiology. Patient was seen and evaluated again by cardiology and made adjustments to medications and was initiated originally on an amiodarone drip. Metoprolol was adjusted and patient was started on oral amiodarone. Patient continued to have low blood pressures with bilateral upper and lower extremity weeping and severe pulmonary edema. Patient was on 3 L of oxygen via nasal cannula. Patient also has history of multiple decubitus, left lower extremity, coccyx sacral area stage II ulcers. Patient continued to deteriorate clinically and was requesting hospice with comfort care measures. Family is agreeable with this treatment plan. Patient over the last few days continues to deteriorate and has not eaten and is not taking any by mouth medications. Patient continues to want to be made just comfortable. Hospice with comfort measures is appropriate for this patient. CODE STATUS was changed to no code as well. Patient has also become nonverbal and only moans in pain with position changes. No reports of chest pain or shortness of breath. Patient has been afebrile. Prognosis is extremely poor and guarded and clinical status continues to deteriorate. On exam vital signs are stable. Temp is 97.6F, pulse is 74, respirations are 20, blood pressure is 122/55, oxygen saturation is 93% on 4 liters via nasal cannula. Cardio S1, S2 are muffled. Respiratory system shows diminished breath sounds at the bases with scattered rhonchi and crackles noted. Abdomen is soft and obese, and nontender. Nervous system shows diffuse weakness. Please refer to medication reconciliation sheet for a list of medications. Patient Condition at Discharge: Poor Plan - Discharge Summary Discharge Rx Participant: No New Discharge Prescriptions: Discontinued Potassium Chloride ER [K-Dur 20] 20 meq PO DAILY@0600 Furosemide [Lasix] 40 mg PO DAILY@0600 Atorvastatin [Lipitor] 20 mg PO HS@2100 Pantoprazole [Protonix] 40 mg PO DAILY@0900 Polyethylene Glycol 3350 [Miralax] 17 gm PO DAILY PRN PRN Reason: Constipation Ferrous Sulfate [Iron (65 MG Elemental)] 325 mg PO DAILY@0600 Nitroglycerin Sl Tabs [Nitrostat] 0.4 mg SUBLINGUAL Q5M PRN tab PRN Reason: Chest Pain traMADol HCL 50 mg PO Q12H PRN #3 tab PRN Reason: Pain Ipratropium-Albuterol Nebulize [Duoneb 0.5 mg-3 mg/3 ml Soln] 3 ml INHALATION RT-Q4H PRN PRN Reason: Shortness Of Breath Insulin Lispro [humaLOG Kwikpen] 2 unit SQ ACHS@08,12,17,22 Prostat Awc 30 ml PO BID@0900,1700 Glucerna Shake 1 can PO BID@0900,1700 Zinc 50 mg PO DAILY@0900 Cholecalciferol [Vitamin D3 (25 Mcg = 1000 Iu)] 2,000 unit PO DAILY@0900 Linagliptin [Tradjenta] 5 mg PO DAILY@0600 Insulin Glargine,Hum.rec.anlog [Basaglar Kwikpen U-100] 10 unit SQ HS@2200 Ascorbic Acid [Vitamin C] 500 mg PO DAILY@0900 Collagenase [Santyl] 1 applic TOPICAL HS Triad Hydrophilic Wound Dress 1 applic TOPICAL DAILY PRN PRN Reason: LEFT POSTERIOR THIGH WOUND Clotrimazole/Betamethasone Dip [Lotrisone Cream] 1 applic TOPICAL Q12H Levothyroxine Sodium [Synthroid] 50 mcg PO DAILY@0900 Metoprolol Tartrate [Lopressor] 50 mg PO BID@0900,1700 Warfarin [Coumadin] 3 mg PO MOTH Warfarin [Coumadin] 2.5 mg PO SUTUWEFRSA Follow up Appointment(s)/Referral(s): Carlos Fagan MD [Primary Care Provider] - 1-2 days Activity/Diet/Wound Care/Special Instructions: Patient is going to hospice house Discharge Disposition: DISCH TO HOSPICE MED FACILTY
--- NOTE | 2020-11-04 14:09 | P.PN ---
Subjective Progress Note Date: 11/04/20 79-year-old female was recently admitted from [facility] on the [facility] facility for atrial fibrillation with rapid ventricular rate and was placed on metoprolol with medication adjustments made. Patient's blood pressure is quite low on admission and was given a dose of metoprolol although blood pressures continue to be low and patient was initiated on amiodarone. Cardiology consulted and pending at this time. Patient was also found to be Coumadin coagulable with an INR of 4.0 and will hold Coumadin and repeat labs. Patient continues to be quite edematous and bilateral upper extremities appear to be weeping in 1-2 pitting edema is noted. Patient is also known to have medical debility with generalized weakness and mostly bedbound and does have chronic stage II decubitus sacral ulcers and wound care has been consulted. Patient also has type 2 diabetes mellitus and will resume sliding scale and long-acting insulin. On exam patient is having pain of bilateral upper extremities and states she is leaking from her skin. Patient did have an indwelling Redmond catheter upon admission and will continue for strict intake and output. Patient's chest x-ray shows pulmonary edema with an abnormal increased density that is again noted in the left lung base with patchy perihilar vascular indistinctness. Will hold IV fluids and monitor vital signs and labs closely. Patient does have a history of chronic kidney disease and current creatinine is 1.37, sodium is 136, potassium elevated at 5.4 and will give a dose of Kayexalate. Hemoglobin is stable at 8.6 and white blood count is 7.0. Current BNP is 7080. Patient has a history of hypothyroidism and medications were recently adjusted and will resume home medications. Patient currently denies any chest pain or shortness of breath. Patient is afebrile. Patient denies any nausea or vomiting or abdominal discomfort and is tolerating diet. 10/29/2020 Patient is seen and evaluated in follow-up with no acute overnight issues. Patient IV amiodarone was discontinued and was initiated on oral amiodarone and will continue with metoprolol. Cardiology following. INR today is 6.0 and will discuss with cardiology as patient is on Coumadin which may interact with amiodarone. Will repeat labs and monitor closely. Patient continues to have bilateral upper and lower extremity swelling and edema noted and was resumed on IV Lasix. Her creatinine is 1.56. TSH was found to be high and free T4 was drawn and is 1.13 and will continue with current dose of Synthroid. Patient's blood pressures on the lower side although stable in the 90s systolic. Wound care consulted for multiple stage II ulcerations of the sacral region as she has been receiving ongoing wound care while at [facility]. Appreciate wound care recommendations. PT/OT to evaluate the patient. Social work following this patient will likely return to [facility] once stabilized and discharged. 10/30/2020 Patient is seen in follow-up and INR is greater than 10 and will give vitamin K 10 mg and repeat labs. Amiodarone and metoprolol on hold as patient's blood pressures were in the 80s systolic. Lasix was also held due to blood pressures. Discussed with nursing staff about getting Lasix and blood pressure has been marginal. Patient continues to have bilateral upper and lower extremity edema with weeping noted and reports shortness of breath. Patient is maintained on 3 L of oxygen via nasal cannula. Current sodium is 134 with a potassium of 5.4 and creatinine is gone up to 1.87. A dose of Kayexalate was given and will repeat labs. Blood sugars continue to be monitored as patient is on sliding scale and with meal insulin along with long-acting although blood sugars have been on the lower side and these medications were held this morning. 10/31/2020 INR and basic metabolic profile is not available yet at this time. Patient is still on IV Lasix. Patient received vitamin K yesterday. Patient is still has significant anasarca. Patient received a Lopressor with improvement in the blood pressure as well as heart rate. Heart rate remains the low 100s patient is presently on 4 L of oxygen. Patient has externally poor functionality at baseline long-term resident with some decubitus ulcerations. Her overall prognosis is poor because of her poor quality of life heart failure patient is more appropriate for comfort care and hospice same thing will be discussed with family members if available. Later in the day the nurse did discuss with me th at patient is more awake and wanted to be hospice and the register knows that takes care of the patient believes patient can make her own decision I did go in to evaluate the patient, patient is agreeable with comfort care patient has 1 family member who is a cousin although not in contact with patient case was discussed with her as well by case management and they're agreeable and hospice and patient will be made hospice and comfort care possibility of discharge today or tomorrow depending on availability of bed at long-term on hospice. 11/01/2020 Because of the financial issues and some case management issues were unable to discharge the patient with hospice. Blue under hospice will evaluate the patient today hopefully. 11/02/2020 Patient will be discharged today under hospice care 11/03/2020 Patient is barely responsive this time 11/04/2020 Patient is nonverbal and only moans out in pain with position changes. Not eating and is not taking any oral medications. Case management and social work following and looking for possible placement for hospice. Legal issues regardin g power of environmental attorney and cousin currently working on obtaining guardianship to be able to make these decisions. Hospice house in [place] stating they're unable to accommodate the patient due to Covid 19 and social work working on other accepting facilities. Will need guardianship for placement. Prognosis is extremely poor as patient's clinical status continues to deteriorate. Objective - Vital Signs Vital signs: Vital Signs Temp 97.6 F 11/04/20 11:00 Pulse 71 11/04/20 11:00 Resp 15 11/04/20 11:00 BP 117/50 11/04/20 11:00 Pulse Ox 95 11/04/20 11:00 Intake & Output 11/03/20 11/04/20 11/04/20 18:59 06:59 18:59 Intake Total 0 0 Output Total 250 600 Balance -250 -600 Weight 91 kg 91 kg Intake: Oral 0 0 Output: Urine 250 600 Other: Voiding Method Indwelling Catheter Indwelling Catheter Indwelling Catheter - Exam GENERAL: Sleeping and unarousable, mumbles in pain, unable to assess orientation. Well developed, well nourished. Obese. HEENT: Pupils are round and equally reacting to light. EOMI. No scleral icterus. No conjunctival pallor. Normocephalic, atraumatic. No pharyngeal erythema. No thyromegaly. Oral mucosa is dry CARDIOVASCULAR: S1 and S2 present. No murmurs, rubs, or gallops. Tachycardic irregularly irregular rhythm PULMONARY: Diminished breath sounds bilaterally with some scattered rhonchi and crackles noted ABDOMEN: Soft, nontender, nondistended, normoactive bowel sounds. No palpable organomegaly. MUSCULOSKELETAL: No joint swelling or deformity. EXTREMITIES: No cyanosis, clubbing, significant anasarca with edema 2+ pitting in the upper and lower extremities. NEUROLOGICAL: Unable to clearly assess SKIN: Multiple decubitus ulcerations including sacral ulcers as noted in the past - Labs CBC & Chem 7: 10/30/20 07:22 11/01/20 07:24 Labs: Abnormal Lab Results - Last 24 Hours (Table) 11/03/20 11/03/20 11/04/20 Range/Units 16:13 20:24 07:21 POC Glucose (mg/dL) 116 H 127 H 114 H (75-99) mg/dL 11/04/20 Range/Units 11:51 POC Glucose (mg/dL) 118 H (75-99) mg/dL Assessment and Plan Assessment: -Atrial fibrillation with rapid ventricular rate: cardiology following. -Congestive heart failure acute on chronic diastolic dysfunction, acute exace rbation: Possibly exacerbated by atrial fibrillation. -Pulmonary edema secondary to above -Coumadin coagulopathy -Recent Covid 19 pneumonia -Chronic kidney disease stage III possibly due to diabetic nephropathy -Chronic stage II decubitus, sacral, left hip ulcers: Patient is bedbound. Wound care following and patient has been receiving wound care at the [facility] -Hypothyroidism -Diabetes mellitus type 2 -Hyperlipidemia -Gastroesophageal reflux disease -DVT prophylaxis: Coumadin although currently on hold as patient is supratherapeutic -GI prophylaxis: Protonix -No code Plan: Case management and social work following making attempts for hospice placement at an accepting facility. [facility] house unable to accommodate due to recent Covid 19 infection. Cousin who is the next of kin is currently working on guardianship in order to place this patient at an accepting facility with h ospice and comfort measures. Patient's prognosis is extremely poor and guarded. Further recommendations to follow.
[2020-11-04 21:39] LABS: Glucose,Whole Blood 133 mg/dL (75-99)
[2020-11-04] MEDS: INSULIN DETEMIR (LEVEMIR) 100 UNIT/ML SYR SQ SCH (21:43)
[2020-11-05 05:11] VITALS: BP 77/40; PULSE 80; RESP 12; TEMP 94.4
[2020-11-05] MEDS: FERROUS SULFATE 325 MG TAB PO SCH (06:51)
[2020-11-05] MEDS: LINAGLIPTIN 5 MG TABLET PO SCH (06:51)
[2020-11-05] MEDS: CLOTRIMAZOLE/BETAMETH 1-0.05% CREAM 45 GM TUBE TOPICAL SCH (06:51)
[2020-11-05] MEDS: LEVOTHYROXINE 50 MCG TAB PO SCH (06:51)
[2020-11-05] MEDS: AMIODARONE 200 MG TAB PO SCH (08:33)
[2020-11-05] MEDS: PANTOPRAZOLE 40 MG TABLET PO SCH (08:33)
[2020-11-05] MEDS: CHOLECALCIFEROL 1,000 UNIT TAB PO SCH (08:34)
[2020-11-05] MEDS: METOPROLOL TARTRATE 25 MG TAB PO SCH (08:34)
[2020-11-05] MEDS: ASCORBIC ACID 500 MG TAB PO SCH (08:34)
[2020-11-05] MEDS: ZINC SULFATE 220 MG CAP PO SCH (08:36)
[2020-11-05] MEDS ORDERED: SCOPOLAMINE 1.5MG/72HR PATCH TRANSDERM STA (09:08)
[2020-11-05] MEDS ORDERED: LORazepam 2 MG/ML INJ IV PRN (09:08)
[2020-11-05] MEDS: FUROSEMIDE 10 MG/ML 4 ML VIAL IV SCH (09:50)
--- NOTE | 2020-11-05 14:35 | P.DS ---
Providers Date of admission: 10/28/20 14:05 Expected date of discharge: 11/05/20 Attending physician: Jignesh Arias Primary care physician: Carlos Fagan Hospital Course: Final diagnosis -Atrial fibrillation with rapid ventricular rate. -Congestive heart failure acute on chronic diastolic dysfunction, acute exacerbation: Possibly exacerbated by atrial fibrillation. -Pulmonary edema secondary to above -Coumadin coagulopathy -Recent Covid 19 pneumonia -Chronic kidney disease stage III possibly due to diabetic nephropathy -Chronic stage II decubitus, sacral, left hip ulcers: Patient bedbound -Hypothyroidism -Diabetes mellitus type 2 -Hyperlipidemia -Gastroesophageal reflux disease -DVT prophylaxis -GI prophylaxis -No code Discharge disposition Patient has . Nursing notes time of 1125 on 11/05/2020. Next of kin Mac Llanes notified. Preliminary cause of Congestive heart failure acute on chronic diastolic dysfunction with acute exacerbation, atrial fibrillation with rapid ventricular rate, recent Covid 19 pneumonia, Coumadin coagulopathy Hospital course This is an 79-year-old female who was recently admitted with atrial fibrillation with a rapid ventricular rate along with recent Covid 19 pneumonia and was being closely monitored. Patient was seen and evaluated by cardiology and initially placed on amiodarone drip and transition to oral and resumed on metoprolol. Patient was also having bilateral upper and lower extremity anasarca with swelling and edema with 3+ pitting. Patient's clinical status continued to deteriorate and patient was requesting hospice and comfort care. Patient's next of kin Mac Llanes notified and was agreeable with patient's wishes and was currently working on guardianship as patient continued to be quite weak and lethargic and somnolent at times. Patient continue to refuse medications and refused to eat and continued to request comfort care measures only. Consult was placed for hospice although patient prior to hospice consult with the family. Please refer to previous dictations for further HPI Patient Condition at Discharge: Poor Plan - Discharge Summary Discharge Rx Participant: No New Discharge Prescriptions: Discontinued Potassium Chloride ER [K-Dur 20] 20 meq PO DAILY@0600 Furosemide [Lasix] 40 mg PO DAILY@0600 Atorvastatin [Lipitor] 20 mg PO HS@2100 Pantoprazole [Protonix] 40 mg PO DAILY@0900 Polyethylene Glycol 3350 [Miralax] 17 gm PO DAILY PRN PRN Reason: Constipation Ferrous Sulfate [Iron (65 MG Elemental)] 325 mg PO DAILY@0600 Nitroglycerin Sl Tabs [Nitrostat] 0.4 mg SUBLINGUAL Q5M PRN tab PRN Reason: Chest Pain traMADol HCL 50 mg PO Q12H PRN #3 tab PRN Reason: Pain Ipratropium-Albuterol Nebulize [Duoneb 0.5 mg-3 mg/3 ml Soln] 3 ml INHALATION RT-Q4H PRN PRN Reason: Shortness Of Breath Insulin Lispro [humaLOG Kwikpen] 2 unit SQ ACHS@08,12,17,22 Prostat Awc 30 ml PO BID@0900,1700 Glucerna Shake 1 can PO BID@0900,1700 Zinc 50 mg PO DAILY@0900 Cholecalciferol [Vitamin D3 (25 Mcg = 1000 Iu)] 2,000 unit PO DAILY@0900 Linagliptin [Tradjenta] 5 mg PO DAILY@0600 Insulin Glargine,Hum.rec.anlog [Basaglar Kwikpen U-100] 10 unit SQ HS@2200 Ascorbic Acid [Vitamin C] 500 mg PO DAILY@0900 Collagenase [Santyl] 1 applic TOPICAL HS Triad Hydrophilic Wound Dress 1 applic TOPICAL DAILY PRN PRN Reason: LEFT POSTERIOR THIGH WOUND Clotrimazole/Betamethasone Dip [Lotrisone Cream] 1 applic TOPICAL Q12H Levothyroxine Sodium [Synthroid] 50 mcg PO DAILY@0900 Metoprolol Tartrate [Lopressor] 50 mg PO BID@0900,1700 Warfarin [Coumadin] 3 mg PO MOTH Warfarin [Coumadin] 2.5 mg PO SUTUWEFRSA Follow up Appointment(s)/Referral(s): Carlos Fagan MD [Primary Care Provider] - 1-2 days Activity/Diet/Wound Care/Special Instructions: Patient Please refer to nursing notes for time of Discharge Disposition: - Preliminary Cause of Preliminary Cause of : CHF chronic diastolic dysfunction, A. fib with RVR, recent Covid 19 PNA
== END 2020-11-05 13:55 | disposition expired | DRG 308 ==
LOC: EC 11:10 → 3SCARD 14:05 → 6NMEDSUR 11-02 18:09
PROVIDERS: ADMIT Hospitalist; ATTEND Hospitalist
PROC: 05HD33Z Insertion of Infusion Device into Right Cephalic Vein, Percutaneous Approach (ICD-10-PCS; principal; 2020-10-30 07:30)
DX: I48.0 Paroxysmal atrial fibrillation (principal); I50.33 Acute on chronic diastolic (congestive) heart failure; I13.0 Hypertensive heart and chronic kidney disease with heart failure and stage 1 through stage 4 chronic kidney disease, or unspecified chronic kidney disease; L89.152 Pressure ulcer of sacral region, stage 2; L89.222 Pressure ulcer of left hip, stage 2; L89.322 Pressure ulcer of left buttock, stage 2; N18.30 Chronic kidney disease, stage 3 unspecified; R79.1 Abnormal coagulation profile; E03.9 Hypothyroidism, unspecified; E11.22 Type 2 diabetes mellitus with diabetic chronic kidney disease; K21.9 Gastro-esophageal reflux disease without esophagitis; T45.515A Adverse effect of anticoagulants, initial encounter; Z74.01 Bed confinement status; I95.9 Hypotension, unspecified; Z95.2 Presence of prosthetic heart valve; N39.46 Mixed incontinence; E78.5 Hyperlipidemia, unspecified; E87.5 Hyperkalemia; E66.9 Obesity, unspecified; Z86.19 Personal history of other infectious and parasitic diseases; Z68.33 Body mass index [BMI] 33.0-33.9, adult; Z66 Do not resuscitate; I08.3 Combined rheumatic disorders of mitral, aortic and tricuspid valves; Z87.01 Personal history of pneumonia (recurrent); Z59.9 Problem related to housing and economic circumstances, unspecified; Z79.01 Long term (current) use of anticoagulants; Z79.4 Long term (current) use of insulin; Z79.890 Hormone replacement therapy; Z79.899 Other long term (current) drug therapy; Z85.068 Personal history of other malignant neoplasm of small intestine; Z87.891 Personal history of nicotine dependence; R53.81 Other malaise; R26.9 Unspecified abnormalities of gait and mobility; Z90.89 Acquired absence of other organs
CPT/HCPCS: 36410; 36415; 51701; 70450; 71045; 76937; 80048; 80053; 81001; 83735; 83880; 84439; 84443; 84484; 85025; 85610; 85730; 86140; 87070; 87075; 87077; 87186; 87205; 93005; 94760; 96361; 96365; 96366; 96375; 99285; 99291